=== PATIENT | female | born 1945 | race Caucasian/White ===

== ENCOUNTER 2023-05-13 13:12 | Day surgery (SDC) | payer MEDICARE, SELFPAY ==
--- NOTE | 2023-05-13 13:16 | FL_ITS ---
The [address] [address] Patient Name: SELVIN LINARES MRN: [id number] date: 1945 Sex: F Assigned Patient Location: [place] Current Patient Location: Accession/Order Number: [id number] Exam Date: 05/13/2023 13:30 Report Date: 05/13/2023 16:15 At the request of: ABBIE FONTENOT Procedure: FL guided needle placement EXAMINATION: FL hip inj LT, FL guided needle placement HISTORY: Osteoarthritis Left Hip COMPARISON: No relevant comparison available. FLUOROSCOPY TIME: Fluoro time measures 1.5 minutes and 3 images were obtained. TECHNIQUE: A joint injection was performed in the usual sterile manner after obtaining informed consent. Standard level fluoroscopic mode of operation utilized. FINDINGS: JOINT: Left hip. NEEDLE: 22 gauge, 3.5 spinal needle. MEDICATION: 5cc buffered 1% lidocaine for subcutaneous anesthesia 2cc Omnipaque-300 iodinated contrast to visualize the joint space Mixture of Kenalog 40 mg, 0.5% Bupivacaine 2 mL and Omnipaque 300 10mL was injected into the joint space. TECHNIQUE: Anterior approach with prior localization of the femoral artery. A single stick was successful in gaining access to the joint space. CLINICAL: 3 out of 10 pain before the procedure. 2 out of 10 pain following the procedure COMPLICATIONS: None. OTHER: Negative. FL/FL guided needle placement IMPRESSION: Technically successful left hip therapeutic arthrogram Electronically authenticated by: KRISHNA MATHEWS Date: 05/13/2023 16:15
--- NOTE | 2023-05-13 13:16 | FL_ITS ---
The [address] [address] Patient Name: SELVIN LINARES MRN: [id number] date: 1945 Sex: F Assigned Patient Location: [place] Current Patient Location: Accession/Order Number: [id number] Exam Date: 05/13/2023 13:30 Report Date: 05/13/2023 16:15 At the request of: ABBIE FONTENOT Procedure: FL hip inj LT EXAMINATION: FL hip inj LT, FL guided needle placement HISTORY: Osteoarthritis Left Hip COMPARISON: No relevant comparison available. FLUOROSCOPY TIME: Fluoro time measures 1.5 minutes and 3 images were obtained. TECHNIQUE: A joint injection was performed in the usual sterile manner after obtaining informed consent. Standard level fluoroscopic mode of operation utilized. FINDINGS: JOINT: Left hip. NEEDLE: 22 gauge, 3.5 spinal needle. MEDICATION: 5cc buffered 1% lidocaine for subcutaneous anesthesia 2cc Omnipaque-300 iodinated contrast to visualize the joint space Mixture of Kenalog 40 mg, 0.5% Bupivacaine 2 mL and Omnipaque 300 10mL was injected into the joint space. TECHNIQUE: Anterior approach with prior localization of the femoral artery. A single stick was successful in gaining access to the joint space. CLINICAL: 3 out of 10 pain before the procedure. 2 out of 10 pain following the procedure COMPLICATIONS: None. OTHER: Negative. FL/FL hip inj LT IMPRESSION: Technically successful left hip therapeutic arthrogram Electronically authenticated by: KRISHNA MATHEWS Date: 05/13/2023 16:15
[2023-05-13] MEDS: TRIAMCINOLONE ACETONIDE 40 MG/ML VIAL INJ (14:00)
[2023-05-13] MEDS: LIDOCAINE HCL 10 ML, SODIUM BICARBONATE 1 MEQ INJ (14:00)
[2023-05-13] MEDS: BUPIVACAINE HCL 0.5% PF 50 MG/10 ML VIAL 2 ML INJ (14:00)
[2023-05-13 14:48] VITALS: BMI 27.1
--- NOTE | 2023-05-13 15:17 | PC.NURSE ---
For both pain assessments they are on the left hip . The right hip entries were incorrect.
== END 2023-05-13 14:20 | disposition home or self-care (01) ==
LOC: FL 13:12
PROVIDERS: Radiology Diagnostic Radiology; PCP Family Medicine; Visit Provider Personal Emergency Response Attendant
DX: M16.12 Unilateral primary osteoarthritis, left hip (principal)
CPT/HCPCS: 20610; 77002; Q9967

== ENCOUNTER 2023-09-02 12:06 | Outpatient (OUT) | payer MEDICARE, SELFPAY ==
[2023-09-02 13:30] LABS: Alanine Aminotransferase 29 U/L (14-59); Albumin Globulin Ratio 0.9; Albumin Level 3.4 g/dL (3.4-5.0); Alkaline Phosphatase 91 U/L (46-116); Anion Gap 10.6; Aspartate Amino Transferase 22 U/L (15-37); BUN Creatinine Ratio 10.2; Bilirubin Total 0.3 mg/dL (0.2-1.0); Calcium 9.2 mg/dL (8.5-10.1); Carbon Dioxide 27.3 mmol/L (21.0-32.0); Chloride 89 mmol/L (98-107); Estimated GFR (African America >60 (>=60); Estimated GFR (Non-African Ame 55 (>=60); Globulin 3.6 g/dL; Glucose 122 mg/dL (74-106); Potassium 3.9 mmol/L (3.5-5.1)
[2023-09-02 13:48] LABS: Sodium 123 mmol/L (136-145)
== END 2023-09-02 12:07 | disposition home or self-care (01) ==
LOC: LAB 12:08
PROVIDERS: PCP Family Medicine; Visit Provider Family Medicine
DX: I10 Essential (primary) hypertension (principal)
CPT/HCPCS: 36415; 80053

== ENCOUNTER 2023-09-02 15:50 | Inpatient (IN) | payer MEDICARE, SELFPAY ==
[2023-09-02] VITALS (16 sets, daily range): BP systolic 160–190; BP diastolic 91–101; PULSE 76–108; RESP 6–21; TEMP 36.2; O2SAT 95–97; BMI 34.0; BMI 34.8; BMI 34.4
--- NOTE | 2023-09-02 16:06 | ECG_ITS ---
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
--- NOTE | 2023-09-02 16:06 | XR_ITS ---
The [address] [address] Patient Name: SELVIN LINARES MRN: [id number] date: 1945 Sex: F Assigned Patient Location: ER Current Patient Location: ER Accession/Order Number: [id number] Exam Date: 09/02/2023 16:23 Report Date: 09/02/2023 16:44 At the request of: RANDI MARVIN Procedure: XR chest 1V EXAM: XR chest 1V at 1621 hours HISTORY: covid on 08/31/2023 COMPARISON: 05/21/2015 TECHNIQUE: AP upright portable chest x-ray FINDINGS: The heart is not enlarged and the vasculature is not distended. No acute infiltrate, effusion or pneumothorax is identified. The osseous structures are grossly intact. Surgical clips are seen along the right chest wall, possibly related to mastectomy. There is been interval removal of the indwelling catheter on the left side. XR/XR chest 1V IMPRESSION: No acute infiltrate or evidence of cardiac decompensation. Interval surgery on the right and the indwelling catheter on the left has been removed. Electronically authenticated by: GERMAINE ONTIVEROS Date: 09/02/2023 16:44
--- NOTE | 2023-09-02 16:12 | ED_ITS ---
HPI - General Adult General Chief complaint: Recheck/Abnormal Lab/Rx Stated complaint: doc told her to come in d/t abnormal labs Time Seen by Provider: 09/02/23 15:57 Source: patient Mode of arrival: Wheelchair Limitations: no limitations History of Present Illness HPI narrative: Patient is a 77-year-old female who is presenting to the Emergency Room with chief complaint of low sodium levels from a lab test was done today. Patient's PCP Dr. Saenz called The patient at home and told her to go to the Emergency Room for evaluation of sodium levels. It was reported the patient's sodium level was 123. Patient just tested positive for COVID on Tuesday. Patient's had 3 days of Paxlovid medication treatment for Covid. Patient Tuesday night, 6 days ago had a headache, nausea or vomiting, she has no current headache this week, no nausea vomiting this week. Patient has been having diarrhea from the Paxlovid that she's been taking since Tuesday. Patient drove to the Emergency Room today. Patient was a home with a dog by herself. Patient has no chest pain or shortness of breath. No dull pain, nausea vomiting, no other acute complaints. No urinary symptoms. Patient says that she has a history of having low sodium levels, she cannot recall what the level is exactly. . All systems are negative except as noted/marked. All systems reviewed and otherwise negative. . Nurses note and vital signs reviewed and patient is not hypoxic. General: The patient appears well and in no apparent distress. Patient is resting comfortably on cart. Patient is not toxic, lethargic, or listless Skin: Warm, dry, no pallor noted. There is no rash noted. No petechiae, purpura. Head: Normocephalic, atraumatic Eye: Normal conjunctiva, no drainage, EOMI. PERRL Ears, Nose, Mouth, and Throat: oral mucosa is moist. Nares patent. Mouth without vesicles. Cardiovascular: Regular Rate and Rhythm, no murmur, gallop, rub Respiratory: Patient is in no distress, no accessory muscle use, lungs are clear to auscultation, no wheezing, rales or rhonchi Back: non-tender, no CVA tenderness bilaterally to percussion. No CT LS midline pain GI: soft, no tenderness to palpation, no masses appreciated. No rebound, guarding, or rigidity noted. No flank pain bilateral, No distention Musculoskeletal: Patient has full range of motion of all of the extremities, no motor, sensory, or focal neurological deficits Neurological: A&O x3, normal speech Psychiatric: Cooperative Related Data Home Medications Medication Instructions Recorded Confirmed baclofen 10 mg tablet 10 mg PO DAILY 05/13/23 08/02/23 cholecalciferol (vitamin D3) 250 10,000 unit PO DAILY 05/13/23 08/02/23 mcg (10,000 unit) capsule fulvestrant 250 mg/5 mL 500 mg IM .monthly 05/13/23 08/02/23 intramuscular syringe latanoprost 0.005 % eye drops 1 drp ophthalmic (eye) QPM 05/13/23 08/02/23 lorazepam 0.5 mg tablet 0.5 mg PO BID PRN anxiety 05/13/23 08/02/23 multivitamin 1 tab PO DAILY 05/13/23 08/02/23 ribociclib 400 mg/day (200 mg x 2) 400 mg PO DAILY 05/13/23 08/02/23 tablets (Kisqali) Allergies Allergy/AdvReac Type Severity Reaction Status Date / Time citalopram Allergy Unknown Verified 05/12/23 14:10 [facility] Medical History (Updated 09/02/23 @ 20:15 by Blanco Ramos MD) Acquired lymphedema ?I89.0 - Lymphedema, not elsewhere classified (ICD-10) Mass of chest wall, left ?R22.2 - Localized swelling, mass and lump, trunk (ICD-10) Arthritis ?M19.90 - Unspecified osteoarthritis, unspecified site (ICD-10) Anemia ?D64.9 - Anemia, unspecified (ICD-10) Osteopenia ?M85.80 - Other specified disorders of bone density and structure, unspecified site (ICD-10) Metastatic cancer to axillary lymph nodes ?C77.3 - Secondary and unspecified malignant neoplasm of axilla and upper limb lymph nodes (ICD-10) History of right breast cancer ?Z85.3 - Personal history of malignant neoplasm of breast (ICD-10) Surgical History (Updated 05/13/23 @ 14:41 by Emily Lee) History of lymph node excision ?Z98.890 - Other specified postprocedural states (ICD-10) S/P appy ?Z90.49 - Acquired absence of other specified parts of digestive tract (ICD- 10) History of cataract removal with insertion of prosthetic lens ?Z98.49 - Cataract extraction status, unspecified eye (ICD-10) ?Z96.1 - Presence of intraocular lens (ICD-10) S/P breast biopsy, right ?Z98.890 - Other specified postprocedural states (ICD-10) S/P mastectomy, bilateral ?Z90.13 - Acquired absence of bilateral breasts and nipples (ICD-10) Status post surgical removal of malignant neoplasm of skin ?Z98.890 - Other specified postprocedural states (ICD-10) Social History Smoking status: Never smoker Exam Constitutional Vital Signs, click to edit/add: Last Vital Signs Temp 97.2 F L 09/02/23 19:20 Pulse 108 H 09/02/23 19:20 Resp 20 09/02/23 19:20 BP 170/91 H 09/02/23 19:20 Pulse Ox 97 09/02/23 19:20 O2 Del Method Room Air 09/02/23 19:20 Course Vital Signs Vital signs: Vital Signs Pulse Rate 96 H 09/02/23 15:56 Respiratory Rate 20 09/02/23 15:56 Blood Pressure 172/92 H 09/02/23 15:56 Pulse Oximetry 96 09/02/23 15:56 Oxygen Delivery Method Room Air 09/02/23 15:56 Temperature 97.2 F L 09/02/23 19:20 Pulse Rate 108 H 09/02/23 19:20 Respiratory Rate 20 09/02/23 19:20 Blood Pressure 170/91 H 09/02/23 19:20 Pulse Oximetry 97 09/02/23 19:20 Oxygen Delivery Method Room Air 09/02/23 19:20 Medical Decision Making MDM Narrative Medical decision making narrative: Patient was given 1 L of IV fluids along with maintenance fluids. Patient was slightly hypertensive, she was given one dose of hydralazine. Patient will be admitted for hyponatremia. Patient's potassium was 3.4 and magnesium was 1.6. Patient was given oral magnesium and potassium replacement. Patientt is omitted to Dr. Goodrich. Lab Data Labs: Lab Results 09/02/23 09/02/23 Range/Units 16:20 17:20 Sodium 122 L* (136-145) mmol/L Potassium 3.4 L (3.5-5.1) mmol/L Chloride 88 L (98-107) mmol/L Carbon Dioxide 27.9 (21.0-32.0) mmol/L Anion Gap 9.5 BUN 10.0 (7.0-18.0) mg/dL Creatinine 0.90 (0.55-1.02) mg/dL Est GFR ( Amer) >60 (>=60) Est GFR (Non-Af Amer) >60 (>=60) BUN/Creatinine Ratio 11.1 Glucose 99 (74-106) mg/dL Calcium 8.8 (8.5-10.1) mg/dL Magnesium 1.6 L (1.8-2.4) mg/dL Total Bilirubin 0.4 (0.2-1.0) mg/dL AST 20 (15-37) U/L ALT 19 (14-59) U/L Alkaline Phosphatase 91 (46-116) U/L Total Protein 6.7 (6.4-8.2) g/dL Albumin 3.2 L (3.4-5.0) g/dL Globulin 3.5 g/dL Albumin/Globulin Ratio 0.9 Urine Color Lt. yellow (YELLOW) Urine Clarity Clear (CLEAR) Urine pH 7.0 (5.0-9.0) Ur Specific [place] <=1.005 A (1.005-1.025) Urine Protein Negative (NEG/TRACE) mg/dL Urine Glucose (UA) Negative (NEGATIVE) mg/dL Urine Ketones Negative (NEGATIVE) mg/dL Urine Occult Blood Negative (NEGATIVE) Urine Nitrite Negative (NEGATIVE) Urine Bilirubin Negative (NEGATIVE) Urine Urobilinogen 0.2 (0.2-1.0) EU/dL Ur Leukocyte Esterase Negative (NEGATIVE) Urine RBC None seen (0-2) #/HPF Urine WBC None seen (NONE SEEN) #/HPF Ur Squamous Epith Cells Rare (NONE/RARE) #/LPF Urine Crystals None seen (None Seen) #/HPF Urine Bacteria None seen (NONE SEEN) #/HPF Urine Casts None seen (NONE SEEN) #/LPF Urine Mucus None seen (NONE SEEN) ECG Data Attestation: I personally reviewed and interpreted this ECG as follows: (EKG interpretation. Normal sinus rhythm 82 beats a minute. Normal axis deviation. No acute ST elevation, no acute ectopy. QTC of 428.) Discharge Plan Discharge Chief Complaint: Recheck/Abnormal Lab/Rx Clinical Impression: Hyponatremia, Hypokalemia, Hypomagnesemia Patient Disposition: Admitted As Inpatient Time of Disposition Decision: 18:00 Condition: Fair Discharge Date/Time: 09/02/23 19:01
[2023-09-02] MEDS: 0.9 % SODIUM CHLORIDE 1,000 ML 999 ML IV (16:23)
[2023-09-02] MEDS: 0.9 % SODIUM CHLORIDE 1,000 ML 100 ML IV (17:15)
[2023-09-02 17:23] LABS: Alanine Aminotransferase 19 U/L (14-59); Albumin Globulin Ratio 0.9; Albumin Level 3.2 g/dL (3.4-5.0); Alkaline Phosphatase 91 U/L (46-116); Anion Gap 9.5; Aspartate Amino Transferase 20 U/L (15-37); BUN Creatinine Ratio 11.1; Bilirubin Total 0.4 mg/dL (0.2-1.0); Calcium 8.8 mg/dL (8.5-10.1); Carbon Dioxide 27.9 mmol/L (21.0-32.0); Chloride 88 mmol/L (98-107); Estimated GFR (African America >60 (>=60); Estimated GFR (Non-African Ame >60 (>=60); Globulin 3.5 g/dL; Glucose 99 mg/dL (74-106); Magnesium 1.6 mg/dL (1.8-2.4); Potassium 3.4 mmol/L (3.5-5.1); Total Protein 6.7 g/dL (6.4-8.2)
[2023-09-02 17:25] LABS: Sodium 122 mmol/L (136-145)
[2023-09-02 17:38] LABS: Bilirubin Urine NEGATIVE (NEGATIVE); Blood Urine NEGATIVE (NEGATIVE); Clarity Urine CLEAR (CLEAR); Color Urine LT. YELLOW (YELLOW); Glucose Urine UA NEGATIVE (NEGATIVE); Ketones Urine NEGATIVE (NEGATIVE); Leukocyte Esterase Urine NEGATIVE (NEGATIVE); Nitrite Urine NEGATIVE (NEGATIVE); Protein Urine NEGATIVE (NEG/TRACE); Specific Gravity Urine <=1.005 (1.005-1.025); Urobilinogen Urine 0.2 EU/dL (0.2-1.0)
[2023-09-02 17:59] LABS: Bacteria Urine NONE SEEN #/HPF (NONE SEEN); RBC Urine NONE SEEN #/HPF (0-2); WBC Urine NONE SEEN #/HPF (NONE SEEN)
[2023-09-02] MEDS: MAGNESIUM OXIDE 400 MG TABLET 800 MG PO (17:59)
[2023-09-02] MEDS: POTASSIUM BICARBONATE/CIT 25 MEQ TABLET EFF 50 MEQ PO (17:59)
[2023-09-02 18:00] LABS: Cast Seen? NONE SEEN #/LPF (NONE SEEN); Crystals Seen? None Seen #/HPF (None Seen); Mucus Urine NONE SEEN (NONE SEEN); Squamous Epithelial Cell Urine RARE #/LPF (NONE/RARE)
[2023-09-02] MEDS: HYDRALAZINE HCL 20 MG/ML VIAL 10 MG IVP (18:33)
[2023-09-03] VITALS (16 sets, daily range): BP systolic 151–158; BP diastolic 83–98; PULSE 75–91; RESP 18–20; TEMP 36.2–36.8; O2SAT 95–100
--- NOTE | 2023-09-03 00:15 | W.PM.TELEPN ---
Progress Note: Subjective Subjective Interval history: Chief Complaint: Patient has been referred for evaluation because of low sodium History of Present Illness: This is a 77 years old female who tested positive for COVID on Tuesday. Patient currently taking Paxlovid. Patient's PCP decided to do blood do blood work which revealed that patient sodium level is 123. She has been referred to emergency room for further evaluation and treatment. Patient endorses nausea and vomiting 5-6 days ago. Currently feeling better. No respiratory symptoms. Past medical history significant for breast cancer. Currently on immunotherapy. History of mastectomy. Right lymphedema. Exam Narrative Exam Narrative: ROS: 1.General: no fever, chills, not in distress 2.HEENT: no SALAZAR, no blurry vision, no swallow problems, no nasal congestion, no sore throat 3.Pulmonary: no cough, SOB, wheezes 4.CVS: no CP, no palpitations, no HEMPHILL, no SOB, no intermittent claudication 5.GI: no nausea, vomiting or diarrhea, no abdominal pain, no constipation, no hematemesis or hematochezia 6.: no renal colic, no hematuria, urinary frequency or urgency 7.Extremities: no edema 8.Neurological: no dizziness, vertigo, double or blurry vision, no no focal weakness, no paresthesia, no swallow or speech problems 9.Musculosceletal: no joint pains, no joint swelling, no back pain 10.Dermatological: no skin rashes, no lesions, no pruritus 11.Hematological: no bleeding, no hx/o clots 12.Endocrinological: no heat/cold intolerance, no hx/o diabetes 13.Psychiatric: no suicidal or homicidal thoughts Physical Exam: Not in distress, pleasant, lucid, cooperative, Head - atraumatic, eyes - pupils equal, round, reactive to light, extra ocular movement intact, MMM Neck - supple, thyroid not enlarged, LN not palpated Lungs - clear to auscultation, no dullness on percussion CVS - heart sounds S1, S2, no additional murmurs gallop, regular rate and rhythm Gastrointestinal?abdomen is soft, non-tender, non-distended, no organomegaly, positive bowel sounds Extremities no clubbing, cyanosis or edema Neurological?cranial nerve II?XII grossly intact, no meningeal signs, no cerebellar signs, no sensory deficit Musculoskeletal - joints, no effusions, ROM preserved Dermatological - the skin dry, warm, no rashes Psychiatric?patient is AAO X3, patient has normal affect Constitutional Vital Signs, click to edit/add: Last Vital Signs Temp 97.2 F L 09/02/23 22:57 Pulse 108 H 09/02/23 22:57 Resp 20 09/02/23 22:57 BP 170/91 H 09/02/23 22:57 Pulse Ox 97 09/02/23 22:57 O2 Del Method Room Air 09/02/23 22:57 Progress Note: Objective Labs Labs: [facility] 09/02/23 16:20 Sodium 122 L* Potassium 3.4 L Chloride 88 L Carbon Dioxide 27.9 BUN 10.0 Creatinine 0.90 Glucose 99 Calcium 8.8 Liver Function 09/02/23 Range/Units 16:20 Total Bilirubin 0.4 (0.2-1.0) mg/dL AST 20 (15-37) U/L ALT 19 (14-59) U/L Alkaline Phosphatase 91 (46-116) U/L Albumin 3.2 L (3.4-5.0) g/dL Urine 09/02/23 Range/Units 17:20 Urine Color Lt. yellow (YELLOW) Urine Clarity Clear (CLEAR) Urine pH 7.0 (5.0-9.0) Ur Specific [place] <=1.005 A (1.005-1.025) Urine Protein Negative (NEG/TRACE) mg/dL Urine Glucose (UA) Negative (NEGATIVE) mg/dL Progress Note: A&P Assessment and Plan (1) Hyponatremia: Assessment and Plan: Hyponatremia?reason unclear Suspect chronic?patient continued to maintain reasonably well We will check urine and serum osmolarity We will check random urine creatinine and protein I am going to check urine sodium excretion I am going to check sodium levels frequently Rate of correction 6-8 mEq / 24 hours Consider asking strapping machine tender to assist with management (2) COVID-19: Assessment and Plan: No pulmonary manifestation Continue with Paxlovid Symptoms control (3) Metastatic cancer to axillary lymph nodes: Assessment and Plan: Continue current regimen. Defer to outpatient management Patient status postmastectomy Plan As the provider for the telehealth service, I attest that I introduced myself to the patient, provided my credentials, disclosed by location and determined that based on a review of the patient's chart and discussion with members of the patient's treatment team, telemedicine via real-time, 2 way, and interactive audio and video platform is an appropriate and effective means of providing the service. ?The patient and I mutually agree this visit is appropriate for telemedicine. ?[place] ?The encounter took approximately 35 minutes. ?The nurse was present during the entire time and I was able to move the stethoscope in appropriate directions. ?The patient was evaluated at the Hospital ? Portions of this note may be dictated using [employer] voice recognition software. Variances in spelling and vocabulary are possible and unintentional. Not all errors may be caught and/or corrected. Please notify the author if any discrepancies are noted and/or if the meaning of any statement is unclear.? ? Patient verbally consented for treatment via video visit with patient currently located at the [facility] and provider located in [place]. Telemedicine Attestation Telemedicine Attestation I conducted this encounter from [place]] via secure live, [id number] video conference with the patient, located at [facility] with [HypoNatremia]. Prior to the interview, the risks and benefits of telemedicine were discussed with the patient and verbal consent was obtained.
[2023-09-03] MEDS: 0.9 % SODIUM CHLORIDE 1,000 ML 50 ML IV (02:12)
[2023-09-03 05:48] LABS: Basophils Percent Auto 0.8 % (0.2-2.0); Eosinophils Percent Auto 0.4 % (0.9-7.0); Hemoglobin 11.6 g/dL (12.0-16.0); Immature Granulocytes Abs Auto 0.01 10^3/uL (0.00-0.03); Immature Granulocytes Pct Auto 0.4 % (0.0-0.5); Lymphocytes Absolute Auto 0.9 10^3/uL (1.2-3.8); Mean Corpuscular HGB Conc 34.1 g/dL (29.9-35.2); Mean Corpuscular Volume 99.7 fL (81.0-99.0); Mean Platelet Volume 8.8 fL (9.5-13.5); Monocytes Absolute Auto 0.3 10^3/uL (0.3-0.8); Monocytes Percent Auto 10.9 % (1.7-12.0); Neutrophils Absolute Auto 1.4 10^3/uL (1.4-6.5); Neutrophils Percent Auto 52.5 % (43.0-75.0); Platelet Count 301 10^3/uL (150-450); Red Blood Count 3.41 10^6/uL (4.20-5.40); Red Cell Distribution Width 12.4 % (11.0-15.0); White Blood Count 2.6 10^3/uL (4.0-11.0)
[2023-09-03 06:19] LABS: Alanine Aminotransferase 21 U/L (14-59); Albumin Globulin Ratio 0.8; Albumin Level 2.7 g/dL (3.4-5.0); Alkaline Phosphatase 76 U/L (46-116); Anion Gap 11.4; Aspartate Amino Transferase 16 U/L (15-37); Bilirubin Total 0.3 mg/dL (0.2-1.0); Calcium 8.4 mg/dL (8.5-10.1); Carbon Dioxide 24.6 mmol/L (21.0-32.0); Chloride 95 mmol/L (98-107); Estimated GFR (African America >60 (>=60); Estimated GFR (Non-African Ame >60 (>=60); Globulin 3.4 g/dL; Glucose 95 mg/dL (74-106); Sodium 127 mmol/L (136-145); Total Protein 6.1 g/dL (6.4-8.2)
[2023-09-03] MEDS: CHOLECALCIFEROL (VITAMIN D3) 125 MCG/5000 UNIT TABLET 250 MCG PO (08:18)
[2023-09-03] MEDS: OMEPRAZOLE 20 MG CAPSULE.DR PO (08:18)
[2023-09-03] MEDS: MULTIVITAMIN TABLET 1 TAB PO (08:18)
[2023-09-03] MEDS: LORAZEPAM 0.5 MG TABLET PO ×2 (08:24→18:27)
[2023-09-03 08:59] LABS: Sodium 125 mmol/L (136-145)
--- NOTE | 2023-09-03 11:22 | P.HP_ITS ---
H&P: HPI History of Present Illness Chief complaint: d/t abnormal labs HYPONCETREMIA Narrative: Patient was seen and evaluated in the emergency room after being told her she had significant hyponatremia. Her sodium does tend to run low with her current chemotherapy management-she follows with oncology for that. This appear to be lower than previous although unable to obtain lab results as they were done to the [facility]. Patient is also COVID-positive is been finishing up her last few doses of Paxlovid. Review of Systems ROS Status of ROS 10 or more systems reviewed and unremark able except as noted in history and below [facility] Medical History (Updated 09/03/23 @ 00:19 by Alvin Olivera MD) Acquired lymphedema ?I89.0 - Lymphedema, not elsewhere classified (ICD-10) Mass of chest wall, left ?R22.2 - Localized swelling, mass and lump, trunk (ICD-10) Arthritis ?M19.90 - Unspecified osteoarthritis, unspecified site (ICD-10) Anemia ?D64.9 - Anemia, unspecified (ICD-10) Osteopenia ?M85.80 - Other specified disorders of bone density and structure, unspecified site (ICD-10) Metastatic cancer to axillary lymph nodes ?C77.3 - Secondary and unspecified malignant neoplasm of axilla and upper limb lymph nodes (ICD-10) History of right breast cancer ?Z85.3 - Personal history of malignant neoplasm of breast (ICD-10) Surgical History (Updated 05/13/23 @ 14:41 by Emily Lee) History of lymph node excision ?Z98.890 - Other specified postprocedural states (ICD-10) S/P appy ?Z90.49 - Acquired absence of other specified parts of digestive tract (ICD- 10) History of cataract removal with insertion of prosthetic lens ?Z98.49 - Cataract extraction status, unspecified eye (ICD-10) ?Z96.1 - Presence of intraocular lens (ICD-10) S/P breast biopsy, right ?Z98.890 - Other specified postprocedural states (ICD-10) S/P mastectomy, bilateral ?Z90.13 - Acquired absence of bilateral breasts and nipples (ICD-10) Status post surgical removal of malignant neoplasm of skin ?Z98.890 - Other specified postprocedural states (ICD-10) Social History (Updated 09/02/23 @ 22:47 by Nel Islas) Within the past year, how often did you have a drink containing alcohol: never Within the past year, how often did you have six or more drinks on one occasion: never Score interpretation: A score less than 3 is consistent with normal alcohol consumption. Smoking status: Never smoker Non-prescribed substance use: denies use Previous occupational history: Retired Highest level of school completed/degree received: high school graduate Are you now , , , , never or living with a partner: In a typical week, how many times do you talk on the telephone with family, friends, or neighbors: 3 or more times per week How often do you get together with friends or relatives: 3 or more times per week Do you belong to any clubs or organizations such as religion groups unions, [employer] or athletic groups, or school groups: no Little interest or pleasure in doing things: not at all Feeling down, depressed, or hopeless: not at all Feel stressed/tense/nervous/anxious/difficulty sleeping: not at all Do you think of yourself as: straight/heterosexual Gender Identity: female Meds Home Medications and Allergies Home Medications Medication Instructions Recorded Confirmed Type baclofen 10 mg tablet 10 mg PO Q12H PRN spasms 05/13/23 09/03/23 History cholecalciferol (vitamin D3) 250 10,000 unit PO DAILY 05/13/23 09/02/23 History mcg (10,000 unit) capsule fulvestrant 250 mg/5 mL 500 mg IM .monthly 05/13/23 09/02/23 History intramuscular syringe latanoprost 0.005 % eye drops 1 drp ophthalmic (eye) QPM 05/13/23 09/02/23 History lorazepam 0.5 mg tablet 0.5 mg PO BID PRN anxiety 05/13/23 09/02/23 History multivitamin 1 tab PO DAILY 05/13/23 09/02/23 History ribociclib 400 mg/day (200 mg x 2) 400 mg PO DAILY 05/13/23 09/02/23 History tablets (Kisqali) esomeprazole magnesium 20 mg 20 mg PO DAILY 09/02/23 09/02/23 History capsule,delayed release (Nexium) nirmatrelvir 300 mg (150 mg 300 ea PO BID 09/02/23 09/03/23 History x2)-ritonavir 100 mg tablet,dose pack (Paxlovid) ondansetron HCl 8 mg tablet 8 mg PO Q8H PRN nausea 09/02/23 09/02/23 History prochlorperazine maleate 10 mg 10 mg PO DAILY 09/02/23 09/02/23 History tablet tramadol 50 mg tablet 50 mg PO Q12H PRN pain 09/02/23 09/03/23 History Allergies Allergy/AdvReac Type Severity Reaction Status Date / Time citalopram Allergy Unknown Verified 05/12/23 14:10 Exam Constitutional Vital Signs, click to edit/add: Last Vital Signs Temp 97.4 F L 09/03/23 06:00 Pulse 85 09/03/23 10:00 Resp 18 09/03/23 06:00 BP 151/85 H 09/03/23 06:00 Pulse Ox 95 09/03/23 06:00 O2 Del Method Room Air 09/03/23 06:00 Documenting provider has reviewed patient's vital signs: yes Common normals: no apparent distress Chest Common normals: inspection of chest normal Respiratory Common normals: normal respiratory effort and no retractions Cardio Common normals: no JVD, regular rate and regular rhythm GI Common normals: Normal to inspection, nondistended, normoactive bowel sounds present Results Labs Labs: Short CBC 09/03/23 Range/Units 04:23 WBC 2.6 L (4.0-11.0) 10^3/uL Hgb 11.6 L (12.0-16.0) g/dL Hct 34.0 L (36.0-48.0) % Plt Count 301 (150-450) 10^3/uL BMP 09/02/23 09/03/23 09/03/23 16:20 04:55 08:03 Sodium 122 L* 127 L 125 L Potassium 3.4 L 4.0 Chloride 88 L 95 L Carbon Dioxide 27.9 24.6 BUN 10.0 5.0 L Creatinine 0.90 0.71 Glucose 99 95 Calcium 8.8 8.4 L Liver Function 09/02/23 09/03/23 Range/Units 16:20 04:55 Total Bilirubin 0.4 0.3 (0.2-1.0) mg/dL AST 20 16 (15-37) U/L ALT 19 21 (14-59) U/L Alkaline Phosphatase 91 76 (46-116) U/L Albumin 3.2 L 2.7 L (3.4-5.0) g/dL Urine 09/02/23 Range/Units 17:20 Urine Color Lt. yellow (YELLOW) Urine Clarity Clear (CLEAR) Urine pH 7.0 (5.0-9.0) Ur Specific Pyrites <=1.005 A (1.005-1.025) Urine Protein Negative (NEG/TRACE) mg/dL Urine Glucose (UA) Negative (NEGATIVE) mg/dL Assessment and Plan Assessment and Plan (1) Hyponatremia: (2) COVID-19: (3) Metastatic cancer to axillary lymph nodes: Plan Sinus tachycardia, uncontrolled hypertension, hyponatremia, neutropenia, hypokalemia secondary to acute COVID-19 and complicated by chemotherapy treatment. Reviewed medications with pharmacy the only thing significant that would cause the hyponatremia and is new for her would be the Paxlovid. Will hold off on using that currently. She only had 3 doses left to finish it out. Her respiratory status feels much better to her. Monitor sodiums every 6 hours for today. Reevaluate in a.m. If improved tomorrow possible discharge. Sinus tachycardia-improved, continue to monitor Uncontrolled hypertension-review medications Hypomagnesemia-supplement Neutropenia likely secondary to chemotherapy or the [id number] daily Iron deficiency anemia as well as anemia related to chemotherapy-monitor daily Hypokalemia on admission-improved this morning is back to normal There is a degree of hyponatremia and the danger of correcting it to critically patient will require inpatient admission.
[2023-09-03 12:28] LABS: Sodium 127 mmol/L (136-145)
[2023-09-03] MEDS: SODIUM CHLORIDE 1,000 MG TABLET 1000 MG PO ×2 (13:06→22:48)
[2023-09-03] MEDS: 0.9 % SODIUM CHLORIDE 1,000 ML 100 ML IV (15:58)
[2023-09-03 16:30] LABS: Sodium 127 mmol/L (136-145)
[2023-09-03 18:42] LABS: Sodium Urine Random 63 mmol/L (30-90)
[2023-09-03 20:59] LABS: Sodium 125 mmol/L (136-145)
[2023-09-03] MEDS: LATANOPROST 0.005% 2.5 ML BOTTLE 1 DROP OP (22:48)
[2023-09-04] VITALS (16 sets, daily range): BP systolic 148–155; BP diastolic 80–85; PULSE 62–92; RESP 18–20; TEMP 36.3–36.9; O2SAT 93–97
[2023-09-04 04:56] LABS: Basophils Percent Auto 0.4 % (0.2-2.0); Eosinophils Percent Auto 1.1 % (0.9-7.0); Hematocrit 35.2 % (36.0-48.0); Immature Granulocytes Abs Auto 0.02 10^3/uL (0.00-0.03); Immature Granulocytes Pct Auto 0.7 % (0.0-0.5); Lymphocytes Percent Auto 36.3 % (20.5-60.0); Mean Corpuscular HGB Conc 34.1 g/dL (29.9-35.2); Mean Corpuscular Hemoglobin 34.3 pg (26.7-34.0); Mean Corpuscular Volume 100.6 fL (81.0-99.0); Mean Platelet Volume 8.7 fL (9.5-13.5); Monocytes Absolute Auto 0.3 10^3/uL (0.3-0.8); Monocytes Percent Auto 11.2 % (1.7-12.0); Neutrophils Absolute Auto 1.4 10^3/uL (1.4-6.5); Neutrophils Percent Auto 50.3 % (43.0-75.0); Platelet Count 309 10^3/uL (150-450); Red Cell Distribution Width 12.5 % (11.0-15.0); White Blood Count 2.8 10^3/uL (4.0-11.0)
[2023-09-04] MEDS: SODIUM CHLORIDE 1,000 MG TABLET 1000 MG PO (05:28)
[2023-09-04] MEDS: 0.9 % SODIUM CHLORIDE 1,000 ML 100 ML IV (05:28)
[2023-09-04 05:31] LABS: Alanine Aminotransferase 20 U/L (14-59); Albumin Globulin Ratio 0.8; Albumin Level 2.8 g/dL (3.4-5.0); Alkaline Phosphatase 73 U/L (46-116); Aspartate Amino Transferase 16 U/L (15-37); BUN Creatinine Ratio 7.7; Bilirubin Total 0.4 mg/dL (0.2-1.0); Calcium 8.8 mg/dL (8.5-10.1); Carbon Dioxide 22.6 mmol/L (21.0-32.0); Chloride 95 mmol/L (98-107); Estimated GFR (African America >60 (>=60); Estimated GFR (Non-African Ame >60 (>=60); Globulin 3.4 g/dL; Glucose 98 mg/dL (74-106); Magnesium 1.9 mg/dL (1.8-2.4); Potassium 3.6 mmol/L (3.5-5.1); Sodium 126 mmol/L (136-145); Total Protein 6.2 g/dL (6.4-8.2)
[2023-09-04] MEDS: CHOLECALCIFEROL (VITAMIN D3) 125 MCG/5000 UNIT TABLET 250 MCG PO (08:01)
[2023-09-04] MEDS: BACLOFEN 10 MG TABLET PO (08:02)
[2023-09-04] MEDS: PROCHLORPERAZINE MALEATE 5 MG TABLET 10 MG PO (08:02)
[2023-09-04] MEDS: MULTIVITAMIN TABLET 1 TAB PO (08:02)
[2023-09-04] MEDS: OMEPRAZOLE 20 MG CAPSULE.DR PO (08:02)
[2023-09-04] MEDS: SODIUM CHLORIDE 3 % 500 ML 50 ML IV (08:17)
--- NOTE | 2023-09-04 09:27 | P.PN_ITS ---
Progress Note: Subjective Subjective Interval history: Patient still with significant weakness, reviewed labs with patient. Exam Constitutional Vital Signs, click to edit/add: Last Vital Signs Temp 97.4 F L 09/04/23 06:00 Pulse 62 09/04/23 08:00 Resp 18 09/04/23 06:00 BP 148/80 H 09/04/23 06:00 Pulse Ox 97 09/04/23 06:00 O2 Del Method Room Air 09/04/23 06:00 Documenting provider has reviewed patient's vital signs: yes Common normals: no apparent distress Chest Common normals: inspection of chest normal Respiratory Common normals: normal respiratory effort and no retractions Cardio Common normals: no JVD, regular rate and regular rhythm GI Common normals: Normal to inspection, nondistended, normoactive bowel sounds present Progress Note: Objective Labs Labs: Short CBC 09/04/23 Range/Units 04:05 WBC 2.8 L (4.0-11.0) 10^3/uL Hgb 12.0 (12.0-16.0) g/dL Hct 35.2 L (36.0-48.0) % Plt Count 309 (150-450) 10^3/uL BMP 09/03/23 09/03/23 09/03/23 12:15 16:18 20:40 Sodium 127 L 127 L 125 L Potassium Chloride Carbon Dioxide BUN Creatinine Glucose Calcium 09/04/23 04:05 Sodium 126 L Potassium 3.6 Chloride 95 L Carbon Dioxide 22.6 BUN 5.0 L Creatinine 0.65 Glucose 98 Calcium 8.8 Liver Function 09/04/23 Range/Units 04:05 Total Bilirubin 0.4 (0.2-1.0) mg/dL AST 16 (15-37) U/L ALT 20 (14-59) U/L Alkaline Phosphatase 73 (46-116) U/L Albumin 2.8 L (3.4-5.0) g/dL Progress Note: A&P Assessment and Plan (1) Hyponatremia: (2) COVID-19: (3) Metastatic cancer to axillary lymph nodes: Plan Sinus tachycardia, uncontrolled hypertension, hyponatremia, neutropenia, hypokalemia secondary to acute COVID-19 treatment and complicated by chemotherapy treatment. Reviewed medications with pharmacy the only thing significant that would cause the hyponatremia and is new for her would be the Paxlovid. Hyponatremia improved from admission but not improved enough for discharge to home. Increase oral intake and will try 1 round to 3% saline today secondary to symptomatic hyponatremia with increasing weakness. Sinus tachycardia-improved, continue to monitor Uncontrolled hypertension-review medications Hypomagnesemia-supplement Neutropenia likely secondary to chemotherapy or the [id number] improved Iron deficiency anemia as well as anemia related to chemotherapy-monitor daily Hypokalemia on admission-improved this morning is back to normal Maintain patient as inpatient status, likely 1-2 more days to correct her sodium without causing congestive heart failure
[2023-09-04] MEDS: SODIUM CHLORIDE 1,000 MG TABLET 2000 MG PO ×2 (15:34→21:03)
[2023-09-04] MEDS: LORAZEPAM 0.5 MG TABLET PO (17:27)
[2023-09-04] MEDS: LATANOPROST 0.005% 2.5 ML BOTTLE 1 DROP OP (21:03)
[2023-09-05 01:58] VITALS: PULSE 73
[2023-09-05 03:59] VITALS: PULSE 83
[2023-09-05 04:37] LABS: Basophils Percent Auto 0.6 % (0.2-2.0); Eosinophils Percent Auto 0.8 % (0.9-7.0); Hematocrit 33.6 % (36.0-48.0); Hemoglobin 11.8 g/dL (12.0-16.0); Immature Granulocytes Abs Auto 0.02 10^3/uL (0.00-0.03); Immature Granulocytes Pct Auto 0.4 % (0.0-0.5); Lymphocytes Absolute Auto 1.5 10^3/uL (1.2-3.8); Lymphocytes Percent Auto 29.5 % (20.5-60.0); Mean Corpuscular HGB Conc 35.1 g/dL (29.9-35.2); Mean Corpuscular Hemoglobin 34.8 pg (26.7-34.0); Mean Corpuscular Volume 99.1 fL (81.0-99.0); Mean Platelet Volume 8.8 fL (9.5-13.5); Monocytes Absolute Auto 0.6 10^3/uL (0.3-0.8); Monocytes Percent Auto 11.3 % (1.7-12.0); Neutrophils Absolute Auto 2.9 10^3/uL (1.4-6.5); Neutrophils Percent Auto 57.4 % (43.0-75.0); Platelet Count 291 10^3/uL (150-450); Red Blood Count 3.39 10^6/uL (4.20-5.40); Red Cell Distribution Width 12.5 % (11.0-15.0); White Blood Count 5.1 10^3/uL (4.0-11.0)
[2023-09-05 05:01] LABS: Alanine Aminotransferase 21 U/L (14-59); Albumin Globulin Ratio 0.8; Albumin Level 2.7 g/dL (3.4-5.0); Alkaline Phosphatase 73 U/L (46-116); Aspartate Amino Transferase 20 U/L (15-37); BUN Creatinine Ratio 15.9; Bilirubin Total 0.4 mg/dL (0.2-1.0); Calcium 8.9 mg/dL (8.5-10.1); Chloride 98 mmol/L (98-107); Estimated GFR (African America >60 (>=60); Estimated GFR (Non-African Ame >60 (>=60); Globulin 3.4 g/dL; Glucose 99 mg/dL (74-106); Magnesium 1.7 mg/dL (1.8-2.4); Sodium 127 mmol/L (136-145); Total Protein 6.1 g/dL (6.4-8.2)
[2023-09-05] MEDS: SODIUM CHLORIDE 1,000 MG TABLET 2000 MG PO (05:35)
[2023-09-05 05:39] VITALS: BP 152/81; PULSE 87; RESP 20; TEMP 36.2; O2SAT 96
[2023-09-05 05:59] VITALS: PULSE 80
[2023-09-05 07:50] VITALS: PULSE 77
[2023-09-05] MEDS: MULTIVITAMIN TABLET 1 TAB PO (08:22)
[2023-09-05] MEDS: LORAZEPAM 0.5 MG TABLET PO (08:22)
[2023-09-05] MEDS: CHOLECALCIFEROL (VITAMIN D3) 125 MCG/5000 UNIT TABLET 250 MCG PO (08:22)
--- NOTE | 2023-09-05 08:42 | P.DS_ITS ---
DS: Providers Provider Date of admission: 09/02/23 19:01 Primary care physician: JOANA LERMA Consults: 09/03/23 08:26 Consult to Pharmacy Routine Consulting Provider: Christ Ramirez Reason for consultation: review meds for hypoonatremia Has provider been notified: No DS: Diagnosis Discharge Diagnosis (1) Hyponatremia: (2) COVID-19: (3) Metastatic cancer to axillary lymph nodes: Plan Sinus tachycardia, uncontrolled hypertension, hyponatremia, neutropenia, hypokalemia secondary to acute COVID-19 treatment and complicated by chemotherapy treatment. Sinus tachycardia Uncontrolled hypertension Hypomagnesemia Neutropenia likely secondary to chemotherapy or the COVID-19 Iron deficiency anemia as well as anemia related to chemotherapy Hypokalemia on admission DS: Summary Hospital Course Hospital Course: She was told to present to the emergency room secondary to hyponatremia, loss her sodium normally runs low around 130, this is secondary likely to chemotherapy treatment, she was started on Paxlovid about 7 days prior to admission, sodium on admission was 122. She was given salt tablets, IV fluids including 3%, her sodium did improve up to 127, she does overall feel improved f rom a strength standpoint. Her body is probably used to have this number. At this point she would prefer to try it at home as opposed to continuing IV supplementation. Will send patient home on oral sodium tablets and have her follow-up with her PCP later this week to recheck labs later this week follow-up with oncology per routine Time Spent with Patient Time attestation: Total time spent providing and/or coordinating discharge services: Exam Constitutional Vital Signs, click to edit/add: Last Vital Signs Temp 97.1 F L 09/05/23 05:39 Pulse 77 09/05/23 07:50 Resp 20 09/05/23 05:39 BP 152/81 H 09/05/23 05:39 Pulse Ox 96 09/05/23 05:39 O2 Del Method Room Air 09/05/23 05:39 Documenting provider has reviewed patient's vital signs: yes Common normals: no apparent distress Chest Common normals: inspection of chest normal Respiratory Common normals: normal respiratory effort and no retractions Cardio Common normals: no JVD, regular rate and regular rhythm GI Common normals: Normal to inspection, nondistended, normoactive bowel sounds present DS: Data Data Completed and Pending Labs on day of discharge: Labs from last 24 hours 09/05/23 04:09 WBC 5.1 RBC 3.39 L Hgb 11.8 L Hct 33.6 L MCV 99.1 H MCH 34.8 H MCHC 35.1 RDW 12.5 Plt Count 291 MPV 8.8 L Neut % (Auto) 57.4 Lymph % (Auto) 29.5 [place] % (Auto) 11.3 Eos % (Auto) 0.8 L Baso % (Auto) 0.6 Neut # (Auto) 2.9 Lymph # (Auto) 1.5 [place] # (Auto) 0.6 Eos # (Auto) 0.0 Baso # (Auto) 0.0 Abs Immat Gran (auto) 0.02 Imm/Tot Granulo (auto) 0.4 Sodium 127 L Potassium 4.0 Chloride 98 Carbon Dioxide 22.0 Anion Gap 11.0 BUN 11.0 Creatinine 0.69 Est GFR ( Amer) >60 Est GFR (Non-Af Amer) >60 BUN/Creatinine Ratio 15.9 Glucose 99 Calcium 8.9 Magnesium 1.7 L Total Bilirubin 0.4 AST 20 ALT 21 Alkaline Phosphatase 73 Total Protein 6.1 L Albumin 2.7 L Globulin 3.4 Albumin/Globulin Ratio 0.8 Discharge Plan Discharge Disposition: Home, Self-Care Condition: Fair Discharge Medications: New sodium chloride 1,000 mg Tablet,Soluble 3,000 mg PO TID Qty: 300 11RF magnesium oxide 400 mg magnesium tablet 400 mg PO DAILY Qty: 30 11RF Continued cholecalciferol (vitamin D3) 250 mcg (10,000 unit) capsule 10,000 unit PO DAILY Kisqali 400 mg/day (200 mg x 2) tablet 400 mg PO DAILY Hold Instructions: On hold till better Rx Instructions: administer for 21 days; off 7 days per 28-day cycle latanoprost 0.005 % drops 1 drp ophthalmic (eye) QPM Rx Instructions: ou lorazepam 0.5 mg tablet 0.5 mg PO BID PRN (Reason: anxiety) multivitamin Tablet 1 tab PO DAILY baclofen 10 mg tablet 10 mg PO Q12H PRN (Reason: spasms) tramadol 50 mg tablet 50 mg PO Q12H PRN (Reason: pain) ondansetron HCl 8 mg tablet 8 mg PO Q8H PRN (Reason: nausea) prochlorperazine maleate 10 mg tablet 10 mg PO DAILY esomeprazole magnesium [Nexium] 20 mg capsule,delayed release(DR/EC) 20 mg PO DAILY PRN (Reason: PRN) Discontinued fulvestrant 250 mg/5 mL syringe 500 mg IM .monthly Rx Instructions: may divide dose into 2 equally divided injections; one into each buttock Paxlovid 300 mg (150 mg x 2)-100 mg tablets,dose pack 300 ea PO BID Rx Instructions: filled 08/30/23 x 5 days Patient Instructions: Sodium Bicarbonate (By mouth), Magnesium Sulfate (By mouth), Hyponatremia (ED), Droplet Precautions (ED), COVID-19: Slow the Casas virus Spread (GEN), Face Coverings (Masks) and COVID-19 (DC) Forms: Portal Instructions Follow Up Appointments: @ 2:30pm with Dr. Lerma [phone] Discharge Date/Time: 09/05/23 11:20
--- NOTE | 2023-09-05 09:01 | CM.NOTE ---
Rounds made with Dr. Suarez. Plan for discharge today. Dr. Suarez instructed to increase her sodium tabs and follow up with PCP sometime this week. Soha verbalizes understanding.
[2023-09-05 10:06] VITALS: PULSE 94
[2023-09-05] MEDS: SODIUM CHLORIDE 1,000 MG TABLET 3000 MG PO (10:19)
--- NOTE | 2023-09-05 10:40 | CM.NOTE ---
Important Message From Medicare discussed with pt, pt verbalizes understanding and signs paper. Original given to pt and copy placed in pt's chart.
[2023-09-07 15:08] LABS: Osmolality, Urine 187 mOsmol/kg (.)
== END 2023-09-05 11:20 | disposition home or self-care (01) | DRG 640 ==
LOC: ER 18:30 → MS 09-05 07:11
PROVIDERS: Internal Medicine; Admitting Provider Family Medicine; Emergency Provider Emergency Medicine; PCP Family Medicine; Visit Provider Family Medicine
DX: E87.1 Hypo-osmolality and hyponatremia (principal); U07.1 COVID-19; C77.3 Secondary and unspecified malignant neoplasm of axilla and upper limb lymph nodes; R00.0 Tachycardia, unspecified; E83.42 Hypomagnesemia; D70.1 Agranulocytosis secondary to cancer chemotherapy; I10 Essential (primary) hypertension; D50.9 Iron deficiency anemia, unspecified; D64.81 Anemia due to antineoplastic chemotherapy; E87.6 Hypokalemia; M19.90 Unspecified osteoarthritis, unspecified site; T45.1X5A Adverse effect of antineoplastic and immunosuppressive drugs, initial encounter; T37.5X5A Adverse effect of antiviral drugs, initial encounter; M85.80 Other specified disorders of bone density and structure, unspecified site; Z85.3 Personal history of malignant neoplasm of breast; Z90.49 Acquired absence of other specified parts of digestive tract; Z98.49 Cataract extraction status, unspecified eye; Z96.1 Presence of intraocular lens; Z90.13 Acquired absence of bilateral breasts and nipples; Z98.890 Other specified postprocedural states; Z79.899 Other long term (current) drug therapy; Z85.828 Personal history of other malignant neoplasm of skin
CPT/HCPCS: 36415; 71045; 80053; 81001; 83735; 83930; 83935; 84295; 84300; 85025; 93005; 96361; 96374; 99285; G0378; Q3014

== ENCOUNTER 2023-09-22 10:08 | Day surgery (SDC) | payer MEDICARE, SELFPAY ==
--- NOTE | 2023-09-22 | FL_ITS ---
The [address] [address] Patient Name: SELVIN LINARES MRN: [id number] date: 1945 Sex: F Assigned Patient Location: [place] Current Patient Location: [place] Accession/Order Number: [id number] Exam Date: 09/22/2023 11:00 Report Date: 09/22/2023 12:11 At the request of: EMETERIO BUTLER Procedure: FL hip inj LT EXAMINATION: FL hip inj LT, FL guided needle placement HISTORY: osteoarthritis COMPARISON: No relevant comparison available. FLUOROSCOPY TIME: Fluoro time measures 0.9 minutes and 2 images were obtained. TECHNIQUE: A joint injection was performed in the usual sterile manner after obtaining informed consent. Standard level fluoroscopic mode of operation utilized. FINDINGS: JOINT: Left hip. NEEDLE: 22 gauge, 3.5 spinal needle. MEDICATION: 2cc buffered 1% lidocaine for subcutaneous anesthesia 2cc Omnipaque-300 iodinated contrast to visualize the joint space Mixture of Kenalog 40 mg, 0.5% Bupivacaine 2 mL and Omnipaque 300 10mL was injected into the joint space. TECHNIQUE: Anterior approach with prior localization of the femoral artery. A single stick was successful in gaining access to the joint space. CLINICAL: 4 out of 10 pain before the procedure. 2 out of 10 pain following the procedure COMPLICATIONS: None. OTHER: Negative. FL/FL hip inj LT IMPRESSION: Technically successful left hip therapeutic arthrogram Electronically authenticated by: KRISHNA MATHEWS Date: 09/22/2023 12:11
--- NOTE | 2023-09-22 | FL_ITS ---
[address] [address] Patient Name: SELVIN LINARES MRN: [id number] date: 1945 Sex: F Assigned Patient Location: [place] Current Patient Location: [place] Accession/Order Number: [id number] Exam Date: 09/22/2023 11:00 Report Date: 09/22/2023 12:11 At the request of: EMETERIO BUTLER Procedure: FL guided needle placement EXAMINATION: FL hip inj LT, FL guided needle placement HISTORY: osteoarthritis COMPARISON: No relevant comparison available. FLUOROSCOPY TIME: Fluoro time measures 0.9 minutes and 2 images were obtained. TECHNIQUE: A joint injection was performed in the usual sterile manner after obtaining informed consent. Standard level fluoroscopic mode of operation utilized. FINDINGS: JOINT: Left hip. NEEDLE: 22 gauge, 3.5 spinal needle. MEDICATION: 2cc buffered 1% lidocaine for subcutaneous anesthesia 2cc Omnipaque-300 iodinated contrast to visualize the joint space Mixture of Kenalog 40 mg, 0.5% Bupivacaine 2 mL and Omnipaque 300 10mL was injected into the joint space. TECHNIQUE: Anterior approach with prior localization of the femoral artery. A single stick was successful in gaining access to the joint space. CLINICAL: 4 out of 10 pain before the procedure. 2 out of 10 pain following the procedure COMPLICATIONS: None. OTHER: Negative. FL/FL guided needle placement IMPRESSION: Technically successful left hip therapeutic arthrogram Electronically authenticated by: KRISHNA MATHEWS Date: 09/22/2023 12:11
--- OUTSIDE RECORDS SUMMARY | 2023-09-22 10:13 | XMS_ITS | CCD ---
Author Name Unknown Address [address] [place] [address] Organization [facility] Care Team Providers Care Cotton Farmer Name Role Phone Dany GONG, [facility] Primary Care Provider [phone] Cedrick Calix MD Unavailable Waldemar UX CONSULTANT.Christ GRANT Unavailable [phone] Ariel MEDINA, Emily Unavailable CARRIE, DR STORM Admitting Unavailable WONDERLY, DR KALEE Ash Primary Care Unavailable STEPANIC, DR STORM Attending Unavailable STEPANIC, DR STORM Consulting Unavailable ZIEBER, DR TOÑITO De La Torre Consulting Unavailable STEPANIC, DR STORM Attending Unavailable WONDERLY, DR KALEE Ash Primary Care Unavailable STEPANIC, DR STORM Consulting Unavailable STEPANIC, DR STORM Admitting Unavailable ZIEBER, DR TOÑITO De La Torre Consulting Unavailable STEPANIC, DR STORM Admitting Unavailable STEPANIC, DR STORM Attending Unavailable WONDERLY, DR KALEE Ash Primary Care Unavailable STEPANIC, DR STORM Consulting Unavailable CARBON, DR KRISHNA Morfin Consulting Unavailable Dany GONG, [facility] Provider [phone] Ada Calix MDek Unavailable [phone] Waldemar UX CONSULTANT.JUANITA, Christ Unavailable [phone] Ariel MEDINA, Emily Unavailable Dany GONG, [facility] Provider [phone] Herminia Devi Unavailable Unavailable Ariel MEDINA, Emily Unavailable MADELINE, [facility] Primary Care Unavailable MADELINE, [facility] Primary Care Unavailable Msua DONG Referring Unavailable WONDER, [facility] Unavailable CEDRICK CALIX Referring Unavailable CHRIST MARQUEZ Attending Unavailable MADELINE, ELIZABETH Primary Care Unavailable Musa DONG Referring Unavailable WONDERLY, [facility] Primary Care Unavailable ABHYANKAR, CEDRICK Referring Unavailable ABHYANKAR, CEDRICK Attending Unavailable WONDERLY, [facility] Unavailable Musa DONGIP Referring Unavailable WONDERLY, [facility] Unavailable ABHYANKAR, CEDRICK Referring Unavailable ABHYANKAR, CEDRICK Attending Unavailable WONDERLY, [facility] Primary Care Unavailable ABHYANKAR, CEDRICK Referring Unavailable WONDERLY, [facility] Primary Care Unavailable ABHYANKAR, CEDRICK Referring Unavailable WONDERLY, [facility] Primary Care Unavailable ABHYANKAR, CEDRICK Referring Unavailable WONDERLY, [facility] Primary Care Unavailable ABHYANKAR, CEDRICK Referring Unavailable WONDERLY, [facility] Primary Care Unavailable WONDERLY, [facility] Unavailable Musa DONG Referring Unavailable WONDERLY, [facility] Unavailable ABHYANKAR, CEDRICK Referring Unavailable CHRIST MARQUEZ Attending Unavailable WONDERLY, [facility] Unavailable ABHYANKAR, CEDRICK Referring Unavailable WONDERLY, [facility] Unavailable MAGGIE RIVERA Attending Unavailabl e WONDERLY, [facility] Unavailable ABHYANKAR, CEDRICK Referring Unavailable WONDERLY, [facility] Unavailable Musa DONG Referring Unavailable WONDERLY, [facility] Unavailable Musa DONG Referring Unavailable WONDERLY, [facility] Unavailable ABHYANKAR, CEDRICK Referring Unavailable WONDERLY, [facility] Unavailable ABHYANKAR, CEDRICK Attending Unavailable ABHYANKAR, CEDRICK Referring Unavailable WONDERLY, [facility] Primary Care Unavailable Musa DONG Referring Unavailable WONDERLY, [facility] Unavailable ABHYANKAR, CEDRICK Referring Unavailable WONDERLY, [facility] Primary Care Unavailable Musa DONGIP Referring Unavailable WONDERLY, [facility] Unavailable ABHYANKAR, CEDRICK Attending Unavailable ABHYANKAR, CEDRICK Referring Unavailable WONDERLY, [facility] Primary Care Unavailable ABHYANKAR, CEDRICK Referring Unavailable WONDERLY, [facility] Primary Care Unavailable ABHYANKAR, CEDRICK Referring Unavailable ABHYANKAR, CEDRICK Attending Unavailable WONDERLY, [facility] Primary Care Unavailable ABHYANKAR, CEDRICK Referring Unavailable WONDERLY, [facility] Primary Care Unavailable ABHYANKAR, CEDRICK Referring Unavailable CHRIST MARQUEZ Attending Unavailable WONDERLY, [facility] Unavailable ABHYANKAR, CEDRICK Referring Unavailable WONDERLY, [facility] Primary Care Unavailable ABHYANKAR, CEDRICK Attending Unavailable WONDERLY, [facility] Primary Care Unavailable ENGELER, Musa PREM Referring Unavailable WONDERLY, [facility] Primary Care Unavailable ABHYANKAR, CEDRICK Attending Unavailable ABHYANKAR, CERDICK Referring Unavailable WONDERLY, [facility] Primary Care Unavailable ENGELER, G PREM Referring Unavailable WONDERLY, [facility] Primary Care Unavailable ABHYANKAR, CEDRICK Attending Unavailable ABHYANKAR, CEDRICK Referring Unavailable WONDERLY, [facility] Primary Care Unavailable ENGELER, G PREM Referring Unavailable SLOANE MARIA Attending Unavailable WONDERLY, [facility] Unavailable ABHYANKAR, CEDRICK Referring Unavailable WONDERLY, [facility] Primary Care Unavailable ABHYANKAR, CEDRICK Referring Unavailable WONDERLY, [facility] Unavailable ENGELER, G PREM Referring Unavailable WONDERLY, [facility] Unavailable ABHYANKAR, CEDRICK Referring Unavailable WONDERLY, [facility] Primary Care Unavailable ABHYANKAR, CEDRICK Referring Unavailable WONDERLY, [facility] Unavailable ENGELER, G PREM Referring Unavailable WONDERLY, [facility] Primary Care Unavailable ENGELER, G PREM Referring Unavailable WONDERLY, [facility] Unavailable ABHYANKAR, CEDRICK Referring Unavailable WONDERLY, [facility] Unavailable ABHYANKAR, CEDRICK Referring Unavailable WONDERLY, [facility] Unavailable ENGELER, G PREM Referring Unavailable WONDERLY, [facility] Primary Care Unavailable ABHYANKAR, CEDRICK Referring Unavailable ABHYANKAR, CEDRICK Attending Unavailable WONDERLY, KALEE B Attending Unavailable JR. SHEN GEORGE C Referring Unavaila ble WONDERKIKO, KALEE Ash Attending Unavailable ERIK BAXTER Attending Unavailable Allergies Allergy Classification Reported Allergen(s) Allergy Type Date of Onset Reaction(s) Facility (1 source) Citalopram Drug Allergy 2 [facility] Rep[facility] (20 sources) Citalopram; Translations: [CITALOPRAM HYDROBROMIDE] Drug Allergy 3 Other: See Comments [facility] Medications Current Medications Medication Drug Class(es) Dates Sig (Normalized) Sig (Original) ciprofloxacin 500 mg oral tablet (1 source) Quinolone Antimicrobial Start: 06-28-2022 End: 07-05-2022 take 1 tablet by mouth twice daily ciprofloxacin HCl (CIPRO) 500 mg tablet Take 1 tablet by mouth twice daily for 7 days. 14 tablet 0 06/28/2022 07/05/2022 Active Comment on above: Take 1 tablet by annie th twice daily for 7 days. LORazepam 0.5 mg oral tablet (20 sources) Benzodiazepine Start: 05-21-2023 End: 10-26-2023 take 1 tablet by mouth three times daily as needed LORazepam (ATIVAN) 0.5 mg Indications: Malignant neoplasm of right breast in female, estrogen receptor positive, unspecified site of breast (HCC) , Anxiety neurosis Take 1 tablet by mouth three times a day as needed for up to 90 days. 90 tablet 2 07/28/2023 10/26/2023 Active Start: 03-04-2023 End: 04-03-2023 take 1 tablet by mouth three times daily as needed LORazepam (ATIVAN) 0.5 mg Indications: Anxiety neurosis Take 1 tablet by mouth three times daily as needed for up to 30 days. 90 tablet 1 03/04/2023 04/03/2023 Active Start: 11-03-2016 End: 03-04-2023 take 1 tablet by mouth every twelve hours as needed LORazepam (ATIVAN) 0.5 mg tab 0.5 mg twice daily as needed. 0 11/03/2016 03/04/2023 Discontinued Comment on above: 0.5 mg as needed. 0.5 mg twice daily a s needed. Take 1 tablet by annie th three times daily as needed for up to 30 days. Take 0.5 mg by mouth three times a day as needed. Take 1 tablet by annie th three times a day as needed for up to 90 days. ribociclib (20 sources) Start: 08-17-2023 End: 09-19-2023 take 2 tablets by mouth once daily ribociclib (KISQALI) 400 mg/day (200 mg x 2) tab Indications: Malignant neoplasm of breast in female, estrogen receptor positive, unspecified laterality, unspecified site of breast (HCC) Take 2 tablets (400 mg) by mouth once daily for 21 days. Then take a 7-day rest period to complete a 28-day treatment cycle. 42 tablet 0 08/17/2023 09/19/2023 Active Start: 08-17-2023 End: 09-07-2023 take 2 tablets by mouth once daily ribociclib (KISQALI) 400 mg/day (200 mg x 2) tab Indications: Malignant neoplasm of breast in female, estrogen receptor positive, unspecified laterality, unspecified site of breast (HCC) Take 2 tablets (400 mg) by mouth once daily for 21 days. Then take a 7-day rest period to complete a 28-day treatment cycle. 42 tablet 0 08/17/2023 09/07/2023 Active Start: 07-15-2023 End: 08-16-2023 take 2 tablets by mouth once daily ribociclib (KISQALI) 400 mg/day (200 mg x 2) tab Indications: Malignant neoplasm of breast in female, estrogen receptor positive, unspecified laterality, unspecified site of breast (HCC) Take 2 tablets (400 mg) by mouth once daily for 21 days. Then take a 7-day rest period to complete a 28-day treatment cycle. 42 tablet 0 07/15/2023 08/16/2023 Discontinued Start: 07-15-2023 End: 08-16-2023 take 2 tablets by mouth once daily ribociclib (KISQALI) 400 mg/day (200 mg x 2) tab Indications: Malignant neoplasm of breast in female, estrogen receptor positive, unspecified laterality, unspecified site of breast (HCC) Take 2 tablets (400 mg) by mouth once daily for 21 days. Then take a 7-day rest period to complete a 28-day treatment cycle. 42 tablet 0 07/15/2023 08/16/2023 Active Start: 06-14-2023 End: 07-19-2023 take 2 tablets by mouth once daily ribociclib (KISQALI) 400 mg/day (200 mg x 2) tab Indications: Malignant neoplasm of breast in female, estrogen receptor positive, unspecified laterality, unspecified site of breast (HCC) Take 2 tablets (400 mg) by mouth once daily for 21 days. Then take a 7-day rest period to complete a 28-day treatment cycle. 42 tablet 0 06/14/2023 07/19/2023 Active Start: 06-14-2023 End: 07-05-2023 take 2 tablets by mouth once daily ribociclib (KISQALI) 400 mg/day (200 mg x 2) tab Indications: Malignant neoplasm of breast in female, estrogen receptor positive, unspecified laterality, unspecified site of breast (HCC) Take 2 tablets (400 mg) by mouth once daily for 21 days. Then take a 7-day rest period to complete a 28-day treatment cycle. 42 tablet 0 06/14/2023 07/05/2023 Active Start: 05-30-2023 End: 06-13-2023 take 2 tablets by mouth once daily ribociclib (KISQALI) 400 mg/day (200 mg x 2) tab Indications: Malignant neoplasm of breast in female, estrogen receptor positive, unspecified laterality, unspecified site of breast (HCC) Take 2 tablets (400 mg) by mouth once daily for 21 days. Then take a 7-day rest period to complete a 28-day treatment cycle. 42 tablet 0 05/30/2023 06/13/2023 Discontinued Start: 05-30-2023 End: 06-27-2023 take 2 tablets by mouth once daily ribociclib (KISQALI) 400 mg/day (200 mg x 2) tab Indications: Malignant neoplasm of breast in female, estrogen receptor positive, unspecified laterality, unspecified site of breast (HCC) Take 2 tablets (400 mg) by mouth once daily for 21 days. Then take a 7-day rest period to complete a 28-day treatment cycle. 42 tablet 0 05/30/2023 06/27/2023 Active Start: 05-30-2023 End: 06-20-2023 take 2 tablets by mouth once daily ribociclib (KISQALI) 400 mg/day (200 mg x 2) tab Indications: Malignant neoplasm of breast in female, estrogen receptor positive, unspecified laterality, unspecified site of breast (HCC) Take 2 tablets (400 mg) by mouth once daily for 21 days. Then take a 7-day rest period to complete a 28-day treatment cycle. 42 tablet 0 05/30/2023 06/20/2023 Active Start: 04-11-2023 End: 05-05-2023 take 2 tablets by mouth once daily ribociclib (KISQALI) 400 mg/day (200 mg x 2) tab Take 2 tablets (400 mg) by mouth once daily for 21 days. Then take a 7-day rest period to complete a 28-day treatment cycle. 42 tablet 0 04/11/2023 05/05/2023 Discontinued Start: 04-11-2023 End: 05-16-2023 take 2 tablets by mouth once daily ribociclib (KISQALI) 400 mg/day (200 mg x 2) tab Take 2 tablets (400 mg) by mouth once daily for 21 days. Then take a 7-day rest period to complete a 28-day treatment cycle. 42 tablet 0 04/11/2023 05/16/2023 Active Start: 03-18-2023 End: 04-22-2023 take 2 tablets by mouth once daily ribociclib (KISQALI) 400 mg/day (200 mg x 2) tab Take 2 tablets (400 mg) by mouth once daily for 21 days. Then take a 7-day rest period to complete a 28-day treatment cycle. 42 tablet 0 03/18/2023 04/22/2023 Active Start: 01-20-2023 take 3 tablets by mo uth once daily ribociclib (KISQALI) 600 mg/day (200 mg x 3) Take 3 tablets (600 mg) by mouth once daily for 21 days. Then take a 7-day rest period to complete a 28-day treatment cycle. 63 tablet 2 01/20/2023 Active Start: 01-20-2023 End: 03-03-2023 take 3 tablets by mouth once daily ribociclib (KISQALI) 600 mg/day (200 mg x 3) Take 3 tablets (600 mg) by mouth once daily for 21 days. Then take a 7-day rest period to complete a 28-day treatment cycle. 63 tablet 2 01/20/2023 03/03/2023 Active Start: 01-20-2023 End: 02-17-2023 take 3 tablets by mouth once daily ribociclib (KISQALI) 600 mg/day (200 mg x 3) Take 3 tablets (600 mg) by mouth once daily for 21 days. Then take a 7-day rest period to complete a 28-day treatment cycle. 63 tablet 2 01/20/2023 02/17/2023 Active Start: 12-16-2022 End: 01-20-2023 take 3 tablets by mouth once daily ribociclib (KISQALI) 600 mg/day (200 mg x 3) Take 3 tablets (600 mg) by mouth once daily for 21 days. Then take a 7-day rest period to complete a 28-day treatment cycle. 63 tablet 0 12/16/2022 01/20/2023 Discontinued Start: 12-16-2022 End: 01-20-2023 take 3 tablets by mouth once daily ribociclib (KISQALI) 600 mg/day (200 mg x 3) Take 3 tablets (600 mg) by mouth once daily for 21 days. Then take a 7-day rest period to complete a 28-day treatment cycle. 63 tablet 0 12/16/2022 01/20/2023 Active Start: 12-16-2022 End: 01-14-2023 take 3 tablets by mouth once daily ribociclib (KISQALI) 600 mg/day (200 mg x 3) Take 3 tablets (600 mg) by mouth once daily for 21 days. Then take a 7-day rest period to complete a 28-day treatment cycle. 63 tablet 0 12/16/2022 01/14/2023 Active Start: 12-16-2022 End: 01-13-2023 take 3 tablets by mouth once daily ribociclib (KISQALI) 600 mg/day (200 mg x 3) Take 3 tablets (600 mg) by mouth once daily for 21 days. Then take a 7-day rest period to complete a 28-day treatment cycle. 63 tablet 0 12/16/2022 01/13/2023 Active Comment on above: Take 3 tablets (600 mg) by mouth once daily for 21 days. Then take a 7-day rest period to complete a 28-day treatment cycle. Take 2 tablets (400 mg) by mouth once daily for 21 days. Then take a 7-day rest period to complete a 28-day treatment cycle. sucralfate 100 mg/ml oral suspension (2 sources) Aluminum Complex Start: 02-16-20 End: 03-02-20 take 1 g by mouth every six hours as needed sucralfate (CARAFATE) 100 mg/mL suspension Take 10 mL by mouth every 6 hours as needed (for heartburn) for up to 15 days. 60 mL 1 02/15/2023 03/02/2023 Active Comment on above: Take 10 mL by mouth every 6 hours as needed (for heartburn) for up to 15 days. sulfamethoxazole 800 mg / trimethoprim 160 mg oral tablet (3 sources) Dihydrofolate Reductase Inhibitor Antibacterial, Sulfonamide Antimicrobial Start: 01-21-20 End: 01-26-20 take 1 tablet by mouth twice daily sulfamethoxazole-t rimethoprim (BACTRIM DS) 800-160 mg per tablet Take 1 tablet by mouth twice daily for 5 days. 10 tablet 0 01/20/2023 01/25/2023 Active Comment on above: Take 1 tablet by annie th twice daily for 5 days. Completed/Discontinued Medications Medication Drug Class(es) Dates Sig (Normalized) Sig (Original) anastrozole 1 mg oral tablet (5 sources) Aromatase Inhibitor Start: 08-17-2021 End: 12-31-2021 take 1 tablet by mouth once daily anastrozole (ARIMIDEX) 1 mg tablet Indications: Malignant neoplasm of female breast, unspecified estrogen receptor status, unspecified laterality, unspecified site of breast (HCC) TAKE 1 TABLET BY MOUTH EVERY DAY 90 tablet 2 08/17/2021 12/31/2021 Discontinued (Discontinued by Patient) Comment on above: TAKE 1 TABLET BY ANNIE TH EVERY DAY baclofen 10 mg oral tablet (20 sources) gamma-Aminobutyric Acid-ergic Agonist Start: 12-21-2021 take 1 tablet by mouth every twelve hours as needed baclofen (LIORESAL) 10 mg tablet 10 mg twice daily as needed. 0 12/21/2021 Active Comment on above: 10 mg twice daily as needed. cephalexin 500 mg oral capsule (13 sources) Cephalosporin Antibacterial Start: 06-09-2022 End: 12-23-2022 take 1 capsule by mouth three times daily cephALEXin (KEFLEX) 500 mg capsule Take 500 mg by mouth three times daily. 0 06/09/2022 12/23/2022 Discontinued Comment on above: Take 500 mg by mouth three times daily. cholecalciferol, vitamin D3, (VITAMIN D3 ORAL) (20 sources) cholecalciferol, vitamin D3, (VITAMIN D3 ORAL) Take by mouth once daily. 0 Active cholecalciferol, vitamin D3, (VITAMIN D3 ORAL) Take by mouth. 0 Active Comment on above: Take by mouth. Take by mouth once d aily. diphenhydrAMINE 12.5 mg/5 mL lidocaine visc 2% MAALOX 200-200-20 mg/5 mL nystatin prednisoLONE 15 mg/5 mL oral liquid 1:1:1:1:1 (CPD) (20 sources) Start: 3 take 5 mL by mouth every six hours as needed diphenhydrAMINE 12.5 mg/5 mL lidocaine visc 2% MAALOX 200-200-20 mg/5 mL nystatin prednisoLONE 15 mg/5 mL oral liquid 1:1:1:1:1 (CPD) Take 5 mL by mouth every 6 hours as needed. Swish and Swallow 300 mL 1 01/26/2023 Active Start: 01-25-2023 End: 01-26-2023 take 5 mL by mouth every six hours as needed diphenhydrAMINE 12.5 mg/5 mL lidocaine visc 2% MAALOX 200-200-20 mg/5 mL nystatin prednisoLONE 15 mg/5 mL oral liquid 1:1:1:1:1 (CPD) Take 5 mL by mouth every 6 hours as needed. Swish and Swallow 250 mL 1 01/25/2023 01/26/2023 Discontinued Start: 01-25-2023 take 5 mL by mouth e very six hours as needed diphenhydrAMINE 12.5 mg/5 mL lidocaine visc 2% MAALOX 200-200-20 mg/5 mL nystatin prednisoLONE 15 mg/5 mL oral liquid 1:1:1:1:1 (CPD) Take 5 mL by mouth every 6 hours as needed. Swish and Swallow 250 mL 1 01/25/2023 Active Comment on above: Take 5 mL by mouth e very 6 hours as needed. Swish and Swallow esomeprazole 20 mg delayed release oral capsule (12 sources) Proton Pump Inhibitor Start: 3 End: 3 take 1 capsule by mouth once daily esomeprazole (NEXIUM 24HR) 20 mg capsule Take 1 capsule by mouth once daily. 30 capsule 1 01/20/2023 02/15/2023 Discontinued End: 02-15-2023 esomeprazole magnesium (NEXI UM 24HR ORAL) Take by mouth. 0 02/15/2023 Discontinued esomeprazole mag nesium (NEXIUM 24HR ORAL) Take by mouth. 0 Active Comment on above: Take by mouth. Take 1 capsule by mo uth once daily. folic acid/multivit-min/lute in (CENTRUM SILVER ORAL) (20 sources) take 1 tablet by mouth once daily folic acid/multivit-min/juanito tein (CENTRUM SILVER ORAL) Take 1 tablet by mouth once daily. 0 Active folic acid/multi vit-min/lutein (CENTRUM SILVER ORAL) Take by mouth. 0 Active Comment on above: Take by mouth. Take 1 tablet by annie th once daily. latanoprost 0.05 mg/ml ophthalmic solution (20 sources) Prostaglandin Analog Start: 021 take 1 drop(s) into the eye(s) once daily in the evening latanoprost (XALATAN) 0.005 % ophthalmic solution INSTILL 1 DROP INTO EACH EYE EVERY EVENING DIRECTED 0 05/07/2021 Active Comment on above: INSTILL 1 DROP INTO EACH EYE EVERY EVENING DIRECTED naproxen sodium 220 mg oral capsule (20 sources) Nonsteroidal Anti-inflammatory Drug naproxen sodium 220 mg cap Take by mouth twice daily as needed. 0 Active Comment on above: Take by mouth as nee ded. Take by mouth twice daily as needed. ondansetron 8 mg oral tablet (20 sources) Serotonin-3 Receptor Antagonist Start: 023 take 1 tablet by mouth every eight hours as needed ondansetron (ZOFRAN) 8 mg tablet Take 1 tablet by mouth every 8 hours as needed for nausea/vomiting. 90 tablet 1 12/23/2022 Active Comment on above: Take 1 tablet by annie every 8 hours as needed for nausea/vomiting. prochlorperazine 10 mg oral tablet (20 sources) Phenothiazine Start: 023 take 1 tablet by mouth every six hours as needed prochlorperazine (COMPAZINE) 10 mg tablet Take 1 tablet by mouth every 6 hours as needed. 100 tablet 1 12/23/2022 Active Comment on above: Take 1 tablet by annie every 6 hours as needed. traMADol hydrochloride 50 mg oral tablet (20 sources) Opioid Agonist Start: 022 traMADol (ULTRAM) 50 mg tablet Problems Active Problems Problem Classification Problem Date Documented Date Episodic/Chronic Anxiety disorders (20 sources) Anxiety neurosis ; Translations: [Generalized anxiety disorder] Onset: 03-04-2023 Chronic Cancer of breast (20 sources) Malignant tumor of breast ; Translations: [Malignant neoplasm of unspecified site of unspecified female breast] Onset: 01-06-2015 01-06-2015 Chronic Genitourinary symptoms and ill-defined conditions (3 sources) Dysuria; Translations: [Dysuria] Episodic Osteoarthritis (4 sources) Unilateral primary osteoarthritis, left hip; Translations: [UNI PRIM OSTEOARTHRITIS LT HIP] Onset: 01-13-2023 Chronic Other diseases of veins and lymphatics (20 sources) Lymphedema; Translations: [Lymphedema, not elsewhere classified] Onset: 09-24-2021 09-24-2021 Chronic Past or Other Problems Problem Classification Problem Date Documented Date Episodic/Chronic Cancer of breast (20 sources) History of malignant neoplasm of breast; Translations: [Personal history of malignant neoplasm of breast] Onset: 10-12-2017 10-12-2017 Episodic Deficiency and other anemia (20 sources) Megaloblastic anemia due to vitamin B>12< deficiency; Translations: [Other megaloblastic anemias, not elsewhere classified] Onset: 10-08-2022 Episodic Deficiency and other anemia (1 source) Other megaloblastic anemias, not elsewhere classified; Translations: [Megaloblastic anemia due to vitamin B12 deficiency] Onset: 10-08-2022 Episodic Other screening for suspected conditions (not mental disorders or infectious disease) (20 sources) Patient encounter status; Translations: [Encounter for screening for osteoporosis] Onset: 09-24-2021 09-24-2021 Episodic Residual codes; unclassified (3 sources) Estrogen receptor positive status [ER+]; Translations: [Malignant neoplasm of right breast in female, estrogen receptor positive, unspecified site of breast (HCC)] Onset: 12-16-2022 Episodic Results Test Name Value Interpretation Reference Range Facility [facility] 08-30-2023 CNPN Normal [facility] 08-29-2023 CNPN Normal [facility] CBC W Auto Differential pane l (Bld)on 08-25-2023 Basophils (Bld) [#/Vol] 0.05 10*3/uL Normal <0.11 [facility] Comment on above: Order Comment: Speci men Type: BLOOD SPECIMENOrdering Facility: [facility] Address: [address] [place] [address] Performed By: #### 5 7021-8 ####[facility] LABCLIA [id number] [place] [address] Basophils/100 WBC (Bld) 1.0 % Normal [facility] Comment on above: Order Comment: Speci men Type: BLOOD SPECIMENOrdering Facility: [facility] Address: [address] [place] [address] Performed By: #### 5 7021-8 ####[facility] LABCLIA [id number] [place] [address] Differential cell count method Nom (Bld) Auto Normal [facility] Comment on above: Order Comment: Speci men Type: BLOOD SPECIMENOrdering Facility: [facility] Address: [address] [place] [address] Performed By: #### 5 7021-8 ####[facility] LABCLIA [id number] [place] [address] Eosinophils (Bld) [#/Vol] 10*3/uL Normal <0.46 [facility] Comment on above: Order Comment: Speci men Type: BLOOD SPECIMENOrdering Facility: [facility] Address: [address] [place] [address] Performed By: #### 5 7021-8 ####[facility] LABCLIA [id number] [place] [address] Eosinophils/100 WBC (Bld) 0.4 % Normal [facility] Comment on above: Order Comment: Speci men Type: BLOOD SPECIMENOrdering Facility: [facility] Address: [address] [place] [address] Performed By: #### 5 7021-8 ####[facility] LABCLIA [id number] [place] [address] Erythrocyte distribution width (RBC) [Ratio] 13.3 % Normal 11.5-15.0 [facility] Comment on above: Order Comment: Speci men Type: BLOOD SPECIMENOrdering Facility: [facility] Address: [address] [place] [address] Performed By: #### 5 7021-8 ####[facility] LABCLIA [id number] [place] [address] Hematocrit (Bld) [Volume fraction] 36.8 % Normal 36.0-46.0 [facility] Comment on above: Order Comment: Speci men Type: BLOOD SPECIMENOrdering Facility: [facility] Address: [address] [place] [address] Performed By: #### 5 7021-8 ####[facility] LABCLIA [id number] [place] [address] Hemoglobin (Bld) [Mass/Vol] 12.8 g/dL Normal 11.5-15.5 [facility] Comment on above: Order Comment: Speci men Type: BLOOD SPECIMENOrdering Facility: [facility] Address: [address] [place] [address] Performed By: #### 5 7021-8 ####[facility] LABCLIA [id number] [place] [address] Immature granulocytes (Bld) [#/Vol] 10*3/uL Normal <0.10 [facility] Comment on above: Order Comment: Speci men Type: BLOOD SPECIMENOrdering Facility: [facility] Address: [address] [place] [address] Performed By: #### 5 7021-8 ####[facility] LABCLIA [id number] [place] [address] Immature granulocytes/100 WBC (Bld) 0.4 % Normal [facility] Comment on above: Order Comment: Speci men Type: BLOOD SPECIMENOrdering Facility: [facility] Address: [address] [place] [address] Performed By: #### 5 7021-8 ####[facility] LABCLIA [id number] [place] [address] Lymphocytes (Bld) [#/Vol] 1.09 10*3/uL Normal 1.00-4.00 [facility] Comment on above: Order Comment: Speci men Type: BLOOD SPECIMENOrdering Facility: [facility] Address: [address] [place] [address] Performed By: #### 5 7021-8 ####[facility] LABCLIA [id number] [place] [address] Lymphocytes/100 WBC (Bld) 21.1 % Normal [facility] Comment on above: Order Comment: Speci men Type: BLOOD SPECIMENOrdering Facility: [facility] Address: [address] [place] [address] Performed By: #### 5 7021-8 ####[facility] LABCLIA [id number] [place] [address] MCH (RBC) [Entitic mass] 34.5 pg High 26.0-34.0 [facility] Comment on above: Order Comment: Speci men Type: BLOOD SPECIMENOrdering Facility: [facility] Address: [address] [place] [address] Performed By: #### 5 7021-8 ####[facility] LABCLIA [id number] [place] [address] MCHC (RBC) [Mass/Vol] 34.8 g/dL Normal 30.5-36.0 [facility] Comment on above: Order Comment: Speci men Type: BLOOD SPECIMENOrdering Facility: [facility] Address: [address] [place] [address] Performed By: #### 5 7021-8 ####[facility] LABCLIA [id number] [place] [address] MCV (RBC) [Entitic vol] 99.2 fL Normal 80.0-100.0 [facility] Comment on above: Order Comment: Speci men Type: BLOOD SPECIMENOrdering Facility: [facility] Address: [address] [place] [address] Performed By: #### 5 7021-8 ####[facility] LABCLIA [id number] [place] [address] Monocytes (Bld) [#/Vol] 0.55 10*3/uL Normal <0.87 [facility] Comment on above: Order Comment: Speci men Type: BLOOD SPECIMENOrdering Facility: [facility] Address: [address] [place] [address] Performed By: #### 5 7021-8 ####[facility] LABCLIA [id number] [place] [address] Monocytes/100 WBC (Bld) 10.7 % Normal [facility] Comment on above: Order Comment: Speci men Type: BLOOD SPECIMENOrdering Facility: [facility] Address: [address] [place] [address] Performed By: #### 5 7021-8 ####[facility] LABCLIA [id number] [place] [address] Neutrophils (Bld) [#/Vol] 3.43 10*3/uL Normal 1.45-7.50 [facility] Comment on above: Order Comment: Speci men Type: BLOOD SPECIMENOrdering Facility: [facility] Address: [address] [place] [address] Performed By: #### 5 7021-8 ####[facility] LABCLIA [id number] [place] [address] Neutrophils/100 WBC (Bld) 66.4 % Normal [facility] Comment on above: Order Comment: Speci men Type: BLOOD SPECIMENOrdering Facility: [facility] Address: [address] [place] [address] Performed By: #### 5 7021-8 ####[facility] LABCLIA [id number] [place] [address] Nucleated RBC (Bld) [#/Vol] 10*3/uL Normal <0.01 [facility] Comment on above: Order Comment: Speci men Type: BLOOD SPECIMENOrdering Facility: [facility] Address: [address] [place] [address] Performed By: #### 5 7021-8 ####[facility] LABCLIA [id number] [place] [address] Nucleated RBC/100 WBC (Bld) [Ratio] 0.0 /100 WBC Normal [facility] Comment on above: Order Comment: Speci men Type: BLOOD SPECIMENOrdering Facility: [facility] Address: [address] [place] [address] Performed By: #### 5 7021-8 ####[facility] LABCLIA [id number] [place] [address] Platelet mean volume (Bld) [Entitic vol] 8.5 fL Low 9.0-12.7 [facility] Comment on above: Order Comment: Speci men Type: BLOOD SPECIMENOrdering Facility: [facility] Address: [address] [place] [address] Performed By: #### 5 7021-8 ####[facility] LABCLIA [id number] [place] [address] Platelets (Bld) [#/Vol] 240 10*3/uL Normal 150-400 [facility] Comment on above: Order Comment: Speci men Type: BLOOD SPECIMENOrdering Facility: [facility] Address: [address] [place] [address] Performed By: #### 5 7021-8 ####[facility] LABCLIA [id number] [place] [address] RBC (Bld) [#/Vol] 3.71 10*6/uL Low 3.90-5.20 [facility] Comment on above: Order Comment: Speci men Type: BLOOD SPECIMENOrdering Facility: [facility] Address: [address] [place] [address] Performed By: #### 5 7021-8 ####[facility] LABCLIA [id number] [place] [address] WBC (Bld) [#/Vol] 5.16 10*3/uL Normal 3.70-11.00 [facility] Comment on above: Order Comment: Speci men Type: BLOOD SPECIMENOrdering Facility: [facility] Address: [address] [place] [address] Performed By: #### 5 7021-8 ####[facility] LABCLIA [id number] [place] [address] CNOVSPon 08-25-2023 CNOVSP Normal [facility] metabolic 2000 panelon 08-25-2023 Albumin [Mass/Vol] 4.1 g/dL Normal 3.9-4.9 [facility] Comment on above: Order Comment: Speci men Type: BLOOD SPECIMENOrdering Facility: [facility] Address: [address] [place] [address] Performed By: #### 2 4323-8 ####[facility] LABCLIA [id number] [place] [address] ALP [Catalytic activity/Vol] 95 U/L Normal 34-123 [facility] Comment on above: Order Comment: Speci men Type: BLOOD SPECIMENOrdering Facility: [facility] Address: [address] [place] [address] Performed By: #### 2 4323-8 ####[facility] LABCLIA [id number] [place] [address] ALT [Catalytic activity/Vol] 11 U/L Normal 7-38 [facility] Comment on above: Order Comment: Speci men Type: BLOOD SPECIMENOrdering Facility: [facility] Address: [address] [place] [address] Performed By: #### 2 4323-8 ####[facility] LABCLIA [id number] [place] [address] Anion gap [Moles/Vol] 11 mmol/L Normal 9-18 [facility] Comment on above: Order Comment: Speci men Type: BLOOD SPECIMENOrdering Facility: [facility] Address: [address] [place] [address] Performed By: #### 2 4323-8 ####[facility] LABCLIA [id number] [place] [address] AST [Catalytic activity/Vol] 16 U/L Normal 13-35 [facility] Comment on above: Order Comment: Speci men Type: BLOOD SPECIMENOrdering Facility: [facility] Address: [address] [place] [address] Performed By: #### 2 4323-8 ####[facility] LABCLIA [id number] [place] [address] Bilirubin [Mass/Vol] 0.3 mg/dL Normal 0.2-1.3 [facility] Comment on above: Order Comment: Speci men Type: BLOOD SPECIMENOrdering Facility: [facility] Address: [address] [place] [address] Performed By: #### 2 4323-8 ####[facility] LABCLIA [id number] [place] [address] Calcium [Mass/Vol] 9.9 mg/dL Normal 8.5-10.2 [facility] Comment on above: Order Comment: Speci men Type: BLOOD SPECIMENOrdering Facility: [facility] Address: [address] [place] [address] Performed By: #### 2 4323-8 ####[facility] LABCLIA [id number] [place] [address] Chloride [Moles/Vol] 98 mmol/L Normal 97-105 [facility] Comment on above: Order Comment: Speci men Type: BLOOD SPECIMENOrdering Facility: [facility] Address: [address] [place] [address] Performed By: #### 2 4323-8 ####[facility] LABCLIA [id number] [place] [address] CO2 [Moles/Vol] 24 mmol/L Normal 22-30 [facility] Comment on above: Order Comment: Speci men Type: BLOOD SPECIMENOrdering Facility: [facility] Address: [address] [place] [address] Performed By: #### 2 4323-8 ####[facility] LABCLIA [id number] [place] [address] Creatinine [Mass/Vol] 0.89 mg/dL Normal 0.58-0.96 [facility] Comment on above: Order Comment: Speci men Type: BLOOD SPECIMENOrdering Facility: [facility] Address: [address] [place] [address] Performed By: #### 2 4323-8 ####[facility] LABCLIA [id number] [place] [address] Creatinine and Glomerular filtration rate.predicted panel (S/P/Bld) 66 mL/min/1.73m??? Normal >=60 [facility] Comment on above: Order Comment: Speci men Type: BLOOD SPECIMENOrdering Facility: [facility] Address: [address] [place] [address] Result Comment: Anabel mated Glomerular Filtration Rate (eGFR) is calculated using the 2020 CKD-EPI creatinine equation. This equation utilizes serum creatinine, sex, and age as parameters. The creatinine assay has traceable calibration to isotope dilution-mass spectrometry. Refer to KDIGO guidelines for clinical interpretation. In patients with unstable renal function, e.g. those with acute kidney injury, the eGFR may not accurately reflect actual GFR. Performed By: #### 2 4323-8 ####[facility] LABCLIA [id number] [place] [address] Glucose [Mass/Vol] 125 mg/dL High 74-99 [facility] Comment on above: Order Comment: Speci men Type: BLOOD SPECIMENOrdering Facility: [facility] Address: [address] [place] [address] Result Comment: The [place] [employer] (ADA) provides guidance for cutoff values for fasting glucose and random glucose. The ADA defines fasting as no caloric intake for at least 8 hours. Fasting plasma glucose results between 100 to 125 mg/dL indicate increased risk for diabetes (prediabetes).Fasting plasma glucose results greater than or equal to 126 mg/dL meet the criteria for diagnosis of diabetes. In the absence of unequivocal hyperglycemia, results should be confirmed by repeat testing. In a patient with classic symptoms of hyperglycemia or hyperglycemic crisis, random plasma glucose results greater than or equal to 200 mg/dL meet the criteria for diagnosis of diabetes.Reference: Standards of Medical Care in Diabetes 2016, [place] [employer]. Diabetes Care. 2016.39(Suppl 1). Performed By: #### 2 4323-8 ####[facility] LABCLIA [id number] [place] [address] Potassium [Moles/Vol] 3.8 mmol/L Normal 3.7-5.1 [facility] Comment on above: Order Comment: Speci men Type: BLOOD SPECIMENOrdering Facility: [facility] Address: [address] [place] [address] Performed By: #### 2 4323-8 ####[facility] LABCLIA [id number] [place] [address] Protein [Mass/Vol] 6.8 g/dL Normal 6.3-8.0 [facility] Comment on above: Order Comment: Speci men Type: BLOOD SPECIMENOrdering Facility: [facility] Address: [address] [place] [address] Performed By: #### 2 4323-8 ####[facility] LABCLIA [id number] [place] [address] Sodium [Moles/Vol] 133 mmol/L Low 136-144 [facility] Comment on above: Order Comment: Speci men Type: BLOOD SPECIMENOrdering Facility: [facility] Address: [address] [place] [address] Performed By: #### 2 4323-8 ####[facility] LABCLIA [id number] [place] [address] Urea nitrogen [Mass/Vol] 14 mg/dL Normal 7-21 [facility] Comment on above: Order Comment: Speci men Type: BLOOD SPECIMENOrdering Facility: [facility] Address: [address] [place] [address] Performed By: #### 2 4323-8 ####[facility] LABIA [id number] [place] [address] CNPNon 08-24-2023 CNPN Normal [facility] NM PET/CT SKULL-THIGH SUBQon 08-22-2023 NM PET/CT SKULL-THIGH SUBQ Normal [facility] CBC W Auto Differential pane l (Bld)on 07-28-2023 Basophils (Bld) [#/Vol] 0.07 10*3/uL Normal <0.11 [facility] Comment on above: Order Comment: Speci men Type: BLOOD SPECIMENOrdering Facility: [facility] Address: [address] [place] [address] Performed By: #### 5 7021-8 ####[facility] LABCLIA [id number] [place] [address] Basophils/100 WBC (Bld) 1.4 % Normal [facility] Comment on above: Order Comment: Speci men Type: BLOOD SPECIMENOrdering Facility: [facility] Address: [address] [place] [address] Performed By: #### 5 7021-8 ####[facility] LABCLIA [id number] [place] [address] Differential cell count method Nom (Bld) Auto Normal [facility] Comment on above: Order Comment: Speci men Type: BLOOD SPECIMENOrdering Facility: [facility] Address: [address] [place] [address] Performed By: #### 5 7021-8 ####[facility] LABCLIA [id number] [place] [address] Eosinophils (Bld) [#/Vol] 0.03 10*3/uL Normal <0.46 [facility] Comment on above: Order Comment: Speci men Type: BLOOD SPECIMENOrdering Facility: [facility] Address: [address] [place] [address] Performed By: #### 5 7021-8 ####[facility] LABCLIA [id number] [place] [address] Eosinophils/100 WBC (Bld) 0.6 % Normal [facility] Comment on above: Order Comment: Speci men Type: BLOOD SPECIMENOrdering Facility: [facility] Address: [address] [place] [address] Performed By: #### 5 7021-8 ####[facility] LABCLIA [id number] [place] [address] Erythrocyte distribution width (RBC) [Ratio] 13.6 % Normal 11.5-15.0 [facility] Comment on above: Order Comment: Speci men Type: BLOOD SPECIMENOrdering Facility: [facility] Address: [address] [place] [address] Performed By: #### 5 7021-8 ####[facility] LABCLIA [id number] [place] [address] Hematocrit (Bld) [Volume fraction] 37.7 % Normal 36.0-46.0 [facility] Comment on above: Order Comment: Speci men Type: BLOOD SPECIMENOrdering Facility: [facility] Address: [address] [place] [address] Performed By: #### 5 7021-8 ####[facility] LABCLIA [id number] [place] [address] Hemoglobin (Bld) [Mass/Vol] 12.9 g/dL Normal 11.5-15.5 [facility] Comment on above: Order Comment: Speci men Type: BLOOD SPECIMENOrdering Facility: [facility] Address: [address] [place] [address] Performed By: #### 5 7021-8 ####[facility] LABCLIA [id number] [place] [address] Immature granulocytes (Bld) [#/Vol] 0.03 10*3/uL Normal <0.10 [facility] Comment on above: Order Comment: Speci men Type: BLOOD SPECIMENOrdering Facility: [facility] Address: [address] [place] [address] Performed By: #### 5 7021-8 ####[facility] LABCLIA [id number] [place] [address] Immature granulocytes/100 WBC (Bld) 0.6 % Normal [facility] Comment on above: Order Comment: Speci men Type: BLOOD SPECIMENOrdering Facility: [facility] Address: [address] [place] [address] Performed By: #### 5 7021-8 ####[facility] LABCLIA [id number] [place] [address] Lymphocytes (Bld) [#/Vol] 1.56 10*3/uL Normal 1.00-4.00 [facility] Comment on above: Order Comment: Speci men Type: BLOOD SPECIMENOrdering Facility: [facility] Address: [address] [place] [address] Performed By: #### 5 7021-8 ####[facility] LABCLIA [id number] [place] [address] Lymphocytes/100 WBC (Bld) 31.8 % Normal [facility] Comment on above: Order Comment: Speci men Type: BLOOD SPECIMENOrdering Facility: [facility] Address: [address] [place] [address] Performed By: #### 5 7021-8 ####[facility] LABCLIA [id number] [place] [address] MCH (RBC) [Entitic mass] 34.1 pg High 26.0-34.0 [facility] Comment on above: Order Comment: Speci men Type: BLOOD SPECIMENOrdering Facility: [facility] Address: [address] [place] [address] Performed By: #### 5 7021-8 ####[facility] LABCLIA [id number] [place] [address] MCHC (RBC) [Mass/Vol] 34.2 g/dL Normal 30.5-36.0 [facility] Comment on above: Order Comment: Speci men Type: BLOOD SPECIMENOrdering Facility: [facility] Address: [address] [place] [address] Performed By: #### 5 7021-8 ####[facility] LABCLIA [id number] [place] [address] MCV (RBC) [Entitic vol] 99.7 fL Normal 80.0-100.0 [facility] Comment on above: Order Comment: Speci men Type: BLOOD SPECIMENOrdering Facility: [facility] Address: [address] [place] [address] Performed By: #### 5 7021-8 ####[facility] LABIA [id number] [place] [address] Monocytes (Bld) [#/Vol] 0.60 10*3/uL Normal <0.87 [facility] Comment on above: Order Comment: Speci men Type: BLOOD SPECIMENOrdering Facility: [facility] Address: [address] [place] [address] Performed By: #### 5 7021-8 ####[facility] LABCLIA [id number] [place] [address] Monocytes/100 WBC (Bld) 12.2 % Normal [facility] Comment on above: Order Comment: Speci men Type: BLOOD SPECIMENOrdering Facility: [facility] Address: [address] [place] [address] Performed By: #### 5 7021-8 ####[facility] LABIA [id number] [place] [address] Neutrophils (Bld) [#/Vol] 2.62 10*3/uL Normal 1.45-7.50 [facility] Comment on above: Order Comment: Speci men Type: BLOOD SPECIMENOrdering Facility: [facility] Address: [address] [place] [address] Performed By: #### 5 7021-8 ####[facility] LABCLIA [id number] [place] [address] Neutrophils/100 WBC (Bld) 53.4 % Normal [facility] Comment on above: Order Comment: Speci men Type: BLOOD SPECIMENOrdering Facility: [facility] Address: [address] [place] [address] Performed By: #### 5 7021-8 ####[facility] LABCLIA [id number] [place] [address] Nucleated RBC (Bld) [#/Vol] 10*3/uL Normal <0.01 [facility] Comment on above: Order Comment: Speci men Type: BLOOD SPECIMENOrdering Facility: [facility] Address: [address] [place] [address] Performed By: #### 5 7021-8 ####[facility] LABCLIA [id number] [place] [address] Nucleated RBC/100 WBC (Bld) [Ratio] 0.0 /100 WBC Normal [facility] Comment on above: Order Comment: Speci men Type: BLOOD SPECIMENOrdering Facility: [facility] Address: [address] [place] [address] Performed By: #### 5 7021-8 ####[facility] LABCLIA [id number] [place] [address] Platelet mean volume (Bld) [Entitic vol] 8.6 fL Low 9.0-12.7 [facility] Comment on above: Order Comment: Speci men Type: BLOOD SPECIMENOrdering Facility: [facility] Address: [address] [place] [address] Performed By: #### 5 7021-8 ####[facility] LABIA [id number] [place] [address] Platelets (Bld) [#/Vol] 258 10*3/uL Normal 150-400 [facility] Comment on above: Order Comment: Speci men Type: BLOOD SPECIMENOrdering Facility: [facility] Address: [address] [place] [address] Performed By: #### 5 7021-8 ####[facility] LABCLIA [id number] [place] [address] RBC (Bld) [#/Vol] 3.78 10*6/uL Low 3.90-5.20 [facility] Comment on above: Order Comment: Speci men Type: BLOOD SPECIMENOrdering Facility: [facility] Address: [address] [place] [address] Performed By: #### 5 7021-8 ####[facility] LABIA [id number] [place] [address] WBC (Bld) [#/Vol] 4.91 10*3/uL Normal 3.70-11.00 [facility] Comment on above: Order Comment: Speci men Type: BLOOD SPECIMENOrdering Facility: [facility] Address: [address] [place] [address] Performed By: #### 5 7021-8 ####[facility] LABIA [id number] [place] [address] CNOVSPon 07-28-2023 CNOVSP Normal [facility] Comprehensive metabolic 2000 panelon 07-28-2023 Albumin [Mass/Vol] 4.3 g/dL Normal 3.9-4.9 [facility] Comment on above: Order Comment: Speci men Type: BLOOD SPECIMENOrdering Facility: [facility] Address: [address] [place] [address] Performed By: #### 2 4323-8 ####[facility] LABIA [id number] [place] [address] ALP [Catalytic activity/Vol] 107 U/L Normal 34-123 [facility] Comment on above: Order Comment: Speci men Type: BLOOD SPECIMENOrdering Facility: [facility] Address: [address] [place] [address] Performed By: #### 2 4323-8 ####[facility] LABCLIA [id number] [place] [address] ALT [Catalytic activity/Vol] 14 U/L Normal 7-38 [facility] Comment on above: Order Comment: Speci men Type: BLOOD SPECIMENOrdering Facility: [facility] Address: [address] [place] [address] Performed By: #### 2 4323-8 ####[facility] LABCLIA [id number] [place] [address] Anion gap [Moles/Vol] 11 mmol/L Normal 9-18 [facility] Comment on above: Order Comment: Speci men Type: BLOOD SPECIMENOrdering Facility: [facility] Address: [address] [place] [address] Performed By: #### 2 4323-8 ####[facility] LABCLIA [id number] [place] [address] AST [Catalytic activity/Vol] 16 U/L Normal 13-35 [facility] Comment on above: Order Comment: Speci men Type: BLOOD SPECIMENOrdering Facility: [facility] Address: [address] [place] [address] Performed By: #### 2 4323-8 ####[facility] LABCLIA [id number] [place] [address] Bilirubin [Mass/Vol] 0.4 mg/dL Normal 0.2-1.3 [facility] Comment on above: Order Comment: Speci men Type: BLOOD SPECIMENOrdering Facility: [facility] Address: [address] [place] [address] Performed By: #### 2 4323-8 ####[facility] LABCLIA [id number] [place] [address] Calcium [Mass/Vol] 10.0 mg/dL Normal 8.5-10.2 [facility] Comment on above: Order Comment: Speci men Type: BLOOD SPECIMENOrdering Facility: [facility] Address: [address] [place] [address] Performed By: #### 2 4323-8 ####[facility] LABCLIA [id number] [place] [address] Chloride [Moles/Vol] 96 mmol/L Low 97-105 [facility] Comment on above: Order Comment: Speci men Type: BLOOD SPECIMENOrdering Facility: [facility] Address: [address] [place] [address] Performed By: #### 2 4323-8 ####[facility] LABCLIA [id number] [place] [address] CO2 [Moles/Vol] 24 mmol/L Normal 22-30 [facility] Comment on above: Order Comment: Speci men Type: BLOOD SPECIMENOrdering Facility: [facility] Address: [address] [place] [address] Performed By: #### 2 4323-8 ####[facility] LABCLIA [id number] [place] [address] Creatinine [Mass/Vol] 0.89 mg/dL Normal 0.58-0.96 [facility] Comment on above: Order Comment: Speci men Type: BLOOD SPECIMENOrdering Facility: [facility] Address: [address] [place] [address] Performed By: #### 2 4323-8 ####[facility] LABCLIA [id number] [place] [address] Creatinine and Glomerular filtration rate.predicted panel (S/P/Bld) 66 mL/min/1.73m??? Normal >=60 [facility] Comment on above: Order Comment: Speci men Type: BLOOD SPECIMENOrdering Facility: [facility] Address: [address] [place] [address] Result Comment: Anabel mated Glomerular Filtration Rate (eGFR) is calculated using the 2020 CKD-EPI creatinine equation. This equation utilizes serum creatinine, sex, and age as parameters. The creatinine assay has traceable calibration to isotope dilution-mass spectrometry. Refer to KDIGO guidelines for clinical interpretation. In patients with unstable renal function, e.g. those with acute kidney injury, the eGFR may not accurately reflect actual GFR. Performed By: #### 2 4323-8 ####[facility] LABCLIA [id number] [place] [address] Glucose [Mass/Vol] 95 mg/dL Normal 74-99 [facility] Comment on above: Order Comment: Speci men Type: BLOOD SPECIMENOrdering Facility: [facility] Address: [address] [place] [address] Result Comment: The [place] Diabetes [employer] (ADA) provides guidance for cutoff values for fasting glucose and random glucose. The ADA defines fasting as no caloric intake for at least 8 hours. Fasting plasma glucose results between 100 to 125 mg/dL indicate increased risk for diabetes (prediabetes).Fasting plasma glucose results greater than or equal to 126 mg/dL meet the criteria for diagnosis of diabetes. In the absence of unequivocal hyperglycemia, results should be confirmed by repeat testing. In a patient with classic symptoms of hyperglycemia or hyperglycemic crisis, random plasma glucose results greater than or equal to 200 mg/dL meet the criteria for diagnosis of diabetes.Reference: Standards of Medical Care in Diabetes 2016, [place] [employer]. Diabetes Care. 2016.39(Suppl 1). Performed By: #### 2 4323-8 ####[facility] LABCLIA [id number] [place] [address] Potassium [Moles/Vol] 4.0 mmol/L Normal 3.7-5.1 [facility] Comment on above: Order Comment: Speci men Type: BLOOD SPECIMENOrdering Facility: [facility] Address: [address] [place] [address] Performed By: #### 2 4323-8 ####[facility] LABCLIA [id number] [place] [address] Protein [Mass/Vol] 6.9 g/dL Normal 6.3-8.0 [facility] Comment on above: Order Comment: Speci men Type: BLOOD SPECIMENOrdering Facility: [facility] Address: [address] [place] [address] Performed By: #### 2 4323-8 ####[facility] LABCLIA [id number] [place] [address] Sodium [Moles/Vol] 131 mmol/L Low 136-144 [facility] Comment on above: Order Comment: Speci men Type: BLOOD SPECIMENOrdering Facility: [facility] Address: [address] [place] [address] Performed By: #### 2 4323-8 ####[facility] LABCLIA [id number] [place] [address] Urea nitrogen [Mass/Vol] 14 mg/dL Normal 7-21 [facility] Comment on above: Order Comment: Speci men Type: BLOOD SPECIMENOrdering Facility: [facility] Address: [address] [place] [address] Performed By: #### 2 4323-8 ####[facility] LABCLIA [id number] [place] [address] CBC W Auto Differential pane l (Bld)on 06-29-2023 Basophils (Bld) [#/Vol] 0.06 10*3/uL Normal <0.11 [facility] Comment on above: Order Comment: Speci men Type: BLOOD SPECIMENOrdering Facility: [facility] Address: [address] [place] [address] Performed By: #### 5 7021-8 ####[facility] LABCLIA [id number] [place] [address] Basophils/100 WBC (Bld) 1.3 % Normal [facility] Comment on above: Order Comment: Speci men Type: BLOOD SPECIMENOrdering Facility: [facility] Address: [address] [place] [address] Performed By: #### 5 7021-8 ####[facility] LABCLIA [id number] [place] [address] Differential cell count method Nom (Bld) Auto Normal [facility] Comment on above: Order Comment: Speci men Type: BLOOD SPECIMENOrdering Facility: [facility] Address: [address] [place] [address] Performed By: #### 5 7021-8 ####[facility] LABCLIA [id number] [place] [address] Eosinophils (Bld) [#/Vol] 0.03 10*3/uL Normal <0.46 [facility] Comment on above: Order Comment: Speci men Type: BLOOD SPECIMENOrdering Facility: [facility] Address: [address] [place] [address] Performed By: #### 5 7021-8 ####[facility] LABCLIA [id number] [place] [address] Eosinophils/100 WBC (Bld) 0.6 % Normal [facility] Comment on above: Order Comment: Speci men Type: BLOOD SPECIMENOrdering Facility: [facility] Address: [address] [place] [address] Performed By: #### 5 7021-8 ####[facility] LABCLIA [id number] [place] [address] Erythrocyte distribution width (RBC) [Ratio] 14.4 % Normal 11.5-15.0 [facility] Comment on above: Order Comment: Speci men Type: BLOOD SPECIMENOrdering Facility: [facility] Address: [address] [place] [address] Performed By: #### 5 7021-8 ####[facility] LABCLIA [id number] [place] [address] Hematocrit (Bld) [Volume fraction] 40.9 % Normal 36.0-46.0 [facility] Comment on above: Order Comment: Speci men Type: BLOOD SPECIMENOrdering Facility: [facility] Address: [address] [place] [address] Performed By: #### 5 7021-8 ####[facility] LABCLIA [id number] [place] [address] Hemoglobin (Bld) [Mass/Vol] 13.9 g/dL Normal 11.5-15.5 [facility] Comment on above: Order Comment: Speci men Type: BLOOD SPECIMENOrdering Facility: [facility] Address: [address] [place] [address] Performed By: #### 5 7021-8 ####[facility] LABCLIA [id number] [place] [address] Immature granulocytes (Bld) [#/Vol] 10*3/uL Normal <0.10 [facility] Comment on above: Order Comment: Speci men Type: BLOOD SPECIMENOrdering Facility: [facility] Address: [address] [place] [address] Performed By: #### 5 7021-8 ####[facility] LABCLIA [id number] [place] [address] Immature granulocytes/100 WBC (Bld) 0.4 % Normal [facility] Comment on above: Order Comment: Speci men Type: BLOOD SPECIMENOrdering Facility: [facility] Address: [address] [place] [address] Performed By: #### 5 7021-8 ####[facility] LABCLIA [id number] [place] [address] Lymphocytes (Bld) [#/Vol] 1.68 10*3/uL Normal 1.00-4.00 [facility] Comment on above: Order Comment: Speci men Type: BLOOD SPECIMENOrdering Facility: [facility] Address: [address] [place] [address] Performed By: #### 5 7021-8 ####[facility] LABCLIA [id number] [place] [address] Lymphocytes/100 WBC (Bld) 35.0 % Normal [facility] Comment on above: Order Comment: Speci men Type: BLOOD SPECIMENOrdering Facility: [facility] Address: [address] [place] [address] Performed By: #### 5 7021-8 ####[facility] LABCLIA [id number] [place] [address] MCH (RBC) [Entitic mass] 33.7 pg Normal 26.0-34.0 [facility] Comment on above: Order Comment: Speci men Type: BLOOD SPECIMENOrdering Facility: [facility] Address: [address] [place] [address] Performed By: #### 5 7021-8 ####[facility] LABCLIA [id number] [place] [address] MCHC (RBC) [Mass/Vol] 34.0 g/dL Normal 30.5-36.0 [facility] Comment on above: Order Comment: Speci men Type: BLOOD SPECIMENOrdering Facility: [facility] Address: [address] [place] [address] Performed By: #### 5 7021-8 ####[facility] LABCLIA [id number] [place] [address] MCV (RBC) [Entitic vol] 99.3 fL Normal 80.0-100.0 [facility] Comment on above: Order Comment: Speci men Type: BLOOD SPECIMENOrdering Facility: [facility] Address: [address] [place] [address] Performed By: #### 5 7021-8 ####[facility] LABCLIA [id number] [place] [address] Monocytes (Bld) [#/Vol] 0.63 10*3/uL Normal <0.87 [facility] Comment on above: Order Comment: Speci men Type: BLOOD SPECIMENOrdering Facility: [facility] Address: [address] [place] [address] Performed By: #### 5 7021-8 ####[facility] LABCLIA [id number] [place] [address] Monocytes/100 WBC (Bld) 13.1 % Normal [facility] Comment on above: Order Comment: Speci men Type: BLOOD SPECIMENOrdering Facility: [facility] Address: [address] [place] [address] Performed By: #### 5 7021-8 ####[facility] LABCLIA [id number] [place] [address] Neutrophils (Bld) [#/Vol] 2.38 10*3/uL Normal 1.45-7.50 [facility] Comment on above: Order Comment: Speci men Type: BLOOD SPECIMENOrdering Facility: [facility] Address: [address] [place] [address] Performed By: #### 5 7021-8 ####[facility] LABCLIA [id number] [place] [address] Neutrophils/100 WBC (Bld) 49.6 % Normal [facility] Comment on above: Order Comment: Speci men Type: BLOOD SPECIMENOrdering Facility: [facility] Address: [address] [place] [address] Performed By: #### 5 7021-8 ####[facility] LABCLIA [id number] [place] [address] Nucleated RBC (Bld) [#/Vol] 10*3/uL Normal <0.01 [facility] Comment on above: Order Comment: Speci men Type: BLOOD SPECIMENOrdering Facility: [facility] Address: [address] [place] [address] Performed By: #### 5 7021-8 ####[facility] LABCLIA [id number] [place] [address] Nucleated RBC/100 WBC (Bld) [Ratio] 0.0 /100 WBC Normal [facility] Comment on above: Order Comment: Speci men Type: BLOOD SPECIMENOrdering Facility: [facility] Address: [address] [place] [address] Performed By: #### 5 7021-8 ####[facility] LABCLIA [id number] [place] [address] Platelet mean volume (Bld) [Entitic vol] 8.7 fL Low 9.0-12.7 [facility] Comment on above: Order Comment: Speci men Type: BLOOD SPECIMENOrdering Facility: [facility] Address: [address] [place] [address] Performed By: #### 5 7021-8 ####[facility] LABCLIA [id number] [place] [address] Platelets (Bld) [#/Vol] 234 10*3/uL Normal 150-400 [facility] Comment on above: Order Comment: Speci men Type: BLOOD SPECIMENOrdering Facility: [facility] Address: [address] [place] [address] Performed By: #### 5 7021-8 ####[facility] LABIA [id number] [place] [address] RBC (Bld) [#/Vol] 4.12 10*6/uL Normal 3.90-5.20 [facility] Comment on above: Order Comment: Speci men Type: BLOOD SPECIMENOrdering Facility: [facility] Address: [address] [place] [address] Performed By: #### 5 7021-8 ####[facility] LABIA [id number] [place] [address] WBC (Bld) [#/Vol] 4.80 10*3/uL Normal 3.70-11.00 [facility] Comment on above: Order Comment: Speci men Type: BLOOD SPECIMENOrdering Facility: [facility] Address: [address] [place] [address] Performed By: #### 5 7021-8 ####[facility] LABIA [id number] [place] [address] CNOVSPon 06-29-2023 CNOVSP Normal [facility] metabolic 2000 panelon 10-11-2023 Albumin [Mass/Vol] 4.3 g/dL Normal 3.9-4.9 [facility] Comment on above: Order Comment: Speci men Type: BLOOD SPECIMENOrdering Facility: [facility] Address: [address] [place] [address] Performed By: #### 2 4323-8 ####[facility] LABCLIA [id number] [place] [address] [place] ALP [Catalytic activity/Vol] 97 U/L Normal 34-123 [facility] Comment on above: Order Comment: Speci men Type: BLOOD SPECIMENOrdering Facility: [facility] Address: [address] [place] [address] Performed By: #### 2 4323-8 ####[facility] LABCLIA [id number] [place] [address] [place] ALT [Catalytic activity/Vol] 17 U/L Normal 7-38 [facility] Comment on above: Order Comment: Speci men Type: BLOOD SPECIMENOrdering Facility: [facility] Address: [address] [place] [address] Performed By: #### 2 4323-8 ####[facility] LABCLIA [id number] [place] [address] [place] Anion gap [Moles/Vol] 14 mmol/L Normal 9-18 [facility] Comment on above: Order Comment: Speci men Type: BLOOD SPECIMENOrdering Facility: [facility] Address: [address] [place] [address] Performed By: #### 2 4323-8 ####[facility] LABCLIA [id number] [place] [address] [place] AST [Catalytic activity/Vol] 23 U/L Normal 13-35 [facility] Comment on above: Order Comment: Speci men Type: BLOOD SPECIMENOrdering Facility: [facility] Address: [address] [place] [address] Performed By: #### 2 4323-8 ####[facility] LABCLIA [id number] [place] [address] [place] Bilirubin [Mass/Vol] 0.3 mg/dL Normal 0.2-1.3 [facility] Comment on above: Order Comment: Speci men Type: BLOOD SPECIMENOrdering Facility: [facility] Address: [address] [place] [address] Performed By: #### 2 4323-8 ####[facility] LABCLIA [id number] [place] [address] [place] Calcium [Mass/Vol] 9.7 mg/dL Normal 8.5-10.2 [facility] Comment on above: Order Comment: Speci men Type: BLOOD SPECIMENOrdering Facility: [facility] Address: [address] [place] [address] Performed By: #### 2 4323-8 ####[facility] LABCLIA [id number] [place] [address] [place] Chloride [Moles/Vol] 99 mmol/L Normal 97-105 [facility] Comment on above: Order Comment: Speci men Type: BLOOD SPECIMENOrdering Facility: [facility] Address: [address] [place] [address] Performed By: #### 2 4323-8 ####[facility] LABCLIA [id number] [place] [address] [place] CO2 [Moles/Vol] 22 mmol/L Normal 22-30 [facility] Comment on above: Order Comment: Speci men Type: BLOOD SPECIMENOrdering Facility: [facility] Address: [address] [place] [address] Performed By: #### 2 4323-8 ####[facility] LABCLIA [id number] [place] [address] [place] Creatinine [Mass/Vol] 0.92 mg/dL Normal 0.58-0.96 [facility] Comment on above: Order Comment: Speci men Type: BLOOD SPECIMENOrdering Facility: [facility] Address: [address] [place] [address] Performed By: #### 2 4323-8 ####[facility] LABIA [id number] [place] [address] [place] Creatinine and Glomerular filtration rate.predicted panel (S/P/Bld) 63 mL/min/1.73m??? Normal >=60 [facility] Comment on above: Order Comment: Inez salas Type: BLOOD SPECIMENOrdering Facility: [facility] Address: [address] [place] [address] Result Comment: Anabel mated Glomerular Filtration Rate (eGFR) is calculated using the 2020 CKD-EPI creatinine equation. This equation utilizes serum creatinine, sex, and age as parameters. The creatinine assay has traceable calibration to isotope dilution-mass spectrometry. Refer to KDIGO guidelines for clinical interpretation. In patients with unstable renal function, e.g. those with acute kidney injury, the eGFR may not accurately reflect actual GFR. Performed By: #### 2 4323-8 ####[facility] LABIA [id number] [place] [address] [place] Glucose [Mass/Vol] 96 mg/dL Normal 74-99 [facility] Comment on above: Order Comment: Inez josue Type: BLOOD SPECIMENOrdering Facility: [facility] Address: [address] [place] [address] Result Comment: The [place] [employer] (ADA) provides guidance for cutoff values for fasting glucose and random glucose. The ADA defines fasting as no caloric intake for at least 8 hours. Fasting plasma glucose results between 100 to 125 mg/dL indicate increased risk for diabetes (prediabetes).Fasting plasma glucose results greater than or equal to 126 mg/dL meet the criteria for diagnosis of diabetes. In the absence of unequivocal hyperglycemia, results should be confirmed by repeat testing. In a patient with classic symptoms of hyperglycemia or hyperglycemic crisis, random plasma glucose results greater than or equal to 200 mg/dL meet the criteria for diagnosis of diabetes.Reference: Standards of Medical Care in Diabetes 2016, [place] [employer]. Diabetes Care. 2016.39(Suppl 1). Performed By: #### 2 4323-8 ####[facility] LABCLIA [id number] [place] [address] [place] Potassium [Moles/Vol] 4.3 mmol/L Normal 3.7-5.1 [facility] Comment on above: Order Comment: Speci men Type: BLOOD SPECIMENOrdering Facility: [facility] Address: [address] [place] [address] Performed By: #### 2 4323-8 ####[facility] LABIA [id number] [place] [address] [place] Protein [Mass/Vol] 6.8 g/dL Normal 6.3-8.0 [facility] Comment on above: Order Comment: Speci men Type: BLOOD SPECIMENOrdering Facility: [facility] Address: [address] [place] [address] Performed By: #### 2 4323-8 ####[facility] LABIA [id number] [place] [address] [place] Sodium [Moles/Vol] 135 mmol/L Low 136-144 [facility] Comment on above: Order Comment: Speci men Type: BLOOD SPECIMENOrdering Facility: [facility] Address: [address] [place] [address] Performed By: #### 2 4323-8 ####[facility] LABIA [id number] [place] [address] [place] Urea nitrogen [Mass/Vol] 16 mg/dL Normal 7-21 [facility] Comment on above: Order Comment: Speci men Type: BLOOD SPECIMENOrdering Facility: [facility] Address: [address] [place] [address] Performed By: #### 2 4323-8 ####[facility] LABIA [id number] [place] [address] [place] CBC W Auto Differential pane l (Bld)on 05-30-2023 Basophils (Bld) [#/Vol] 0.10 10*3/uL Normal <0.11 [facility] Comment on above: Order Comment: Speci men Type: BLOOD SPECIMENOrdering Facility: [facility] Address: [address] [place] [place] [address] Performed By: #### 5 7021-8 ####[facility] LABCLIA [id number] [place] [address] Basophils/100 WBC (Bld) 2.0 % Normal [facility] Comment on above: Order Comment: Speci men Type: BLOOD SPECIMENOrdering Facility: [facility] Address: [address] [place] [address] Performed By: #### 5 7021-8 ####[facility] LABCLIA [id number] [place] [address] Differential cell count method Nom (Bld) Auto Normal [facility] Comment on above: Order Comment: Speci men Type: BLOOD SPECIMENOrdering Facility: [facility] Address: [address] [place] [address] Performed By: #### 5 7021-8 ####[facility] LABCLIA [id number] [place] [address] Eosinophils (Bld) [#/Vol] 0.03 10*3/uL Normal <0.46 [facility] Comment on above: Order Comment: Speci men Type: BLOOD SPECIMENOrdering Facility: [facility] Address: [address] [place] [place] [address] Performed By: #### 5 7021-8 ####[facility] LABCLIA [id number] [place] [address] Eosinophils/100 WBC (Bld) 0.6 % Normal [facility] Comment on above: Order Comment: Speci men Type: BLOOD SPECIMENOrdering Facility: [facility] Address: [address] [place] [place] [address] Performed By: #### 5 7021-8 ####[facility] LABCLIA [id number] [place] [address] Erythrocyte distribution width (RBC) [Ratio] 14.0 % Normal 11.5-15.0 [facility] Comment on above: Order Comment: Speci men Type: BLOOD SPECIMENOrdering Facility: [facility] Address: [address] [place] [address] Performed By: #### 5 7021-8 ####[facility] LABCLIA [id number] [place] [address] Hematocrit (Bld) [Volume fraction] 39.6 % Normal 36.0-46.0 [facility] Comment on above: Order Comment: Speci men Type: BLOOD SPECIMENOrdering Facility: [facility] Address: [address] [place] [address] Performed By: #### 5 7021-8 ####[facility] LABIA [id number] [place] [address] Hemoglobin (Bld) [Mass/Vol] 13.4 g/dL Normal 11.5-15.5 [facility] Comment on above: Order Comment: Speci men Type: BLOOD SPECIMENOrdering Facility: [facility] Address: [address] [place] [address] Performed By: #### 5 7021-8 ####[facility] LABCLIA [id number] [place] [address] Immature granulocytes (Bld) [#/Vol] 10*3/uL Normal <0.10 [facility] Comment on above: Order Comment: Speci men Type: BLOOD SPECIMENOrdering Facility: [facility] Address: [address] [place] [address] Performed By: #### 5 7021-8 ####[facility] LABIA [id number] [place] [address] Immature granulocytes/100 WBC (Bld) 0.4 % Normal [facility] Comment on above: Order Comment: Speci men Type: BLOOD SPECIMENOrdering Facility: [facility] Address: [address] [place] [address] Performed By: #### 5 7021-8 ####[facility] LABCLIA [id number] [place] [address] Lymphocytes (Bld) [#/Vol] 1.32 10*3/uL Normal 1.00-4.00 [facility] Comment on above: Order Comment: Speci men Type: BLOOD SPECIMENOrdering Facility: [facility] Address: [address] [place] [address] Performed By: #### 5 7021-8 ####[facility] LABCLIA [id number] [place] [address] Lymphocytes/100 WBC (Bld) 26.8 % Normal [facility] Comment on above: Order Comment: Speci men Type: BLOOD SPECIMENOrdering Facility: [facility] Address: [address] [place] [address] Performed By: #### 5 7021-8 ####[facility] LABCLIA [id number] [place] [address] MCH (RBC) [Entitic mass] 33.2 pg Normal 26.0-34.0 [facility] Comment on above: Order Comment: Speci men Type: BLOOD SPECIMENOrdering Facility: [facility] Address: [address] [place] [address] Performed By: #### 5 7021-8 ####[facility] LABCLIA [id number] [place] [address] MCHC (RBC) [Mass/Vol] 33.8 g/dL Normal 30.5-36.0 [facility] Comment on above: Order Comment: Speci men Type: BLOOD SPECIMENOrdering Facility: [facility] Address: [address] [place] [address] Performed By: #### 5 7021-8 ####[facility] LABCLIA [id number] [place] [address] MCV (RBC) [Entitic vol] 98.0 fL Normal 80.0-100.0 [facility] Comment on above: Order Comment: Speci men Type: BLOOD SPECIMENOrdering Facility: [facility] Address: [address] [place] [address] Performed By: #### 5 7021-8 ####[facility] LABCLIA [id number] [place] [address] Monocytes (Bld) [#/Vol] 0.48 10*3/uL Normal <0.87 [facility] Comment on above: Order Comment: Speci men Type: BLOOD SPECIMENOrdering Facility: [facility] Address: [address] [place] [address] Performed By: #### 5 7021-8 ####[facility] LABCLIA [id number] [place] [address] Monocytes/100 WBC (Bld) 9.8 % Normal [facility] Comment on above: Order Comment: Speci men Type: BLOOD SPECIMENOrdering Facility: [facility] Address: [address] [place] [address] Performed By: #### 5 7021-8 ####[facility] LABCLIA [id number] [place] [address] Neutrophils (Bld) [#/Vol] 2.97 10*3/uL Normal 1.45-7.50 [facility] Comment on above: Order Comment: Speci men Type: BLOOD SPECIMENOrdering Facility: [facility] Address: [address] [place] [address] Performed By: #### 5 7021-8 ####[facility] LABIA [id number] [place] [address] Neutrophils/100 WBC (Bld) 60.4 % Normal [facility] Comment on above: Order Comment: Speci men Type: BLOOD SPECIMENOrdering Facility: [facility] Address: [address] [place] [address] Performed By: #### 5 7021-8 ####[facility] LABCLIA [id number] [place] [address] Nucleated RBC (Bld) [#/Vol] 10*3/uL Normal <0.01 [facility] Comment on above: Order Comment: Speci men Type: BLOOD SPECIMENOrdering Facility: [facility] Address: [address] [place] [address] Performed By: #### 5 7021-8 ####[facility] LABCLIA [id number] [place] [address] Nucleated RBC/100 WBC (Bld) [Ratio] 0.0 /100 WBC Normal [facility] Comment on above: Order Comment: Speci men Type: BLOOD SPECIMENOrdering Facility: [facility] Address: [address] [place] [address] Performed By: #### 5 7021-8 ####[facility] LABIA [id number] [place] [address] Platelet mean volume (Bld) [Entitic vol] 8.7 fL Low 9.0-12.7 [facility] Comment on above: Order Comment: Speci men Type: BLOOD SPECIMENOrdering Facility: [facility] Address: [address] [place] [address] Performed By: #### 5 7021-8 ####[facility] LABCLIA [id number] [place] [address] Platelets (Bld) [#/Vol] 205 10*3/uL Normal 150-400 [facility] Comment on above: Order Comment: Speci men Type: BLOOD SPECIMENOrdering Facility: [facility] Address: [address] [place] [address] Performed By: #### 5 7021-8 ####[facility] LABCLIA [id number] [place] [address] RBC (Bld) [#/Vol] 4.04 10*6/uL Normal 3.90-5.20 [facility] Comment on above: Order Comment: Speci men Type: BLOOD SPECIMENOrdering Facility: [facility] Address: [address] [place] [address] Performed By: #### 5 7021-8 ####[facility] LABCLIA [id number] [place] [address] WBC (Bld) [#/Vol] 4.92 10*3/uL Normal 3.70-11.00 [facility] Comment on above: Order Comment: Speci men Type: BLOOD SPECIMENOrdering Facility: [facility] Address: [address] [place] [address] Performed By: #### 5 7021-8 ####[facility] LABIA [id number] [place] [address] CNOVSPon 05-30-2023 CNOVSP Normal [facility] Comprehensive metabolic 2000 panelon 05-30-2023 Albumin [Mass/Vol] 4.3 g/dL Normal 3.9-4.9 [facility] Comment on above: Order Comment: Speci men Type: BLOOD SPECIMENOrdering Facility: [facility] Address: [address] [place] [address] Performed By: #### 2 4323-8 ####[facility] LABCLIA [id number] [place] [address] ALP [Catalytic activity/Vol] 95 U/L Normal 34-123 [facility] Comment on above: Order Comment: Speci men Type: BLOOD SPECIMENOrdering Facility: [facility] Address: [address] [place] [address] Performed By: #### 2 4323-8 ####[facility] LABCLIA [id number] [place] [address] ALT [Catalytic activity/Vol] 16 U/L Normal 7-38 [facility] Comment on above: Order Comment: Speci men Type: BLOOD SPECIMENOrdering Facility: [facility] Address: [address] [address] Performed By: #### 2 4323-8 ####[facility] LABCLIA [id number] [place] [address] Anion gap [Moles/Vol] 11 mmol/L Normal 9-18 [facility] Comment on above: Order Comment: Speci men Type: BLOOD SPECIMENOrdering Facility: [facility] Address: [address] [place] [address] Performed By: #### 2 4323-8 ####[facility] LABCLIA [id number] [place] [address] AST [Catalytic activity/Vol] 15 U/L Normal 13-35 [facility] Comment on above: Order Comment: Speci men Type: BLOOD SPECIMENOrdering Facility: [facility] Address: [address] [address] Performed By: #### 2 4323-8 ####[facility] LABCLIA [id number] [place] [address] Bilirubin [Mass/Vol] 0.3 mg/dL Normal 0.2-1.3 [facility] Comment on above: Order Comment: Speci men Type: BLOOD SPECIMENOrdering Facility: [facility] Address: [address] [address] Performed By: #### 2 4323-8 ####[facility] LABCLIA [id number] [place] [address] Calcium [Mass/Vol] 9.8 mg/dL Normal 8.5-10.2 [facility] Comment on above: Order Comment: Speci men Type: BLOOD SPECIMENOrdering Facility: [facility] Address: [address] [place] [address] Performed By: #### 2 4323-8 ####[facility] LABCLIA [id number] [place] [address] Chloride [Moles/Vol] 100 mmol/L Normal 97-105 [facility] Comment on above: Order Comment: Speci men Type: BLOOD SPECIMENOrdering Facility: [facility] Address: [address] [place] [address] Performed By: #### 2 4323-8 ####[facility] LABCLIA [id number] [place] [address] CO2 [Moles/Vol] 23 mmol/L Normal 22-30 [facility] Comment on above: Order Comment: Speci men Type: BLOOD SPECIMENOrdering Facility: [facility] Address: [address] [place] [address] Performed By: #### 2 4323-8 ####[facility] LABCLIA [id number] [place] [address] Creatinine [Mass/Vol] 0.86 mg/dL Normal 0.58-0.96 [facility] Comment on above: Order Comment: Speci men Type: BLOOD SPECIMENOrdering Facility: [facility] Address: [address] [place] [address] Performed By: #### 2 4323-8 ####[facility] LABCLIA [id number] [place] [address] Creatinine and Glomerular filtration rate.predicted panel (S/P/Bld) 69 mL/min/1.73m??? Normal >=60 [facility] Comment on above: Order Comment: Speci men Type: BLOOD SPECIMENOrdering Facility: [facility] Address: [address] [place] [address] Result Comment: Anabel mated Glomerular Filtration Rate (eGFR) is calculated using the 2020 CKD-EPI creatinine equation. This equation utilizes serum creatinine, sex, and age as parameters. The creatinine assay has traceable calibration to isotope dilution-mass spectrometry. Refer to KDIGO guidelines for clinical interpretation. In patients with unstable renal function, e.g. those with acute kidney injury, the eGFR may not accurately reflect actual GFR. Performed By: #### 2 4323-8 ####[facility] LABCLIA [id number] [place] [address] Glucose [Mass/Vol] 107 mg/dL High 74-99 [facility] Comment on above: Order Comment: Speci men Type: BLOOD SPECIMENOrdering Facility: [facility] Address: [address] [place] [address] Result Comment: The [place] [employer] (ADA) provides guidance for cutoff values for fasting glucose and random glucose. The ADA defines fasting as no caloric intake for at least 8 hours. Fasting plasma glucose results between 100 to 125 mg/dL indicate increased risk for diabetes (prediabetes).Fasting plasma glucose results greater than or equal to 126 mg/dL meet the criteria for diagnosis of diabetes. In the absence of unequivocal hyperglycemia, results should be confirmed by repeat testing. In a patient with classic symptoms of hyperglycemia or hyperglycemic crisis, random plasma glucose results greater than or equal to 200 mg/dL meet the criteria for diagnosis of diabetes.Reference: Standards of Medical Care in Diabetes 2016, [place] [employer]. Diabetes Care. 2016.39(Suppl 1). Performed By: #### 2 4323-8 ####[facility] LABCLIA [id number] [place] [address] Potassium [Moles/Vol] 4.2 mmol/L Normal 3.7-5.1 [facility] Comment on above: Order Comment: Speci men Type: BLOOD SPECIMENOrdering Facility: [facility] Address: [address] [place] [address] Performed By: #### 2 4323-8 ####[facility] LABCLIA [id number] [place] [address] Protein [Mass/Vol] 6.8 g/dL Normal 6.3-8.0 [facility] Comment on above: Order Comment: Speci men Type: BLOOD SPECIMENOrdering Facility: [facility] Address: [address] [place] [address] Performed By: #### 2 4323-8 ####[facility] LABCLIA [id number] [place] [address] Sodium [Moles/Vol] 134 mmol/L Low 136-144 [facility] Comment on above: Order Comment: Speci men Type: BLOOD SPECIMENOrdering Facility: [facility] Address: [address] [address] Performed By: #### 2 4323-8 ####[facility] LABCLIA [id number] [place] [id number] Urea nitrogen [Mass/Vol] 14 mg/dL Normal 7- [facility] Comment on above: Order Comment: Speci men Type: BLOOD SPECIMENOrdering Facility: [facility] Address: [address] [address] Performed By: #### 2 4323-8 ####[facility] LABCLIA [id number] [place] [address] CNSWon 05-02-2023 CNSW Normal [facility] NM PET/CT SKULL-THIGH SUBQon 05-02-2023 NM PET/CT SKULL-THIGH SUBQ Normal [facility] CNPNon 04-25-2023 CNPN Normal [facility] CBC W Auto Differential pane l (Bld)on 04-18-2023 Basophils (Bld) [#/Vol] 0.10 10*3/uL Normal <0.11 [facility] Comment on above: Order Comment: Speci men Type: BLOOD SPECIMENOrdering Facility: [facility] Address: [address] Performed By: #### 5 7021-8 ####[facility] LABCLIA [id number] [place] [address] LABCL[facility] [id number] [place] [address] [place] Basophils/100 WBC (Bld) 1.9 % Normal [facility] Comment on above: Order Comment: Speci men Type: BLOOD SPECIMENOrdering Facility: [facility] Address: [address] [place] [address] Performed By: #### 5 7021-8 ####[facility] LABCLIA [id number] [address] LABCLIA [id number] [place] [address] [place] Differential cell count method Nom (Bld) Auto Normal [facility] Comment on above: Order Comment: Speci men Type: BLOOD SPECIMENOrdering Facility: [facility] Address: [address] [address] Performed By: #### 5 7021-8 ####[facility] LABCLIA [id number] [address] LABCLIA [id number] [place] [address] [place] Eosinophils (Bld) [#/Vol] 0.03 10*3/uL Normal <0.46 [facility] Comment on above: Order Comment: Speci men Type: BLOOD SPECIMENOrdering Facility: [facility] Address: [address] Performed By: #### 5 7021-8 ####[facility] LABCLIA [id number] [address] LABCLIA [id number] [place] [address] [place] Eosinophils/100 WBC (Bld) 0.6 % Normal [facility] Comment on above: Order Comment: Speci men Type: BLOOD SPECIMENOrdering Facility: [facility] Address: [address] [place] [address] Performed By: #### 5 7021-8 ####[facility] LABCLIA [id number] [address] LABCLIA [id number] [place] [address] [place] Erythrocyte distribution width (RBC) [Ratio] 15.9 % High 11.5-15.0 [facility] Comment on above: Order Comment: Speci men Type: BLOOD SPECIMENOrdering Facility: [facility] Address: [address] [place] [address] Performed By: #### 5 7021-8 ####[facility] LABCLIA [id number] [address] LABCLIA [id number] [place] [address] [place] Hematocrit (Bld) [Volume fraction] 36.7 % Normal 36.0-46.0 [facility] Comment on above: Order Comment: Speci men Type: BLOOD SPECIMENOrdering Facility: [facility] Address: [address] [place] [address] Performed By: #### 5 7021-8 ####[facility] LABCLIA [id number] [address] LABCLIA [id number] [place] [address] [place] Hemoglobin (Bld) [Mass/Vol] 12.5 g/dL Normal 11.5-15.5 [facility] Comment on above: Order Comment: Speci men Type: BLOOD SPECIMENOrdering Facility: [facility] Address: [address] [place] [address] Performed By: #### 5 7021-8 ####[facility] LABCLIA [id number] [address] LABCLIA [id number] [place] [address] [place] Immature granulocytes (Bld) [#/Vol] 10*3/uL Normal <0.10 [facility] Comment on above: Order Comment: Speci men Type: BLOOD SPECIMENOrdering Facility: [facility] Address: [address] [place] [address] Performed By: #### 5 7021-8 ####[facility] LABCLIA [id number] [address] LABCLIA [id number] [place] [address] [place] Immature granulocytes/100 WBC (Bld) 0.4 % Normal [facility] Comment on above: Order Comment: Speci men Type: BLOOD SPECIMENOrdering Facility: [facility] Address: [address] [place] [address] Performed By: #### 5 7021-8 ####[facility] LABCLIA [id number] [address] LABCLIA [id number] [place] [address] [place] Lymphocytes (Bld) [#/Vol] 1.29 10*3/uL Normal 1.00-4.00 [facility] Comment on above: Order Comment: Speci men Type: BLOOD SPECIMENOrdering Facility: [facility] Address: [address] [place] [address] Performed By: #### 5 7021-8 ####[facility] LABCLIA [id number] [address] LABCLIA [id number] [place] [address] [place] Lymphocytes/100 WBC (Bld) 24.6 % Normal [facility] Comment on above: Order Comment: Speci men Type: BLOOD SPECIMENOrdering Facility: [facility] Address: [address] [place], [place] [address] Performed By: #### 5 7021-8 ####[facility] LABCLIA [id number] [address] LABCLIA [id number] [place] [address] [place] MCH (RBC) [Entitic mass] 32.6 pg Normal 26.0-34.0 [facility] Comment on above: Order Comment: Speci men Type: BLOOD SPECIMENOrdering Facility: [facility] Address: [address] [place] [address] Performed By: #### 5 7021-8 ####[facility] LABCLIA [id number] [address] LABCLIA [id number] [place] [address] [place] MCHC (RBC) [Mass/Vol] 34.1 g/dL Normal 30.5-36.0 [facility] Comment on above: Order Comment: Speci men Type: BLOOD SPECIMENOrdering Facility: [facility] Address: [address] [place] [address] Performed By: #### 5 7021-8 ####[facility] LABCLIA [id number] [address] LABCLIA [id number] [place] [address] [place] MCV (RBC) [Entitic vol] 95.6 fL Normal 80.0-100.0 [facility] Comment on above: Order Comment: Speci men Type: BLOOD SPECIMENOrdering Facility: [facility] Address: [address] [place] [address] Performed By: #### 5 7021-8 ####[facility] LABCLIA [id number] [address] LABCLIA [id number] [place] [address] [place] Monocytes (Bld) [#/Vol] 0.26 10*3/uL Normal <0.87 [facility] Comment on above: Order Comment: Speci men Type: BLOOD SPECIMENOrdering Facility: [facility] Address: [address] [place] [address] Performed By: #### 5 7021-8 ####[facility] LABCLIA [id number] [address] LABCLIA [id number] [place] [address] [place] Monocytes/100 WBC (Bld) 5.0 % Normal [facility] Comment on above: Order Comment: Speci men Type: BLOOD SPECIMENOrdering Facility: [facility] Address: [address] [place] [address] Performed By: #### 5 7021-8 ####[facility] LABCLIA [id number] [address] LABCLIA [id number] [place] [address] [place] Neutrophils (Bld) [#/Vol] 3.54 10*3/uL Normal 1.45-7.50 [facility] Comment on above: Order Comment: Speci men Type: BLOOD SPECIMENOrdering Facility: [facility] Address: [address] [place] [address] Performed By: #### 5 7021-8 ####[facility] LABCLIA [id number] [address] LABCLIA [id number] [place] [address] [place] Neutrophils/100 WBC (Bld) 67.5 % Normal [facility] Comment on above: Order Comment: Speci men Type: BLOOD SPECIMENOrdering Facility: [facility] Address: [address] [place], [place] [address] Result Comment: Diff erential confirmed by visual scan of peripheral blood smear slide. Performed By: #### 5 7021-8 ####[facility] LABCLIA [id number] [address] LABCLIA [id number] [place] [address] [place] Nucleated RBC (Bld) [#/Vol] 10*3/uL Normal <0.01 [facility] Comment on above: Order Comment: Speci men Type: BLOOD SPECIMENOrdering Facility: [facility] Address: [address] [place], [place] [address] Performed By: #### 5 7021-8 ####[facility] LABCLIA [id number] [address] LABCLIA [id number] [place] [address] [place] Nucleated RBC/100 WBC (Bld) [Ratio] 0.0 /100 WBC Normal [facility] Comment on above: Order Comment: Speci men Type: BLOOD SPECIMENOrdering Facility: [facility] Address: [address] [place] [address] Performed By: #### 5 7021-8 ####[facility] LABCLIA [id number] [address] LABCLIA [id number] [place] [address] [place] Platelet mean volume (Bld) [Entitic vol] 8.4 fL Low 9.0-12.7 [facility] Comment on above: Order Comment: Speci men Type: BLOOD SPECIMENOrdering Facility: [facility] Address: [address] [place], [place] [address] Performed By: #### 5 7021-8 ####[facility] LABCLIA [id number] [address] LABCLIA [id number] [place] [address] [place] Platelets (Bld) [#/Vol] 366 10*3/uL Normal 150-400 [facility] Comment on above: Order Comment: Speci men Type: BLOOD SPECIMENOrdering Facility: [facility] Address: [address] [place], [place] [address] Performed By: #### 5 7021-8 ####[facility] LABCLIA [id number] [place] [id number] LABCLIA [id number] [place] [address] [place] RBC (Bld) [#/Vol] 3.84 10*6/uL Low 3.90-5.20 [facility] Comment on above: Order Comment: Speci men Type: BLOOD SPECIMENOrdering Facility: [facility] Address: [address] [address] Performed By: #### 5 7021-8 ####[facility] LABCLIA [id number] [place] [id number] LABCLIA [id number] [place] [address] [place] WBC (Bld) [#/Vol] 5.24 10*3/uL Normal 3.70-11.00 [facility] Comment on above: Order Comment: Speci men Type: BLOOD SPECIMENOrdering Facility: [facility] Address: [address] [address] Performed By: #### 5 7021-8 ####[facility] LABCLIA [id number] [place] [id number] LABCLIA [id number] [place] [address] [place] CNOVSPon 04-18-2023 CNOVSP Normal [facility] Comprehensive metabolic 2000 panelon 04-18-2023 Albumin [Mass/Vol] 4.0 g/dL Normal 3.9-4.9 [facility] Comment on above: Order Comment: Speci men Type: BLOOD SPECIMENOrdering Facility: [facility] Address: [address] [address] Performed By: #### 2 4323-8 ####[facility] LABCLIA [id number] [place] [id number] ALP [Catalytic activity/Vol] 102 U/L Normal 34-123 [facility] Comment on above: Order Comment: Speci men Type: BLOOD SPECIMENOrdering Facility: [facility] Address: [address] [place] [address] Performed By: #### 2 4323-8 ####[facility] LABCLIA [id number] [place] [address] ALT [Catalytic activity/Vol] 71 U/L High 7-38 [facility] Comment on above: Order Comment: Speci men Type: BLOOD SPECIMENOrdering Facility: [facility] Address: [address] [place] [address] Performed By: #### 2 4323-8 ####[facility] LABCLIA [id number] [place] [address] Anion gap [Moles/Vol] 11 mmol/L Normal 9-18 [facility] Comment on above: Order Comment: Speci men Type: BLOOD SPECIMENOrdering Facility: [facility] Address: [address] [address] Performed By: #### 2 4323-8 ####[facility] LABCLIA [id number] [place] [address] AST [Catalytic activity/Vol] 43 U/L High 13-35 [facility] Comment on above: Order Comment: Speci men Type: BLOOD SPECIMENOrdering Facility: [facility] Address: [address] [address] Performed By: #### 2 4323-8 ####[facility] LABCLIA [id number] [place] [address] Bilirubin [Mass/Vol] 0.6 mg/dL Normal 0.2-1.3 [facility] Comment on above: Order Comment: Speci men Type: BLOOD SPECIMENOrdering Facility: [facility] Address: [address] [place] [address] Performed By: #### 2 4323-8 ####[facility] LABCLIA [id number] [place] [address] Calcium [Mass/Vol] 9.7 mg/dL Normal 8.5-10.2 [facility] Comment on above: Order Comment: Speci men Type: BLOOD SPECIMENOrdering Facility: [facility] Address: [address] [place] [address] Performed By: #### 2 4323-8 ####[facility] LABCLIA [id number] [place] [address] Chloride [Moles/Vol] 96 mmol/L Low 97-105 [facility] Comment on above: Order Comment: Speci men Type: BLOOD SPECIMENOrdering Facility: [facility] Address: [address] [place] [address] Performed By: #### 2 4323-8 ####[facility] LABCLIA [id number] [place] [address] CO2 [Moles/Vol] 24 mmol/L Normal 22-30 [facility] Comment on above: Order Comment: Speci men Type: BLOOD SPECIMENOrdering Facility: [facility] Address: [address] [place] [address] Performed By: #### 2 4323-8 ####[facility] LABCLIA [id number] [place] [address] Creatinine [Mass/Vol] 0.99 mg/dL High 0.58-0.96 [facility] Comment on above: Order Comment: Speci men Type: BLOOD SPECIMENOrdering Facility: [facility] Address: [address] [place] [address] Performed By: #### 2 4323-8 ####[facility] LABCLIA [id number] [place] [address] ESTIMATED GLOMERULAR FILTRATION RATE 58 mL/min/1.73m??? Low >=60 [facility] Comment on above: Order Comment: Speci men Type: BLOOD SPECIMENOrdering Facility: [facility] Address: [address] [id number] Result Comment: Anabel mated Glomerular Filtration Rate (eGFR) is calculated using the 2020 CKD-EPI creatinine equation. This equation utilizes serum creatinine, sex, and age as parameters. The creatinine assay has traceable calibration to isotope dilution-mass spectrometry. Refer to KDIGO guidelines for clinical interpretation. In patients with unstable renal function, e.g. those with acute kidney injury, the eGFR may not accurately reflect actual GFR. Performed By: #### 2 4323-8 ####[facility] LABCLIA [id number] [place] [address] Glucose [Mass/Vol] 103 mg/dL High 74-99 [facility] Comment on above: Order Comment: Inez men Type: BLOOD SPECIMENOrdering Facility: [facility] Address: [address] [place] [address] Result Comment: The [place] [employer] (ADA) provides guidance for cutoff values for fasting glucose and random glucose. The ADA defines fasting as no caloric intake for at least 8 hours. Fasting plasma glucose results between 100 to 125 mg/dL indicate increased risk for diabetes (prediabetes).Fasting plasma glucose results greater than or equal to 126 mg/dL meet the criteria for diagnosis of diabetes. In the absence of unequivocal hyperglycemia, results should be confirmed by repeat testing. In a patient with classic symptoms of hyperglycemia or hyperglycemic crisis, random plasma glucose results greater than or equal to 200 mg/dL meet the criteria for diagnosis of diabetes.Reference: Standards of Medical Care in Diabetes 2016, [place] [employer]. Diabetes Care. 2016.39(Suppl 1). Performed By: #### 2 4323-8 ####[facility] LABCLIA [id number] [place] [address] Potassium [Moles/Vol] 4.6 mmol/L Normal 3.7-5.1 [facility] Comment on above: Order Comment: Inez salas Type: BLOOD SPECIMENOrdering Facility: [facility] Address: [address] [phone] Performed By: #### 2 4323-8 ####[facility] LABCLIA [id number] [place] [address] Protein [Mass/Vol] 6.6 g/dL Normal 6.3-8.0 [facility] Comment on above: Order Comment: Speci men Type: BLOOD SPECIMENOrdering Facility: [facility] Address: [address] [place] [address] Performed By: #### 2 4323-8 ####[facility] LABCLIA [id number] [place] [address] Sodium [Moles/Vol] 131 mmol/L Low 136-144 [facility] Comment on above: Order Comment: Speci men Type: BLOOD SPECIMENOrdering Facility: [facility] Address: [address] [place] [address] Performed By: #### 2 4323-8 ####[facility] LABIA [id number] [place] [address] Urea nitrogen [Mass/Vol] 15 mg/dL Normal 7-21 [facility] Comment on above: Order Comment: Speci men Type: BLOOD SPECIMENOrdering Facility: [facility] Address: [address] [place] [address] Performed By: #### 2 4323-8 ####[facility] LABCLIA [id number] [place] [address] CBC W Auto Differential pane l (Bld)on 04-04-2023 Basophils (Bld) [#/Vol] 0.07 10*3/uL Normal <0.11 [facility] Comment on above: Order Comment: Speci men Type: BLOOD SPECIMENOrdering Facility: [facility] Address: [address] [place] [address] Performed By: #### 5 7021-8 ####[facility] LABIA [id number] [place] [address] Basophils/100 WBC (Bld) 1.5 % Normal [facility] Comment on above: Order Comment: Speci men Type: BLOOD SPECIMENOrdering Facility: [facility] Address: [address] [place] [address] Performed By: #### 5 7021-8 ####[facility] LABCLIA [id number] [place] [address] Differential cell count method Nom (Bld) Auto Normal [facility] Comment on above: Order Comment: Speci men Type: BLOOD SPECIMENOrdering Facility: [facility] Address: [address] [place] [address] Performed By: #### 5 7021-8 ####[facility] LABCLIA [id number] [place] [address] Eosinophils (Bld) [#/Vol] 0.06 10*3/uL Normal <0.46 [facility] Comment on above: Order Comment: Speci men Type: BLOOD SPECIMENOrdering Facility: [facility] Address: [address] [place] [address] Performed By: #### 5 7021-8 ####[facility] LABCLIA [id number] [place] [address] Eosinophils/100 WBC (Bld) 1.3 % Normal [facility] Comment on above: Order Comment: Speci men Type: BLOOD SPECIMENOrdering Facility: [facility] Address: [address] [place] [address] Performed By: #### 5 7021-8 ####[facility] LABCLIA [id number] [place] [address] Erythrocyte distribution width (RBC) [Ratio] 16.4 % High 11.5-15.0 [facility] Comment on above: Order Comment: Speci men Type: BLOOD SPECIMENOrdering Facility: [facility] Address: [address] [place] [address] Performed By: #### 5 7021-8 ####[facility] LABCLIA [id number] [place] [address] Hematocrit (Bld) [Volume fraction] 37.5 % Normal 36.0-46.0 [facility] Comment on above: Order Comment: Speci men Type: BLOOD SPECIMENOrdering Facility: [facility] Address: [address] [place] [address] Performed By: #### 5 7021-8 ####[facility] LABCLIA [id number] [place] [address] Hemoglobin (Bld) [Mass/Vol] 12.6 g/dL Normal 11.5-15.5 [facility] Comment on above: Order Comment: Speci men Type: BLOOD SPECIMENOrdering Facility: [facility] Address: [address] [place] [address] Performed By: #### 5 7021-8 ####[facility] LABCLIA [id number] [place] [address] Immature granulocytes (Bld) [#/Vol] 10*3/uL Normal <0.10 [facility] Comment on above: Order Comment: Speci men Type: BLOOD SPECIMENOrdering Facility: [facility] Address: [address] [place] [address] Performed By: #### 5 7021-8 ####[facility] LABCLIA [id number] [place] [address] Immature granulocytes/100 WBC (Bld) 0.2 % Normal [facility] Comment on above: Order Comment: Speci men Type: BLOOD SPECIMENOrdering Facility: [facility] Address: [address] [place] [address] Performed By: #### 5 7021-8 ####[facility] LABCLIA [id number] [place] [address] Lymphocytes (Bld) [#/Vol] 1.61 10*3/uL Normal 1.00-4.00 [facility] Comment on above: Order Comment: Speci men Type: BLOOD SPECIMENOrdering Facility: [facility] Address: [address] [place] [address] Performed By: #### 5 7021-8 ####[facility] LABCLIA [id number] [place] [address] Lymphocytes/100 WBC (Bld) 34.4 % Normal [facility] Comment on above: Order Comment: Speci men Type: BLOOD SPECIMENOrdering Facility: [facility] Address: [address] [place] [address] Performed By: #### 5 7021-8 ####[facility] LABCLIA [id number] [place] [address] MCH (RBC) [Entitic mass] 32.3 pg Normal 26.0-34.0 [facility] Comment on above: Order Comment: Speci men Type: BLOOD SPECIMENOrdering Facility: [facility] Address: [address] [place] [address] Performed By: #### 5 7021-8 ####[facility] LABIA [id number] [place] [address] MCHC (RBC) [Mass/Vol] 33.6 g/dL Normal 30.5-36.0 [facility] Comment on above: Order Comment: Speci men Type: BLOOD SPECIMENOrdering Facility: [facility] Address: [address] [place] [address] Performed By: #### 5 7021-8 ####[facility] LABIA [id number] [place] [address] MCV (RBC) [Entitic vol] 96.2 fL Normal 80.0-100.0 [facility] Comment on above: Order Comment: Speci men Type: BLOOD SPECIMENOrdering Facility: [facility] Address: [address] [place] [address] Performed By: #### 5 7021-8 ####[facility] LABIA [id number] [place] [address] Monocytes (Bld) [#/Vol] 0.28 10*3/uL Normal <0.87 [facility] Comment on above: Order Comment: Speci men Type: BLOOD SPECIMENOrdering Facility: [facility] Address: [address] [place] [address] Performed By: #### 5 7021-8 ####[facility] LABCLIA [id number] [place] [address] Monocytes/100 WBC (Bld) 6.0 % Normal [facility] Comment on above: Order Comment: Speci men Type: BLOOD SPECIMENOrdering Facility: [facility] Address: [address] [place] [address] Performed By: #### 5 7021-8 ####[facility] LABCLIA [id number] [place] [address] Neutrophils (Bld) [#/Vol] 2.65 10*3/uL Normal 1.45-7.50 [facility] Comment on above: Order Comment: Speci men Type: BLOOD SPECIMENOrdering Facility: [facility] Address: [address] [address] Performed By: #### 5 7021-8 ####[facility] LABCLIA [id number] [place] [address] Neutrophils/100 WBC (Bld) 56.6 % Normal [facility] Comment on above: Order Comment: Speci men Type: BLOOD SPECIMENOrdering Facility: [facility] Address: [address] [address] Performed By: #### 5 7021-8 ####[facility] LABCLIA [id number] [place] [address] Nucleated RBC (Bld) [#/Vol] 10*3/uL Normal <0.01 [facility] Comment on above: Order Comment: Speci men Type: BLOOD SPECIMENOrdering Facility: [facility] Address: [address] [place] [address] Performed By: #### 5 7021-8 ####[facility] LABCLIA [id number] [place] [address] Nucleated RBC/100 WBC (Bld) [Ratio] 0.0 /100 WBC Normal [facility] Comment on above: Order Comment: Speci men Type: BLOOD SPECIMENOrdering Facility: [facility] Address: [address] [place] [address] Performed By: #### 5 7021-8 ####[facility] LABCLIA [id number] [place] [address] Platelet mean volume (Bld) [Entitic vol] 8.8 fL Low 9.0-12.7 [facility] Comment on above: Order Comment: Speci men Type: BLOOD SPECIMENOrdering Facility: [facility] Address: [address] [place] [address] Performed By: #### 5 7021-8 ####[facility] LABIA [id number] [place] [address] Platelets (Bld) [#/Vol] 218 10*3/uL Normal 150-400 [facility] Comment on above: Order Comment: Speci men Type: BLOOD SPECIMENOrdering Facility: [facility] Address: [address] [place] [address] Performed By: #### 5 7021-8 ####[facility] LABIA [id number] [place] [address] RBC (Bld) [#/Vol] 3.90 10*6/uL Normal 3.90-5.20 [facility] Comment on above: Order Comment: Speci men Type: BLOOD SPECIMENOrdering Facility: [facility] Address: [address] [place] [address] Performed By: #### 5 7021-8 ####[facility] LABIA [id number] [place] [address] WBC (Bld) [#/Vol] 4.68 10*3/uL Normal 3.70-11.00 [facility] Comment on above: Order Comment: Speci men Type: BLOOD SPECIMENOrdering Facility: [facility] Address: [address] [address] Performed By: #### 5 7021-8 ####[facility] LABCLIA [id number] [place] [address] CNOVSPon 04-04-2023 CNOVSP Normal [facility] metabolic 2000 panelon 04-04-2023 Albumin [Mass/Vol] 4.0 g/dL Normal 3.9-4.9 [facility] Comment on above: Order Comment: Speci men Type: BLOOD SPECIMENOrdering Facility: [facility] Address: [address] [address] Performed By: #### 2 4323-8 ####[facility] LABCLIA [id number] [place] [address] ALP [Catalytic activity/Vol] 99 U/L Normal 34-123 [facility] Comment on above: Order Comment: Speci men Type: BLOOD SPECIMENOrdering Facility: [facility] Address: [address] [address] Performed By: #### 2 4323-8 ####[facility] LABCLIA [id number] [place] [address] ALT [Catalytic activity/Vol] 30 U/L Normal 7-38 [facility] Comment on above: Order Comment: Speci men Type: BLOOD SPECIMENOrdering Facility: [facility] Address: [address] [address] Performed By: #### 2 4323-8 ####[facility] LABCLIA [id number] [place] [address] Anion gap [Moles/Vol] 6 mmol/L Low 9-18 [facility] Comment on above: Order Comment: Speci men Type: BLOOD SPECIMENOrdering Facility: [facility] Address: [address] [address] Performed By: #### 2 4323-8 ####[facility] LABCLIA [id number] [place] [address] AST [Catalytic activity/Vol] 22 U/L Normal 13-35 [facility] Comment on above: Order Comment: Speci men Type: BLOOD SPECIMENOrdering Facility: [facility] Address: [address] [place] [address] Performed By: #### 2 4323-8 ####[facility] LABCLIA [id number] [place] [address] Bilirubin [Mass/Vol] 0.4 mg/dL Normal 0.2-1.3 [facility] Comment on above: Order Comment: Speci men Type: BLOOD SPECIMENOrdering Facility: [facility] Address: [address] [place] [address] Performed By: #### 2 4323-8 ####[facility] LABCLIA [id number] [place] [address] Calcium [Mass/Vol] 10.0 mg/dL Normal 8.5-10.2 [facility] Comment on above: Order Comment: Speci men Type: BLOOD SPECIMENOrdering Facility: [facility] Address: [address] [place] [address] Performed By: #### 2 4323-8 ####[facility] LABCLIA [id number] [place] [address] Chloride [Moles/Vol] 97 mmol/L Normal 97-105 [facility] Comment on above: Order Comment: Speci men Type: BLOOD SPECIMENOrdering Facility: [facility] Address: [address] [place] [address] Performed By: #### 2 4323-8 ####[facility] LABCLIA [id number] [place] [address] CO2 [Moles/Vol] 28 mmol/L Normal 22-30 [facility] Comment on above: Order Comment: Speci men Type: BLOOD SPECIMENOrdering Facility: [facility] Address: [address] [address] Performed By: #### 2 4323-8 ####[facility] LABCLIA [id number] [place] [address] Creatinine [Mass/Vol] 0.96 mg/dL Normal 0.58-0.96 [facility] Comment on above: Order Comment: Speci men Type: BLOOD SPECIMENOrdering Facility: [facility] Address: [address] [place] [address] Performed By: #### 2 4323-8 ####[facility] LABCLIA [id number] [place] [address] ESTIMATED GLOMERULAR FILTRATION RATE 60 mL/min/1.73m??? Normal >=60 [facility] Comment on above: Order Comment: Speci men Type: BLOOD SPECIMENOrdering Facility: [facility] Address: [address] [place] [address] Result Comment: Anabel mated Glomerular Filtration Rate (eGFR) is calculated using the 2020 CKD-EPI creatinine equation. This equation utilizes serum creatinine, sex, and age as parameters. The creatinine assay has traceable calibration to isotope dilution-mass spectrometry. Refer to KDIGO guidelines for clinical interpretation. In patients with unstable renal function, e.g. those with acute kidney injury, the eGFR may not accurately reflect actual GFR. Performed By: #### 2 4323-8 ####[facility] LABCLIA [id number] [place] [address] Glucose [Mass/Vol] 97 mg/dL Normal 74-99 [facility] Comment on above: Order Comment: Speci men Type: BLOOD SPECIMENOrdering Facility: [facility] Address: [address] [place] [address] Result Comment: The [place] [employer] (ADA) provides guidance for cutoff values for fasting glucose and random glucose. The ADA defines fasting as no caloric intake for at least 8 hours. Fasting plasma glucose results between 100 to 125 mg/dL indicate increased risk for diabetes (prediabetes).Fasting plasma glucose results greater than or equal to 126 mg/dL meet the criteria for diagnosis of diabetes. In the absence of unequivocal hyperglycemia, results should be confirmed by repeat testing. In a patient with classic symptoms of hyperglycemia or hyperglycemic crisis, random plasma glucose results greater than or equal to 200 mg/dL meet the criteria for diagnosis of diabetes.Reference: Standards of Medical Care in Diabetes 2016, [place] [employer]. Diabetes Care. 2016.39(Suppl 1). Performed By: #### 2 4323-8 ####[facility] LABCLIA [id number] [place] [address] Potassium [Moles/Vol] 4.7 mmol/L Normal 3.7-5.1 [facility] Comment on above: Order Comment: Speci men Type: BLOOD SPECIMENOrdering Facility: [facility] Address: [address] [place] [address] Performed By: #### 2 4323-8 ####[facility] LABCLIA [id number] [place] [address] Protein [Mass/Vol] 6.7 g/dL Normal 6.3-8.0 [facility] Comment on above: Order Comment: Speci men Type: BLOOD SPECIMENOrdering Facility: [facility] Address: [address] [place] [address] Performed By: #### 2 4323-8 ####[facility] LABCLIA [id number] [place] [address] Sodium [Moles/Vol] 131 mmol/L Low 136-144 [facility] Comment on above: Order Comment: Speci men Type: BLOOD SPECIMENOrdering Facility: [facility] Address: [address] [place] [address] Performed By: #### 2 4323-8 ####[facility] LABCLIA [id number] [place] [address] Urea nitrogen [Mass/Vol] 13 mg/dL Normal 7-21 [facility] Comment on above: Order Comment: Speci men Type: BLOOD SPECIMENOrdering Facility: [facility] Address: [address] [address] Performed By: #### 2 4323-8 ####[facility] LABCLIA [id number] [place] [address] CBC W Auto Differential pane l (Bld)on 03-18-2023 Basophils (Bld) [#/Vol] 0.09 10*3/uL Normal <0.11 [facility] Comment on above: Order Comment: Speci men Type: BLOOD SPECIMENOrdering Facility: [facility] Address: [address] [address] Performed By: #### 5 7021-8 ####[facility] LABIA [id number] [place] [address] Basophils/100 WBC (Bld) 1.0 % Normal [facility] Comment on above: Order Comment: Speci men Type: BLOOD SPECIMENOrdering Facility: [facility] Address: [address] [place] [address] Performed By: #### 5 7021-8 ####[facility] LABIA [id number] [place] [address] Differential cell count method Nom (Bld) Auto Normal [facility] Comment on above: Order Comment: Speci men Type: BLOOD SPECIMENOrdering Facility: [facility] Address: [address] [address] Performed By: #### 5 7021-8 ####[facility] LABCLIA [id number] [place] [address] Eosinophils (Bld) [#/Vol] 0.11 10*3/uL Normal <0.46 [facility] Comment on above: Order Comment: Speci men Type: BLOOD SPECIMENOrdering Facility: [facility] Address: [address] [address] Performed By: #### 5 7021-8 ####[facility] LABCLIA [id number] [place] [address] Eosinophils/100 WBC (Bld) 1.3 % Normal [facility] Comment on above: Order Comment: Speci men Type: BLOOD SPECIMENOrdering Facility: [facility] Address: [address] [address] Performed By: #### 5 7021-8 ####[facility] LABCLIA [id number] [place] [address] Erythrocyte distribution width (RBC) [Ratio] 15.9 % High 11.5-15.0 [facility] Comment on above: Order Comment: Speci men Type: BLOOD SPECIMENOrdering Facility: [facility] Address: [address] [place] [address] Performed By: #### 5 7021-8 ####[facility] LABCLIA [id number] [place] [address] Hematocrit (Bld) [Volume fraction] 37.3 % Normal 36.0-46.0 [facility] Comment on above: Order Comment: Speci men Type: BLOOD SPECIMENOrdering Facility: [facility] Address: [address] [place] [address] Performed By: #### 5 7021-8 ####[facility] LABCLIA [id number] [place] [address] Hemoglobin (Bld) [Mass/Vol] 12.7 g/dL Normal 11.5-15.5 [facility] Comment on above: Order Comment: Speci men Type: BLOOD SPECIMENOrdering Facility: [facility] Address: [address] [address] Performed By: #### 5 7021-8 ####[facility] LABCLIA [id number] [place] [address] Immature granulocytes (Bld) [#/Vol] 0.04 10*3/uL Normal <0.10 [facility] Comment on above: Order Comment: Speci men Type: BLOOD SPECIMENOrdering Facility: [facility] Address: [address] [place] [address] Performed By: #### 5 7021-8 ####[facility] LABCLIA [id number] [place] [address] Immature granulocytes/100 WBC (Bld) 0.5 % Normal [facility] Comment on above: Order Comment: Speci men Type: BLOOD SPECIMENOrdering Facility: [facility] Address: [address] [place] [address] Performed By: #### 5 7021-8 ####[facility] LABCLIA [id number] [place] [address] Lymphocytes (Bld) [#/Vol] 1.48 10*3/uL Normal 1.00-4.00 [facility] Comment on above: Order Comment: Speci men Type: BLOOD SPECIMENOrdering Facility: [facility] Address: [address] [place] [address] Performed By: #### 5 7021-8 ####[facility] LABCLIA [id number] [place] [address] Lymphocytes/100 WBC (Bld) 17.1 % Normal [facility] Comment on above: Order Comment: Speci men Type: BLOOD SPECIMENOrdering Facility: [facility] Address: [address] [place] [address] Performed By: #### 5 7021-8 ####[facility] LABCLIA [id number] [place] [address] MCH (RBC) [Entitic mass] 31.6 pg Normal 26.0-34.0 [facility] Comment on above: Order Comment: Speci men Type: BLOOD SPECIMENOrdering Facility: [facility] Address: [address] [place] [address] Performed By: #### 5 7021-8 ####[facility] LABCLIA [id number] [place] [address] MCHC (RBC) [Mass/Vol] 34.0 g/dL Normal 30.5-36.0 [facility] Comment on above: Order Comment: Speci men Type: BLOOD SPECIMENOrdering Facility: [facility] Address: [address] [place] [address] Performed By: #### 5 7021-8 ####[facility] LABCLIA [id number] [place] [address] MCV (RBC) [Entitic vol] 92.8 fL Normal 80.0-100.0 [facility] Comment on above: Order Comment: Speci men Type: BLOOD SPECIMENOrdering Facility: [facility] Address: [address] [place] [address] Performed By: #### 5 7021-8 ####[facility] LABCLIA [id number] [place] [address] Monocytes (Bld) [#/Vol] 0.41 10*3/uL Normal <0.87 [facility] Comment on above: Order Comment: Speci men Type: BLOOD SPECIMENOrdering Facility: [facility] Address: [address] [address] Performed By: #### 5 7021-8 ####[facility] LABCLIA [id number] [place] [address] Monocytes/100 WBC (Bld) 4.7 % Normal [facility] Comment on above: Order Comment: Speci men Type: BLOOD SPECIMENOrdering Facility: [facility] Address: [address] [address] Performed By: #### 5 7021-8 ####[facility] LABCLIA [id number] [place] [address] Neutrophils (Bld) [#/Vol] 6.52 10*3/uL Normal 1.45-7.50 [facility] Comment on above: Order Comment: Speci men Type: BLOOD SPECIMENOrdering Facility: [facility] Address: [address] [place] [address] Performed By: #### 5 7021-8 ####[facility] LABCLIA [id number] [place] [address] Neutrophils/100 WBC (Bld) 75.4 % Normal [facility] Comment on above: Order Comment: Speci men Type: BLOOD SPECIMENOrdering Facility: [facility] Address: [address] [place] [address] Performed By: #### 5 7021-8 ####[facility] LABCLIA [id number] [place] [address] Nucleated RBC (Bld) [#/Vol] 10*3/uL Normal <0.01 [facility] Comment on above: Order Comment: Speci men Type: BLOOD SPECIMENOrdering Facility: [facility] Address: [address] [place] [address] Performed By: #### 5 7021-8 ####[facility] LABCLIA [id number] [place] [address] Nucleated RBC/100 WBC (Bld) [Ratio] 0.0 /100 WBC Normal [facility] Comment on above: Order Comment: Speci men Type: BLOOD SPECIMENOrdering Facility: [facility] Address: [address] [place] [address] Performed By: #### 5 7021-8 ####[facility] LABCLIA [id number] [place] [address] Platelet mean volume (Bld) [Entitic vol] 8.7 fL Low 9.0-12.7 [facility] Comment on above: Order Comment: Speci men Type: BLOOD SPECIMENOrdering Facility: [facility] Address: [address] [place] [address] Performed By: #### 5 7021-8 ####[facility] LABCLIA [id number] [place] [address] Platelets (Bld) [#/Vol] 412 10*3/uL High 150-400 [facility] Comment on above: Order Comment: Speci men Type: BLOOD SPECIMENOrdering Facility: [facility] Address: [address] [place] [address] Performed By: #### 5 7021-8 ####[facility] [id number] [place] [address] RBC (Bld) [#/Vol] 4.02 10*6/uL Normal 3.90-5.20 [facility] Comment on above: Order Comment: Speci men Type: BLOOD SPECIMENOrdering Facility: [facility] Address: [address] [place] [address] Performed By: #### 5 7021-8 ####[facility] LABIA [id number] [place] [address] WBC (Bld) [#/Vol] 8.65 10*3/uL Normal 3.70-11.00 [facility] Comment on above: Order Comment: Speci men Type: BLOOD SPECIMENOrdering Facility: [facility] Address: [address] [place] [address] Performed By: #### 5 7021-8 ####[facility] LABIA [id number] [place] [address] CNOVSPon 03-18-2023 CNOVSP Normal [facility] Comprehensive metabolic 2000 panelon 03-18-2023 Albumin [Mass/Vol] 4.1 g/dL Normal 3.9-4.9 [facility] Comment on above: Order Comment: Speci men Type: BLOOD SPECIMENOrdering Facility: [facility] Address: [address] [place] [address] Performed By: #### 2 4323-8 ####[facility] LABIA [id number] [place] [address] ALP [Catalytic activity/Vol] 108 U/L Normal 34-123 [facility] Comment on above: Order Comment: Speci men Type: BLOOD SPECIMENOrdering Facility: [facility] Address: [address] [place] [address] Performed By: #### 2 4323-8 ####[facility] LABCLIA [id number] [place] [address] ALT [Catalytic activity/Vol] 41 U/L High 7-38 [facility] Comment on above: Order Comment: Speci men Type: BLOOD SPECIMENOrdering Facility: [facility] Address: [address] [place] [address] Performed By: #### 2 4323-8 ####[facility] LABCLIA [id number] [place] [address] Anion gap [Moles/Vol] 9 mmol/L Normal 9-18 [facility] Comment on above: Order Comment: Speci men Type: BLOOD SPECIMENOrdering Facility: [facility] Address: [address] [place] [address] Performed By: #### 2 4323-8 ####[facility] LABCLIA [id number] [place] [address] AST [Catalytic activity/Vol] 25 U/L Normal 13-35 [facility] Comment on above: Order Comment: Speci men Type: BLOOD SPECIMENOrdering Facility: [facility] Address: [address] [place] [address] Performed By: #### 2 4323-8 ####[facility] LABCLIA [id number] [place] [address] Bilirubin [Mass/Vol] 0.3 mg/dL Normal 0.2-1.3 [facility] Comment on above: Order Comment: Speci men Type: BLOOD SPECIMENOrdering Facility: [facility] Address: [address] [place] [address] Performed By: #### 2 4323-8 ####[facility] LABCLIA [id number] [place] [address] Calcium [Mass/Vol] 9.8 mg/dL Normal 8.5-10.2 [facility] Comment on above: Order Comment: Speci men Type: BLOOD SPECIMENOrdering Facility: [facility] Address: [address] [place] [address] Performed By: #### 2 4323-8 ####[facility] LABCLIA [id number] [place] [address] Chloride [Moles/Vol] 95 mmol/L Low 97-105 [facility] Comment on above: Order Comment: Speci men Type: BLOOD SPECIMENOrdering Facility: [facility] Address: [address] [place] [address] Performed By: #### 2 4323-8 ####[facility] LABCLIA [id number] [place] [address] CO2 [Moles/Vol] 27 mmol/L Normal 22-30 [facility] Comment on above: Order Comment: Speci men Type: BLOOD SPECIMENOrdering Facility: [facility] Address: [address] [place] [address] Performed By: #### 2 4323-8 ####[facility] LABCLIA [id number] [place] [address] Creatinine [Mass/Vol] 0.91 mg/dL Normal 0.58-0.96 [facility] Comment on above: Order Comment: Speci men Type: BLOOD SPECIMENOrdering Facility: [facility] Address: [address] [place] [address] Performed By: #### 2 4323-8 ####[facility] LABCLIA [id number] [place] [address] ESTIMATED GLOMERULAR FILTRATION RATE 64 mL/min/1.73m??? Normal >=60 [facility] Comment on above: Order Comment: Speci men Type: BLOOD SPECIMENOrdering Facility: [facility] Address: [address] [place] [address] Result Comment: Anabel mated Glomerular Filtration Rate (eGFR) is calculated using the 2020 CKD-EPI creatinine equation. This equation utilizes serum creatinine, sex, and age as parameters. The creatinine assay has traceable calibration to isotope dilution-mass spectrometry. Refer to KDIGO guidelines for clinical interpretation. In patients with unstable renal function, e.g. those with acute kidney injury, the eGFR may not accurately reflect actual GFR. Performed By: #### 2 4323-8 ####[facility] LABCLIA [id number] [place] [address] Glucose [Mass/Vol] 105 mg/dL High 74-99 [facility] Comment on above: Order Comment: Speci men Type: BLOOD SPECIMENOrdering Facility: [facility] Address: [address] [place] [id number] Result Comment: The [place] [employer] (ADA) provides guidance for cutoff values for fasting glucose and random glucose. The ADA defines fasting as no caloric intake for at least 8 hours. Fasting plasma glucose results between 100 to 125 mg/dL indicate increased risk for diabetes (prediabetes).Fasting plasma glucose results greater than or equal to 126 mg/dL meet the criteria for diagnosis of diabetes. In the absence of unequivocal hyperglycemia, results should be confirmed by repeat testing. In a patient with classic symptoms of hyperglycemia or hyperglycemic crisis, random plasma glucose results greater than or equal to 200 mg/dL meet the criteria for diagnosis of diabetes.Reference: Standards of Medical Care in Diabetes 2016, [place] [employer]. Diabetes Care. 2016.39(Suppl 1). Performed By: #### 2 4323-8 ####[facility] LABCLIA [id number] [place] [address] Potassium [Moles/Vol] 4.3 mmol/L Normal 3.7-5.1 [facility] Comment on above: Order Comment: Mehrdadi josue Type: BLOOD SPECIMENOrdering Facility: [facility] Address: [address] [place] [address] Performed By: #### 2 4323-8 ####[facility] LABCLIA [id number] [place] [address] Protein [Mass/Vol] 6.8 g/dL Normal 6.3-8.0 [facility] Comment on above: Order Comment: Speci men Type: BLOOD SPECIMENOrdering Facility: [facility] Address: [address] [address] Performed By: #### 2 4323-8 ####[facility] LABCLIA [id number] [place] [address] Sodium [Moles/Vol] 131 mmol/L Low 136-144 [facility] Comment on above: Order Comment: Speci men Type: BLOOD SPECIMENOrdering Facility: [facility] Address: [address] [place] [address] Performed By: #### 2 4323-8 ####[facility] LABCLIA [id number] [place] [address] Urea nitrogen [Mass/Vol] 15 mg/dL Normal 7-21 [facility] Comment on above: Order Comment: Speci men Type: BLOOD SPECIMENOrdering Facility: [facility] Address: [address] [address] Performed By: #### 2 4323-8 ####[facility] LABCLIA [id number] [place] [address] CBC W Auto Differential pane l (Bld)on 03-04-2023 Basophils (Bld) [#/Vol] 0.11 10*3/uL High <0.11 [facility] Comment on above: Order Comment: Speci men Type: BLOOD SPECIMENOrdering Facility: [facility] Address: [address] [address] Performed By: #### 5 7021-8 ####[facility] LABCLIA [id number] [place] [address] Basophils/100 WBC (Bld) 1.8 % Normal [facility] Comment on above: Order Comment: Speci men Type: BLOOD SPECIMENOrdering Facility: [facility] Address: [address] [place] [address] Performed By: #### 5 7021-8 ####[facility] LABCLIA [id number] [place] [address] Differential cell count method Nom (Bld) Auto Normal [facility] Comment on above: Order Comment: Speci men Type: BLOOD SPECIMENOrdering Facility: [facility] Address: [address] [place] [address] Performed By: #### 5 7021-8 ####[facility] LABCLIA [id number] [place] [address] Eosinophils (Bld) [#/Vol] 0.13 10*3/uL Normal <0.46 [facility] Comment on above: Order Comment: Speci men Type: BLOOD SPECIMENOrdering Facility: [facility] Address: [address] [place] [address] Performed By: #### 5 7021-8 ####[facility] LABCLIA [id number] [place] [address] Eosinophils/100 WBC (Bld) 2.1 % Normal [facility] Comment on above: Order Comment: Speci men Type: BLOOD SPECIMENOrdering Facility: [facility] Address: [address] [place] [address] Performed By: #### 5 7021-8 ####[facility] LABCLIA [id number] [place] [address] Erythrocyte distribution width (RBC) [Ratio] 17.2 % High 11.5-15.0 [facility] Comment on above: Order Comment: Speci men Type: BLOOD SPECIMENOrdering Facility: [facility] Address: [address] [place] [address] Performed By: #### 5 7021-8 ####[facility] LABCLIA [id number] [place] [address] Hematocrit (Bld) [Volume fraction] 38.7 % Normal 36.0-46.0 [facility] Comment on above: Order Comment: Speci men Type: BLOOD SPECIMENOrdering Facility: [facility] Address: [address] [place] [address] Performed By: #### 5 7021-8 ####[facility] LABCLIA [id number] [place] [address] Hemoglobin (Bld) [Mass/Vol] 12.9 g/dL Normal 11.5-15.5 [facility] Comment on above: Order Comment: Speci men Type: BLOOD SPECIMENOrdering Facility: [facility] Address: [address] [place] [address] Performed By: #### 5 7021-8 ####[facility] LABCLIA [id number] [place] [address] Immature granulocytes (Bld) [#/Vol] 0.04 10*3/uL Normal <0.10 [facility] Comment on above: Order Comment: Speci men Type: BLOOD SPECIMENOrdering Facility: [facility] Address: [address] [place] [address] Performed By: #### 5 7021-8 ####[facility] LABCLIA [id number] [place] [address] Immature granulocytes/100 WBC (Bld) 0.7 % Normal [facility] Comment on above: Order Comment: Speci men Type: BLOOD SPECIMENOrdering Facility: [facility] Address: [address] [place] [address] Performed By: #### 5 7021-8 ####[facility] LABCLIA [id number] [place] [address] Lymphocytes (Bld) [#/Vol] 1.48 10*3/uL Normal 1.00-4.00 [facility] Comment on above: Order Comment: Speci men Type: BLOOD SPECIMENOrdering Facility: [facility] Address: [address] [place] [address] Performed By: #### 5 7021-8 ####[facility] LABCLIA [id number] [place] [address] Lymphocytes/100 WBC (Bld) 24.3 % Normal [facility] Comment on above: Order Comment: Speci men Type: BLOOD SPECIMENOrdering Facility: [facility] Address: [address] [place] [address] Performed By: #### 5 7021-8 ####[facility] LABCLIA [id number] [place] [address] MCH (RBC) [Entitic mass] 31.2 pg Normal 26.0-34.0 [facility] Comment on above: Order Comment: Speci men Type: BLOOD SPECIMENOrdering Facility: [facility] Address: [address] [address] Performed By: #### 5 7021-8 ####[facility] LABCLIA [id number] [place] [address] MCHC (RBC) [Mass/Vol] 33.3 g/dL Normal 30.5-36.0 [facility] Comment on above: Order Comment: Speci men Type: BLOOD SPECIMENOrdering Facility: [facility] Address: [address] [place] [address] Performed By: #### 5 7021-8 ####[facility] LABCLIA [id number] [place] [address] MCV (RBC) [Entitic vol] 93.7 fL Normal 80.0-100.0 [facility] Comment on above: Order Comment: Speci men Type: BLOOD SPECIMENOrdering Facility: [facility] Address: [address] [place] [address] Performed By: #### 5 7021-8 ####[facility] LABCLIA [id number] [place] [address] Monocytes (Bld) [#/Vol] 0.73 10*3/uL Normal <0.87 [facility] Comment on above: Order Comment: Speci men Type: BLOOD SPECIMENOrdering Facility: [facility] Address: [address] [place] [address] Performed By: #### 5 7021-8 ####[facility] LABCLIA [id number] [place] [address] Monocytes/100 WBC (Bld) 12.0 % Normal [facility] Comment on above: Order Comment: Speci men Type: BLOOD SPECIMENOrdering Facility: [facility] Address: [address] [place] [address] Performed By: #### 5 7021-8 ####[facility] LABCLIA [id number] [place] [address] Neutrophils (Bld) [#/Vol] 3.60 10*3/uL Normal 1.45-7.50 [facility] Comment on above: Order Comment: Speci men Type: BLOOD SPECIMENOrdering Facility: [facility] Address: [address] [place] [address] Performed By: #### 5 7021-8 ####[facility] LABCLIA [id number] [place] [address] Neutrophils/100 WBC (Bld) 59.1 % Normal [facility] Comment on above: Order Comment: Speci men Type: BLOOD SPECIMENOrdering Facility: [facility] Address: [address] [place] [address] Performed By: #### 5 7021-8 ####[facility] LABCLIA [id number] [place] [address] Nucleated RBC (Bld) [#/Vol] 10*3/uL Normal <0.01 [facility] Comment on above: Order Comment: Speci men Type: BLOOD SPECIMENOrdering Facility: [facility] Address: [address] [place] [address] Performed By: #### 5 7021-8 ####[facility] LABCLIA [id number] [place] [address] Nucleated RBC/100 WBC (Bld) [Ratio] 0.0 /100 WBC Normal [facility] Comment on above: Order Comment: Speci men Type: BLOOD SPECIMENOrdering Facility: [facility] Address: [address] [place] [address] Performed By: #### 5 7021-8 ####[facility] LABCLIA [id number] [place] [address] Platelet mean volume (Bld) [Entitic vol] 8.3 fL Low 9.0-12.7 [facility] Comment on above: Order Comment: Speci men Type: BLOOD SPECIMENOrdering Facility: [facility] Address: [address] [place] [address] Performed By: #### 5 7021-8 ####[facility] LABCLIA [id number] [place] [address] Platelets (Bld) [#/Vol] 435 10*3/uL High 150-400 [facility] Comment on above: Order Comment: Speci men Type: BLOOD SPECIMENOrdering Facility: [facility] Address: [address] [place] [address] Performed By: #### 5 7021-8 ####[facility] LABCLIA [id number] [place] [address] RBC (Bld) [#/Vol] 4.13 10*6/uL Normal 3.90-5.20 [facility] Comment on above: Order Comment: Speci men Type: BLOOD SPECIMENOrdering Facility: [facility] Address: [address] [place] [address] Performed By: #### 5 7021-8 ####[facility] LABCLIA [id number] [place] [address] WBC (Bld) [#/Vol] 6.09 10*3/uL Normal 3.70-11.00 [facility] Comment on above: Order Comment: Speci men Type: BLOOD SPECIMENOrdering Facility: [facility] Address: [address] [place] [address] Performed By: #### 5 7021-8 ####[facility] LABCLIA [id number] [place] [address] CNOVSPon 03-04-2023 CNOVSP Normal [facility] Comprehensive metabolic 2000 panelon 03-04-2023 Albumin [Mass/Vol] 4.3 g/dL Normal 3.9-4.9 [facility] Comment on above: Order Comment: Speci men Type: BLOOD SPECIMENOrdering Facility: [facility] Address: [address] [place] [address] Performed By: #### 2 4323-8 ####[facility] LABCLIA [id number] [place] [address] ALP [Catalytic activity/Vol] 99 U/L Normal 34-123 [facility] Comment on above: Order Comment: Speci men Type: BLOOD SPECIMENOrdering Facility: [facility] Address: [address] [place] [address] Performed By: #### 2 4323-8 ####[facility] LABCLIA [id number] [place] [address] ALT [Catalytic activity/Vol] 15 U/L Normal 7-38 [facility] Comment on above: Order Comment: Speci men Type: BLOOD SPECIMENOrdering Facility: [facility] Address: [address] [place] [address] Performed By: #### 2 4323-8 ####[facility] LABCLIA [id number] [place] [address] Anion gap [Moles/Vol] 12 mmol/L Normal 9-18 [facility] Comment on above: Order Comment: Speci men Type: BLOOD SPECIMENOrdering Facility: [facility] Address: [address] [place] [address] Performed By: #### 2 4323-8 ####[facility] LABCLIA [id number] [place] [address] AST [Catalytic activity/Vol] 19 U/L Normal 13-35 [facility] Comment on above: Order Comment: Speci men Type: BLOOD SPECIMENOrdering Facility: [facility] Address: [address] [place] [address] Performed By: #### 2 4323-8 ####[facility] LABCLIA [id number] [place] [address] Bilirubin [Mass/Vol] 0.3 mg/dL Normal 0.2-1.3 [facility] Comment on above: Order Comment: Speci men Type: BLOOD SPECIMENOrdering Facility: [facility] Address: [address] [place] [address] Performed By: #### 2 4323-8 ####[facility] LABCLIA [id number] [place] [address] Calcium [Mass/Vol] 10.5 mg/dL High 8.5-10.2 [facility] Comment on above: Order Comment: Speci men Type: BLOOD SPECIMENOrdering Facility: [facility] Address: [address] [place] [address] Performed By: #### 2 4323-8 ####[facility] LABCLIA [id number] [place] [address] Chloride [Moles/Vol] 97 mmol/L Normal 97-105 [facility] Comment on above: Order Comment: Speci men Type: BLOOD SPECIMENOrdering Facility: [facility] Address: [address] [place] [address] Performed By: #### 2 4323-8 ####[facility] LABCLIA [id number] [place] [address] CO2 [Moles/Vol] 24 mmol/L Normal 22-30 [facility] Comment on above: Order Comment: Speci men Type: BLOOD SPECIMENOrdering Facility: [facility] Address: [address] [place] [address] Performed By: #### 2 4323-8 ####[facility] LABCLIA [id number] [place] [address] Creatinine [Mass/Vol] 0.81 mg/dL Normal 0.58-0.96 [facility] Comment on above: Order Comment: Inez salas Type: BLOOD SPECIMENOrdering Facility: [facility] Address: [address] [id number] Performed By: #### 2 4323-8 ####[facility] LABCLIA [id number] [place] [address] ESTIMATED GLOMERULAR FILTRATION RATE 74 mL/min/1.73m??? Normal >=60 [facility] Comment on above: Order Comment: Inez salas Type: BLOOD SPECIMENOrdering Facility: [facility] Address: [address] [place] [address] Result Comment: Anabel mated Glomerular Filtration Rate (eGFR) is calculated using the 2020 CKD-EPI creatinine equation. This equation utilizes serum creatinine, sex, and age as parameters. The creatinine assay has traceable calibration to isotope dilution-mass spectrometry. Refer to KDIGO guidelines for clinical interpretation. In patients with unstable renal function, e.g. those with acute kidney injury, the eGFR may not accurately reflect actual GFR. Performed By: #### 2 4323-8 ####[facility] LABCLIA [id number] [place] [address] Glucose [Mass/Vol] 108 mg/dL High 74-99 [facility] Comment on above: Order Comment: Inez salas Type: BLOOD SPECIMENOrdering Facility: [facility] Address: [address] [place] [address] Result Comment: The [place] [employer] (ADA) provides guidance for cutoff values for fasting glucose and random glucose. The ADA defines fasting as no caloric intake for at least 8 hours. Fasting plasma glucose results between 100 to 125 mg/dL indicate increased risk for diabetes (prediabetes).Fasting plasma glucose results greater than or equal to 126 mg/dL meet the criteria for diagnosis of diabetes. In the absence of unequivocal hyperglycemia, results should be confirmed by repeat testing. In a patient with classic symptoms of hyperglycemia or hyperglycemic crisis, random plasma glucose results greater than or equal to 200 mg/dL meet the criteria for diagnosis of diabetes.Reference: Standards of Medical Care in Diabetes 2016, [place] [employer]. Diabetes Care. 2016.39(Suppl 1). Performed By: #### 2 4323-8 ####[facility] LABCLIA [id number] [place] [address] Potassium [Moles/Vol] 4.4 mmol/L Normal 3.7-5.1 [facility] Comment on above: Order Comment: Speci men Type: BLOOD SPECIMENOrdering Facility: [facility] Address: [address] [address] Performed By: #### 2 4323-8 ####[facility] LABCLIA [id number] [place] [address] Protein [Mass/Vol] 7.1 g/dL Normal 6.3-8.0 [facility] Comment on above: Order Comment: Speci men Type: BLOOD SPECIMENOrdering Facility: [facility] Address: [address] [address] Performed By: #### 2 4323-8 ####[facility] LABCLIA [id number] [place] [address] Sodium [Moles/Vol] 133 mmol/L Low 136-144 [facility] Comment on above: Order Comment: Speci men Type: BLOOD SPECIMENOrdering Facility: [facility] Address: [address] [address] Performed By: #### 2 4323-8 ####[facility] LABCLIA [id number] [place] [address] Urea nitrogen [Mass/Vol] 14 mg/dL Normal 7-21 [facility] Comment on above: Order Comment: Speci men Type: BLOOD SPECIMENOrdering Facility: [facility] Address: [address] [place] [address] Performed By: #### 2 4323-8 ####[facility] LABCLIA [id number] [place] [address] CNCNPATEDon 02-17-2023 CNCNPATED Normal [facility] CNPNon 02-15-2023 CNPN Normal [facility] CBC W Auto Differential pane l (Bld)on 02-03-2023 Basophils (Bld) [#/Vol] 0.03 10*3/uL Normal <0.11 [facility] Comment on above: Order Comment: Speci men Type: BLOOD SPECIMENOrdering Facility: [facility] Address: [address] [place] [address] Performed By: #### 5 7021-8 ####[facility] LABCLIA [id number] [place] [address] Basophils/100 WBC (Bld) 1.2 % Normal [facility] Comment on above: Order Comment: Speci men Type: BLOOD SPECIMENOrdering Facility: [facility] Address: [address] [place] [address] Performed By: #### 5 7021-8 ####[facility] LABCLIA [id number] [place] [address] Differential cell count method Nom (Bld) Auto Normal [facility] Comment on above: Order Comment: Speci men Type: BLOOD SPECIMENOrdering Facility: [facility] Address: [address] [place] [address] Performed By: #### 5 7021-8 ####[facility] LABCLIA [id number] [place] [address] Eosinophils (Bld) [#/Vol] 10*3/uL Normal <0.46 [facility] Comment on above: Order Comment: Speci men Type: BLOOD SPECIMENOrdering Facility: [facility] Address: [address] [place] [address] Performed By: #### 5 7021-8 ####[facility] LABCLIA [id number] [place] [address] Eosinophils/100 WBC (Bld) 0.4 % Normal [facility] Comment on above: Order Comment: Speci men Type: BLOOD SPECIMENOrdering Facility: [facility] Address: [address] [place] [address] Performed By: #### 5 7021-8 ####[facility] LABCLIA [id number] [place] [address] Erythrocyte distribution width (RBC) [Ratio] 13.2 % Normal 11.5-15.0 [facility] Comment on above: Order Comment: Speci men Type: BLOOD SPECIMENOrdering Facility: [facility] Address: [address] [place] [address] Performed By: #### 5 7021-8 ####[facility] LABCLIA [id number] [place] [address] Hematocrit (Bld) [Volume fraction] 36.3 % Normal 36.0-46.0 [facility] Comment on above: Order Comment: Speci men Type: BLOOD SPECIMENOrdering Facility: [facility] Address: [address] [place] [address] Performed By: #### 5 7021-8 ####[facility] LABCLIA [id number] [place] [address] Hemoglobin (Bld) [Mass/Vol] 12.2 g/dL Normal 11.5-15.5 [facility] Comment on above: Order Comment: Speci men Type: BLOOD SPECIMENOrdering Facility: [facility] Address: [address] [place] [address] Performed By: #### 5 7021-8 ####[facility] LABCLIA [id number] [place] [address] Immature granulocytes (Bld) [#/Vol] 10*3/uL Normal <0.10 [facility] Comment on above: Order Comment: Speci men Type: BLOOD SPECIMENOrdering Facility: [facility] Address: [address] [place] [address] Performed By: #### 5 7021-8 ####[facility] LABCLIA [id number] [place] [address] Immature granulocytes/100 WBC (Bld) 0.4 % Normal [facility] Comment on above: Order Comment: Speci men Type: BLOOD SPECIMENOrdering Facility: [facility] Address: [address] [place] [address] Performed By: #### 5 7021-8 ####[facility] LABCLIA [id number] [place] [address] Lymphocytes (Bld) [#/Vol] 1.14 10*3/uL Normal 1.00-4.00 [facility] Comment on above: Order Comment: Speci men Type: BLOOD SPECIMENOrdering Facility: [facility] Address: [address] [place] [address] Performed By: #### 5 7021-8 ####[facility] LABCLIA [id number] [place] [address] Lymphocytes/100 WBC (Bld) 46.2 % Normal [facility] Comment on above: Order Comment: Speci men Type: BLOOD SPECIMENOrdering Facility: [facility] Address: [address] [place] [address] Performed By: #### 5 7021-8 ####[facility] LABCLIA [id number] [place] [address] MCH (RBC) [Entitic mass] 30.3 pg Normal 26.0-34.0 [facility] Comment on above: Order Comment: Speci men Type: BLOOD SPECIMENOrdering Facility: [facility] Address: [address] [place] [address] Performed By: #### 5 7021-8 ####[facility] LABCLIA [id number] [place] [address] MCHC (RBC) [Mass/Vol] 33.6 g/dL Normal 30.5-36.0 [facility] Comment on above: Order Comment: Speci men Type: BLOOD SPECIMENOrdering Facility: [facility] Address: [address] [address] Performed By: #### 5 7021-8 ####[facility] LABCLIA [id number] [place] [address] MCV (RBC) [Entitic vol] 90.1 fL Normal 80.0-100.0 [facility] Comment on above: Order Comment: Speci men Type: BLOOD SPECIMENOrdering Facility: [facility] Address: [address] [place] [address] Performed By: #### 5 7021-8 ####[facility] LABCLIA [id number] [place] [address] Monocytes (Bld) [#/Vol] 0.24 10*3/uL Normal <0.87 [facility] Comment on above: Order Comment: Speci men Type: BLOOD SPECIMENOrdering Facility: [facility] Address: [address] [place] [address] Performed By: #### 5 7021-8 ####[facility] LABIA [id number] [place] [address] Monocytes/100 WBC (Bld) 9.7 % Normal [facility] Comment on above: Order Comment: Speci men Type: BLOOD SPECIMENOrdering Facility: [facility] Address: [address] [place] [address] Performed By: #### 5 7021-8 ####[facility] LABCLIA [id number] [place] [address] Neutrophils (Bld) [#/Vol] 1.04 10*3/uL Low 1.45-7.50 [facility] Comment on above: Order Comment: Speci men Type: BLOOD SPECIMENOrdering Facility: [facility] Address: [address] [place] [address] Performed By: #### 5 7021-8 ####[facility] LABCLIA [id number] [place] [address] Neutrophils/100 WBC (Bld) 42.1 % Normal [facility] Comment on above: Order Comment: Speci men Type: BLOOD SPECIMENOrdering Facility: [facility] Address: [address] Performed By: #### 5 7021-8 ####[facility] LABCLIA [id number] [place] [address] Nucleated RBC (Bld) [#/Vol] 10*3/uL Normal <0.01 [facility] Comment on above: Order Comment: Speci men Type: BLOOD SPECIMENOrdering Facility: [facility] Address: [address] [address] Performed By: #### 5 7021-8 ####[facility] LABCLIA [id number] [place] [address] Nucleated RBC/100 WBC (Bld) [Ratio] 0.0 /100 WBC Normal [facility] Comment on above: Order Comment: Speci men Type: BLOOD SPECIMENOrdering Facility: [facility] Address: [address] Performed By: #### 5 7021-8 ####[facility] LABCLIA [id number] [place] [address] Platelet mean volume (Bld) [Entitic vol] 9.5 fL Normal 9.0-12.7 [facility] Comment on above: Order Comment: Speci men Type: BLOOD SPECIMENOrdering Facility: [facility] Address: [address] Performed By: #### 5 7021-8 ####[facility] LABCLIA [id number] [place] [address] Platelets (Bld) [#/Vol] 190 10*3/uL Normal 150-400 [facility] Comment on above: Order Comment: Speci men Type: BLOOD SPECIMENOrdering Facility: [facility] Address: [address] Performed By: #### 5 7021-8 ####[facility] LABCLIA [id number] [place] [address] RBC (Bld) [#/Vol] 4.03 10*6/uL Normal 3.90-5.20 [facility] Comment on above: Order Comment: Speci men Type: BLOOD SPECIMENOrdering Facility: [facility] Address: [address] [place] [address] Performed By: #### 5 7021-8 ####[facility] LABCLIA [id number] [place] [address] WBC (Bld) [#/Vol] 2.47 10*3/uL Low 3.70-11.00 [facility] Comment on above: Order Comment: Speci men Type: BLOOD SPECIMENOrdering Facility: [facility] Address: [address] [place] [address] Performed By: #### 5 7021-8 ####[facility] LABCLIA [id number] [place] [address] CNOVSPon 02-03-2023 CNOVSP Normal [facility] Comprehensive metabolic 2000 panelon 02-03-2023 Albumin [Mass/Vol] 4.0 g/dL Normal 3.9-4.9 [facility] Comment on above: Order Comment: Speci men Type: BLOOD SPECIMENOrdering Facility: [facility] Address: [address] [place] [address] Performed By: #### 2 4323-8 ####[facility] LABCLIA [id number] [place] [address] ALP [Catalytic activity/Vol] 94 U/L Normal 34-123 [facility] Comment on above: Order Comment: Speci men Type: BLOOD SPECIMENOrdering Facility: [facility] Address: [address] [place] [address] Performed By: #### 2 4323-8 ####[facility] LABCLIA [id number] [place] [address] ALT [Catalytic activity/Vol] 12 U/L Normal 7-38 [facility] Comment on above: Order Comment: Speci men Type: BLOOD SPECIMENOrdering Facility: [facility] Address: [address] [address] Performed By: #### 2 4323-8 ####[facility] LABCLIA [id number] [place] [address] Anion gap [Moles/Vol] 11 mmol/L Normal 9-18 [facility] Comment on above: Order Comment: Speci men Type: BLOOD SPECIMENOrdering Facility: [facility] Address: [address] [place] [address] Performed By: #### 2 4323-8 ####[facility] LABCLIA [id number] [place] [address] AST [Catalytic activity/Vol] 14 U/L Normal 13-35 [facility] Comment on above: Order Comment: Speci men Type: BLOOD SPECIMENOrdering Facility: [facility] Address: [address] [place] [address] Performed By: #### 2 4323-8 ####[facility] LABCLIA [id number] [place] [address] Bilirubin [Mass/Vol] 0.2 mg/dL Normal 0.2-1.3 [facility] Comment on above: Order Comment: Speci men Type: BLOOD SPECIMENOrdering Facility: [facility] Address: [address] [address] Performed By: #### 2 4323-8 ####[facility] LABCLIA [id number] [place] [address] Calcium [Mass/Vol] 9.9 mg/dL Normal 8.5-10.2 [facility] Comment on above: Order Comment: Speci men Type: BLOOD SPECIMENOrdering Facility: [facility] Address: [address] [place] [address] Performed By: #### 2 4323-8 ####[facility] LABCLIA [id number] [place] [address] Chloride [Moles/Vol] 94 mmol/L Low 97-105 [facility] Comment on above: Order Comment: Speci men Type: BLOOD SPECIMENOrdering Facility: [facility] Address: [address] [place] [address] Performed By: #### 2 4323-8 ####[facility] LABCLIA [id number] [place] [address] CO2 [Moles/Vol] 25 mmol/L Normal 22-30 [facility] Comment on above: Order Comment: Speci men Type: BLOOD SPECIMENOrdering Facility: [facility] Address: [address] [place] [address] Performed By: #### 2 4323-8 ####[facility] LABCLIA [id number] [place] [address] Creatinine [Mass/Vol] 0.87 mg/dL Normal 0.58-0.96 [facility] Comment on above: Order Comment: Speci men Type: BLOOD SPECIMENOrdering Facility: [facility] Address: [address] [place] [address] Performed By: #### 2 4323-8 ####[facility] LABCLIA [id number] [place] [address] ESTIMATED GLOMERULAR FILTRATION RATE 68 mL/min/1.73m??? Normal >=60 [facility] Comment on above: Order Comment: Speci men Type: BLOOD SPECIMENOrdering Facility: [facility] Address: [address] [place] [address] Result Comment: Anabel mated Glomerular Filtration Rate (eGFR) is calculated using the 2020 CKD-EPI creatinine equation. This equation utilizes serum creatinine, sex, and age as parameters. The creatinine assay has traceable calibration to isotope dilution-mass spectrometry. Refer to KDIGO guidelines for clinical interpretation. In patients with unstable renal function, e.g. those with acute kidney injury, the eGFR may not accurately reflect actual GFR. Performed By: #### 2 4323-8 ####[facility] LABCLIA [id number] [place] [address] Glucose [Mass/Vol] 107 mg/dL High 74-99 [facility] Comment on above: Order Comment: Speci men Type: BLOOD SPECIMENOrdering Facility: [facility] Address: [address] [place] [address] Result Comment: The [place] [employer] (ADA) provides guidance for cutoff values for fasting glucose and random glucose. The ADA defines fasting as no caloric intake for at least 8 hours. Fasting plasma glucose results between 100 to 125 mg/dL indicate increased risk for diabetes (prediabetes).Fasting plasma glucose results greater than or equal to 126 mg/dL meet the criteria for diagnosis of diabetes. In the absence of unequivocal hyperglycemia, results should be confirmed by repeat testing. In a patient with classic symptoms of hyperglycemia or hyperglycemic crisis, random plasma glucose results greater than or equal to 200 mg/dL meet the criteria for diagnosis of diabetes.Reference: Standards of Medical Care in Diabetes 2016, [place] [employer]. Diabetes Care. 2016.39(Suppl 1). Performed By: #### 2 4323-8 ####[facility] LABCLIA [id number] [place] [address] Potassium [Moles/Vol] 4.2 mmol/L Normal 3.7-5.1 [facility] Comment on above: Order Comment: Speci men Type: BLOOD SPECIMENOrdering Facility: [facility] Address: [address] [address] Performed By: #### 2 4323-8 ####[facility] LABCLIA [id number] [place] [address] Protein [Mass/Vol] 6.8 g/dL Normal 6.3-8.0 [facility] Comment on above: Order Comment: Inez men Type: BLOOD SPECIMENOrdering Facility: [facility] Address: [address] [address] Performed By: #### 2 4323-8 ####[facility] LABCLIA [id number] [address] [id number] Sodium [Moles/Vol] 130 mmol/L Low 136-144 [facility] Comment on above: Order Comment: Speci men Type: BLOOD SPECIMENOrdering Facility: [facility] Address: [address] [address] Performed By: #### 2 4323-8 ####[facility] LABCLIA [id number] [place] [address] Urea nitrogen [Mass/Vol] 13 mg/dL Normal 7-21 [facility] Comment on above: Order Comment: Speci men Type: BLOOD SPECIMENOrdering Facility: [facility] Address: [address] [address] Performed By: #### 2 4323-8 ####[facility] LABCLIA [id number] [place] [id number] CNPNon 01-25-2023 CNPN Normal [facility] Bacteria Ur Culton Bacteria identified Cx Nom (U) Normal [facility] Comment on above: Performed By: #### 6 30-4 ####[facility] LABCLIA [id number] [place] [address] [place] CBC W Auto Differential pane l (Bld)on 01-20-2023 Basophils (Bld) [#/Vol] 0.00 10*3/uL Normal <0.11 [facility] Comment on above: Order Comment: Speci men Type: BLOOD SPECIMENOrdering Facility: [facility] Address: [address] [address] Performed By: #### 5 7021-8 ####[facility] LABCLIA [id number] [place] [id number] LABCLIA [id number] [place] [address] [place] Basophils/100 WBC (Bld) 0.0 % Normal [facility] Comment on above: Order Comment: Speci men Type: BLOOD SPECIMENOrdering Facility: [facility] Address: [address] [place] [address] Performed By: #### 5 7021-8 ####[facility] LABCLIA [id number] [address] LABCLIA [id number] [place] [address] [place] Differential cell count method Nom (Bld) Manual Normal [facility] Comment on above: Order Comment: Speci men Type: BLOOD SPECIMENOrdering Facility: [facility] Address: [address] [place] [address] Performed By: #### 5 7021-8 ####[facility] LABCLIA [id number] [address] LABCLIA [id number] [place] [address] [place] Eosinophils (Bld) [#/Vol] 0.19 10*3/uL Normal <0.46 [facility] Comment on above: Order Comment: Speci men Type: BLOOD SPECIMENOrdering Facility: [facility] Address: [address] [place] [address] Performed By: #### 5 7021-8 ####[facility] LABCLIA [id number] [address] LABCLIA [id number] [place] [address] [place] Eosinophils/100 WBC (Bld) 3.0 % Normal [facility] Comment on above: Order Comment: Speci men Type: BLOOD SPECIMENOrdering Facility: [facility] Address: [address] [place] [address] Performed By: #### 5 7021-8 ####[facility] LABCLIA [id number] [place] [id number] LABCLIA [id number] [place] [address] [place] Erythrocyte distribution width (RBC) [Ratio] 12.2 % Normal 11.5-15.0 [facility] Comment on above: Order Comment: Speci men Type: BLOOD SPECIMENOrdering Facility: [facility] Address: [address] [place] [address] Performed By: #### 5 7021-8 ####JAGRUTIOHSAUMYA [facility] LABCLIA [id number] [address] LABCLIA [id number] [place] [address] [place] Hematocrit (Bld) [Volume fraction] 40.6 % Normal 36.0-46.0 [facility] Comment on above: Order Comment: Speci men Type: BLOOD SPECIMENOrdering Facility: [facility] Address: [address] [place], [place] [address] Performed By: #### 5 7021-8 ####ROSAURA [facility] LABCLIA [id number] [address] LABCLIA [id number] [place] [address] [place] Hemoglobin (Bld) [Mass/Vol] 13.5 g/dL Normal 11.5-15.5 [facility] Comment on above: Order Comment: Speci men Type: BLOOD SPECIMENOrdering Facility: [facility] Address: [address] [place], [place] [address] Performed By: #### 5 7021-8 ####[facility] LABCLIA [id number] [address] LABCLIA [id number] [place] [address] [place] Lymphocytes (Bld) [#/Vol] 1.63 10*3/uL Normal 1.00-4.00 [facility] Comment on above: Order Comment: Speci men Type: BLOOD SPECIMENOrdering Facility: [facility] Address: [address] [place] [address] Performed By: #### 5 7021-8 ####[facility] LABCLIA [id number] [address] LABCLIA [id number] [place] [address] [place] Lymphocytes/100 WBC (Bld) 26.0 % Normal [facility] Comment on above: Order Comment: Speci men Type: BLOOD SPECIMENOrdering Facility: [facility] Address: [address] [place] [address] Performed By: #### 5 7021-8 ####[facility] LABCLIA [id number] [address] LABCLIA [id number] [place] [address] [place] MCH (RBC) [Entitic mass] 30.1 pg Normal 26.0-34.0 [facility] Comment on above: Order Comment: Speci men Type: BLOOD SPECIMENOrdering Facility: [facility] Address: [address] [place] [address] Performed By: #### 5 7021-8 ####[facility] LABCLIA [id number] [address] LABCLIA [id number] [place] [address] [place] MCHC (RBC) [Mass/Vol] 33.3 g/dL Normal 30.5-36.0 [facility] Comment on above: Order Comment: Speci men Type: BLOOD SPECIMENOrdering Facility: [facility] Address: [address] [place] [address] Performed By: #### 5 7021-8 ####[facility] LABCLIA [id number] [address] LABCLIA [id number] [place] [address] [place] MCV (RBC) [Entitic vol] 90.4 fL Normal 80.0-100.0 [facility] Comment on above: Order Comment: Speci men Type: BLOOD SPECIMENOrdering Facility: [facility] Address: [address] [place] [address] Performed By: #### 5 7021-8 ####[facility] LABCLIA [id number] [address] LABCLIA [id number] [place] [address] [place] Monocytes (Bld) [#/Vol] 0.19 10*3/uL Normal <0.87 [facility] Comment on above: Order Comment: Speci men Type: BLOOD SPECIMENOrdering Facility: [facility] Address: [address] [place] [address] Performed By: #### 5 7021-8 ####[facility] LABCLIA [id number] [address] LABCLIA [id number] [place] [address] [place] Monocytes/100 WBC (Bld) 3.0 % Normal [facility] Comment on above: Order Comment: Speci men Type: BLOOD SPECIMENOrdering Facility: [facility] Address: [address] [place], [place] [address] Performed By: #### 5 7021-8 ####[facility] LABCLIA [id number] [address] LABCLIA [id number] [place] [address] [place] Neutrophils (Bld) [#/Vol] 4.33 10*3/uL Normal 1.45-7.50 [facility] Comment on above: Order Comment: Speci men Type: BLOOD SPECIMENOrdering Facility: [facility] Address: [address] [place] [address] Performed By: #### 5 7021-8 ####[facility] LABCLIA [id number] [address] LABCLIA [id number] [place] [address] [place] Neutrophils/100 WBC (Bld) 69.0 % Normal [facility] Comment on above: Order Comment: Speci men Type: BLOOD SPECIMENOrdering Facility: [facility] Address: [address] [place] [address] Performed By: #### 5 7021-8 ####[facility] LABCLIA [id number] [address] LABCLIA [id number] [place] [address] [place] Nucleated RBC (Bld) [#/Vol] 10*3/uL Normal <0.01 [facility] Comment on above: Order Comment: Speci men Type: BLOOD SPECIMENOrdering Facility: [facility] Address: [address] [place] [address] Performed By: #### 5 7021-8 ####[facility] LABCLIA [id number] [address] LABCLIA [id number] [place] [address] [place] Nucleated RBC/100 WBC (Bld) [Ratio] 0.0 /100 WBC Normal [facility] Comment on above: Order Comment: Speci men Type: BLOOD SPECIMENOrdering Facility: [facility] Address: [address] [place] [address] Performed By: #### 5 7021-8 ####[facility] LABCLIA [id number] [place] [address] LABCLIA [id number] [place] [address] [place] Ovalocytes LM Ql (Bld) Few Normal [facility] Comment on above: Order Comment: Speci men Type: BLOOD SPECIMENOrdering Facility: [facility] Address: [address] [place] [address] Performed By: #### 5 7021-8 ####[facility] LABCLIA [id number] [address] LABCLIA [id number] [place] [address] [place] Platelet mean volume (Bld) [Entitic vol] 9.0 fL Normal 9.0-12.7 [facility] Comment on above: Order Comment: Speci men Type: BLOOD SPECIMENOrdering Facility: [facility] Address: [address] [place] [address] Performed By: #### 5 7021-8 ####[facility] LABCLIA [id number] [address] LABCLIA [id number] [place] [address] [place] Platelets (Bld) [#/Vol] 208 10*3/uL Normal 150-400 [facility] Comment on above: Order Comment: Speci men Type: BLOOD SPECIMENOrdering Facility: [facility] Address: [address] [place] [address] Performed By: #### 5 7021-8 ####[facility] LABCLIA [id number] [address] LABCLIA [id number] [place] [address] [place] Platelets Estimate (Bld) [#/Vol] Adequate Normal [facility] Comment on above: Order Comment: Speci men Type: BLOOD SPECIMENOrdering Facility: [facility] Address: [address] [address] Performed By: #### 5 7021-8 ####[facility] LABCLIA [id number] [address] LABCLIA [id number] [place] [address] [place] Polychromasia LM Ql (Bld) Slight Normal [facility] Comment on above: Order Comment: Speci men Type: BLOOD SPECIMENOrdering Facility: [facility] Address: [address] [place] [address] Performed By: #### 5 7021-8 ####[facility] LABCLIA [id number] [address] LABCLIA [id number] [place] [address] [place] RBC (Bld) [#/Vol] 4.49 10*6/uL Normal 3.90-5.20 [facility] Comment on above: Order Comment: Speci men Type: BLOOD SPECIMENOrdering Facility: [facility] Address: [address] [place], [place] [address] Performed By: #### 5 7021-8 ####[facility] LABCLIA [id number] [address] LABCLIA [id number] [place] [address] [place] RED CELL MORPH Reviewed: see result s of individual morphologies Normal [facility] Comment on above: Order Comment: Speci men Type: BLOOD SPECIMENOrdering Facility: [facility] Address: [address] [place], [place] [address] Performed By: #### 5 7021-8 ####[facility]IOHSAUM[facility] LABCLIA [id number] [address] LABCLIA [id number] [place] [address] [place] WBC (Bld) [#/Vol] 6.27 10*3/uL Normal 3.70-11.00 [facility] Comment on above: Order Comment: Speci men Type: BLOOD SPECIMENOrdering Facility: [facility] Address: [address] [address] Performed By: #### 5 7021-8 ####[facility] LABCLIA [id number] [place], [place] [address] LABCLIA [id number] [place] [address] [place] CNNURSEon 01-20-2023 CNNURSE Normal [facility] CNOVSPon 01-20-2023 CNOVSP Normal [facility] Comprehensive metabolic 2000 panelon 01-20-2023 Albumin [Mass/Vol] 3.9 g/dL Normal 3.9-4.9 [facility] Comment on above: Order Comment: Speci men Type: BLOOD SPECIMENOrdering Facility: [facility] Address: [address] [address] Performed By: #### 2 4323-8 ####[facility] LABIA [id number] [place] [address] ALP [Catalytic activity/Vol] 112 U/L Normal 34-123 [facility] Comment on above: Order Comment: Speci men Type: BLOOD SPECIMENOrdering Facility: [facility] Address: [address] Performed By: #### 2 4323-8 ####[facility] LABIA [id number] [place] [address] ALT [Catalytic activity/Vol] 16 U/L Normal 7-38 [facility] Comment on above: Order Comment: Speci men Type: BLOOD SPECIMENOrdering Facility: [facility] Address: [address] [address] Performed By: #### 2 4323-8 ####[facility] LABCLIA [id number] [place] [address] Anion gap [Moles/Vol] 8 mmol/L Low 9-18 [facility] Comment on above: Order Comment: Speci men Type: BLOOD SPECIMENOrdering Facility: [facility] Address: [address] [place] [address] Performed By: #### 2 4323-8 ####[facility] LABCLIA [id number] [place] [address] AST [Catalytic activity/Vol] 15 U/L Normal 13-35 [facility] Comment on above: Order Comment: Speci men Type: BLOOD SPECIMENOrdering Facility: [facility] Address: [address] [place] [address] Performed By: #### 2 4323-8 ####[facility] LABCLIA [id number] [place] [address] Bilirubin [Mass/Vol] 0.5 mg/dL Normal 0.2-1.3 [facility] Comment on above: Order Comment: Speci men Type: BLOOD SPECIMENOrdering Facility: [facility] Address: [address] [place] [address] Performed By: #### 2 4323-8 ####[facility] LABCLIA [id number] [place] [address] Calcium [Mass/Vol] 9.0 mg/dL Normal 8.5-10.2 [facility] Comment on above: Order Comment: Speci men Type: BLOOD SPECIMENOrdering Facility: [facility] Address: [address] [place] [address] Performed By: #### 2 4323-8 ####[facility] LABCLIA [id number] [place] [address] Chloride [Moles/Vol] 93 mmol/L Low 97-105 [facility] Comment on above: Order Comment: Speci men Type: BLOOD SPECIMENOrdering Facility: [facility] Address: [address] [address] Performed By: #### 2 4323-8 ####[facility] LABCLIA [id number] [place] [address] CO2 [Moles/Vol] 24 mmol/L Normal 22-30 [facility] Comment on above: Order Comment: Speci men Type: BLOOD SPECIMENOrdering Facility: [facility] Address: [address] [address] Performed By: #### 2 4323-8 ####[facility] LABCLIA [id number] [place] [address] Creatinine [Mass/Vol] 0.92 mg/dL Normal 0.58-0.96 [facility] Comment on above: Order Comment: Speci men Type: BLOOD SPECIMENOrdering Facility: [facility] Address: [address] [place] [address] Performed By: #### 2 4323-8 ####[facility] LABCLIA [id number] [place] [address] ESTIMATED GLOMERULAR FILTRATION RATE 63 mL/min/1.73m??? Normal >=60 [facility] Comment on above: Order Comment: Speci men Type: BLOOD SPECIMENOrdering Facility: [facility] Address: [address] [place] [address] Result Comment: Anabel mated Glomerular Filtration Rate (eGFR) is calculated using the 2020 CKD-EPI creatinine equation. This equation utilizes serum creatinine, sex, and age as parameters. The creatinine assay has traceable calibration to isotope dilution-mass spectrometry. Refer to KDIGO guidelines for clinical interpretation. In patients with unstable renal function, e.g. those with acute kidney injury, the eGFR may not accurately reflect actual GFR. Performed By: #### 2 4323-8 ####[facility] LABCLIA [id number] [place] [address] Glucose [Mass/Vol] 111 mg/dL High 74-99 [facility] Comment on above: Order Comment: Speci men Type: BLOOD SPECIMENOrdering Facility: [facility] Address: [address] [place] [address] Result Comment: The [place] Diabetes Association (ADA) provides guidance for cutoff values for fasting glucose and random glucose. The ADA defines fasting as no caloric intake for at least 8 hours. Fasting plasma glucose results between 100 to 125 mg/dL indicate increased risk for diabetes (prediabetes).Fasting plasma glucose results greater than or equal to 126 mg/dL meet the criteria for diagnosis of diabetes. In the absence of unequivocal hyperglycemia, results should be confirmed by repeat testing. In a patient with classic symptoms of hyperglycemia or hyperglycemic crisis, random plasma glucose results greater than or equal to 200 mg/dL meet the criteria for diagnosis of diabetes.Reference: Standards of Medical Care in Diabetes 2016, [place] [employer] Association. Diabetes Care. 2016.39(Suppl 1). Performed By: #### 2 4323-8 ####[facility] LABCLIA [id number] [place] [address] Potassium [Moles/Vol] 3.5 mmol/L Low 3.7-5.1 [facility] Comment on above: Order Comment: [facility] Type: BLOOD SPECIMENOrdering Facility: [facility] Address: [address] [place] [address] Performed By: #### 2 4323-8 ####[facility] LABCLIA [id number] [place] [address] Protein [Mass/Vol] 6.6 g/dL Normal 6.3-8.0 [facility] Comment on above: Order Comment: Speci men Type: BLOOD SPECIMENOrdering Facility: [facility] Address: [address] [place] [address] Performed By: #### 2 4323-8 ####[facility] LABCLIA [id number] [place] [address] Sodium [Moles/Vol] 125 mmol/L Low 136-144 [facility] Comment on above: Order Comment: Speci men Type: BLOOD SPECIMENOrdering Facility: [facility] Address: [address] [place] [address] Performed By: #### 2 4323-8 ####[facility] LABCLIA [id number] [place] [address] Urea nitrogen [Mass/Vol] 17 mg/dL Normal 7-21 [facility] Comment on above: Order Comment: Speci men Type: BLOOD SPECIMENOrdering Facility: [facility] Address: [place] [address] Performed By: #### 2 4323-8 ####[facility] LABCLIA [id number] [place] [address] CNPNon 01-18-2023 CNPN Normal [facility] XR HIP LT INJon 01-14-2023 XR HIP LT INJ EXAMINATION: XR HIP LT INJ HISTORY: Idiopathic osteoarthritis COMPARISON: No relevant comparison available. FLUOROSCOPY TIME: Fluoro time measures 25 seconds and 2 images were obtained. TECHNIQUE: A joint injection was performed in the usual sterile manner after obtaining informed consent. Standard level fluoroscopic mode of operation utilized. FINDINGS: JOINT: Left hip. NEEDLE: 22 gauge, 3.5 spinal needle. MEDICATION: 2cc buffered 1% lidocaine for subcutaneous anesthesia 2cc Omnipaque-300 iodinated contrast to visualize the joint space Mixture of Kenalog 40 mg, 0.5% Bupivacaine 2 mL, and Omnipaque 300 3 mL was injected into the joint space. TECHNIQUE: Anterior approach with prior localization of the femoral artery. A single stick was successful in gaining access to the joint space. CLINICAL: Near complete resolution of hip pain following the injection (3/10 preinjection; 0/10 post injection). COMPLICATIONS: None. OTHER: Negative. IMPRESSION: 1. Successful left hip injection. Electronically authenticated by: TOÑITO HENRY Date: 2023-01-14 07:00 Normal [facility] CNPNon 01-13-2023 CNPN Normal [facility] CBC W Auto Differential pane l (Bld)on 01-06-2023 Basophils (Bld) [#/Vol] 0.06 10*3/uL Normal <0.11 [facility] Comment on above: Order Comment: Speci men Type: BLOOD SPECIMENOrdering Facility: [facility] Address: [address] [place] [address] Performed By: #### 5 7021-8 ####[facility] LABCLIA [id number] [place] [address] Basophils/100 WBC (Bld) 0.7 % Normal [facility] Comment on above: Order Comment: Speci men Type: BLOOD SPECIMENOrdering Facility: [facility] Address: [address] [place] [address] Performed By: #### 5 7021-8 ####[facility] LABCLIA [id number] [place] [address] Differential cell count method Nom (Bld) Auto Normal [facility] Comment on above: Order Comment: Speci men Type: BLOOD SPECIMENOrdering Facility: [facility] Address: [address] [place] [address] Performed By: #### 5 7021-8 ####[facility] LABCLIA [id number] [place] [address] Eosinophils (Bld) [#/Vol] 0.06 10*3/uL Normal <0.46 [facility] Comment on above: Order Comment: Speci men Type: BLOOD SPECIMENOrdering Facility: [facility] Address: [address] [place] [address] Performed By: #### 5 7021-8 ####[facility] LABCLIA [id number] [place] [address] Eosinophils/100 WBC (Bld) 0.7 % Normal [facility] Comment on above: Order Comment: Speci men Type: BLOOD SPECIMENOrdering Facility: [facility] Address: [address] [place] [address] Performed By: #### 5 7021-8 ####[facility] LABCLIA [id number] [place] [address] Erythrocyte distribution width (RBC) [Ratio] 12.5 % Normal 11.5-15.0 [facility] Comment on above: Order Comment: Speci men Type: BLOOD SPECIMENOrdering Facility: [facility] Address: [address] [address] Performed By: #### 5 7021-8 ####[facility] LABCLIA [id number] [place] [address] Hematocrit (Bld) [Volume fraction] 42.7 % Normal 36.0-46.0 [facility] Comment on above: Order Comment: Speci men Type: BLOOD SPECIMENOrdering Facility: [facility] Address: [address] [place] [address] Performed By: #### 5 7021-8 ####[facility] LABCLIA [id number] [place] [address] Hemoglobin (Bld) [Mass/Vol] 14.0 g/dL Normal 11.5-15.5 [facility] Comment on above: Order Comment: Speci men Type: BLOOD SPECIMENOrdering Facility: [facility] Address: [address] [address] Performed By: #### 5 7021-8 ####[facility] LABCLIA [id number] [place] [address] Immature granulocytes (Bld) [#/Vol] 0.03 10*3/uL Normal <0.10 [facility] Comment on above: Order Comment: Speci men Type: BLOOD SPECIMENOrdering Facility: [facility] Address: [address] [place] [address] Performed By: #### 5 7021-8 ####[facility] LABCLIA [id number] [place] [address] Immature granulocytes/100 WBC (Bld) 0.3 % Normal [facility] Comment on above: Order Comment: Speci men Type: BLOOD SPECIMENOrdering Facility: [facility] Address: [address] [place] [address] Performed By: #### 5 7021-8 ####[facility] LABCLIA [id number] [place] [address] Lymphocytes (Bld) [#/Vol] 1.64 10*3/uL Normal 1.00-4.00 [facility] Comment on above: Order Comment: Speci men Type: BLOOD SPECIMENOrdering Facility: [facility] Address: [address] [place] [address] Performed By: #### 5 7021-8 ####[facility] LABCLIA [id number] [place] [address] Lymphocytes/100 WBC (Bld) 17.9 % Normal [facility] Comment on above: Order Comment: Speci men Type: BLOOD SPECIMENOrdering Facility: [facility] Address: [address] [place] [address] Performed By: #### 5 7021-8 ####[facility] LABIA [id number] [place] [address] MCH (RBC) [Entitic mass] 29.0 pg Normal 26.0-34.0 [facility] Comment on above: Order Comment: Speci men Type: BLOOD SPECIMENOrdering Facility: [facility] Address: [address] [place] [address] Performed By: #### 5 7021-8 ####[facility] LABCLIA [id number] [place] [address] MCHC (RBC) [Mass/Vol] 32.8 g/dL Normal 30.5-36.0 [facility] Comment on above: Order Comment: Speci men Type: BLOOD SPECIMENOrdering Facility: [facility] Address: [address] [place] [address] Performed By: #### 5 7021-8 ####[facility] LABIA [id number] [place] [address] MCV (RBC) [Entitic vol] 88.4 fL Normal 80.0-100.0 [facility] Comment on above: Order Comment: Speci men Type: BLOOD SPECIMENOrdering Facility: [facility] Address: [address] [address] Performed By: #### 5 7021-8 ####[facility] LABCLIA [id number] [place] [address] Monocytes (Bld) [#/Vol] 0.71 10*3/uL Normal <0.87 [facility] Comment on above: Order Comment: Speci men Type: BLOOD SPECIMENOrdering Facility: [facility] Address: [address] [place] [address] Performed By: #### 5 7021-8 ####[facility] LABCLIA [id number] [place] [address] Monocytes/100 WBC (Bld) 7.8 % Normal [facility] Comment on above: Order Comment: Speci men Type: BLOOD SPECIMENOrdering Facility: [facility] Address: [address] [place] [address] Performed By: #### 5 7021-8 ####[facility] LABCLIA [id number] [place] [address] Neutrophils (Bld) [#/Vol] 6.66 10*3/uL Normal 1.45-7.50 [facility] Comment on above: Order Comment: Speci men Type: BLOOD SPECIMENOrdering Facility: [facility] Address: [address] [place] [address] Performed By: #### 5 7021-8 ####[facility] LABCLIA [id number] [place] [address] Neutrophils/100 WBC (Bld) 72.6 % Normal [facility] Comment on above: Order Comment: Speci men Type: BLOOD SPECIMENOrdering Facility: [facility] Address: [address] [place] [address] Performed By: #### 5 7021-8 ####[facility] LABCLIA [id number] [place] [address] Nucleated RBC (Bld) [#/Vol] 10*3/uL Normal <0.01 [facility] Comment on above: Order Comment: Speci men Type: BLOOD SPECIMENOrdering Facility: [facility] Address: [address] [place] [address] Performed By: #### 5 7021-8 ####[facility] LABCLIA [id number] [place] [address] Nucleated RBC/100 WBC (Bld) [Ratio] 0.0 /100 WBC Normal [facility] Comment on above: Order Comment: Speci men Type: BLOOD SPECIMENOrdering Facility: [facility] Address: [address] [place] [address] Performed By: #### 5 7021-8 ####[facility] LABCLIA [id number] [place] [address] Platelet mean volume (Bld) [Entitic vol] 9.0 fL Normal 9.0-12.7 [facility] Comment on above: Order Comment: Speci men Type: BLOOD SPECIMENOrdering Facility: [facility] Address: [address] [place] [address] Performed By: #### 5 7021-8 ####[facility] LABCLIA [id number] [place] [address] Platelets (Bld) [#/Vol] 300 10*3/uL Normal 150-400 [facility] Comment on above: Order Comment: Speci men Type: BLOOD SPECIMENOrdering Facility: [facility] Address: [address] [place] [address] Performed By: #### 5 7021-8 ####[facility] LABIA [id number] [place] [address] RBC (Bld) [#/Vol] 4.83 10*6/uL Normal 3.90-5.20 [facility] Comment on above: Order Comment: Speci men Type: BLOOD SPECIMENOrdering Facility: [facility] Address: [address] [address] Performed By: #### 5 7021-8 ####[facility] LABCLIA [id number] [place] [address] WBC (Bld) [#/Vol] 9.16 10*3/uL Normal 3.70-11.00 [facility] Comment on above: Order Comment: Speci men Type: BLOOD SPECIMENOrdering Facility: [facility] Address: [address] [address] Performed By: #### 5 7021-8 ####[facility] LABCLIA [id number] [place] [address] CNOVSPon 01-06-2023 CNOVSP Normal [facility] metabolic 2000 panelon 01-06-2023 Albumin [Mass/Vol] 4.1 g/dL Normal 3.9-4.9 [facility] Comment on above: Order Comment: Speci men Type: BLOOD SPECIMENOrdering Facility: [facility] Address: [address] [address] Performed By: #### 2 4323-8 ####[facility] LABCLIA [id number] [place] [address] ALP [Catalytic activity/Vol] 96 U/L Normal 34-123 [facility] Comment on above: Order Comment: Speci men Type: BLOOD SPECIMENOrdering Facility: [facility] Address: [address] [address] Performed By: #### 2 4323-8 ####[facility] LABCLIA [id number] [place] [address] ALT [Catalytic activity/Vol] 12 U/L Normal 7-38 [facility] Comment on above: Order Comment: Speci men Type: BLOOD SPECIMENOrdering Facility: [facility] Address: [address] [address] Performed By: #### 2 4323-8 ####[facility] LABCLIA [id number] [place] [address] Anion gap [Moles/Vol] 10 mmol/L Normal 9-18 [facility] Comment on above: Order Comment: Speci men Type: BLOOD SPECIMENOrdering Facility: [facility] Address: [address] [place] [address] Performed By: #### 2 4323-8 ####[facility] LABCLIA [id number] [place] [address] AST [Catalytic activity/Vol] 17 U/L Normal 13-35 [facility] Comment on above: Order Comment: Speci men Type: BLOOD SPECIMENOrdering Facility: [facility] Address: [address] [place] [address] Performed By: #### 2 4323-8 ####[facility] LABCLIA [id number] [place] [address] Bilirubin [Mass/Vol] 0.4 mg/dL Normal 0.2-1.3 [facility] Comment on above: Order Comment: Speci men Type: BLOOD SPECIMENOrdering Facility: [facility] Address: [address] [place] [address] Performed By: #### 2 4323-8 ####[facility] LABCLIA [id number] [place] [address] Calcium [Mass/Vol] 10.2 mg/dL Normal 8.5-10.2 [facility] Comment on above: Order Comment: Speci men Type: BLOOD SPECIMENOrdering Facility: [facility] Address: [address] [place] [address] Performed By: #### 2 4323-8 ####[facility] LABCLIA [id number] [place] [address] Chloride [Moles/Vol] 101 mmol/L Normal 97-105 [facility] Comment on above: Order Comment: Speci men Type: BLOOD SPECIMENOrdering Facility: [facility] Address: [address] [address] Performed By: #### 2 4323-8 ####[facility] LABCLIA [id number] [place] [address] CO2 [Moles/Vol] 23 mmol/L Normal 22-30 [facility] Comment on above: Order Comment: Speci men Type: BLOOD SPECIMENOrdering Facility: [facility] Address: [address] [place] [address] Performed By: #### 2 4323-8 ####[facility] LABCLIA [id number] [place] [address] Creatinine [Mass/Vol] 0.74 mg/dL Normal 0.58-0.96 [facility] Comment on above: Order Comment: Speci men Type: BLOOD SPECIMENOrdering Facility: [facility] Address: [address] [place] [address] Performed By: #### 2 4323-8 ####[facility] LABCLIA [id number] [place] [address] ESTIMATED GLOMERULAR FILTRATION RATE 82 mL/min/1.73m??? Normal >=60 [facility] Comment on above: Order Comment: Speci men Type: BLOOD SPECIMENOrdering Facility: [facility] Address: [address] [place] [address] Result Comment: Anabel mated Glomerular Filtration Rate (eGFR) is calculated using the 2020 CKD-EPI creatinine equation. This equation utilizes serum creatinine, sex, and age as parameters. The creatinine assay has traceable calibration to isotope dilution-mass spectrometry. Refer to KDIGO guidelines for clinical interpretation. In patients with unstable renal function, e.g. those with acute kidney injury, the eGFR may not accurately reflect actual GFR. Performed By: #### 2 4323-8 ####[facility] LABCLIA [id number] [place] [address] Glucose [Mass/Vol] 104 mg/dL High 74-99 [facility] Comment on above: Order Comment: Speci men Type: BLOOD SPECIMENOrdering Facility: [facility] Address: [address] [address] Result Comment: The [place] Diabetes [employer] (ADA) provides guidance for cutoff values for fasting glucose and random glucose. The ADA defines fasting as no caloric intake for at least 8 hours. Fasting plasma glucose results between 100 to 125 mg/dL indicate increased risk for diabetes (prediabetes).Fasting plasma glucose results greater than or equal to 126 mg/dL meet the criteria for diagnosis of diabetes. In the absence of unequivocal hyperglycemia, results should be confirmed by repeat testing. In a patient with classic symptoms of hyperglycemia or hyperglycemic crisis, random plasma glucose results greater than or equal to 200 mg/dL meet the criteria for diagnosis of diabetes.Reference: Standards of Medical Care in Diabetes 2016, [place] [employer]. Diabetes Care. 2016.39(Suppl 1). Performed By: #### 2 4323-8 ####[facility] LABCLIA [id number] [place] [address] Potassium [Moles/Vol] 4.3 mmol/L Normal 3.7-5.1 [facility] Comment on above: Order Comment: Speci men Type: BLOOD SPECIMENOrdering Facility: [facility] Address: [address] [address] Performed By: #### 2 4323-8 ####[facility] LABCLIA [id number] [place] [address] Protein [Mass/Vol] 7.1 g/dL Normal 6.3-8.0 [facility] Comment on above: Order Comment: Speci men Type: BLOOD SPECIMENOrdering Facility: [facility] Address: [address] [address] Performed By: #### 2 4323-8 ####[facility] LABCLIA [id number] [place] [address] Sodium [Moles/Vol] 134 mmol/L Low 136-144 [facility] Comment on above: Order Comment: Speci men Type: BLOOD SPECIMENOrdering Facility: [facility] Address: [address] [address] Performed By: #### 2 4323-8 ####[facility] LABCLIA [id number] [place] [address] Urea nitrogen [Mass/Vol] 18 mg/dL Normal 7-21 [facility] Comment on above: Order Comment: Speci men Type: BLOOD SPECIMENOrdering Facility: [facility] Address: [address] [place] [address] Performed By: #### 2 4323-8 ####[facility] LABCLIA [id number] [place] [address] CNCNPATEDon 12-23-2022 CNCNPATED Normal [facility] CNPNon 12-23-2022 CNPN Normal [facility] CBC W Auto Differential pane l (Bld)on 12-16-2022 Basophils (Bld) [#/Vol] 0.04 10*3/uL Normal <0.11 [facility] Comment on above: Order Comment: Speci men Type: BLOOD SPECIMENOrdering Facility: [facility] Address: [address] [place] [address] Performed By: #### 5 7021-8 ####[facility] LABIA [id number] [place] [address] Basophils/100 WBC (Bld) 0.5 % Normal [facility] Comment on above: Order Comment: Speci men Type: BLOOD SPECIMENOrdering Facility: [facility] Address: [address] [place] [address] Performed By: #### 5 7021-8 ####[facility] LABCLIA [id number] [place] [address] Differential cell count method Nom (Bld) Auto Normal [facility] Comment on above: Order Comment: Speci men Type: BLOOD SPECIMENOrdering Facility: [facility] Address: [address] [place] [address] Performed By: #### 5 7021-8 ####[facility] LABCLIA [id number] [place] [address] Eosinophils (Bld) [#/Vol] 0.14 10*3/uL Normal <0.46 [facility] Comment on above: Order Comment: Speci men Type: BLOOD SPECIMENOrdering Facility: [facility] Address: [address] [place] [address] Performed By: #### 5 7021-8 ####[facility] LABCLIA [id number] [place] [address] Eosinophils/100 WBC (Bld) 1.7 % Normal [facility] Comment on above: Order Comment: Speci men Type: BLOOD SPECIMENOrdering Facility: [facility] Address: [address] [place] [address] Performed By: #### 5 7021-8 ####[facility] LABIA [id number] [place] [address] Erythrocyte distribution width (RBC) [Ratio] 12.5 % Normal 11.5-15.0 [facility] Comment on above: Order Comment: Speci men Type: BLOOD SPECIMENOrdering Facility: [facility] Address: [address] [place] [address] Performed By: #### 5 7021-8 ####[facility] LABCLIA [id number] [place] [address] Hematocrit (Bld) [Volume fraction] 41.9 % Normal 36.0-46.0 [facility] Comment on above: Order Comment: Speci men Type: BLOOD SPECIMENOrdering Facility: [facility] Address: [address] [place] [address] Performed By: #### 5 7021-8 ####[facility] LABIA [id number] [place] [address] Hemoglobin (Bld) [Mass/Vol] 14.2 g/dL Normal 11.5-15.5 [facility] Comment on above: Order Comment: Speci men Type: BLOOD SPECIMENOrdering Facility: [facility] Address: [address] [address] Performed By: #### 5 7021-8 ####[facility] LABCLIA [id number] [place] [address] Immature granulocytes (Bld) [#/Vol] 0.05 10*3/uL Normal <0.10 [facility] Comment on above: Order Comment: Speci men Type: BLOOD SPECIMENOrdering Facility: [facility] Address: [address] [place] [address] Performed By: #### 5 7021-8 ####[facility] LABCLIA [id number] [place] [address] Immature granulocytes/100 WBC (Bld) 0.6 % Normal [facility] Comment on above: Order Comment: Speci men Type: BLOOD SPECIMENOrdering Facility: [facility] Address: [address] [place] [address] Performed By: #### 5 7021-8 ####[facility] LABCLIA [id number] [place] [address] Lymphocytes (Bld) [#/Vol] 1.69 10*3/uL Normal 1.00-4.00 [facility] Comment on above: Order Comment: Speci men Type: BLOOD SPECIMENOrdering Facility: [facility] Address: [address] [place] [address] Performed By: #### 5 7021-8 ####[facility] LABCLIA [id number] [place] [address] Lymphocytes/100 WBC (Bld) 20.8 % Normal [facility] Comment on above: Order Comment: Speci men Type: BLOOD SPECIMENOrdering Facility: [facility] Address: [address] [place] [address] Performed By: #### 5 7021-8 ####[facility] LABCLIA [id number] [place] [address] MCH (RBC) [Entitic mass] 30.1 pg Normal 26.0-34.0 [facility] Comment on above: Order Comment: Speci men Type: BLOOD SPECIMENOrdering Facility: [facility] Address: [address] [address] Performed By: #### 5 7021-8 ####[facility] LABCLIA [id number] [place] [address] MCHC (RBC) [Mass/Vol] 33.9 g/dL Normal 30.5-36.0 [facility] Comment on above: Order Comment: Speci men Type: BLOOD SPECIMENOrdering Facility: [facility] Address: [address] [place] [address] Performed By: #### 5 7021-8 ####[facility] LABIA [id number] [place] [address] MCV (RBC) [Entitic vol] 88.8 fL Normal 80.0-100.0 [facility] Comment on above: Order Comment: Speci men Type: BLOOD SPECIMENOrdering Facility: [facility] Address: [address] [place] [address] Performed By: #### 5 7021-8 ####[facility] LABIA [id number] [place] [address] Monocytes (Bld) [#/Vol] 0.67 10*3/uL Normal <0.87 [facility] Comment on above: Order Comment: Speci men Type: BLOOD SPECIMENOrdering Facility: [facility] Address: [address] [address] Performed By: #### 5 7021-8 ####[facility] LABIA [id number] [place] [address] Monocytes/100 WBC (Bld) 8.2 % Normal [facility] Comment on above: Order Comment: Speci men Type: BLOOD SPECIMENOrdering Facility: [facility] Address: [address] [place] [address] Performed By: #### 5 7021-8 ####[facility] LABCLIA [id number] [place] [address] Neutrophils (Bld) [#/Vol] 5.54 10*3/uL Normal 1.45-7.50 [facility] Comment on above: Order Comment: Speci men Type: BLOOD SPECIMENOrdering Facility: [facility] Address: [address] [place] [address] Performed By: #### 5 7021-8 ####[facility] LABCLIA [id number] [place] [address] Neutrophils/100 WBC (Bld) 68.2 % Normal [facility] Comment on above: Order Comment: Speci men Type: BLOOD SPECIMENOrdering Facility: [facility] Address: [address] [place] [address] Performed By: #### 5 7021-8 ####[facility] LABCLIA [id number] [place] [address] Nucleated RBC (Bld) [#/Vol] 10*3/uL Normal <0.01 [facility] Comment on above: Order Comment: Speci men Type: BLOOD SPECIMENOrdering Facility: [facility] Address: [address] [place] [address] Performed By: #### 5 7021-8 ####[facility] LABCLIA [id number] [place] [address] Nucleated RBC/100 WBC (Bld) [Ratio] 0.0 /100 WBC Normal [facility] Comment on above: Order Comment: Speci men Type: BLOOD SPECIMENOrdering Facility: [facility] Address: [address] [place], [place] [address] Performed By: #### 5 7021-8 ####[facility] LABCLIA [id number] [place] [address] Platelet mean volume (Bld) [Entitic vol] 8.9 fL Low 9.0-12.7 [facility] Comment on above: Order Comment: Speci men Type: BLOOD SPECIMENOrdering Facility: [facility] Address: [address] [place] [address] Performed By: #### 5 7021-8 ####[facility] LABCLIA [id number] [place] [address] Platelets (Bld) [#/Vol] 317 10*3/uL Normal 150-400 [facility] Comment on above: Order Comment: Speci men Type: BLOOD SPECIMENOrdering Facility: [facility] Address: [address] [place] [address] Performed By: #### 5 7021-8 ####[facility] LABIA [id number] [place] [address] RBC (Bld) [#/Vol] 4.72 10*6/uL Normal 3.90-5.20 [facility] Comment on above: Order Comment: Speci men Type: BLOOD SPECIMENOrdering Facility: [facility] Address: [address] [place] [address] Performed By: #### 5 7021-8 ####[facility] LABIA [id number] [place] [address] WBC (Bld) [#/Vol] 8.13 10*3/uL Normal 3.70-11.00 [facility] Comment on above: Order Comment: Speci men Type: BLOOD SPECIMENOrdering Facility: [facility] Address: [address] [place], [place] [address] Performed By: #### 5 7021-8 ####[facility] LABIA [id number] [place] [address] CNOVSPon 12-16-2022 CNOVSP Normal [facility] CNPNon 12-16-2022 CNPN Normal [facility] Comprehensive metabolic 2000 panelon 12-16-2022 Albumin [Mass/Vol] 4.0 g/dL Normal 3.9-4.9 [facility] Comment on above: Order Comment: Speci men Type: BLOOD SPECIMENOrdering Facility: [facility] Address: [address] [address] Performed By: #### 2 4323-8 ####[facility] LABCLIA [id number] [place] [address] ALP [Catalytic activity/Vol] 101 U/L Normal 34-123 [facility] Comment on above: Order Comment: Speci men Type: BLOOD SPECIMENOrdering Facility: [facility] Address: [address] [address] Performed By: #### 2 4323-8 ####[facility] LABCLIA [id number] [place] [address] ALT [Catalytic activity/Vol] 11 U/L Normal 7-38 [facility] Comment on above: Order Comment: Speci men Type: BLOOD SPECIMENOrdering Facility: [facility] Address: [address] [address] Performed By: #### 2 4323-8 ####[facility] LABCLIA [id number] [place] [address] Anion gap [Moles/Vol] 12 mmol/L Normal 9-18 [facility] Comment on above: Order Comment: Speci men Type: BLOOD SPECIMENOrdering Facility: [facility] Address: [address] [address] Performed By: #### 2 4323-8 ####[facility] LABCLIA [id number] [place] [address] AST [Catalytic activity/Vol] 14 U/L Normal 13-35 [facility] Comment on above: Order Comment: Speci men Type: BLOOD SPECIMENOrdering Facility: [facility] Address: [address] [address] Performed By: #### 2 4323-8 ####[facility] LABCLIA [id number] [place] [address] Bilirubin [Mass/Vol] 0.4 mg/dL Normal 0.2-1.3 [facility] Comment on above: Order Comment: Speci men Type: BLOOD SPECIMENOrdering Facility: [facility] Address: [address] [address] Performed By: #### 2 4323-8 ####[facility] LABCLIA [id number] [place] [address] Calcium [Mass/Vol] 9.5 mg/dL Normal 8.5-10.2 [facility] Comment on above: Order Comment: Speci men Type: BLOOD SPECIMENOrdering Facility: [facility] Address: [address] [place] [address] Performed By: #### 2 4323-8 ####[facility] LABCLIA [id number] [place] [address] Chloride [Moles/Vol] 104 mmol/L Normal 97-105 [facility] Comment on above: Order Comment: Speci men Type: BLOOD SPECIMENOrdering Facility: [facility] Address: [address] [place] [address] Performed By: #### 2 4323-8 ####[facility] LABCLIA [id number] [place] [address] CO2 [Moles/Vol] 22 mmol/L Normal 22-30 [facility] Comment on above: Order Comment: Speci men Type: BLOOD SPECIMENOrdering Facility: [facility] Address: [address] [address] Performed By: #### 2 4323-8 ####[facility] LABCLIA [id number] [place] [address] Creatinine [Mass/Vol] 0.78 mg/dL Normal 0.58-0.96 [facility] Comment on above: Order Comment: Speci men Type: BLOOD SPECIMENOrdering Facility: [facility] Address: [address] [place] [address] Performed By: #### 2 4323-8 ####[facility] LABCLIA [id number] [place] [address] ESTIMATED GLOMERULAR FILTRATION RATE 77 mL/min/1.73m??? Normal >=60 [facility] Comment on above: Order Comment: Inez salas Type: BLOOD SPECIMENOrdering Facility: [facility] Address: [address] [place] [address] Result Comment: Anabel mated Glomerular Filtration Rate (eGFR) is calculated using the 2020 CKD-EPI creatinine equation. This equation utilizes serum creatinine, sex, and age as parameters. The creatinine assay has traceable calibration to isotope dilution-mass spectrometry. Refer to KDIGO guidelines for clinical interpretation. In patients with unstable renal function, e.g. those with acute kidney injury, the eGFR may not accurately reflect actual GFR. Performed By: #### 2 4323-8 ####[facility] LABCLIA [id number] [place] [address] Glucose [Mass/Vol] 110 mg/dL High 74-99 [facility] Comment on above: Order Comment: Inez salas Type: BLOOD SPECIMENOrdering Facility: [facility] Address: [address] [place] [address] Result Comment: The [place] [employer] (ADA) provides guidance for cutoff values for fasting glucose and random glucose. The ADA defines fasting as no caloric intake for at least 8 hours. Fasting plasma glucose results between 100 to 125 mg/dL indicate increased risk for diabetes (prediabetes).Fasting plasma glucose results greater than or equal to 126 mg/dL meet the criteria for diagnosis of diabetes. In the absence of unequivocal hyperglycemia, results should be confirmed by repeat testing. In a patient with classic symptoms of hyperglycemia or hyperglycemic crisis, random plasma glucose results greater than or equal to 200 mg/dL meet the criteria for diagnosis of diabetes.Reference: Standards of Medical Care in Diabetes 2016, [place] [employer]. Diabetes Care. 2016.39(Suppl 1). Performed By: #### 2 4323-8 ####[facility] LABCLIA [id number] [place] [address] Potassium [Moles/Vol] 4.4 mmol/L Normal 3.7-5.1 [facility] Comment on above: Order Comment: Speci men Type: BLOOD SPECIMENOrdering Facility: [facility] Address: [address] [place] [address] Performed By: #### 2 4323-8 ####[facility] LABCLIA [id number] [place] [address] Protein [Mass/Vol] 7.0 g/dL Normal 6.3-8.0 [facility] Comment on above: Order Comment: Speci men Type: BLOOD SPECIMENOrdering Facility: [facility] Address: [address] [place] [address] Performed By: #### 2 4323-8 ####[facility] LABCLIA [id number] [place] [address] Sodium [Moles/Vol] 138 mmol/L Normal 136-144 [facility] Comment on above: Order Comment: Speci men Type: BLOOD SPECIMENOrdering Facility: [facility] Address: [address] [place] [address] Performed By: #### 2 4323-8 ####[facility] LABCLIA [id number] [place] [address] Urea nitrogen [Mass/Vol] 18 mg/dL Normal 7-21 [facility] Comment on above: Order Comment: Speci men Type: BLOOD SPECIMENOrdering Facility: [facility] Address: [address] [place] [address] Performed By: #### 2 4323-8 ####[facility] LABCLIA [id number] [place] [address] NM PET/CT SKULL-THIGH SUBQon 12-09-2022 NM PET/CT SKULL-THIGH SUBQ Normal [facility] CBC W Auto Differential pane l (Bld)on 11-11-2022 Basophils (Bld) [#/Vol] 0.07 10*3/uL Normal <0.11 [facility] Comment on above: Order Comment: Speci men Type: BLOOD SPECIMENOrdering Facility: [facility] Address: [address] [address] Performed By: #### 5 7021-8 ####[facility] LABCLIA [id number] [place] [address] Basophils/100 WBC (Bld) 0.7 % Normal [facility] Comment on above: Order Comment: Speci men Type: BLOOD SPECIMENOrdering Facility: [facility] Address: [address] [address] Performed By: #### 5 7021-8 ####[facility] LABCLIA [id number] [place] [address] Differential cell count method Nom (Bld) Auto Normal [facility] Comment on above: Order Comment: Speci men Type: BLOOD SPECIMENOrdering Facility: [facility] Address: [address] [place] [address] Performed By: #### 5 7021-8 ####[facility] LABCLIA [id number] [place] [address] Eosinophils (Bld) [#/Vol] 0.13 10*3/uL Normal <0.46 [facility] Comment on above: Order Comment: Speci men Type: BLOOD SPECIMENOrdering Facility: [facility] Address: [address] [address] Performed By: #### 5 7021-8 ####[facility] LABCLIA [id number] [place] [address] Eosinophils/100 WBC (Bld) 1.3 % Normal [facility] Comment on above: Order Comment: Speci men Type: BLOOD SPECIMENOrdering Facility: [facility] Address: [address] [place] [address] Performed By: #### 5 7021-8 ####[facility] LABCLIA [id number] [place] [address] Erythrocyte distribution width (RBC) [Ratio] 12.5 % Normal 11.5-15.0 [facility] Comment on above: Order Comment: Speci men Type: BLOOD SPECIMENOrdering Facility: [facility] Address: [address] [place] [address] Performed By: #### 5 7021-8 ####[facility] LABCLIA [id number] [place] [address] Hematocrit (Bld) [Volume fraction] 44.2 % Normal 36.0-46.0 [facility] Comment on above: Order Comment: Speci men Type: BLOOD SPECIMENOrdering Facility: [facility] Address: [address] [place] [address] Performed By: #### 5 7021-8 ####[facility] LABCLIA [id number] [place] [address] Hemoglobin (Bld) [Mass/Vol] 14.7 g/dL Normal 11.5-15.5 [facility] Comment on above: Order Comment: Speci men Type: BLOOD SPECIMENOrdering Facility: [facility] Address: [address] [place] [address] Performed By: #### 5 7021-8 ####[facility] LABCLIA [id number] [place] [address] Immature granulocytes (Bld) [#/Vol] 0.03 10*3/uL Normal <0.10 [facility] Comment on above: Order Comment: Speci men Type: BLOOD SPECIMENOrdering Facility: [facility] Address: [address] [place] [address] Performed By: #### 5 7021-8 ####[facility] LABCLIA [id number] [place] [address] Immature granulocytes/100 WBC (Bld) 0.3 % Normal [facility] Comment on above: Order Comment: Speci men Type: BLOOD SPECIMENOrdering Facility: [facility] Address: [address] [place] [address] Performed By: #### 5 7021-8 ####[facility] LABCLIA [id number] [place] [address] Lymphocytes (Bld) [#/Vol] 1.75 10*3/uL Normal 1.00-4.00 [facility] Comment on above: Order Comment: Speci men Type: BLOOD SPECIMENOrdering Facility: [facility] Address: [address] [place] [address] Performed By: #### 5 7021-8 ####[facility] LABCLIA [id number] [place] [address] Lymphocytes/100 WBC (Bld) 17.7 % Normal [facility] Comment on above: Order Comment: Speci men Type: BLOOD SPECIMENOrdering Facility: [facility] Address: [address] [place] [address] Performed By: #### 5 7021-8 ####[facility] LABCLIA [id number] [place] [address] MCH (RBC) [Entitic mass] 29.4 pg Normal 26.0-34.0 [facility] Comment on above: Order Comment: Speci men Type: BLOOD SPECIMENOrdering Facility: [facility] Address: [address] [place] [address] Performed By: #### 5 7021-8 ####[facility] LABCLIA [id number] [place] [address] MCHC (RBC) [Mass/Vol] 33.3 g/dL Normal 30.5-36.0 [facility] Comment on above: Order Comment: Speci men Type: BLOOD SPECIMENOrdering Facility: [facility] Address: [address] [place] [address] Performed By: #### 5 7021-8 ####[facility] LABCLIA [id number] [place] [address] MCV (RBC) [Entitic vol] 88.4 fL Normal 80.0-100.0 [facility] Comment on above: Order Comment: Speci men Type: BLOOD SPECIMENOrdering Facility: [facility] Address: [address] [place] [address] Performed By: #### 5 7021-8 ####[facility] LABCLIA [id number] [place] [address] Monocytes (Bld) [#/Vol] 0.76 10*3/uL Normal <0.87 [facility] Comment on above: Order Comment: Speci men Type: BLOOD SPECIMENOrdering Facility: [facility] Address: [address] [place] [address] Performed By: #### 5 7021-8 ####[facility] LABCLIA [id number] [place] [address] Monocytes/100 WBC (Bld) 7.7 % Normal [facility] Comment on above: Order Comment: Speci men Type: BLOOD SPECIMENOrdering Facility: [facility] Address: [address] [place] [address] Performed By: #### 5 7021-8 ####[facility] LABCLIA [id number] [place] [address] Neutrophils (Bld) [#/Vol] 7.15 10*3/uL Normal 1.45-7.50 [facility] Comment on above: Order Comment: Speci men Type: BLOOD SPECIMENOrdering Facility: [facility] Address: [address] [place] [address] Performed By: #### 5 7021-8 ####[facility] LABCLIA [id number] [place] [address] Neutrophils/100 WBC (Bld) 72.3 % Normal [facility] Comment on above: Order Comment: Speci men Type: BLOOD SPECIMENOrdering Facility: [facility] Address: [address] [place] [address] Performed By: #### 5 7021-8 ####[facility] LABCLIA [id number] [place] [address] Nucleated RBC (Bld) [#/Vol] 10*3/uL Normal <0.01 [facility] Comment on above: Order Comment: Speci men Type: BLOOD SPECIMENOrdering Facility: [facility] Address: [address] [place] [address] Performed By: #### 5 7021-8 ####[facility] LABCLIA [id number] [place] [address] Nucleated RBC/100 WBC (Bld) [Ratio] 0.0 /100 WBC Normal [facility] Comment on above: Order Comment: Speci men Type: BLOOD SPECIMENOrdering Facility: [facility] Address: [address] [place] [address] Performed By: #### 5 7021-8 ####[facility] LABCLIA [id number] [place] [address] Platelet mean volume (Bld) [Entitic vol] 8.9 fL Low 9.0-12.7 [facility] Comment on above: Order Comment: Speci men Type: BLOOD SPECIMENOrdering Facility: [facility] Address: [address] [place] [address] Performed By: #### 5 7021-8 ####[facility] LABCLIA [id number] [place] [address] Platelets (Bld) [#/Vol] 311 10*3/uL Normal 150-400 [facility] Comment on above: Order Comment: Speci men Type: BLOOD SPECIMENOrdering Facility: [facility] Address: [address] [place] [address] Performed By: #### 5 7021-8 ####[facility] LABIA [id number] [place] [address] RBC (Bld) [#/Vol] 5.00 10*6/uL Normal 3.90-5.20 [facility] Comment on above: Order Comment: Speci men Type: BLOOD SPECIMENOrdering Facility: [facility] Address: [address] [address] Performed By: #### 5 7021-8 ####[facility] LABIA [id number] [place] [address] WBC (Bld) [#/Vol] 9.89 10*3/uL Normal 3.70-11.00 [facility] Comment on above: Order Comment: Speci men Type: BLOOD SPECIMENOrdering Facility: [facility] Address: [address] [address] Performed By: #### 5 7021-8 ####[facility] LABIA [id number] [place] [address] Comprehensive metabolic 2000 panelon 11-11-2022 Albumin [Mass/Vol] 4.2 g/dL Normal 3.9-4.9 [facility] Comment on above: Order Comment: Speci men Type: BLOOD SPECIMENOrdering Facility: [facility] Address: [address] [address] Performed By: #### 2 4323-8 ####[facility] LABIA [id number] [place] [address] ALP [Catalytic activity/Vol] 101 U/L Normal 34-123 [facility] Comment on above: Order Comment: Speci men Type: BLOOD SPECIMENOrdering Facility: [facility] Address: [address] [address] Performed By: #### 2 4323-8 ####[facility] LABIA [id number] [place] [address] ALT [Catalytic activity/Vol] 11 U/L Normal 7-38 [facility] Comment on above: Order Comment: Speci men Type: BLOOD SPECIMENOrdering Facility: [facility] Address: [address] [address] Performed By: #### 2 4323-8 ####[facility] LABCLIA [id number] [place] [address] Anion gap [Moles/Vol] 10 mmol/L Normal 9-18 [facility] Comment on above: Order Comment: Speci men Type: BLOOD SPECIMENOrdering Facility: [facility] Address: [address] [place] [address] Performed By: #### 2 4323-8 ####[facility] LABCLIA [id number] [place] [address] AST [Catalytic activity/Vol] 16 U/L Normal 13-35 [facility] Comment on above: Order Comment: Speci men Type: BLOOD SPECIMENOrdering Facility: [facility] Address: [address] [place] [address] Performed By: #### 2 4323-8 ####[facility] LABCLIA [id number] [place] [address] Bilirubin [Mass/Vol] 0.4 mg/dL Normal 0.2-1.3 [facility] Comment on above: Order Comment: Speci men Type: BLOOD SPECIMENOrdering Facility: [facility] Address: [address] [place] [address] Performed By: #### 2 4323-8 ####[facility] LABCLIA [id number] [place] [address] Calcium [Mass/Vol] 10.2 mg/dL Normal 8.5-10.2 [facility] Comment on above: Order Comment: Speci men Type: BLOOD SPECIMENOrdering Facility: [facility] Address: [address] [place] [address] Performed By: #### 2 4323-8 ####[facility] LABCLIA [id number] [place] [address] Chloride [Moles/Vol] 100 mmol/L Normal 97-105 [facility] Comment on above: Order Comment: Speci men Type: BLOOD SPECIMENOrdering Facility: [facility] Address: [address] [address] Performed By: #### 2 4323-8 ####[facility] LABCLIA [id number] [place] [address] CO2 [Moles/Vol] 25 mmol/L Normal 22-30 [facility] Comment on above: Order Comment: Speci men Type: BLOOD SPECIMENOrdering Facility: [facility] Address: [address] [address] Performed By: #### 2 4323-8 ####[facility] LABCLIA [id number] [place] [address] Creatinine [Mass/Vol] 0.77 mg/dL Normal 0.58-0.96 [facility] Comment on above: Order Comment: Speci men Type: BLOOD SPECIMENOrdering Facility: [facility] Address: [address] [place] [address] Performed By: #### 2 4323-8 ####[facility] LABCLIA [id number] [place] [address] ESTIMATED GLOMERULAR FILTRATION RATE 79 mL/min/1.73m??? Normal >=60 [facility] Comment on above: Order Comment: Speci men Type: BLOOD SPECIMENOrdering Facility: [facility] Address: [address] [place] [address] Result Comment: Anabel mated Glomerular Filtration Rate (eGFR) is calculated using the 2020 CKD-EPI creatinine equation. This equation utilizes serum creatinine, sex, and age as parameters. The creatinine assay has traceable calibration to isotope dilution-mass spectrometry. Refer to KDIGO guidelines for clinical interpretation. In patients with unstable renal function, e.g. those with acute kidney injury, the eGFR may not accurately reflect actual GFR. Performed By: #### 2 4323-8 ####[facility] LABCLIA [id number] [place] [address] Glucose [Mass/Vol] 107 mg/dL High 74-99 [facility] Comment on above: Order Comment: Speci men Type: BLOOD SPECIMENOrdering Facility: [facility] Address: [address] [place] [address] Result Comment: The [place] [employer] (ADA) provides guidance for cutoff values for fasting glucose and random glucose. The ADA defines fasting as no caloric intake for at least 8 hours. Fasting plasma glucose results between 100 to 125 mg/dL indicate increased risk for diabetes (prediabetes).Fasting plasma glucose results greater than or equal to 126 mg/dL meet the criteria for diagnosis of diabetes. In the absence of unequivocal hyperglycemia, results should be confirmed by repeat testing. In a patient with classic symptoms of hyperglycemia or hyperglycemic crisis, random plasma glucose results greater than or equal to 200 mg/dL meet the criteria for diagnosis of diabetes.Reference: Standards of Medical Care in Diabetes 2016, [place] [employer]. Diabetes Care. 2016.39(Suppl 1). Performed By: #### 2 4323-8 ####[facility] LABCLIA [id number] [place] [address] Potassium [Moles/Vol] 4.2 mmol/L Normal 3.7-5.1 [facility] Comment on above: Order Comment: [facility] Type: BLOOD SPECIMENOrdering Facility: [facility] Address: [address] [place] [address] Performed By: #### 2 4323-8 ####[facility] LABCLIA [id number] [place] [address] Protein [Mass/Vol] 7.3 g/dL Normal 6.3-8.0 [facility] Comment on above: Order Comment: Speci men Type: BLOOD SPECIMENOrdering Facility: [facility] Address: [address] [place] [address] Performed By: #### 2 4323-8 ####[facility] LABCLIA [id number] [place] [address] Sodium [Moles/Vol] 135 mmol/L Low 136-144 [facility] Comment on above: Order Comment: Speci men Type: BLOOD SPECIMENOrdering Facility: [facility] Address: [address] [place] [address] Performed By: #### 2 4323-8 ####[facility] LABCLIA [id number] [place] [address] Urea nitrogen [Mass/Vol] 15 mg/dL Normal 7-21 [facility] Comment on above: Order Comment: Speci men Type: BLOOD SPECIMENOrdering Facility: [facility] Address: [address] [place] [address] Performed By: #### 2 4323-8 ####[facility] LABCLIA [id number] [place] [address] CBC W Auto Differential pane l (Bld)on 10-12-2022 Basophils (Bld) [#/Vol] 0.05 10*3/uL Normal <0.11 [facility] Comment on above: Order Comment: Speci men Type: BLOOD SPECIMENOrdering Facility: [facility] Address: [address] [place] [address] Performed By: #### 5 7021-8 ####[facility] LABIA [id number] [place] [address] Basophils/100 WBC (Bld) 0.7 % Normal [facility] Comment on above: Order Comment: Speci men Type: BLOOD SPECIMENOrdering Facility: [facility] Address: [address] [place] [address] Performed By: #### 5 7021-8 ####[facility] LABCLIA [id number] [place] [address] Differential cell count method Nom (Bld) Auto Normal [facility] Comment on above: Order Comment: Speci men Type: BLOOD SPECIMENOrdering Facility: [facility] Address: [address] [place] [address] Performed By: #### 5 7021-8 ####[facility] LABCLIA [id number] [place] [address] Eosinophils (Bld) [#/Vol] 0.12 10*3/uL Normal <0.46 [facility] Comment on above: Order Comment: Speci men Type: BLOOD SPECIMENOrdering Facility: [facility] Address: [address] [place] [address] Performed By: #### 5 7021-8 ####[facility] LABCLIA [id number] [place] [address] Eosinophils/100 WBC (Bld) 1.6 % Normal [facility] Comment on above: Order Comment: Speci men Type: BLOOD SPECIMENOrdering Facility: [facility] Address: [address] [place] [address] Performed By: #### 5 7021-8 ####[facility] LABCLIA [id number] [place] [address] Erythrocyte distribution width (RBC) [Ratio] 12.3 % Normal 11.5-15.0 [facility] Comment on above: Order Comment: Speci men Type: BLOOD SPECIMENOrdering Facility: [facility] Address: [address] [place] [address] Performed By: #### 5 7021-8 ####[facility] LABCLIA [id number] [place] [address] Hematocrit (Bld) [Volume fraction] 45.4 % Normal 36.0-46.0 [facility] Comment on above: Order Comment: Speci men Type: BLOOD SPECIMENOrdering Facility: [facility] Address: [address] [place] [address] Performed By: #### 5 7021-8 ####[facility] LABCLIA [id number] [place] [address] Hemoglobin (Bld) [Mass/Vol] 15.1 g/dL Normal 11.5-15.5 [facility] Comment on above: Order Comment: Speci men Type: BLOOD SPECIMENOrdering Facility: [facility] Address: [address] [place] [address] Performed By: #### 5 7021-8 ####[facility] LABCLIA [id number] [place] [address] Immature granulocytes (Bld) [#/Vol] 10*3/uL Normal <0.10 [facility] Comment on above: Order Comment: Speci men Type: BLOOD SPECIMENOrdering Facility: [facility] Address: [address] [place] [address] Performed By: #### 5 7021-8 ####[facility] LABCLIA [id number] [place] [address] Immature granulocytes/100 WBC (Bld) 0.3 % Normal [facility] Comment on above: Order Comment: Speci men Type: BLOOD SPECIMENOrdering Facility: [facility] Address: [address] [place] [address] Performed By: #### 5 7021-8 ####[facility] LABCLIA [id number] [place] [address] Lymphocytes (Bld) [#/Vol] 1.51 10*3/uL Normal 1.00-4.00 [facility] Comment on above: Order Comment: Speci men Type: BLOOD SPECIMENOrdering Facility: [facility] Address: [address] [place] [address] Performed By: #### 5 7021-8 ####[facility] LABCLIA [id number] [place] [address] Lymphocytes/100 WBC (Bld) 20.4 % Normal [facility] Comment on above: Order Comment: Speci men Type: BLOOD SPECIMENOrdering Facility: [facility] Address: [address] [place] [address] Performed By: #### 5 7021-8 ####[facility] LABCLIA [id number] [place] [address] MCH (RBC) [Entitic mass] 29.4 pg Normal 26.0-34.0 [facility] Comment on above: Order Comment: Speci men Type: BLOOD SPECIMENOrdering Facility: [facility] Address: [address] [place] [address] Performed By: #### 5 7021-8 ####[facility] LABCLIA [id number] [place] [address] MCHC (RBC) [Mass/Vol] 33.3 g/dL Normal 30.5-36.0 [facility] Comment on above: Order Comment: Speci men Type: BLOOD SPECIMENOrdering Facility: [facility] Address: [address] [place] [address] Performed By: #### 5 7021-8 ####[facility] LABCLIA [id number] [place] [address] MCV (RBC) [Entitic vol] 88.5 fL Normal 80.0-100.0 [facility] Comment on above: Order Comment: Speci men Type: BLOOD SPECIMENOrdering Facility: [facility] Address: [address] [place] [address] Performed By: #### 5 7021-8 ####[facility] LABCLIA [id number] [place] [address] Monocytes (Bld) [#/Vol] 0.51 10*3/uL Normal <0.87 [facility] Comment on above: Order Comment: Speci men Type: BLOOD SPECIMENOrdering Facility: [facility] Address: [address] [place] [address] Performed By: #### 5 7021-8 ####[facility] LABCLIA [id number] [place] [address] Monocytes/100 WBC (Bld) 6.9 % Normal [facility] Comment on above: Order Comment: Speci men Type: BLOOD SPECIMENOrdering Facility: [facility] Address: [address] [place] [address] Performed By: #### 5 7021-8 ####[facility] LABCLIA [id number] [place] [address] Neutrophils (Bld) [#/Vol] 5.18 10*3/uL Normal 1.45-7.50 [facility] Comment on above: Order Comment: Speci men Type: BLOOD SPECIMENOrdering Facility: [facility] Address: [address] [place] [address] Performed By: #### 5 7021-8 ####[facility] LABCLIA [id number] [place] [address] Neutrophils/100 WBC (Bld) 70.1 % Normal [facility] Comment on above: Order Comment: Speci men Type: BLOOD SPECIMENOrdering Facility: [facility] Address: [address] [place] [address] Performed By: #### 5 7021-8 ####[facility] LABCLIA [id number] [place] [address] Nucleated RBC (Bld) [#/Vol] 10*3/uL Normal <0.01 [facility] Comment on above: Order Comment: Speci men Type: BLOOD SPECIMENOrdering Facility: [facility] Address: [address] [place] [address] Performed By: #### 5 7021-8 ####[facility] LABCLIA [id number] [place] [address] Nucleated RBC/100 WBC (Bld) [Ratio] 0.0 /100 WBC Normal [facility] Comment on above: Order Comment: Speci men Type: BLOOD SPECIMENOrdering Facility: [facility] Address: [address] [place] [address] Performed By: #### 5 7021-8 ####[facility] LABCLIA [id number] [place] [address] Platelet mean volume (Bld) [Entitic vol] 8.9 fL Low 9.0-12.7 [facility] Comment on above: Order Comment: Speci men Type: BLOOD SPECIMENOrdering Facility: [facility] Address: [address] [address] Performed By: #### 5 7021-8 ####[facility] LABCLIA [id number] [place] [address] Platelets (Bld) [#/Vol] 286 10*3/uL Normal 150-400 [facility] Comment on above: Order Comment: Speci men Type: BLOOD SPECIMENOrdering Facility: [facility] Address: [address] [address] Performed By: #### 5 7021-8 ####[facility] LABCLIA [id number] [place] [address] RBC (Bld) [#/Vol] 5.13 10*6/uL Normal 3.90-5.20 [facility] Comment on above: Order Comment: Speci men Type: BLOOD SPECIMENOrdering Facility: [facility] Address: [address] [place] [address] Performed By: #### 5 7021-8 ####[facility] LABCLIA [id number] [place] [address] WBC (Bld) [#/Vol] 7.39 10*3/uL Normal 3.70-11.00 [facility] Comment on above: Order Comment: Speci men Type: BLOOD SPECIMENOrdering Facility: [facility] Address: [address] [place] [address] Performed By: #### 5 7021-8 ####[facility] LABCLIA [id number] [place] [address] Comprehensive metabolic 2000 panelon 10-12-2022 Albumin [Mass/Vol] 4.4 g/dL Normal 3.9-4.9 [facility] Comment on above: Order Comment: Speci men Type: BLOOD SPECIMENOrdering Facility: [facility] Address: [address] [place] [address] Performed By: #### 2 4323-8 ####[facility] LABCLIA [id number] [place] [address] ALP [Catalytic activity/Vol] 105 U/L Normal 34-123 [facility] Comment on above: Order Comment: Speci men Type: BLOOD SPECIMENOrdering Facility: [facility] Address: [address] [address] Performed By: #### 2 4323-8 ####[facility] LABCLIA [id number] [place] [address] ALT [Catalytic activity/Vol] 13 U/L Normal 7-38 [facility] Comment on above: Order Comment: Speci men Type: BLOOD SPECIMENOrdering Facility: [facility] Address: [address] [place] [address] Performed By: #### 2 4323-8 ####[facility] LABCLIA [id number] [place] [address] Anion gap [Moles/Vol] 10 mmol/L Normal 9-18 [facility] Comment on above: Order Comment: Speci men Type: BLOOD SPECIMENOrdering Facility: [facility] Address: [address] [place] [address] Performed By: #### 2 4323-8 ####[facility] LABCLIA [id number] [place] [address] AST [Catalytic activity/Vol] 15 U/L Normal 13-35 [facility] Comment on above: Order Comment: Speci men Type: BLOOD SPECIMENOrdering Facility: [facility] Address: [address] [address] Performed By: #### 2 4323-8 ####[facility] LABCLIA [id number] [place] [address] Bilirubin [Mass/Vol] 0.5 mg/dL Normal 0.2-1.3 [facility] Comment on above: Order Comment: Speci men Type: BLOOD SPECIMENOrdering Facility: [facility] Address: [address] [place] [address] Performed By: #### 2 4323-8 ####[facility] LABCLIA [id number] [place] [address] Calcium [Mass/Vol] 9.9 mg/dL Normal 8.5-10.2 [facility] Comment on above: Order Comment: Speci men Type: BLOOD SPECIMENOrdering Facility: [facility] Address: [address] [place] [address] Performed By: #### 2 4323-8 ####[facility] LABCLIA [id number] [place] [address] Chloride [Moles/Vol] 101 mmol/L Normal 97-105 [facility] Comment on above: Order Comment: Speci men Type: BLOOD SPECIMENOrdering Facility: [facility] Address: [address] [place] [address] Performed By: #### 2 4323-8 ####[facility] LABCLIA [id number] [place] [address] CO2 [Moles/Vol] 26 mmol/L Normal 22-30 [facility] Comment on above: Order Comment: Speci men Type: BLOOD SPECIMENOrdering Facility: [facility] Address: [address] [place] [address] Performed By: #### 2 4323-8 ####[facility] LABCLIA [id number] [place] [address] Creatinine [Mass/Vol] 0.76 mg/dL Normal 0.58-0.96 [facility] Comment on above: Order Comment: Speci men Type: BLOOD SPECIMENOrdering Facility: [facility] Address: [address] [place] [address] Performed By: #### 2 4323-8 ####[facility] LABCLIA [id number] [place] [address] ESTIMATED GLOMERULAR FILTRATION RATE 80 mL/min/1.73m??? Normal >=60 [facility] Comment on above: Order Comment: Inez salas Type: BLOOD SPECIMENOrdering Facility: [facility] Address: [address] [id number] Result Comment: Anabel mated Glomerular Filtration Rate (eGFR) is calculated using the 2020 CKD-EPI creatinine equation. This equation utilizes serum creatinine, sex, and age as parameters. The creatinine assay has traceable calibration to isotope dilution-mass spectrometry. Refer to KDIGO guidelines for clinical interpretation. In patients with unstable renal function, e.g. those with acute kidney injury, the eGFR may not accurately reflect actual GFR. Performed By: #### 2 4323-8 ####[facility] LABCLIA [id number] [place] [address] Glucose [Mass/Vol] 106 mg/dL High 74-99 [facility] Comment on above: Order Comment: Inez salas Type: BLOOD SPECIMENOrdering Facility: [facility] Address: [address] [address] Result Comment: The [place] [employer] (ADA) provides guidance for cutoff values for fasting glucose and random glucose. The ADA defines fasting as no caloric intake for at least 8 hours. Fasting plasma glucose results between 100 to 125 mg/dL indicate increased risk for diabetes (prediabetes).Fasting plasma glucose results greater than or equal to 126 mg/dL meet the criteria for diagnosis of diabetes. In the absence of unequivocal hyperglycemia, results should be confirmed by repeat testing. In a patient with classic symptoms of hyperglycemia or hyperglycemic crisis, random plasma glucose results greater than or equal to 200 mg/dL meet the criteria for diagnosis of diabetes.Reference: Standards of Medical Care in Diabetes 2016, [place] [employer]. Diabetes Care. 2016.39(Suppl 1). Performed By: #### 2 4323-8 ####[facility] LABIA [id number] [place] [address] Potassium [Moles/Vol] 4.1 mmol/L Normal 3.7-5.1 [facility] Comment on above: Order Comment: Inez salas Type: BLOOD SPECIMENOrdering Facility: [facility] Address: [address] Performed By: #### 2 4323-8 ####[facility] LABCLIA [id number] [place] [address] Protein [Mass/Vol] 7.2 g/dL Normal 6.3-8.0 [facility] Comment on above: Order Comment: Speci men Type: BLOOD SPECIMENOrdering Facility: [facility] Address: [address] [place] [address] Performed By: #### 2 4323-8 ####[facility] LABCLIA [id number] [place] [address] Sodium [Moles/Vol] 137 mmol/L Normal 136-144 [facility] Comment on above: Order Comment: Speci men Type: BLOOD SPECIMENOrdering Facility: [facility] Address: [address] [place] [address] Performed By: #### 2 4323-8 ####[facility] LABCLIA [id number] [place] [address] Urea nitrogen [Mass/Vol] 15 mg/dL Normal 7-21 [facility] Comment on above: Order Comment: Speci men Type: BLOOD SPECIMENOrdering Facility: [facility] Address: [address] [place] [address] Performed By: #### 2 4323-8 ####[facility] LABCLIA [id number] [place] [address] XR HIP LT INJon 09-17-2022 XR HIP LT INJ EXAMINATION: XR HIP LT INJ HISTORY: Osteoarthritis of left hip joint COMPARISON: No relevant comparison available. FLUOROSCOPY TIME: Fluoro time measures 1.6 minutes and 2 images were obtained. TECHNIQUE: A joint injection was performed in the usual sterile manner after obtaining informed consent. Standard level fluoroscopic mode of operation utilized. FINDINGS: JOINT: Left hip. NEEDLE: 22 gauge, 3.5 spinal needle. MEDICATION: 2cc buffered 1% lidocaine for subcutaneous anesthesia 4 mL Omnipaque 300, 40 mg Kenalog, 2 mL 0.5% bupivacaine and 10 mL of sterile saline. TECHNIQUE: Anterior approach with prior localization of the femoral artery. A single stick was successful in gaining access to the joint space. CLINICAL: Preprocedural: 3/10 pain, post procedure: 1/10 pain. The patient did have pain lifting the leg along the anterior thigh COMPLICATIONS: None. OTHER: Negative. IMPRESSION: Technically successful therapeutic left hip arthrogram Electronically authenticated by: KRISHNA MATHEWS Date: 2022-09-17 15:49 Normal [facility] CBC W Auto Differential pane l (Bld)on 09-16-2022 Basophils (Bld) [#/Vol] 0.07 10*3/uL Normal <0.11 [facility] Comment on above: Order Comment: Speci men Type: BLOOD SPECIMENOrdering Facility: [facility] Address: [address] [place] [address] Performed By: #### 5 7021-8 ####[facility] LABCLIA [id number] [place] [address] Basophils/100 WBC (Bld) 0.8 % Normal [facility] Comment on above: Order Comment: Speci men Type: BLOOD SPECIMENOrdering Facility: [facility] Address: [address] [place] [address] Performed By: #### 5 7021-8 ####[facility] LABCLIA [id number] [place] [address] Differential cell count method Nom (Bld) Auto Normal [facility] Comment on above: Order Comment: Speci men Type: BLOOD SPECIMENOrdering Facility: [facility] Address: [address] [place] [address] Performed By: #### 5 7021-8 ####[facility] LABCLIA [id number] [place] [address] Eosinophils (Bld) [#/Vol] 0.12 10*3/uL Normal <0.46 [facility] Comment on above: Order Comment: Speci men Type: BLOOD SPECIMENOrdering Facility: [facility] Address: [address] [place] [address] Performed By: #### 5 7021-8 ####[facility] LABCLIA [id number] [place] [address] Eosinophils/100 WBC (Bld) 1.4 % Normal [facility] Comment on above: Order Comment: Speci men Type: BLOOD SPECIMENOrdering Facility: [facility] Address: [address] [place] [address] Performed By: #### 5 7021-8 ####[facility] LABCLIA [id number] [place] [address] Erythrocyte distribution width (RBC) [Ratio] 12.0 % Normal 11.5-15.0 [facility] Comment on above: Order Comment: Speci men Type: BLOOD SPECIMENOrdering Facility: [facility] Address: [address] [place] [address] Performed By: #### 5 7021-8 ####[facility] LABCLIA [id number] [place] [address] Hematocrit (Bld) [Volume fraction] 43.8 % Normal 36.0-46.0 [facility] Comment on above: Order Comment: Speci men Type: BLOOD SPECIMENOrdering Facility: [facility] Address: [address] [place] [address] Performed By: #### 5 7021-8 ####[facility] LABCLIA [id number] [place] [address] Hemoglobin (Bld) [Mass/Vol] 14.4 g/dL Normal 11.5-15.5 [facility] Comment on above: Order Comment: Speci men Type: BLOOD SPECIMENOrdering Facility: [facility] Address: [address] [place] [address] Performed By: #### 5 7021-8 ####[facility] LABCLIA [id number] [place] [address] Immature granulocytes (Bld) [#/Vol] 0.03 10*3/uL Normal <0.10 [facility] Comment on above: Order Comment: Speci men Type: BLOOD SPECIMENOrdering Facility: [facility] Address: [address] [address] Performed By: #### 5 7021-8 ####[facility] LABCLIA [id number] [place] [address] Immature granulocytes/100 WBC (Bld) 0.3 % Normal [facility] Comment on above: Order Comment: Speci men Type: BLOOD SPECIMENOrdering Facility: [facility] Address: [address] [place] [address] Performed By: #### 5 7021-8 ####[facility] LABCLIA [id number] [place] [address] Lymphocytes (Bld) [#/Vol] 1.58 10*3/uL Normal 1.00-4.00 [facility] Comment on above: Order Comment: Speci men Type: BLOOD SPECIMENOrdering Facility: [facility] Address: [address] [place] [address] Performed By: #### 5 7021-8 ####[facility] LABIA [id number] [place] [address] Lymphocytes/100 WBC (Bld) 18.3 % Normal [facility] Comment on above: Order Comment: Speci men Type: BLOOD SPECIMENOrdering Facility: [facility] Address: [address] [place] [address] Performed By: #### 5 7021-8 ####[facility] LABCLIA [id number] [place] [address] MCH (RBC) [Entitic mass] 29.4 pg Normal 26.0-34.0 [facility] Comment on above: Order Comment: Speci men Type: BLOOD SPECIMENOrdering Facility: [facility] Address: [address] [place] [address] Performed By: #### 5 7021-8 ####[facility] LABCLIA [id number] [place] [address] MCHC (RBC) [Mass/Vol] 32.9 g/dL Normal 30.5-36.0 [facility] Comment on above: Order Comment: Speci men Type: BLOOD SPECIMENOrdering Facility: [facility] Address: [address] [place] [address] Performed By: #### 5 7021-8 ####[facility] LABCLIA [id number] [place] [address] MCV (RBC) [Entitic vol] 89.4 fL Normal 80.0-100.0 [facility] Comment on above: Order Comment: Speci men Type: BLOOD SPECIMENOrdering Facility: [facility] Address: [address] [place] [address] Performed By: #### 5 7021-8 ####[facility] LABCLIA [id number] [place] [address] Monocytes (Bld) [#/Vol] 0.61 10*3/uL Normal <0.87 [facility] Comment on above: Order Comment: Speci men Type: BLOOD SPECIMENOrdering Facility: [facility] Address: [address] [place] [address] Performed By: #### 5 7021-8 ####[facility] LABCLIA [id number] [place] [address] Monocytes/100 WBC (Bld) 7.1 % Normal [facility] Comment on above: Order Comment: Speci men Type: BLOOD SPECIMENOrdering Facility: [facility] Address: [address] [place] [address] Performed By: #### 5 7021-8 ####[facility] LABCLIA [id number] [place] [address] Neutrophils (Bld) [#/Vol] 6.24 10*3/uL Normal 1.45-7.50 [facility] Comment on above: Order Comment: Speci men Type: BLOOD SPECIMENOrdering Facility: [facility] Address: [address] [address] Performed By: #### 5 7021-8 ####[facility] LABCLIA [id number] [place] [address] Neutrophils/100 WBC (Bld) 72.1 % Normal [facility] Comment on above: Order Comment: Speci men Type: BLOOD SPECIMENOrdering Facility: [facility] Address: [address] [place] [address] Performed By: #### 5 7021-8 ####[facility] LABCLIA [id number] [place] [address] Nucleated RBC (Bld) [#/Vol] 10*3/uL Normal <0.01 [facility] Comment on above: Order Comment: Speci men Type: BLOOD SPECIMENOrdering Facility: [facility] Address: [address] [place] [address] Performed By: #### 5 7021-8 ####[facility] LABCLIA [id number] [place] [address] Nucleated RBC/100 WBC (Bld) [Ratio] 0.0 /100 WBC Normal [facility] Comment on above: Order Comment: Speci men Type: BLOOD SPECIMENOrdering Facility: [facility] Address: [address] [place] [address] Performed By: #### 5 7021-8 ####[facility] LABCLIA [id number] [place] [address] Platelet mean volume (Bld) [Entitic vol] 9.0 fL Normal 9.0-12.7 [facility] Comment on above: Order Comment: Speci men Type: BLOOD SPECIMENOrdering Facility: [facility] Address: [address] [place] [address] Performed By: #### 5 7021-8 ####[facility] LABCLIA [id number] [place] [address] Platelets (Bld) [#/Vol] 286 10*3/uL Normal 150-400 [facility] Comment on above: Order Comment: Speci men Type: BLOOD SPECIMENOrdering Facility: [facility] Address: [address] [place] [address] Performed By: #### 5 7021-8 ####[facility] LABCLIA [id number] [place] [address] RBC (Bld) [#/Vol] 4.90 10*6/uL Normal 3.90-5.20 [facility] Comment on above: Order Comment: Speci men Type: BLOOD SPECIMENOrdering Facility: [facility] Address: [address] [place] [address] Performed By: #### 5 7021-8 ####[facility] LABIA [id number] [place] [address] WBC (Bld) [#/Vol] 8.65 10*3/uL Normal 3.70-11.00 [facility] Comment on above: Order Comment: Speci men Type: BLOOD SPECIMENOrdering Facility: [facility] Address: [address] [place] [address] Performed By: #### 5 7021-8 ####[facility] LABIA [id number] [place] [address] Comprehensive metabolic 2000 panelon 09-16-2022 Albumin [Mass/Vol] 4.1 g/dL Normal 3.9-4.9 [facility] Comment on above: Order Comment: Speci men Type: BLOOD SPECIMENOrdering Facility: [facility] Address: [address] [place] [address] Performed By: #### 2 4323-8 ####[facility] LABIA [id number] [place] [address] ALP [Catalytic activity/Vol] 105 U/L Normal 34-123 [facility] Comment on above: Order Comment: Speci men Type: BLOOD SPECIMENOrdering Facility: [facility] Address: [address] [address] Performed By: #### 2 4323-8 ####[facility] LABCLIA [id number] [place] [address] ALT [Catalytic activity/Vol] 10 U/L Normal 7-38 [facility] Comment on above: Order Comment: Speci men Type: BLOOD SPECIMENOrdering Facility: [facility] Address: [address] [address] Performed By: #### 2 4323-8 ####[facility] LABCLIA [id number] [place] [address] Anion gap [Moles/Vol] 11 mmol/L Normal 9-18 [facility] Comment on above: Order Comment: Speci men Type: BLOOD SPECIMENOrdering Facility: [facility] Address: [address] [address] Performed By: #### 2 4323-8 ####[facility] LABCLIA [id number] [place] [address] AST [Catalytic activity/Vol] 15 U/L Normal 13-35 [facility] Comment on above: Order Comment: Speci men Type: BLOOD SPECIMENOrdering Facility: [facility] Address: [address] [address] Performed By: #### 2 4323-8 ####[facility] LABCLIA [id number] [place] [address] Bilirubin [Mass/Vol] 0.4 mg/dL Normal 0.2-1.3 [facility] Comment on above: Order Comment: Speci men Type: BLOOD SPECIMENOrdering Facility: [facility] Address: [address] [place] [address] Performed By: #### 2 4323-8 ####[facility] LABCLIA [id number] [place] [address] Calcium [Mass/Vol] 9.9 mg/dL Normal 8.5-10.2 [facility] Comment on above: Order Comment: Speci men Type: BLOOD SPECIMENOrdering Facility: [facility] Address: [address] [place] [address] Performed By: #### 2 4323-8 ####[facility] LABCLIA [id number] [place] [address] Chloride [Moles/Vol] 102 mmol/L Normal 97-105 [facility] Comment on above: Order Comment: Speci men Type: BLOOD SPECIMENOrdering Facility: [facility] Address: [address] [place] [address] Performed By: #### 2 4323-8 ####[facility] LABCLIA [id number] [place] [address] CO2 [Moles/Vol] 23 mmol/L Normal 22-30 [facility] Comment on above: Order Comment: Speci men Type: BLOOD SPECIMENOrdering Facility: [facility] Address: [address] [place] [address] Performed By: #### 2 4323-8 ####[facility] LABCLIA [id number] [place] [address] Creatinine [Mass/Vol] 0.73 mg/dL Normal 0.58-0.96 [facility] Comment on above: Order Comment: Speci men Type: BLOOD SPECIMENOrdering Facility: [facility] Address: [address] [place] [address] Performed By: #### 2 4323-8 ####[facility] LABCLIA [id number] [place] [address] ESTIMATED GLOMERULAR FILTRATION RATE 84 mL/min/1.73m??? Normal >=60 [facility] Comment on above: Order Comment: Speci men Type: BLOOD SPECIMENOrdering Facility: [facility] Address: [address] [place] [address] Result Comment: Anabel mated Glomerular Filtration Rate (eGFR) is calculated using the 2020 CKD-EPI creatinine equation. This equation utilizes serum creatinine, sex, and age as parameters. The creatinine assay has traceable calibration to isotope dilution-mass spectrometry. Refer to KDIGO guidelines for clinical interpretation. In patients with unstable renal function, e.g. those with acute kidney injury, the eGFR may not accurately reflect actual GFR. Performed By: #### 2 4323-8 ####[facility] LABCLIA [id number] [place] [address] Glucose [Mass/Vol] 106 mg/dL High 74-99 [facility] Comment on above: Order Comment: Speci men Type: BLOOD SPECIMENOrdering Facility: [facility] Address: [address] [place] [id number] Result Comment: The [place] [employer] (ADA) provides guidance for cutoff values for fasting glucose and random glucose. The ADA defines fasting as no caloric intake for at least 8 hours. Fasting plasma glucose results between 100 to 125 mg/dL indicate increased risk for diabetes (prediabetes).Fasting plasma glucose results greater than or equal to 126 mg/dL meet the criteria for diagnosis of diabetes. In the absence of unequivocal hyperglycemia, results should be confirmed by repeat testing. In a patient with classic symptoms of hyperglycemia or hyperglycemic crisis, random plasma glucose results greater than or equal to 200 mg/dL meet the criteria for diagnosis of diabetes.Reference: Standards of Medical Care in Diabetes 2016, [place] [employer]. Diabetes Care. 2016.39(Suppl 1). Performed By: #### 2 4323-8 ####[facility] LABCLIA [id number] [place] [address] Potassium [Moles/Vol] 4.2 mmol/L Normal 3.7-5.1 [facility] Comment on above: Order Comment: Inez salas Type: BLOOD SPECIMENOrdering Facility: [facility] Address: [address] [place] [address] Performed By: #### 2 4323-8 ####[facility] LABCLIA [id number] [place] [address] Protein [Mass/Vol] 6.8 g/dL Normal 6.3-8.0 [facility] Comment on above: Order Comment: Speci men Type: BLOOD SPECIMENOrdering Facility: [facility] Address: [address] [address] Performed By: #### 2 4323-8 ####[facility] LABCLIA [id number] [place] [address] Sodium [Moles/Vol] 136 mmol/L Normal 136-144 [facility] Comment on above: Order Comment: Speci men Type: BLOOD SPECIMENOrdering Facility: [facility] Address: [address] [place] [address] Performed By: #### 2 4323-8 ####[facility] LABCLIA [id number] [place] [address] Urea nitrogen [Mass/Vol] 14 mg/dL Normal 7-21 [facility] Comment on above: Order Comment: Speci men Type: BLOOD SPECIMENOrdering Facility: [facility] Address: [address] [place] [address] Performed By: #### 2 4323-8 ####[facility] LABCLIA [id number] [place] [address] Urinalysis complete panel (U )on 06-25-2022 Bacteria LM.HPF (Urine sed) [#/Area] Few Abnormal None Seen /HPF [facility] Bilirubin Ql (U) Negative Negative [facility] Clarity (Unsp spec) Cloudy Abnormal Clear [facility] Color (U) Light [place] Abnormal Yellow [facility] Epithelial cells LM.HPF (Urine sed) [#/Area] Few [facility] Glucose Test strip (U) [Mass/Vol] Negative Negative [facility] Hemoglobin Ql (U) 2+ Abnormal Negative [facility] Hyaline casts (Urine sed) [#/Area] 1-3 /LPF Abnormal 0 /LPF [facility] Ketones Ql (U) Negative Negative [facility] Leukocyte esterase Test strip Ql (U) 500 Werner/mL Abnormal Negative [facility] Nitrite Ql (U) Negative Negative [facility] pH (U) 6.0 [pH] 5.0 - 8.0 [facility] Protein (U) [Mass/Vol] Trace Abnormal Negative [facility] RBC LM.HPF (Urine sed) [#/Area] /[HPF] Abnormal 0-3 /HPF [facility] Specific gravity (U) [Rel density] 1.020 1.005 - 1.030 [facility] Urobilinogen Ql (U) Negative Negative [facility] WBC LM.HPF (Urine sed) [#/Area] /[HPF] Abnormal 0-5 /HPF [facility] XR HIP LT INJon 05-05-2022 XR HIP LT INJ EXAMINATION: XR HIP LT INJ HISTORY: Osteoarthritis of left hip joint COMPARISON: No relevant comparison available. FLUOROSCOPY TIME: Fluoro time measures 30 seconds and 1 images were obtained. TECHNIQUE: A joint injection was performed in the usual sterile manner after obtaining informed consent. Standard level fluoroscopic mode of operation utilized. FINDINGS: JOINT: Left hip. NEEDLE: 22 gauge, 3.5 spinal needle. MEDICATION: 2cc buffered 1% lidocaine for subcutaneous anesthesia 2cc Omnipaque-300 iodinated contrast to visualize the joint space Mixture of Kenalog 40 mg, 0.5% Bupivacaine 2 mL and Omnipaque 300 7mL was injected into the joint space. TECHNIQUE: Anterior approach with prior localization of the femoral artery. A single stick was successful in gaining access to the joint space. CLINICAL: Complete resolution of hip pain following the injection. COMPLICATIONS: None. OTHER: Negative. IMPRESSION: 1. Left hip injection with subsequent complete resolution of pain. Electronically authenticated by: TOÑITO HENRY Date: 2022-05-05 11:39 Normal [facility] CBC W Auto Differential pane l (Bld)on 04-01-2022 Abs Immature Gran 0.03 k/uL <0.10 k/uL [facility] Basophils (Bld) [#/Vol] 0.05 10*3/uL <0.11 k/uL [facility] Basophils/100 WBC (Bld) 0.6 % [facility] Differential cell count method Nom (Bld) Auto [facility] Eosinophils (Bld) [#/Vol] 0.07 10*3/uL <0.46 k/uL [facility] Eosinophils/100 WBC (Bld) 0.8 % [facility] Erythrocyte distribution width (RBC) [Ratio] 12.8 % 11.5 - 15.0 % [facility] Hematocrit (Bld) [Volume fraction] 41.5 % 36.0 - 46.0 % [facility] Hemoglobin (Bld) [Mass/Vol] 13.7 g/dL 11.5 - 15.5 g/dL [facility] Immature Gran % 0.3 % [facility] Lymphocytes (Bld) [#/Vol] 1.33 10*3/uL 1.00 - 4.00 k/uL [facility] Lymphocytes/100 WBC (Bld) 14.7 % [facility] MCH (RBC) [Entitic mass] 29.6 pg 26.0 - 34.0 pg [facility] MCHC (RBC) [Mass/Vol] 33.0 g/dL 30.5 - 36.0 g/dL [facility] MCV (RBC) [Entitic vol] 89.6 fL 80.0 - 100.0 fL [facility] Monocytes (Bld) [#/Vol] 0.65 10*3/uL <0.87 k/uL [facility] Monocytes/100 WBC (Bld) 7.2 % [facility] Neutrophils (Bld) [#/Vol] 6.89 10*3/uL 1.45 - 7.50 k/uL [facility] Neutrophils/100 WBC (Bld) 76.4 % [facility] Nucleated RBC (Bld) [#/Vol] 10*3/uL <0.01 k/uL [facility] Nucleated RBC/100 WBC (Bld) [Ratio] 0.0 /100 WBC [facility] Platelet mean volume (Bld) [Entitic vol] 8.8 fL Low 9.0 - 12.7 fL [facility] Platelets (Bld) [#/Vol] 333 10*3/uL 150 - 400 k/uL [facility] RBC (Bld) [#/Vol] 4.63 10*6/uL 3.90 - 5.2 0 m/uL [facility] WBC (Bld) [#/Vol] 9.02 10*3/uL 3.70 - 11. 00 k/uL [facility] Comprehensive metabolic 2000 panelon 04-01-2022 Albumin [Mass/Vol] 4.0 g/dL 3.9 - 4.9 g/dL [facility] ALP [Catalytic activity/Vol] 96 U/L 34 - 123 U/L [facility] ALT [Catalytic activity/Vol] 12 U/L 7 - 38 U/L [facility] Anion gap [Moles/Vol] 8 mmol/L Low 9 - 18 mmol/L [facility] AST [Catalytic activity/Vol] 15 U/L 13 - 35 U/L [facility] Bilirubin [Mass/Vol] 0.5 mg/dL 0.2 - 1.3 mg/dL [facility] Calcium [Mass/Vol] 10.0 mg/dL 8.5 - 10. 2 mg/dL [facility] Chloride [Moles/Vol] 99 mmol/L 97 - 105 mmol/L [facility] CO2 [Moles/Vol] 25 mmol/L 22 - 30 mmol/L [facility] Creatinine [Mass/Vol] 0.67 mg/dL 0.58 - 0.96 mg/dL [facility] Estimated Glomerular Filtration Rate 90 mL/min/1.73m >=60 mL/min/1.73m [facility] Glucose [Mass/Vol] 112 mg/dL High 74 - 99 mg/dL [facility] Potassium [Moles/Vol] 3.9 mmol/L 3.7 - 5.1 mmol/L [facility] Protein [Mass/Vol] 6.8 g/dL 6.3 - 8.0 g/dL Cl [facility] Sodium [Moles/Vol] 132 mmol/L Low 136 - 144 mmol/L [facility] Urea nitrogen [Mass/Vol] 12 mg/dL 7 - 21 mg/dL [facility] CA 27.29 BLOODon 12-30-2021 Cancer Ag 27-29 Qn 25.9 [arb'U]/mL <38.6 U/mL [facility] CA 15-3 BLDon 12-24-2021 Cancer Ag 15-3 Qn 20.5 U/mL <26.0 U/mL [facility] XR Hip Complete Left*on 11-17 XR Hip Complete Left* FINDINGS: Moderate left superior hip joint space reduction is seen. No significant pincer or CAM deformities are identified. No cortical or stress fracture is identified. Pelvic ring and sacral struts are intact. Soft tissues are relatively unremarkable. IMPRESSION: Minimal right, moderate left hip osteoarthritis Report reported and signed by Vishal Falcon on 12/04/2021 1036 Normal [facility] XR Knee Complete Left Standi ngon 03-18-2022 XR Knee Complete Left Standing FINDINGS: Mild to moderate medial and and patellofemoral joint space reduction without cortical or subchondral fracture suggested. 2 mm defect anterior weight bearing surface of one of the femoral condyles suggests remote subchoncral fracture, seen only on the lateral view Menisci are not calcified. IMPRESSION: Mild to moderate patellofemoral arthritis Report reported and signed by Vishal Falcon on 12/04/2021 1035 Normal [facility] [employer] XR Spine Lumbar Complete w/F franny AND [place] 12-04-2021 XR Spine Lumbar Complete w/Flex AND Ext FINDINGS: Vertebral body heights are normal. Severe disc space loss L2-3, L3-4. Sclerosis involves posterior elements of the mid and distal lumbar spine; however, no acute spondylolysis is seen. No acute fracture is identified. SI joints are normal for this age. Soft tissues are relatively unremarkable. Flexion and extension: T12-L1: Normal alignment, no change L1-2: Several mm retrolisthesis, no change L2-3: 8 mm retrolisthesis, no change L3-4: Normal alignment, no change L4-5: 7 mm anterolisthesis, minimal change L5-S1: Normal alignment, no change IMPRESSION: 1. Multilevel arthritis/spondylolist hesis, probable stenosis 2. No significant motion with flexion and extension Report reported and signed by Vishal Falcon on 12/04/[address] [facility] Specialist Superficial Wound Cultureon 02-20-2021 Superficial Wound Culture Moderate Normal Skin Marlys 2 Days PERFORMED BY: [place] [address] PATHOLOGIST RETICLE PRINTER TRUONG BOLANOS M.D. [facility] Comment on above: Performed By: #### C USUP #### [address] Vital Signs Date Time Vital Sign Value Performing Clinician Sairai ursula 08-25-2023 14:36-0500 Body height 152.4 cm Cedrick Calix MD Work Phone: [facility] 08-25-2023 14:36-0500 Body temperature 97.81 [degF] Cedrick Calix MD Work Phone: [facility] 08-25-2023 14:36-0500 Body weight 76.3 kg Cedrick Calix MD Work Phone: [facility] 08-25-2023 14:36-0500 Diastolic blood pressure 64 mm[Hg] Cedrick Calix MD Work Phone: [facility] 08-25-2023 14:36-0500 Heart rate 90 /min Cedrick Calix MD Work Phone: [facility] 08-25-2023 14:36-0500 Respiratory rate 20 /min Cedrick Calix MD Work Phone: [facility] 08-25-2023 14:36-0500 SaO2% (BldA) [Mass fraction] 98 % Cedrick Calix MD Work Phone: [facility] 08-25-2023 14:36-0500 Systolic blood pressure 168 mm[Hg] Cedrick Calix MD Work Phone: [facility] 07-28-2023 15:18-0500 Body height 152.4 cm Cedrick Calix MD Work Phone: [facility] 07-28-2023 15:18-0500 Body temperature 97 [degF] Cedrick Calix MD Work Phone: [facility] 07-28-2023 15:18-0500 Body weight 75.66 kg Cedrick Calix MD Work Phone: [facility] 07-28-2023 15:18-0500 Diastolic blood pressure 87 mm[Hg] Cedrick Calix MD Work Phone: [facility] 07-28-2023 15:18-0500 Heart rate 92 /min Cedrick Calix MD Work Phone: [facility] 07-28-2023 15:18-0500 Respiratory rate 18 /min Cedrick Calix MD Work Phone: [facility] 07-28-2023 15:18-0500 SaO2% (BldA) [Mass fraction] 97 % Cedrick Calix MD Work Phone: [facility] 07-28-2023 15:18-0500 Systolic blood pressure 167 mm[Hg] Cedrick Calix MD Work Phone: [facility] 06-29-2023 14:11-0400 Body height 152.4 cm Christ Marquez UX CONSULTANT.[employer] Work Phone: [facility] 06-29-2023 14:11-0400 Body temperature 97 [degF] Christ Marquez UX CONSULTANT.[employer] SKINNER Work Phone: [facility] 06-29-2023 14:11-0400 Body weight 73.94 kg Christ Marquez UX CONSULTANT.[employer] SK[employer]NER Work Phone: [facility] 06-29-2023 14:11-0400 Diastolic blood pressure 88 mm[Hg] Christ Marquez UX CONSULTANT.[employer] SKINNER Work Phone: [facility] 06-29-2023 14:11-0400 Heart rate 75 /min Christ Marquez UX CONSULTANT.[employer] SKINNER Work Phone: [facility] 06-29-2023 14:11-0400 Respiratory rate 16 /min Christ Marquez UX CONSULTANT.[employer] SKINNER Work Phone: [facility] 06-29-2023 14:11-0400 SaO2% (BldA) [Mass fraction] 95 % Christ Marquez UX CONSULTANT.[employer]ILL SKINNER Work Phone: [facility] 06-29-2023 14:11-0400 Systolic blood pressure 181 mm[Hg] Christ Marquez UX CONSULTANT.QUILL SKINNER Work Phone: [facility] 05-30-2023 14:05-0400 Diastolic blood pressure 80 mm[Hg] Cedrick Calix MD Work Phone: [facility] 05-30-2023 14:05-0400 Heart rate 87 /min Cedrick Calix MD Work Phone: [facility] 05-30-2023 14:05-0400 Systolic blood pressure 167 mm[Hg] Cedrick Calix MD Work Phone: [facility] 05-30-2023 14:01-0400 Body height 152.4 cm Cedrick Calix MD Work Phone: [facility] 05-30-2023 14:01-0400 Body temperature 98.01 [degF] Cedrick Calix MD Work Phone: [facility] 05-30-2023 14:01-0400 Body weight 74.48 kg Cedrick Calix MD Work Phone: [facility] 05-30-2023 14:01-0400 Respiratory rate 18 /min Cedrick Calix MD Work Phone: [facility] 05-30-2023 14:01-0400 SaO2% (BldA) [Mass fraction] 98 % Cedrick Calix MD Work Phone: [facility] 04-18-2023 15:23-0400 Body height 152.4 cm Cedrick Calix MD Work Phone: [facility] 04-18-2023 15:23-0400 Body temperature 98.1 [degF] Cedrick Calix MD Work Phone: [facility] 04-18-2023 15:23-0400 Body weight 74.3 kg Cedrick Calix MD Work Phone: [facility] 04-18-2023 15:23-0400 Diastolic blood pressure 90 mm[Hg] Cedrick Calix MD Work Phone: [facility] 04-18-2023 15:23-0400 Heart rate 85 /min Cedrick Calix MD Work Phone: [facility] 04-18-2023 15:23-0400 Respiratory rate 16 /min Cedrick Calix MD Work Phone: [facility] 04-18-2023 15:23-0400 SaO2% (BldA) [Mass fraction] 96 % Cedrick Calix MD Work Phone: [facility] 04-18-2023 15:23-0400 Systolic blood pressure 168 mm[Hg] Cedrick Calix MD Work Phone: [facility] 04-04-2023 13:57-0400 Body height 152.4 cm Sloane Crow PA-C Work Phone: [facility] 04-04-2023 13:57-0400 Body temperature 97.11 [degF] Sloane Crow PA-C Work Phone: [facility] 04-04-2023 13:57-0400 Body weight 74.3 kg Sloane Crow PA-C Work Phone: [facility] 04-04-2023 13:57-0400 Diastolic blood pressure 79 mm[Hg] Sloane Crow PA-C Work Phone: [facility] 04-04-2023 13:57-0400 Heart rate 80 /min Sloane Crow PA-C Work Phone: [facility] 04-04-2023 13:57-0400 Respiratory rate 18 /min Sloane Crow PA-C Work Phone: [facility] 04-04-2023 13:57-0400 SaO2% (BldA) [Mass fraction] 97 % Sloane Crow PA-C Work Phone: [facility] 04-04-2023 13:57-0400 Systolic blood pressure 155 mm[Hg] Sloane Crow PA-C Work Phone: [facility] 03-04-2023 09:24-0400 Diastolic blood pressure 80 mm[Hg] Cedrick Calix MD Work Phone: [facility] 03-04-2023 09:24-0400 Heart rate 97 /min Cedrick Calix MD Work Phone: [facility] 03-04-2023 09:24-0400 Systolic blood pressure 171 mm[Hg] Cedrick Calix MD Work Phone: [facility] 03-04-2023 09:19-0400 Body height 152.4 cm Cedrick Calix MD Work Phone: [facility] 03-04-2023 09:19-0400 Body temperature 97.81 [degF] Cedrick Calix MD Work Phone: [facility] 03-04-2023 09:19-0400 Body weight 73.03 kg Cedrick Calix MD Work Phone: [facility] 03-04-2023 09:19-0400 Respiratory rate 16 /min Cedrick Calix MD Work Phone: [facility] 03-04-2023 09:19-0400 SaO2% (BldA) [Mass fraction] 95 % Cedrick Calix MD Work Phone: [facility] 01-20-2023 14:41-0400 Body height 152.4 cm Christ Marquez APRN.QUILL SKINNER Work Phone: [facility] 01-20-2023 14:41-0400 Body temperature 97.3 [degF] Christ Marquez APRN.QUILL SKINNER Work Phone: [facility] 01-20-2023 14:41-0400 Body weight 76.39 kg Christ Marquez APRN.QUILL SKINNER Work Phone: [facility] 01-20-2023 14:41-0400 Diastolic blood pressure 58 mm[Hg] Christ Marquez APRN.QUILL SKINNER Work Phone: [facility] 01-20-2023 14:41-0400 Heart rate 77 /min Christ Marquez APRN.[employer]ILL SKINNER Work Phone: [facility] 01-20-2023 14:41-0400 Respiratory rate 18 /min Christ Marquez APRN.[employer]ILL SKINNER Work Phone: [facility] 01-20-2023 14:41-0400 SaO2% (BldA) [Mass fraction] 97 % Christ Marquez APRN.QUILL SKINNER Work Phone: [facility] 01-20-2023 14:41-0400 Systolic blood pressure 174 mm[Hg] Christ Marquez APRN.QUILL SKINNER Work Phone: [facility] 12-16-2022 10:15-0400 Body height 152.4 cm Cedrick Calix MD Work Phone: [facility] 12-16-2022 10:15-0400 Body temperature 97.11 [degF] Cedrick Calix MD Work Phone: [facility] 12-16-2022 10:15-0400 Body weight 76.02 kg Cedrick Calix MD Work Phone: [facility] 12-16-2022 10:15-0400 Diastolic blood pressure 87 mm[Hg] Cedrick Calix MD Work Phone: [facility] 12-16-2022 10:15-0400 Heart rate 92 /min Cedrick Calix MD Work Phone: [facility] 12-16-2022 10:15-0400 Respiratory rate 20 /min Cedrick Calix MD Work Phone: [facility] 12-16-2022 10:15-0400 SaO2% (BldA) [Mass fraction] 94 % Cedrick Calix MD Work Phone: [facility] 12-16-2022 10:15-0400 Systolic blood pressure 153 mm[Hg] Cedrick Calix MD Work Phone: [facility] 12-09-2022 09:30-0400 Body temperature 98.01 [degF] [facility] Work Phone: [facility] 12-09-2022 09:30-0400 Diastolic blood pressure 80 mm[Hg] [facility] Work Phone: [facility] 12-09-2022 09:30-0400 Heart rate 90 /min [facility] Work Phone: [facility] 12-09-2022 09:30-0400 Respiratory rate 16 /min [facility] Work Phone: [facility] 12-09-2022 09:30-0400 SaO2% (BldA) [Mass fraction] 98 % [facility] Work Phone: [facility] 12-09-2022 09:30-0400 Systolic blood pressure 150 mm[Hg] [facility] Work Phone: [facility] 10-12-2022 12:41-0500 Body temperature 97.7 [degF] [facility] Work Phone: [facility] 10-12-2022 12:41-0500 Diastolic blood pressure 82 mm[Hg] [facility] Work Phone: [facility] 10-12-2022 12:41-0500 Heart rate 83 /min [facility] Work Phone: [facility] 10-12-2022 12:41-0500 Respiratory rate 16 /min [facility] Work Phone: [facility] 10-12-2022 12:41-0500 SaO2% (BldA) [Mass fraction] 96 % [facility] Work Phone: [facility] 10-12-2022 12:41-0500 Systolic blood pressure 159 mm[Hg] [facility] Work Phone: [facility] 09-16-2022 10:22-0500 Body temperature 98.2 [degF] [facility] Work Phone: [facility] 09-16-2022 10:22-0500 Diastolic blood pressure 96 mm[Hg] [facility] Work Phone: [facility] 09-16-2022 10:22-0500 Heart rate 60 /min [facility] Work Phone: [facility] 09-16-2022 10:22-0500 Respiratory rate 16 /min [facility] Work Phone: [facility] 09-16-2022 10:22-0500 Systolic blood pressure 170 mm[Hg] [facility] Work Phone: [facility] 08-19-2022 10:18-0500 Body height 152.4 cm Cedrick Calix MD Work Phone: [facility] 08-19-2022 10:18-0500 Body temperature 97.3 [degF] Cedrick Calix MD Work Phone: [facility] 08-19-2022 10:18-0500 Body weight 75.48 kg Cedrick Calix MD Work Phone: [facility] 08-19-2022 10:18-0500 Diastolic blood pressure 86 mm[Hg] Cedrick Calix MD Work Phone: [facility] 08-19-2022 10:18-0500 Heart rate 93 /min Cedrick Calix MD Work Phone: [facility] 08-19-2022 10:18-0500 Respiratory rate 16 /min Cedrick Calix MD Work Phone: [facility] 08-19-2022 10:18-0500 SaO2% (BldA) [Mass fraction] 97 % Cedirck Calix MD Work Phone: [facility] 08-19-2022 10:18-0500 Systolic blood pressure 154 mm[Hg] Cedrick Calix MD Work Phone: [facility] 07-22-2022 11:15-0400 Diastolic blood pressure 71 mm[Hg] [facility] Work Phone: [facility] 07-22-2022 11:15-0400 Heart rate 81 /min [facility] Work Phone: [facility] 07-22-2022 11:15-0400 Respiratory rate 18 /min [facility] Work Phone: [facility] 07-22-2022 11:15-0400 SaO2% (BldA) [Mass fraction] 97 % [facility] Work Phone: [facility] 07-22-2022 11:15-0400 Systolic blood pressure 155 mm[Hg] [facility] Work Phone: [facility] 06-24-2022 10:04-0400 Body height 152.4 cm Cedrick Calix MD Work Phone: [facility] 06-24-2022 10:04-0400 Body temperature 97.7 [degF] Cedrick Calix MD Work Phone: [facility] 06-24-2022 10:04-0400 Body weight 75.3 kg Cedrick Calix MD Work Phone: [facility] 06-24-2022 10:04-0400 Diastolic blood pressure 85 mm[Hg] Cedrick Calix MD Work Phone: [facility] 06-24-2022 10:04-0400 Heart rate 94 /min Cedrick Calix MD Work Phone: [facility] 06-24-2022 10:04-0400 Respiratory rate 16 /min Cedrick Calix MD Work Phone: [facility] 06-24-2022 10:04-0400 SaO2% (BldA) [Mass fraction] 97 % Cedrick Calix MD Work Phone: [facility] 06-24-2022 10:04-0400 Systolic blood pressure 150 mm[Hg] Cedrick Calix MD Work Phone: [facility] 05-27-2022 10:24-0400 Body temperature 98.29 [degF] [facility] Work Phone: [facility] 05-27-2022 10:24-0400 Diastolic blood pressure 79 mm[Hg] [facility] Work Phone: [facility] 05-27-2022 10:24-0400 Heart rate 81 /min [facility] Work Phone: [facility] 05-27-2022 10:24-0400 Respiratory rate 18 /min [facility] Work Phone: [facility] 05-27-2022 10:24-0400 SaO2% (BldA) [Mass fraction] 97 % [facility] Work Phone: [facility] 05-27-2022 10:24-0400 Systolic blood pressure 149 mm[Hg] [facility] Work Phone: [facility] 04-29-2022 10:02-0400 Body height 152.4 cm Cedrick Calix MD Work Phone: [facility] 04-29-2022 10:02-0400 Body temperature 97.81 [degF] Cedrick Calix MD Work Phone: [facility] 04-29-2022 10:02-0400 Body weight 73.57 kg Cedrick Calix MD Work Phone: [facility] 04-29-2022 10:02-0400 Diastolic blood pressure 89 mm[Hg] Cedrick Calix MD Work Phone: [facility] 04-29-2022 10:02-0400 Heart rate 83 /min Cedrick Calix MD Work Phone: [facility] 04-29-2022 10:02-0400 Respiratory rate 16 /min Cedrick Calix MD Work Phone: [facility] 04-29-2022 10:02-0400 SaO2% (BldA) [Mass fraction] 96 % Cedrick Calix MD Work Phone: [facility] 04-29-2022 10:02-0400 Systolic blood pressure 165 mm[Hg] Cedrick Calix MD Work Phone: [facility] 04-01-2022 11:33-0400 Body height 152.4 cm Cedrick Calix MD Work Phone: [facility] 04-01-2022 11:33-0400 Body temperature 98.1 [degF] Cedrick Calix MD Work Phone: [facility] 04-01-2022 11:33-0400 Body weight 73.48 kg Cedrick Calix MD Work Phone: [facility] 04-01-2022 11:33-0400 Diastolic blood pressure 70 mm[Hg] Cedrick Calix MD Work Phone: [facility] 04-01-2022 11:33-0400 Heart rate 82 /min Cedrick Calix MD Work Phone: [facility] 04-01-2022 11:33-0400 Respiratory rate 16 /min Cedrick Calix MD Work Phone: [facility] 04-01-2022 11:33-0400 SaO2% (BldA) [Mass fraction] 98 % Cedrick Calix MD Work Phone: [facility] 04-01-2022 11:33-0400 Systolic blood pressure 118 mm[Hg] Cedrick Calix MD Work Phone: [facility] 04-01-2022 10:39-0400 Body temperature 98.1 [degF] SARAH Dong MD Work Phone: [facility] 04-01-2022 10:39-0400 Body weight 73.48 kg SARAH Dong MD Work Phone: [facility] 04-01-2022 10:39-0400 Diastolic blood pressure 70 mm[Hg] SARAH Dong MD Work Phone: [facility] 04-01-2022 10:39-0400 Heart rate 82 /min SARAH Dong MD Work Phone: [facility] 04-01-2022 10:39-0400 Respiratory rate 16 /min SARAH Dong MD Work Phone: [facility] 04-01-2022 10:39-0400 SaO2% (BldA) [Mass fraction] 98 % SARAH Dong MD Work Phone: [facility] 04-01-2022 10:39-0400 Systolic blood pressure 118 mm[Hg] SARAH Dong MD Work Phone: [facility] 03-08-2022 11:25-0400 Body temperature 97.7 [degF] [facility] Work Phone: [facility] 03-08-2022 11:25-0400 Diastolic blood pressure 79 mm[Hg] [facility] Work Phone: [facility] 03-08-2022 11:25-0400 Heart rate 81 /min [facility] Work Phone: [facility] 03-08-2022 11:25-0400 Respiratory rate 18 /min [facility] Work Phone: [facility] 03-08-2022 11:25-0400 SaO2% (BldA) [Mass fraction] 97 % [facility] Work Phone: [facility] 03-08-2022 11:25-0400 Systolic blood pressure 147 mm[Hg] [facility] Work Phone: [facility] 02-08-2022 11:19-0400 Body height 152.4 cm Cedrick Calix MD Work Phone: [facility] 02-08-2022 11:19-0400 Body temperature 97.59 [degF] Cedrick Calix MD Work Phone: [facility] 02-08-2022 11:19-0400 Body weight 73.85 kg Cedrick Calix MD Work Phone: [facility] 02-08-2022 11:19-0400 Diastolic blood pressure 89 mm[Hg] Cedrick Calix MD Work Phone: [facility] 02-08-2022 11:19-0400 Heart rate 80 /min Cedrick Calix MD Work Phone: [facility] 02-08-2022 11:19-0400 Respiratory rate 18 /min Cedrick Calix MD Work Phone: [facility] 02-08-2022 11:19-0400 SaO2% (BldA) [Mass fraction] 96 % Cedrick Calix MD Work Phone: [facility] 02-08-2022 11:19-0400 Systolic blood pressure 146 mm[Hg] Cedrick Calix MD Work Phone: [facility] 01-25-2022 12:55-0400 Body temperature 98.01 [degF] [facility] Work Phone: [facility] 01-25-2022 12:55-0400 Diastolic blood pressure 85 mm[Hg] [facility] Work Phone: [facility] 01-25-2022 12:55-0400 Heart rate 81 /min [facility] Work Phone: [facility] 01-25-2022 12:55-0400 Respiratory rate 18 /min [facility] Work Phone: [facility] 01-25-2022 12:55-0400 SaO2% (BldA) [Mass fraction] 98 % [facility] Work Phone: [facility] 01-25-2022 12:55-0400 Systolic blood pressure 149 mm[Hg] [facility] Work Phone: [facility] 12-31-2021 13:06-0400 Body temperature 98.71 [degF] SARAH Dong MD Work Phone: [facility] 12-31-2021 13:06-0400 Body weight 75.48 kg SARAH Dong MD Work Phone: [facility] 12-31-2021 13:06-0400 Diastolic blood pressure 84 mm[Hg] SARAH Dong MD Work Phone: [facility] 12-31-2021 13:06-0400 Heart rate 105 /min SARAH Dong MD Work Phone: [facility] 12-31-2021 13:06-0400 Respiratory rate 16 /min SARAH Dong MD Work Phone: [facility] 12-31-2021 13:06-0400 SaO2% (BldA) [Mass fraction] 95 % SARAH Dong MD Work Phone: [facility] 12-31-2021 13:06-0400 Systolic blood pressure 143 mm[Hg] SARAH Dong MD Work Phone: [facility] 12-24-2021 08:19-0400 Body height 152.4 cm Cedrick Calix MD Work Phone: [facility] 12-24-2021 08:19-0400 Body temperature 97.81 [degF] Cedrick Calix MD Work Phone: [facility] 12-24-2021 08:19-0400 Body weight 75.39 kg Cedrick Calix MD Work Phone: [facility] 12-24-2021 08:19-0400 Heart rate 84 /min Cedrick Calix MD Work Phone: [facility] 12-24-2021 08:19-0400 Respiratory rate 16 /min Cedrick Calix MD Work Phone: [facility] 12-24-2021 08:19-0400 SaO2% (BldA) [Mass fraction] 98 % Cedrick Calix MD Work Phone: [facility] 12-22-2021 14:38-0400 Body temperature 97.81 [degF] SARAH Dong MD Work Phone: [facility] 12-22-2021 14:38-0400 Body weight 74.84 kg SARAH Dong MD Work Phone: [facility] 12-22-2021 14:38-0400 Heart rate 86 /min SARAH Dong MD Work Phone: [facility] 12-22-2021 14:38-0400 Respiratory rate 18 /min SARAH Dong MD Work Phone: [facility] 12-22-2021 14:38-0400 SaO2% (BldA) [Mass fraction] 97 % SARAH Dong MD Work Phone: [facility] Encounters Encounter Date Encounter Type Care Provider Facility Start: 09-14-2023 End: 09-14-2023 ambulatory KALEE Ash [facility] Not Available Start: 09-06-2023 End: 09-06-2023 ambulatory ERIK BAXTER Not Available Start: 08-30-2023 Telephone encounter Emily sung RN Work Phone: Hematology/Oncology Comment on above: Care Coordination (C ovid Positive) Start: 08-30-2023 End: 08-31-2023 ambulatory KALEE Ash WONDERKI[place] Not Available Start: 08-29-2023 Telephone encounter Emily sung RN Work Phone: Hematology/Oncology Comment on above: Care Coordination (F juanito; Medication Question) Start: 08-25-2023 End: 08-25-2023 ambulatory KALEE LERMA Facility:[facility] Start: 08-25-2023 End: 08-25-2023 ambulatory [facility] Work Phone: Hematology/Oncology Comment on above: Megaloblastic anemia due to vitamin B12 deficiency (Primary Dx); Cancer of breast, intraductal, left; Malignant neoplasm of overlapping sites of both breasts in female, estrogen receptor positive (HCC) ; Malignant neoplasm of right breast in female, estrogen receptor positive, unspecified site of breast (HCC) Start: 08-25-2023 End: 08-25-2023 Office outpatient visit 25 minutes Cedrick Calix MD Work Phone: Hematology/Oncology Comment on above: Malignant neoplasm o f overlapping sites of both breasts in female, estrogen receptor positive (HCC) (Primary Dx); Malignant neoplasm of right breast in female, estrogen receptor positive, unspecified site of breast (HCC) ; Cancer of breast, intraductal, left; Anxiety neurosis; Megaloblastic anemia due to vitamin B12 deficiency; Lymphedema; Malignant neoplasm of breast in female, estrogen receptor positive, unspecified laterality, unspecified site of breast (HCC) Start: 08-24-2023 Telephone encounter Jaz Warner Hematology/Oncology Comment on above: Results Start: 08-22-2023 End: 08-22-2023 ambulatory [facility] Facility:[facility] Start: 08-16-2023 Refill Kalee Philip [facility] Comment on above: Refill Request Start: 07-28-2023 End: 07-28-2023 ambulatory [facility] Facility:[facility] Start: 07-28-2023 End: 07-28-2023 ambulatory [facility] Work Phone: Hematology/Oncology Comment on above: Megaloblastic anemia due to vitamin B12 deficiency (Primary Dx); Cancer of breast, intraductal, left; Malignant neoplasm of overlapping sites of both breasts in female, estrogen receptor positive (HCC) ; Malignant neoplasm of right breast in female, estrogen receptor positive, unspecified site of breast (HCC) Start: 07-28-2023 End: 07-28-2023 Office outpatient visit 25 minutes Cedrick Calix MD Work Phone: Hematology/Oncology Comment on above: Malignant neoplasm o f right breast in female, estrogen receptor positive, unspecified site of breast (HCC) (Primary Dx); Anxiety neurosis Start: 07-27-2023 End: 07-28-2023 ambulatory EMETERIO DONOVAN Not Available Start: 06-29-2023 End: 06-29-2023 ambulatory [facility] Work Phone: Hematology/Oncology Comment on above: Megaloblastic anemia due to vitamin B12 deficiency (Primary Dx); Cancer of breast, intraductal, left; Malignant neoplasm of overlapping sites of both breasts in female, estrogen receptor positive (HCC) ; Malignant neoplasm of right breast in female, estrogen receptor positive, unspecified site of breast (HCC) Malignant neoplasm o f breast in female, estrogen receptor positive, unspecified laterality, unspecified site of breast (HCC) (Primary Dx); Megaloblastic anemia due to vitamin B12 deficiency; Lymphedema Start: 06-29-2023 End: 06-29-2023 Patient encounter procedure Christ Marquez APRN.CNP Work Phone: [facility] Start: 06-13-2023 Refill [facility] Comment on above: Refill Request Start: 05-30-2023 End: 05-30-2023 ambulatory [facility] Facility:[facility] Start: 05-30-2023 End: 05-30-2023 Office outpatient visit 25 minutes Cedrick Calix MD Work Phone: Hematology/Oncology Comment on above: Malignant neoplasm o f breast in female, estrogen receptor positive, unspecified laterality, unspecified site of breast (HCC) (Primary Dx); Megaloblastic anemia due to vitamin B12 deficiency Start: 05-05-2023 End: 05-06-2023 ambulatory Cedrick Calix MD Work Phone: Hematology/Oncology Comment on above: Malignant neoplasm o f breast in female, estrogen receptor positive, unspecified laterality, unspecified site of breast (HCC) (Primary Dx) Start: 05-05-2023 End: 05-05-2023 Telemedicine consultation with patient Cedrick Calix MD Work Phone: [facility] Start: 05-02-2023 End: 05-02-2023 Social Work Herminia CARTER Hematology/Oncology Comment on above: Megaloblastic anemia due to vitamin B12 deficiency (Primary Dx) Start: 04-25-2023 Telephone encounter Herminia CARTER H ematology/Oncology Comment on above: Social Work Services Start: 04-18-2023 End: 04-18-2023 ambulatory [facility] Facility:[facility] Start: 04-18-2023 End: 04-18-2023 Office outpatient visit 25 minutes Cedrick Calix MD Work Phone: Hematology/Oncology Comment on above: Malignant neoplasm o f overlapping sites of both breasts in female, estrogen receptor positive (HCC) (Primary Dx); Malignant neoplasm of breast in female, estrogen receptor positive, unspecified laterality, unspecified site of breast (HCC) Start: 04-04-2023 End: 04-04-2023 ambulatory [facility] [place] [place] Work Phone: Hematology/Oncology Comment on above: Megaloblastic anemia due to vitamin B12 deficiency (Primary Dx) Malignant neoplasm o f overlapping sites of both breasts in female, estrogen receptor positive (HCC) (Primary Dx); Lymphedema; Anxiety neurosis Start: 04-04-2023 End: 04-04-2023 Patient encounter procedure Sloane Maria PA-C Work Phone: [facility] Start: 03-18-2023 End: 03-18-2023 ambulatory [facility] Facility:[facility] Start: 03-04-2023 End: 03-04-2023 [facility] Facility:[facility] Start: 03-04-2023 End: 03-04-2023 ambulatory [facility] Work Phone: Hematology/Oncology Comment on above: Megaloblastic anemia due to vitamin B12 deficiency (Primary Dx) Start: 03-04-2023 End: 03-04-2023 Office outpatient visit 40 minutes Cedrick Calix MD Work Phone: Hematology/Oncology Comment on above: Anxiety neurosis (Pr imary Dx); Malignant neoplasm of right breast in female, estrogen receptor positive, unspecified site of breast (HCC); Megaloblastic anemia due to vitamin B12 deficiency; Lymphedema Start: 02-17-2023 End: 02-17-2023 ambulatory [facility] Facility:[facility] Start: 02-17-2023 End: 02-17-[address] Work Phone: [facility] Start: 02-17-2023 End: 02-17-[address] Rivera RD Work Phone: Nutrition Therapy Comment on above: Nutrition Telephone Start: 02-15-2023 Telephone encounter Emily sung RN Work Phone: Hematology/Oncology Comment on above: Care Coordination (M devtiple Issues) Start: 02-03-2023 End: 02-03-2023 ambulatory KALEE LERMA Facility:[facility] Start: 01-26-2023 Refill Kimberlee DollHarshalenny ick [facility] Work Phone: [facility] Comment on above: Refill Request Start: 01-25-2023 Telephone encounter Emily sung RN Work Phone: Hematology/Oncology Comment on above: Care Coordination (M lonnie Sormateo) Start: 01-20-2023 End: 01-21-2023 ambulatory Christ Marquez APRN.[employer] Work Phone: Hematology/Oncology Comment on above: Malignant neoplasm o f overlapping sites of both breasts in female, estrogen receptor positive (HCC) (Primary Dx); Megaloblastic anemia due to vitamin B12 deficiency; Lymphedema; Dysuria Start: 01-20-2023 End: 01-20-2023 Patient encounter procedure Christ Marquez APRN.[employer] Work Phone: [facility] Start: 01-20-2023 End: 01-20-2023 Nursing evaluation of patient and report Ang Nurse Alberto Suazo Work Phone: Hematology/Oncology Comment on above: Dysuria (Primary Dx) Refill Request Start: 01-18-2023 Telephone encounter Emily sung RN Work Phone: Hematology/Oncology Comment on above: Care Coordination (P t Concerns) Start: 01-13-2023 End: 01-13-[address] EMETERIO SHEN Facility: Start: 01-13-2023 Telephone encounter Emily sung RN Work Phone: Hematology/Oncology Comment on above: Care Coordination (O ral Anti-Cancer Agent Follow Up) Start: 01-06-2023 End: 01-06-2023 ambulatory [facility] Facility:[facility] Start: 01-06-2023 End: 01-06-2023 ambulatory [facility] Work Phone: Hematology/Oncology Comment on above: Megaloblastic anemia due to vitamin B12 deficiency (Primary Dx) Start: 12-23-2022 End: 12-24-2022 ambulatory Emily George RN Work Phone: Hematology/Oncology Comment on above: Oral Anti-cancer Age nt Education (Ribociclib) Start: 12-23-2022 Telephone encounter Emily sung RN Work Phone: Hematology/Oncology Comment on above: Care Coordination (A ntiemetics) Care Coordination (T reatment Planning) Start: 12-16-2022 Telephone encounter Cedrick chiu MD Work Phone: [facility] Comment on above: Insurance Authorizat ion (Kisqali) Future Appointment Start: 12-16-2022 End: 12-16-2022 ambulatory [facility] Facility:[facility] Start: 12-16-2022 End: 12-16-2022 Office outpatient visit 40 minutes Cedrick Calix MD Work Phone: Hematology/Oncology Comment on above: Cancer of breast, in traductal, left (Primary Dx); Malignant neoplasm of overlapping sites of both breasts in female, estrogen receptor positive (HCC) Start: 12-09-2022 End: 12-09-2022 ambulatory [facility] Work Phone: Hematology/Oncology Comment on above: Megaloblastic anemia due to vitamin B12 deficiency (Primary Dx) Start: 11-11-2022 End: 11-11-2022 ambulatory [facility] Facility:[facility] Start: 10-12-2022 End: 10-12-2022 [facility] Facility:[facility] Start: 10-12-2022 End: 10-12-2022 ambulatory [facility] Work Phone: Hematology/Oncology Comment on above: Megaloblastic anemia due to vitamin B12 deficiency (Primary Dx) Start: 09-17-2022 End: 09-17-[address] EMETERIO SHEN Facility: Start: 09-16-2022 End: 09-16-2022 ambulatory KALEE LERMA Facility:[facility] Start: 09-16-2022 End: 09-16-2022 ambulatory [facility] Work Phone: Hematology/Oncology Comment on above: Cancer of breast, in traductal, left (Primary Dx); Malignant neoplasm of right breast in female, estrogen receptor positive, unspecified site of breast (HCC); Malignant neoplasm of right female breast, unspecified estrogen receptor status, unspecified site of breast (HCC) Start: 08-19-2022 End: 08-19-2022 ambulatory [facility] Work Phone: Hematology/Oncology Comment on above: Cancer of breast, in traductal, left (Primary Dx); Malignant neoplasm of right breast in female, estrogen receptor positive, unspecified site of breast (HCC); Malignant neoplasm of right female breast, unspecified estrogen receptor status, unspecified site of breast (HCC) Cancer of breast, in traductal, left (Primary Dx); Malignant neoplasm of right breast in female, estrogen receptor positive, unspecified site of breast (HCC); Lymphedema; Malignant neoplasm of overlapping sites of both breasts in female, estrogen receptor positive (HCC) Start: 08-19-2022 End: 08-19-2022 Patient encounter procedure Cedrick Calix MD Work Phone: [facility] Start: 07-22-2022 End: 07-22-2022 ambulatory [facility] Work Phone: Hematology/Oncology Comment on above: Cancer of breast, in traductal, left (Primary Dx); Malignant neoplasm of right breast in female, estrogen receptor positive, unspecified site of breast (HCC); Malignant neoplasm of nipple of right breast in female, unspecified estrogen receptor status (HCC) Start: 06-24-2022 Telephone encounter Jaz Warner Hematology/Oncology Comment on above: Results Start: 06-24-2022 End: 06-24-2022 ambulatory [facility] Work Phone: Hematology/Oncology Comment on above: Cancer of breast, in traductal, left (Primary Dx); Malignant neoplasm of right breast in female, estrogen receptor positive, unspecified site of breast (HCC) Malignant neoplasm o f breast in female, estrogen receptor positive, unspecified laterality, unspecified site of breast (HCC) (Primary Dx); Dysuria Start: 06-24-2022 End: 06-24-2022 Patient encounter procedure Cedrick Calix MD Work Phone: [facility] Start: 05-27-2022 End: 05-27-2022 ambulatory [facility] Work Phone: Hematology/Oncology Comment on above: Cancer of breast, in traductal, left (Primary Dx); Malignant neoplasm of right breast in female, estrogen receptor positive, unspecified site of breast (HCC); Malignant neoplasm of right female breast, unspecified estrogen receptor status, unspecified site of breast (HCC) Start: 05-05-2022 End: 05-05-[address] EMETERIO SHEN Facility: Start: 04-29-2022 End: 04-29-2022 ambulatory [facility] Work Phone: Hematology/Oncology Comment on above: Cancer of breast, in traductal, left (Primary Dx); Malignant neoplasm of right breast in female, estrogen receptor positive, unspecified site of breast (HCC) Start: 04-29-2022 End: 04-29-2022 Patient encounter procedure Cedrick Calix MD Work Phone: [facility] Start: 04-01-2022 End: 04-01-2022 ambulatory [facility] [facility] Work Phone: Hematology/Oncology Comment on above: Cancer of breast, in traductal, left (Primary Dx); Malignant neoplasm of right breast in female, estrogen receptor positive, unspecified site of breast (HCC); Malignant neoplasm of right female breast, unspecified estrogen receptor status, unspecified site of breast (HCC) Malignant neoplasm o f left breast in female, estrogen receptor positive, unspecified site of breast (HCC) Start: 04-01-2022 End: 04-01-2022 Patient encounter procedure [facility] Work Phone: Radiation Oncology Comment on above: Cancer of breast, in traductal, left (Primary Dx) Cancer of breast, in traductal, left; Malignant neoplasm of right breast in female, estrogen receptor positive, unspecified site of breast (HCC); Malignant neoplasm of female breast, unspecified estrogen receptor status, unspecified laterality, unspecified site of breast (HCC); Lymphedema Start: 03-08-2022 End: 03-08-2022 ambulatory [facility] Work Phone: Hematology/Oncology Comment on above: Cancer of breast, in traductal, left (Primary Dx); Malignant neoplasm of right breast in female, estrogen receptor positive, unspecified site of breast (HCC); Malignant neoplasm of right female breast, unspecified estrogen receptor status, unspecified site of breast (HCC) Start: 02-08-2022 End: 02-08-2022 ambulatory [facility] Work Phone: Hematology/Oncology Comment on above: Cancer of breast, in traductal, left (Primary Dx); Malignant neoplasm of right breast in female, estrogen receptor positive, unspecified site of breast (HCC); Malignant neoplasm of overlapping sites of right breast in female, estrogen receptor positive (HCC) Cancer of breast, in traductal, left (Primary Dx); Malignant neoplasm of right breast in female, estrogen receptor positive, unspecified site of breast (HCC); Malignant neoplasm of female breast, unspecified estrogen receptor status, unspecified laterality, unspecified site of breast (HCC) Start: 02-08-2022 End: 02-08-2022 Patient encounter procedure Cedrick Calix MD Work Phone: [facility] Start: 01-25-2022 End: 01-25-2022 ambulatory [facility] Work Phone: Hematology/Oncology Comment on above: Cancer of breast, in traductal, left (Primary Dx); Malignant neoplasm of right breast in female, estrogen receptor positive, unspecified site of breast (HCC) Start: 01-15-2022 Telephone encounter Emily sung RN Work Phone: Hematology/Oncology Comment on above: Care Coordination (C 1D1 Post Treatment Call) Start: 01-14-2022 Telephone encounter Emily sung RN Work Phone: Hematology/Oncology Comment on above: Care Coordination (V accine Update) Start: 01-12-2022 Telephone encounter Emily sung RN Work Phone: Hematology/Oncology Comment on above: Care Coordination (I njection Question) Start: 01-11-2022 End: 01-11-2022 Patient encounter procedure Cedrick Calix MD Work Phone: [facility] Start: 01-11-2022 End: 01-11-2022 ambulatory [facility] Work Phone: Hematology/Oncology Comment on above: Cancer of breast, in traductal, left (Primary Dx); Malignant neoplasm of right breast in female, estrogen receptor positive, unspecified site of breast (HCC) Non-Chemotherapy Gnearo atment (Fulvestrant) Cancer of breast, in traductal, left (Primary Dx); Malignant neoplasm of right breast in female, estrogen receptor positive, unspecified site of breast (HCC); Malignant neoplasm of female breast, unspecified estrogen receptor status, unspecified laterality, unspecified site of breast (HCC); Lymphedema Start: 01-06-2022 Telephone encounter Emily sung RN Work Phone: Hematology/Oncology Comment on above: Care Coordination (T reatment Planning) Start: 12-31-2021 End: 12-31-2021 Patient encounter procedure Musa Dong MD Work Phone: Radiation Oncology Comment on above: Malignant neoplasm o f nipple of right breast in female, unspecified estrogen receptor status (HCC) (Primary Dx) Start: 12-28-2021 End: 12-28-2021 ambulatory Cedrick Calix MD Work Phone: Hematology/Oncology Comment on above: Cancer of breast, in traductal, left (Primary Dx); Malignant neoplasm of right breast in female, estrogen receptor positive, unspecified site of breast (HCC) Start: 12-28-2021 End: 12-28-2021 Telemedicine consultation with patient Cedrick Calix MD Work Phone: [facility] Start: 12-24-2021 End: 12-24-2021 ambulatory Cedrick Calix MD Work Phone: Hematology/Oncology Comment on above: Cancer of breast, in traductal, left (Primary Dx); Malignant neoplasm of right breast in female, estrogen receptor positive, unspecified site of breast (HCC) Start: 12-24-2021 End: 12-24-2021 Patient encounter procedure Cedrick Calix MD Work Phone: [facility] Start: 12-23-2021 Social Work Herminia CARTER Hematolo gy/Oncology Start: 12-22-2021 End: 12-22-2021 Patient encounter procedure G Prem Dong MD Work Phone: Radiation Oncology Comment on above: Malignant neoplasm o f overlapping sites of left breast in female, estrogen receptor positive (HCC) Start: 12-21-2021 Telephone encounter G Prem Dong MD Work Phone: Radiation Oncology Comment on above: Results (Biopsy Posi tive) Procedures Date Procedure Procedure Detail Performing Clinician Start: 06-24-2022 Urnls dip stick/tabl et reagent auto microscopy Cedrick Calix MD Work Phone: Start: 04-01-2022 Blood count complete auto&auto difrntl wbc Cedrick Calix MD Work Phone: Start: 04-01-2022 Adult depression screening assessment [facility] Work Phone: Start: 12-22-2021 Adult depression screening assessment SARAH Dong MD Work Phone: Plan of Treatment Date Care Activity Detail Author Start: 11-16-2027 Urine microalbumin profile [facility] Start: 08-25-2026 Diabetes Screening Diabetes Screenin g [facility] Start: 07-28-2026 Diabetes Screening Diabetes Screenin g [facility] Start: 05-30-2026 Diabetes Screening Diabetes Screenin g [facility] Start: 04-18-2026 DIABETES SCREEN [facility] Start: 04-04-2026 DIABETES SCREEN [facility]ET[facility]CREEN [facility] Start: 03-04-2026 DIABETES SCREEN DIABETES SCREEN [facility] Start: 02-03-2026 DIABETES SCREEN DIABETES SCREEN [facility] Start: 01-20-2026 DIABETES SCREEN DIABETES SCREEN [facility] Start: 01-06-2026 DIABETES SCREEN DIABETES SCREEN [facility] Start: 12-16-2025 DIABETES SCREEN DIABETES SCREEN [facility] Start: 11-11-2025 DIABETES SCREEN DIABETES SCREEN [facility] Start: 10-12-2025 DIABETES SCREEN DIABETES SCREEN [facility] Start: 09-16-2025 DIABETES SCREEN DIABETES SCREEN [facility] Start: 08-19-2025 DIABETES SCREEN DIABETES SCREEN [facility] Start: 07-22-2025 DIABETES SCREEN DIABETES SCREEN [facility] Start: 06-24-2025 DIABETES SCREEN DIABETES SCREEN [facility] Start: 05-27-2025 DIABETES SCREEN DIABETES SCREEN [facility] Start: 04-29-2025 DIABETES SCREEN DIABETES SCREEN [facility] Start: 04-01-2025 DIABETES SCREEN DIABETES SCREEN [facility] Start: 02-08-2025 DIABETES SCREEN DIABETES SCREEN [facility] Start: 01-11-2025 DIABETES SCREEN DIABETES SCREEN [facility] Start: 12-24-2024 DIABETES SCREEN DIABETES SCREEN [facility] Start: 09-22-2024 DIABETES SCREEN DIABETES SCREEN [facility] Start: 08-17-2023 End: 08-25-2024 NM PET/CT SKULL-THIGH SUBSEQUENT NM PET/CT SKULL-THIGH SUBSEQUENT Radiology Routine Malignant neoplasm of right breast in female, estrogen receptor positive, unspecified site of breast (HCC) Expected: 08/17/2023 (Approximate), Expires: 08/25/2024 [facility] Work Phone: Comment on above: Expected: 08/17/2023 (Approximate), Expires: 08/25/2024 Start: 07-27-2023 End: 09-26-2023 CBC W Auto Differential panel - Blood CBC + DIFF Lab Routine Malignant neoplasm of breast in female, estrogen receptor positive, unspecified laterality, unspecified site of breast (HCC) Megaloblastic anemia due to vitamin B12 deficiency Lymphedema Expected: 07/27/2023, Expires: 09/26/2023 [facility] Work Phone: Comment on above: Expected: 07/27/2023 , Expires: 09/26/2023 Start: 07-27-2023 End: 09-26-2023 Comprehensive metabolic 2000 panel - Serum or Plasma COMP METABOLIC PANEL Lab Routine Malignant neoplasm of breast in female, estrogen receptor positive, unspecified laterality, unspecified site of breast (HCC) Megaloblastic anemia due to vitamin B12 deficiency Lymphedema Expected: 07/27/2023, Expires: 09/26/2023 [facility] Work Phone: Comment on above: Expected: 07/27/2023 , Expires: 09/26/2023 Start: 05-20-2023 Covid-19 Vaccine ( season) Covid-19 Vaccine () [facility] Start: 05-20-2023 Influenza vaccination [facility] Start: 05-02-2023 End: 05-17-2024 NM PET/CT SKULL-THIGH SUBSEQUENT NM PET/CT SKULL-THIGH SUBSEQUENT Radiology Routine Malignant neoplasm of overlapping sites of both breasts in female, estrogen receptor positive (HCC) Malignant neoplasm of breast in female, estrogen receptor positive, unspecified laterality, unspecified site of breast (HCC) Expected: 05/02/2023 (Approximate), Expires: 05/17/2024 [facility] Work Phone: Comment on above: Expected: 05/02/2023 (Approximate), Expires: 05/17/2024 Start: 04-04-2023 End: 06-04-2023 CBC W Auto Differential panel - Blood CBC + DIFF Lab Routine Malignant neoplasm of overlapping sites of both breasts in female, estrogen receptor positive (HCC) Lymphedema Anxiety neurosis Expected: 04/04/2023, Expires: 06/04/2023 [facility] Work Phone: Comment on above: Expected: 04/04/2023 , Expires: 06/04/2023 Start: 04-04-2023 End: 06-04-2023 Comprehensive metabolic 2000 panel - Serum or Plasma COMP METABOLIC PANEL Lab Routine Malignant neoplasm of overlapping sites of both breasts in female, estrogen receptor positive (HCC) Lymphedema Anxiety neurosis Expected: 04/04/2023, Expires: 06/04/2023 [facility] Work Phone: Comment on above: Expected: 04/04/2023 , Expires: 06/04/2023 Start: 04-01-2023 Adult depression screening assessment DEPRESSION SCREENING [facility] Start: 12-22-2022 Adult depression screening assessment DEPRESSION SCREENING [facility] Start: 12-09-2022 End: 08-19-2023 CBC W Auto Differential panel - Blood CBC + DIFF Lab Routine Cancer of breast, intraductal, left Malignant neoplasm of overlapping sites of both breasts in female, estrogen receptor positive (HCC) Expected: 12/09/2022 (Approximate), Expires: 08/19/2023 [facility] Work Phone: Comment on above: Expected: 12/09/2022 (Approximate), Expires: 08/19/2023 Start: 12-09-2022 End: 08-19-2023 Comprehensive metabolic 2000 panel - Serum or Plasma COMP METABOLIC PANEL Lab Routine Cancer of breast, intraductal, left Malignant neoplasm of overlapping sites of both breasts in female, estrogen receptor positive (HCC) Expected: 12/09/2022 (Approximate), Expires: 08/19/2023 [facility] Work Phone: Comment on above: Expected: 12/09/2022 (Approximate), Expires: 08/19/2023 Start: 12-09-2022 End: 09-18-2023 NM PET/CT SKULL-THIGH SUBSEQUENT NM PET/CT SKULL-THIGH SUBSEQUENT Radiology Routine Malignant neoplasm of overlapping sites of both breasts in female, estrogen receptor positive (HCC) Expected: 12/09/2022 (Approximate), Expires: 09/18/2023 [facility] Work Phone: Comment on above: Expected: 12/09/2022 (Approximate), Expires: 09/18/2023 Start: 12-02-2022 COVID-19 VACCINE (6 - Moderna series) COVID-19 VACCINE (6 - Moderna series) [facility] Start: 09-19-2022 ADVANCE DIRECTIVE DISCUSSION ADVANCE DIRECTIVE DISCUSSION [facility] Start: 09-19-2022 DEPRESSION ASSESSMENT DEPRESSION ASS ESSMENT [facility] Start: 08-12-2022 End: 07-24-2023 NM PET/CT SKULL-THIGH SUBSEQUENT NM PET/CT SKULL-THIGH SUBSEQUENT Radiology Routine Malignant neoplasm of breast in female, estrogen receptor positive, unspecified laterality, unspecified site of breast (HCC) Expected: 08/12/2022 (Approximate), Expires: 07/24/2023 [facility] Work Phone: Comment on above: Expected: 08/12/2022 (Approximate), Expires: 07/24/2023 Start: 05-20-2022 Influenza vaccination INFLUENZA (#1) [facility] Start: 03-15-2022 COVID-19 VACCINE (5 - Booster for Moderna series) COVID-19 VACCINE (5 - Booster for Moderna series) [facility] Start: 12-27-2021 End: 12-24-2022 CBC W Auto Differential panel - Blood CBC + DIFF Lab Routine Cancer of breast, intraductal, left Malignant neoplasm of right breast in female, estrogen receptor positive, unspecified site of breast (HCC) Expected: 12/27/2021 (Approximate), Expires: 12/24/2022 [facility] Work Phone: Comment on above: Expected: 12/27/2021 (Approximate), Expires: 12/24/2022 Start: 12-27-2021 End: 12-24-2022 Comprehensive metabolic 2000 panel - Serum or Plasma COMP METABOLIC PANEL Lab Routine Cancer of breast, intraductal, left Malignant neoplasm of right breast in female, estrogen receptor positive, unspecified site of breast (HCC) Expected: 12/27/2021 (Approximate), Expires: 12/24/2022 [facility] Work Phone: Comment on above: Expected: 12/27/2021 (Approximate), Expires: 12/24/2022 Start: 10-13-2021 COVID-19 VACCINE (4 - Booster for Moderna series) COVID-19 VACCINE (4 - Booster for Moderna series) [facility] Start: 09-19-2021 ADVANCE DIRECTIVE DISCUSSION ADVANCE DIRECTIVE DISCUSSION [facility] Start: 09-19-2021 DEPRESSION ASSESSMENT DEPRESSION ASS ESSMENT [facility] Start: 07-10-2021 PNEUMOCOCCAL: 65+ (3 - PCV) PNEUMOCOCCAL: 65+ (3 - PCV) [facility] Start: 12-12-2008 BONE DENSITY BONE DENSITY [facility] Start: 12-12-2008 Bone Density Screening Bone Density Screening [facility] Start: 12-12-2008 Screening for osteoporosis Bone Density Screening [facility] Start: 2003 RSV Vaccine (1 - 1-d ose 60+ series) RSV Vaccine (1 - 1-dose 60+ series) [facility] Start: 12-12-1993 SHINGRIX VACCINE (1 of 2) SHINGRIX VACCINE (1 of 2) [facility] Start: 12-12-1962 SHINGRIX VACCINE (1 of 2) SHINGRIX VACCINE (1 of 2) [facility] Start: 12-12-1961 HEPATITIS C SCREENING HEPATITIS C [facility] Bacteria identified in Urine by Culture URINE CULTURE IF INDICATED Microbiology Routine Dysuria 06/24/2022 10:55 AM EDT [facility] Work Phone: Bacteria identified in Urine by Culture URINE CULTURE Microbiology Routine Malignant neoplasm of overlapping sites of both breasts in female, estrogen receptor positive (HCC) Dysuria 01/20/2023 3:31 PM EDT [facility] Work Phone: End: 01-11-2023 CBC W Auto Differential panel - Blood CBC + DIFF Lab Routine Cancer of breast, intraductal, left Malignant neoplasm of right breast in female, estrogen receptor positive, unspecified site of breast (HCC) Malignant neoplasm of female breast, unspecified estrogen receptor status, unspecified laterality, unspecified site of breast (HCC) Lymphedema Once per month for 12 Occurrences starting 01/11/2022 until 01/11/2023 [facility] Work Phone: Comment on above: Once per month for 1 2 Occurrences starting 01/11/2022 until 01/11/2023 End: 12-16-2023 CBC W Auto Differential panel - Blood CBC + DIFF Lab Routine Cancer of breast, intraductal, left Malignant neoplasm of overlapping sites of both breasts in female, estrogen receptor positive (HCC) Every other week for 26 Occurrences starting 12/16/2022 until 12/16/2023 [facility] Work Phone: Comment on above: Every other week for 26 Occurrences starting 12/16/2022 until 12/16/2023 End: 01-11-2023 Comprehensive metabolic 2000 panel - Serum or Plasma COMP METABOLIC PANEL Lab Routine Cancer of breast, intraductal, left Malignant neoplasm of right breast in female, estrogen receptor positive, unspecified site of breast (HCC) Malignant neoplasm of female breast, unspecified estrogen receptor status, unspecified laterality, unspecified site of breast (HCC) Lymphedema Once per month for 12 Occurrences starting 01/11/2022 until 01/11/2023 [facility] Work Phone: Comment on above: Once per month for 1 2 Occurrences starting 01/11/2022 until 01/11/2023 End: 12-16-2023 Comprehensive metabolic 2000 panel - Serum or Plasma COMP METABOLIC PANEL Lab Routine Cancer of breast, intraductal, left Malignant neoplasm of overlapping sites of both breasts in female, estrogen receptor positive (HCC) Every other week for 26 Occurrences starting 12/16/2022 until 12/16/2023 [facility] Work Phone: Comment on above: Every other week for 26 Occurrences starting 12/16/2022 until 12/16/2023 End: 01-21-2023 NM PET/CT SKULL-THIGH SUBSEQUENT NM PET/CT SKULL-THIGH SUBSEQUENT Radiology Routine Malignant neoplasm of overlapping sites of left breast in female, estrogen receptor positive (HCC) 1 Occurrences starting 12/22/2021 until 01/21/2023 [facility] Work Phone: Comment on above: 1 Occurrences starti ng 12/22/2021 until 01/21/2023 End: 05-01-2023 NM PET/CT SKULL-THIGH SUBSEQUENT NM PET/CT SKULL-THIGH SUBSEQUENT Radiology Routine Malignant neoplasm of left breast in female, estrogen receptor positive, unspecified site of breast (HCC) 1 Occurrences starting 04/01/2022 until 05/01/2023 [facility] Work Phone: Comment on above: 1 Occurrences starti ng 04/01/2022 until 05/01/2023 UA DIP, URINE (POC) UA DIP, URIN E (POC) Lab Routine Megaloblastic anemia due to vitamin B12 deficiency Malignant neoplasm of overlapping sites of both breasts in female, estrogen receptor positive (HCC) Lymphedema Ordered: 01/20/2023 [facility] Work Phone: Comment on above: Ordered: 01/20/2023 [facility] Immunizations Immunization Date Immunization Notes Care Provider Aayush [facility] 06-29-2023 influenza (HD-IIV4) vaccine, age 65+ yr, high dose, quadrivalent, PF (FLUZONE HIGH-DOSE) [facility] Work Phone: [facility] 06-09-2022 influenza, high-dose , quadrivalent vaccine (FLUZONE HIGH DOSE QUADRIVALENT) [facility] Work Phone: [facility] 06-09-2022 influenza virus vaccine, unspecified formulation Cedrick Calix MD Work Phone: [facility] 01-18-2022 COVID-19 original vaccine, full dose, monovalent (MODERNA) Ang Suazo Work Phone: [facility] 07-13-2021 COVID-19 original vaccine, full dose, monovalent (MODERNA) Ang Suazo Work Phone: [facility] 06-24-2021 influenza, high-dose , quadrivalent vaccine (FLUZONE HIGH DOSE QUADRIVALENT) SARAH Dong MD Work Phone: [facility] 11-14-2020 COVID-19 vaccine, fu ll dose (MODERNA) SARAH Dong MD Work Phone: [facility] 10-16-2020 COVID-19 vaccine, fu ll dose (MODERNA) SARAH Dong MD Work Phone: [facility] 07-10-2020 influenza, high dose seasonal, preservative-free SARAH Dong MD Work Phone: [facility] 07-10-2020 pneumococcal polysaccharide vaccine, 23 valent SARAH Dong MD Work Phone: [facility] 06-25-2020 influenza, high-dose , quadrivalent vaccine (FLUZONE HIGH DOSE QUADRIVALENT) SARAH Dong MD Work Phone: [facility] 06-27-2019 influenza, high dose seasonal, preservative-free SARAH Dong MD Work Phone: [facility] 06-27-2018 influenza, high dose seasonal, preservative-free SARAH Dong MD Work Phone: [facility] 11-16-2017 tetanus toxoid, redu mark diphtheria toxoid, and acellular pertussis vaccine, adsorbed SARAH Dong MD Work Phone: [facility] 07-06-2017 influenza, high dose seasonal, preservative-free SARAH Dong MD Work Phone: [facility] 06-22-2016 influenza, high dose seasonal, preservative-free SARAH Dong MD Work Phone: [facility] 06-26-2015 influenza, high dose seasonal, preservative-free SARAH Dong MD Work Phone: [facility] 05-28-2015 pneumococcal conjuga te vaccine, 13 valent Lab/Erika Suazousky Work Phone: [facility] 06-29-2013 influenza, seasonal, injectable SARAH Dong MD Work Phone: [facility] 09-19-2009 pneumococcal polysaccharide vaccine, 23 valent SARAH Dong MD Work Phone: [facility] 07-05-2007 influenza virus vaccine, whole virus SARAH Dong MD Work Phone: [facility] NEGATED: Highlighted row has not occurred!08-25-2023 influenza (HD-IIV4) vaccine, age 65+ yr, high dose, quadrivalent, PF (FLUZONE HIGH-DOSE) [facility] Work Phone: [facility] NEGATED: Highlighted row has not occurred!07-28-2023 influenza (HD-IIV4) vaccine, age 65+ yr, high dose, quadrivalent, PF (FLUZONE HIGH-DOSE) [facility] Work Phone: [facility] Payers Date Payer Category Payer Medicare MEDICARE MEDICAR E A AND B [id number] 2008-Present [phone] [place] [address] Medicare [id number] 2008 Medicare MEDICARE MEDICAR E A AND B [id number] 2008-Present [phone] [place] [address] Medicare [id number] 2008 Private Health Insurance [facility] AARP SUPPLEMENT [id number] 2008-Present [phone] [address] [place] [address] Indemnity [id number] 2008 Private Health Insurance [facility] AARP SUPPLEMENT [id number] 2008-Present [phone] [address] [place] [address] Indemnity [id number] 1959 Medicare [id number] 1959 Unknown [id number] 1943 Unknown [id number] 1943 Unknown [id number] 1943 Unknown [id number] 1943 Unknown [id number] 1943 Unknown [id number] 1943 Unknown [id number] 1943 Unknown [id number] Social History Date Type Detail Facility Start: 12-23-2014 End: 06-24-2022 Tobacco smoking status NHIS Never smoked tobacco [facility] Start: 12-23-2014 End: 06-24-2022 Tobacco use and exposure Smokeless tobacco non-user [facility] Start: 11-19-2021 End: 08-25-2023 Alcohol intake Current non-drinker of alcohol (finding) [facility] Start: 1945 Sex Assigned At Not on file [facility] Start: 12-11-2021 End: 08-19-2022 Exposure to SARS-CoV-2 (event) Not sure [facility] History of tobacco use Passive smoker [facility] Start: 01-20-2023 End: 04-04-2023 [facility] Start: 01-20-2023 End: 04-04-2023 Tobacco use panel [facility] Adult Depression Scr eening Assessment 0 [facility] Clinical Notes 12-21-2021 to 08-30-2023 Telephone Encounter - Emily George RN - 08/30/2023 12:56 PM ESTTelephone Encounter - Emily George RN - 08/30/2023 8:02 AM ESTPatient InstructionsCedrick Calix MD - 08/25/2023 3:00 PM EST Note Date & Type Note Facility 08-30-2023 Miscellaneous Notes Call received from Dr Lerma. Reports that the pt tested positive for covid in her office today. Would like to place pt on Paxlovid. Calls to make sure that it is ok w/ her current treatment plan. Per Dr Calix, the pt can take Paxlovid as prescribed. Recommends she hold her Kisqali until she recovers. Dr Lerma notified and verbalizes understanding. Emily George RN documented in this encounter [facility] 08-30-2023 Miscellaneous Notes Pt notified and verbalizes understanding. States that she has now developed and cough and will be calling her PCP today for an appointment. Emily George RN Yes - ok to hold - resume when she feels better and stop the week before she is due for Faslodex. Pt reports that she has the stomach flu. Developed nausea, vomiting, and headache yesterday. Did not take today's dose of Kisqali. Is she able to hold the Kisqali while sick? If so, when do you advise she resume? Emily George RN documented in this encounter [facility] 08-25-2023 Note [facility] 08-25-2023 Instructions Cedrick Calix MD - 08/25/2023 3:23 PM EST Faslodex today and every 4 weeks. Continue cycle 9 kisqali at 400 mg daily for 21 days q 4 weeks Next cycle to start 09/22 after office visit Follow up in 4 weeks for labs, faslodex and restart Kisqali cycle 10. documented in this encounter [facility] 08-25-2023 History of Presen t illness Narrative Images from the original note were not included. NAME: Nataliia Fordne [facility] NO.: [id number] DATE OF SERVICE: August 25, 2023 ([place]) Some elements in this clinic note that are critical to medical decision making have been carefully reviewed and included from a prior clinic note dated: July 28, 2023 ([place]) Referring Provider: Additional Clinicians involved in Soha Ford's care: DIAGNOSIS: Metastatic breast cancer ASSESSMENT: 1. Malignant neoplasm of female breast, unspecified estrogen receptor status, unspecified laterality, unspecified site of breast (HCC) - ICD9: 174.9, ICD10: C50.919 (primary diagnosis) No evidence of recurrence. We discontinued Arimidex and started on Faslodex. She doesn't recall having issues with Aromasin so we can add this in the future if needed. We started with a CDk4/6 inhibitor. Started Kisqali 01/06/2023. Dose was reduced to 400 mg daily with cycle 3 and tolerating better so far. Anxiety-- Improved with the use of ativan prn. PLAN: Faslodex today and every 4 weeks. Continue cycle 9 kisqali at 400 mg daily for 21 days q 4 weeks Next cycle to start 09/22 after office visit Follow up in 4 weeks for labs, faslodex and restart Kisqali cycle 10. HPI: CASE HISTORY: Reverse chronological order: 08/22/2023 - PET CT: No evidence of focal uptake to suggest FDG avid neoplastic process. 05/02/2023 - PET/CT: Responsive disease Skeleton: Interval improvement with decreased FDG activity associated with the previously present few hypermetabolic osseous foci. No new suspicious hypermetabolic foci. 03/11/2023 - reduced Kisqali to 400 mg due to intolerance. 01/06/2023 - start Fulvestrant + Kisqali 12/09/2022 - PET/CT - progressive mets to bone. 08/17/2022 - PET/CT continued responsive disease 04/22/2022 - PET/CT shows responsive disease - right mid femur improved, left humerous stable 01/11/2022 - Fulvestrant started 12/15/2021 - Left Axillary Recurrence. HER2(-), ER/IL+ 06/2018 - 12/2021: Arimidex - progressed 05/2018 - not tolerating aromasin well- in addition to hair loss, having anxiety and hot flashes with poor sleep 03/2018 - tried to switch to aromasin due to hair loss 09/2015 - completed adjuvant radiation and started adjuvant hormonal therapy with arimidex 05/2015 - Bilateral mastectomy with right axillary dissection, path notes [id number] disease 04/2015 - stopped weekly taxol, had 9 weeks of therapy, repeat imaging by PET identified complete metabolic response per notes, developed neuropathy, MRI brain identified what was felt to be meningioma 12/2014 - started dose dense AC-weekly taxol 11/2014 - diagnosed with locally advanced ER/IL (+), HER2(equivocal on FISH, 2+ IHC), grade 2 invasive ductal carcinoma, right axillary lymph nodes appreciated on imaging Updated Visit, August 25, 2023: Soha returns today for follow up ad reports she is doing pretty good. We reviewed her recent PET scan results and her labs, which all look good. She is slightly hyponatremic, but this isn't of concern. Her blood counts are all satisfactory. She started current cycle of Kisqali on this past Tuesday, and will complete by 09/13. She is due to restart again on 09/22 once we repeat her labs. She has had a lower energy level lately, which she feels could be due to the winter season. This could also be a result of her treatment. Overall, she is doing well and appears to be tolerating treatment well. Updated Visit, July 28, 2023: Soha returns today for follow up and faslodex, has been doing really well other than the weather's effects. Tolerating Kisqali well. She is not taking the Ativan 3x/day, has some days where she takes it more than once but doesn't need to take it that frequently. We reviewed her labs, everything looks good and stable. I recommended she have a general teeth cleaning at the dentist. Updated Visit, June 29, 2023: Soha Ford returns for scheduled follow-up and Faslodex. She remains on monthly Faslodex and is tolerating it well. She started her next cycle of Kisqali yesterday, 06/28/2023. She denies any side effects from treatment. She denies cough, shortness of breath and other pulmonary complaints. She has chronic arthritic pain in her left hip and left knee. She denies any new areas of pain. She denies fevers, chills, night sweats and signs/symptoms of infection. No bleeding or abnormal bruising. She offers no new complaints today. No new issues, problems or concerns. Updated Visit, May 30, 2023: Soha returns and is doing very well. Scans from April reviewed and has had an excellent response. Continue current regimen. Updated Visit, May 05, 2023: Virtual visit for 20 minutes Soha is doing well tolerating her Kisqali at reduced dosing. PET reviewed and has global response! She is, of course, very pleased. Discussed dosing of Kisqali as she is short a few pills. Updated Visit, April 18, 2023: Soha returns with her daughter today. She is doing much better on this dose of Kis Emely. We will continue current regimen. We will adjust treatment to match with Faslodex as day 1 of each cycle. Labs reviewed. She meets all safety parameters. Updated Visit, April 04, 2023: Soha is here for follow up currently on her Off week of 400 mg of kisquali. She is tolerating it well. She has been on this dose for about 3 weeks. April 08 she will start up again. Eating too well. No mouth sores. No diarrhea. Using ativan prn and it is helping with he anxiousness. Her lymphedema in her right arm is about the same. Updated Visit, March 18, 2023: Soha is 77 years old and returns with her daughter Inga and is doing much better with 1 week of decreased dose of ribociclib. I may have her further dosing by skipping the weekends for this cycle. Once we see how this goes we can decide whether to continue it or continue at q. 21-day dosing at 400 mg. She is to continue Ativan 3 times daily which seems to be helping her tremendously. Updated Visit, March 04, 2023: Couldn't eat, burning. Severely anxious which is really interfering with her cancer care. 30 minutes discussing anxiety so will need to increase her anxiety meds and then we wesley focus on breast cancer management. Updated Visit, February 03, 2023: Soha Ford returns for follow-up and her monthly Faslodex. She is due to start her next cycle of Kisqali. She began taking Nexium daily which has tremendously helped with her heartburn. She has intermittent headaches and takes Tylenol with improvement. She denies fevers, chills and signs/symptoms of infection. No bleeding or abnormal bruising. She states that she is drinking plenty of water. She has left hip pain and needs a left hip replacement due to arthritis. She denies any other areas of unusual pain. Updated Visit, January 20, 2023: Soha Ford returns for follow-up. She started Kisqali 600 mg (3 tablets) daily for 3 weeks on and 1 week off on January 06. She is scheduled to complete her first cycle on January 26. Initially when starting the Kisqali her cheeks turned red and her bottom lip felt like it had a welt . Her face was hot to the touch, more on the left side than the right side. She called the office with complaints of heartburn. It was recommended she start Nexium [id number]. She states that her labia felt irritated and that her urine was hot . She is worried about a urinary tract infection. She denies fevers and chills. No bleeding or abnormal bruising. Updated Visit, January 06, 2023: Returns with Inga - still very anxious. Repeated and reinforced education. Start Kisqali today and monitor labs. Due for faslodex today as well. Updated Visit, December 16, 2022: Soha returns with her daughter Inga. She celebrated her 77th birthday. Always anxious Would start ribociclib. Will need guardant 360 for ESR1 mutation if she progresses. Updated Visit, August 19, 2022: Soha is 76 years old and returns with her daughter Inga. Overall doing well. Scans reviewed and show continued response of disease. Seems to alleviate her significant levels of anxiety. Although, at a baseline she is very anxious. Updated Visit, June 24, 2022: Radha accompanies and she reports the she lost her appetite past few days and has dysuria over same period of time. Also frequent urination. However she just finished Keflex for a skin infection.will send UA C&S Updated Visit, April 29, 2022: Returns with Radha and Inga - reviewed PET/CT which shows improvement. She remains nervous about many things especially taking pain pills for her hip pain. She would be safe to proceed with ortho intervention as needed. Updated Visit, April 01, 2022: Soha returns accompanied by both of her daughters Radha and Inga and is less anxious today. Continues to have hip pain from bursitis. She feels well tolerating faslodex. No appreciable axillary mass on left with palpation. Updated Visit, February 08, 2022: Frannie returns with her daughter Radha. She is less anxious today and is tolerating treatment well. Bones are achy Hip consistent with bursitis and did well with a steroid short. Left arm is doing well. She s concerned about the sclerotic lesion in the left humerus but I reassured her that this would not be a subtle change if there was something alarming about this lesion. Updated Visit, January 11, 2022: Here with her daughter Radha. Left axillary wound is erythematous but non-tender and not inflamed. Does not appear infected. Scalp appears to have small raised lesions that will likely need to have dermatology look at them, but not acutely. Her anxiety remains quite high. Updated Visit, December 28, 2021: [facility] Verbal report that FISH was negative. Called Soha as requested and given her fairly low volume of disease on PET/CT, we could hold RT for any painfull symptomatic disease or new bony metastatic disease. We will maximize endocrine therapy. No significant pain. Primarily anxiety. Updated Visit, December 24, 2021: Soha returns with her daughters today and is highly anxious. She had a left axillary mass removed after Dr. Dong noted it on his most recent visit. This was not noted on my evaluation in September. She had the mass resected and it was consistent with her ER/IL+ brca. [id number] FISH is still pending. She will need staging PET/CT to determine extent and volume of disease. Once we have the final pathology and PET restaging we will determine course of therapy. She is hoping not to have chemotherapy. Updated Visit, September 24, 2021: Soha Ford is a 75 year old female who presents in follow-up on Arimidex for breast cancer diagnosed in 2014. Has preferred to stay on extended endocrine therapy in adjuvant setting. Very anxious about her tumor marker but realized that she had heard her number incorrectly and that there was no need for anxiety caused by following this lab test. All else is well. Labs are stable. No palpable abnormality noted in arms or axilla. Lymphedema is stable. 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 Dr. Matias is monitoring but on my exam, the lesion appears to be raised slightly and will likely need re-evaluated. Calcium in the form of Tums with Vitamin D. Continues to take Arimidex since 06/2018. Complains of some decreased mobility especially in her left leg with some pain shooting down the left leg. Updated Visit, December 24, 2020: Soha Ford returns for scheduled follow-up. Since her last visit there has been no significant medical changes. Today she is concerned about a couple of skin moles. She denies cough, shortness of breath and other pulmonary symptoms. She denies any unusual pain. She denies chest wall lumps or bumps. She remains on Arimidex and is tolerating it fairly well. She denies any significant muscle and joint aches. Overall, doing well. Updated Visit, June 25, 2020: Soha Ford is a 74 year old female who presents in follow-up on Arimidex. She has requested vaccinations to include Pneumococcal, Influenza and shingle. Continues arimidex for 10 years - 09/2025 Doing well right arm in lymphedema sleeve Osteopenia on dexa Caltrate D sent in Consider prevention of bone disease in the future CT of the chest is reviewed below: 03/05/2019 10:49 AM - Radiology, [facility] In Impression IMPRESSION: 1. Mildly enlarged left axillary lymph node appears slightly more conspicuous when compared to the prior study of 08/28/2018, new when compared to more remote examination of 10/10/2017. 2. Scattered right-sided subcentimeter pulmonary nodules, unchanged. She was on arimidex with much better tolerance. APV put her on this from aromasin which she was losing her hair with. REVIEW OF SYSTEMS Per HPI and otherwise negative by full review of organ systems. ECOG PERFORMANCE STATUS: 1 PHYSICAL EXAMINATION: Vitals: BP 168/64 Pulse 90 Temp (Src) 97.8 (Temporal) Resp 20 Ht 5' 0 (1.52m) Wt 168 lb 3.2 oz (76.3kg) SpO2 98% BMI 32.85 kg/(m^2). Body surface area is 1.8 meters squared. Exam limited to gross visualization where appropriate. Gen.: This is an age-appropriate patient in no acute distress. Head: Appears atraumatic with no visible lesions. Eyes: Pupils equally round and reactive to light, extraocular muscles are intact. Neck: Supple. Respiratory: Appears to be respiring comfortably. Neurologic: Nonfocal to gross visualization. Alert and oriented 3. Psychiatric: No evidence of inappropriate anxiety or depression. Skin: Visible areas of skin without rash, lesions, wounds or petechiae. Lymphedema sleeve in place. ALLERGIES: ALLERGIES Allergen Reactions Citalopram Hydrobro* Other: See Comments MEDICATIONS: ribociclib (KISQALI) 400 mg/day (200 mg x 2) tab Take 2 tablets (400 mg) by mouth once daily for 21 days. Then take a 7-day rest period to complete a 28-day treatment cycle. LORazepam (ATIVAN) 0.5 mg Take 1 tablet by mouth three times a day as needed for up to 90 days. diphenhydrAMINE 12.5 mg/5 mL lidocaine visc 2% MAALOX 200-200-20 mg/5 mL nystatin prednisoLONE 15 mg/5 mL oral liquid 1:1:1:1:1 (CPD) Take 5 mL by mouth every 6 hours as needed. Swish and Swallow ondansetron (ZOFRAN) 8 mg tablet Take 1 tablet by mouth every 8 hours as needed for nausea/vomiting. prochlorperazine (COMPAZINE) 10 mg tablet Take 1 tablet by mouth every 6 hours as needed. traMADol (ULTRAM) 50 mg tablet folic acid/multivit-min/lutein (CENTRUM SILVER ORAL) Take 1 tablet by mouth once daily. baclofen (LIORESAL) 10 mg tablet 10 mg twice daily as needed. latanoprost (XALATAN) 0.005 % ophthalmic solution INSTILL 1 DROP INTO EACH EYE EVERY EVENING DIRECTED cholecalciferol, vitamin D3, (VITAMIN D3 ORAL) Take by mouth once daily. naproxen sodium 220 mg cap Take by mouth twice daily as needed. LABORATORY VALUES: WBC (k/uL) Date Value 08/25/2023 5.16 RBC (m/uL) Date Value 08/25/2023 3.71 (L) Hemoglobin (g/dL) Date Value 08/25/2023 12.8 Hematocrit (%) Date Value 08/25/2023 36.8 MCV (fL) Date Value 08/25/2023 99.2 MCH (pg) Date Value 08/25/2023 34.5 (H) MCHC (g/dL) Date Value 08/25/2023 34.8 RDW-CV (%) Date Value 08/25/2023 13.3 Platelet Count (k/uL) Date Value 08/25/2023 240 MPV (fL) Date Value 08/25/2023 8.5 (L) Glucose (mg/dL) Date Value 08/25/2023 125 (H) BUN (mg/dL) Date Value 08/25/2023 14 Creatinine (mg/dL) Date Value 08/25/2023 0.89 Sodium (mmol/L) Date Value 08/25/2023 133 (L) Potassium (mmol/L) Date Value 08/25/2023 3.8 Chloride (mmol/L) Date Value 08/25/2023 98 CO2 (mmol/L) Date Value 08/25/2023 24 Protein, Total (g/dL) Date Value 08/25/2023 6.8 Albumin (g/dL) Date Value 08/25/2023 4.1 Calcium, Total (mg/dL) Date Value 08/25/2023 9.9 Alkaline Phosphatase (U/L) Date Value 08/25/2023 95 Bilirubin, Total (mg/dL) Date Value 08/25/2023 0.3 AST (U/L) Date Value 08/25/2023 16 ALT (U/L) Date Value 08/25/2023 11 DIAGNOSIS: (C50.811, C50.812, Z17.0) Malignant neoplasm of overlapping sites of both breasts in female, estrogen receptor positive (HCC) (primary encounter diagnosis) Plan: DISCONTINUED: influenza vaccine qs 240 mcg (Patients 65 years and older) (PF) 0.7 mL injection (FLUZONE HIGH DOSE ) (C50.911, Z17.0) Malignant neoplasm of right breast in female, estrogen receptor positive, unspecified site of breast (HCC) Plan: DISCONTINUED: influenza vaccine qs 240 mcg (Patients 65 years and older) (PF) 0.7 mL injection (FLUZONE HIGH DOSE ) (D05.12) Cancer of breast, intraductal, left Plan: DISCONTINUED: influenza vaccine qs 240 mcg (Patients 65 years and older) (PF) 0.7 mL injection (FLUZONE HIGH DOSE ) (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 Plan: DISCONTINUED: influenza vaccine qs 240 mcg (Patients 65 years and older) (PF) 0.7 mL injection (FLUZONE HIGH DOSE ), DISCONTINUED: fulvestrant 500 mg injection (FASLODEX) (I89.0) Lymphedema (C50.919, Z17.0) Malignant neoplasm of breast in female, estrogen receptor positive, unspecified laterality, unspecified site of breast (HCC) PAST MEDICAL HISTORY Diagnosis Date Breast cancer (HCC) Right Post-menopausal PAST SURGICAL HISTORY Procedure Laterality Date APPENDECTOMY BREAST BIOPSY OTHER SURGICAL HISTORY (PLEASE SPECIFY) HX bilateral mastecomy REMV CATARACT EXTRACAP,INSERT LENS Left Social History Tobacco Use Smoking status: Never Passive exposure: Past Smokeless tobacco: Never Vaping Use Vaping Use: Never used Substance Use Topics Alcohol use: No Drug use: No FAMILY HISTORY Problem Relation Age of Onset Prostate Cancer Father other (melanoma [Other]) Daughter other (Renal Cell carcinoma [Other]) Brother I spent a total of 30 minutes on the date of the service which included preparing to see the patient, [id number] patient care, completing clinical documentation, performing a medically appropriate examination, counseling and educating the patient/family/caregiver, ordering medications, tests, or procedures, independently interpreting results (not separately reported), communicating results to the patient/family/caregiver, and care coordination (not separately reported). Cedrick Calix MD, CPE Hematology and Oncology Services Provided at: [place], [place] Scribe Attestation: This note was scribed by Kofi Cole on August 24, 2023 under the direction and supervision of Dr. Cedrick Calix. I attest that all of the information documented is correct to the best of my knowledge. Provider Attestation: I, Cedrick Calix MD, attest that all information documented by the above scribe is correct, and was supervised by me and under my direction. CC: Dr. Kalee Guillen Wonderly Dr. Emeterio Shen documented in this encounter [facility] 08-24-2023 Miscellaneous Notes Pt aware of Ella's message. She denies questions or concerns at this time. She will be in tomorrow 08/25/23 for appointments. Jaz Mccauley RN ----- Message from Cedrick Calix MD sent at 08/23/2023 6:24 PM EST ----- Pet scan is good Soha! documented in this encounter [facility] 08-22-2023 Note [facility] 07-28-2023 Note [facility] 07-28-2023 Instructions Aga Marshall - 07/28/2023 3:58 PM EST Faslodex today and every 4 weeks. Continue cycle 8 kisqali at 400 mg daily for 21 days q 4 weeks PET/CT in 3 weeks ~(08/17/2023) Follow up ~ 4 weeks for labs, faslodex and restart Kisqali cycle 9. documented in this encounter [facility] 07-28-2023 History of Presen t illness Narrative Images from the original note were not included. NAME: Soha Ford NO.: [id number] DATE OF SERVICE: July 28, 2023 ([place]) Some elements in this clinic note that are critical to medical decision making have been carefully reviewed and included from a prior clinic note dated: June 29, 2023 ([place]) Referring Provider: Additional Clinicians involved in Soha Ford's care: DIAGNOSIS: Metastatic breast cancer ASSESSMENT: 1. Malignant neoplasm of female breast, unspecified estrogen receptor status, unspecified laterality, unspecified site of breast (HCC) - ICD9: 174.9, ICD10: C50.919 (primary diagnosis) No evidence of recurrence. We discontinued Arimidex and started on Faslodex. She doesn't recall having issues with Aromasin so we can add this in the future if needed. We started with a CDk4/6 inhibitor. Started Kisqali 01/06/2023. Dose was reduced to 400 mg daily with cycle 3 and tolerating better so far. Anxiety-- Improved with the use of ativan prn. PLAN: Faslodex today and every 4 weeks. Continue cycle 8 kisqali at 400 mg daily for 21 days q 4 weeks PET/CT in 3 weeks ~(08/17/2023) Follow up ~ 4 weeks for labs, faslodex and restart Kisqali cycle 9. HPI: CASE HISTORY: Reverse chronological order: 05/02/2023 PET/CT : Responsive disease Skeleton: Interval improvement with decreased FDG activity associated with the previously present few hypermetabolic osseous foci. No new suspicious hypermetabolic foci. 03/11/2023 : reduced Kisqali to 400 mg due to intolerance. 01/06/2023 : start Fulvestrant + Kisqali 12/09/2022 : PET/CT - progressive mets to bone. 08/17/2022 : PET/CT continued responsive disease 04/22/2022 : PET/CT shows responsive disease - right mid femur improved, left humerous stable 01/11/2022 : Fulvestrant started 12/15/2021 : Left Axillary Recurrence. HER2(-), ER/IL+ 06/2018 - 12/2021: Arimidex - progressed 05/2018: not tolerating aromasin well- in addition to hair loss, having anxiety and hot flashes with poor sleep 03/2018: tried to switch to aromasin due to hair loss 09/2015: completed adjuvant radiation and started adjuvant hormonal therapy with arimidex 05/2015: Bilateral mastectomy with right axillary dissection, path notes [id number] disease 04/2015: stopped weekly taxol, had 9 weeks of therapy, repeat imaging by PET identified complete metabolic response per notes, developed neuropathy, MRI brain identified what was felt to be meningioma 12/2014: started dose dense AC-weekly taxol 11/2014: diagnosed with locally advanced ER/IL (+), HER2(equivocal on FISH, 2+ IHC), grade 2 invasive ductal carcinoma, right axillary lymph nodes appreciated on imaging Updated Visit, July 28, 2023: Soha returns today for follow up and faslodex, has been doing really well other than the weather's effects. Tolerating Kisqali well. She is not taking the Ativan 3x/day, has some days where she takes it more than once but doesn't need to take it that frequently. We reviewed her labs, everything looks good and stable. I recommended she have a general teeth cleaning at the dentist. Updated Visit, June 29, 2023: Soha Ford returns for scheduled follow-up and Faslodex. She remains on monthly Faslodex and is tolerating it well. She started her next cycle of Kisqali yesterday, 06/28/2023. She denies any side effects from treatment. She denies cough, shortness of breath and other pulmonary complaints. She has chronic arthritic pain in her left hip and left knee. She denies any new areas of pain. She denies fevers, chills, night sweats and signs/symptoms of infection. No bleeding or abnormal bruising. She offers no new complaints today. No new issues, problems or concerns. Updated Visit, May 30, 2023: Soha returns and is doing very well. Scans from April reviewed and has had an excellent response. Continue current regimen. Updated Visit, May 05, 2023:Virtual visit for 20 minutes Soha is doing well tolerating her Kisqali at reduced dosing. PET reviewed and has global response! She is, of course, very pleased. Discussed dosing of Kisqali as she is short a few pills. Updated Visit, April 18, 2023: Soha returns with her daughter today. She is doing much better on this dose of Kis Emely. We will continue current regimen. We will adjust treatment to match with Faslodex as day 1 of each cycle. Labs reviewed. She meets all safety parameters. Updated Visit, April 04, 2023: Soha is here for follow up currently on her Off week of 400 mg of kisquali. She is tolerating it well. She has been on this dose for about 3 weeks. April 08 she will start up again. Eating too well. No mouth sores. No diarrhea. Using ativan prn and it is helping with he anxiousness. Her lymphedema in her right arm is about the same. Updated Visit, March 18, 2023: Soha is 77 years old and returns with her daughter Inga and is doing much better with 1 week of decreased dose of ribociclib. I may have her further dosing by skipping the weekends for this cycle. Once we see how this goes we can decide whether to continue it or continue at q. 21-day dosing at 400 mg. She is to continue Ativan 3 times daily which seems to be helping her tremendously. Updated Visit, March 04, 2023: Couldn't eat, burning. Severely anxious which is really interfering with her cancer care. 30 minutes discussing anxiety so will need to increase her anxiety meds and then we wesley focus on breast cancer management. Updated Visit, February 03, 2023: Soha Ford returns for follow-up and her monthly Faslodex. She is due to start her next cycle of Kisqali. She began taking Nexium daily which has tremendously helped with her heartburn. She has intermittent headaches and takes Tylenol with improvement. She denies fevers, chills and signs/symptoms of infection. No bleeding or abnormal bruising. She states that she is drinking plenty of water. She has left hip pain and needs a left hip replacement due to arthritis. She denies any other areas of unusual pain. Updated Visit, January 20, 2023: Soah Ford returns for follow-up. She started Kisqali 600 mg (3 tablets) daily for 3 weeks on and 1 week off on January 06. She is scheduled to complete her first cycle on January 26. Initially when starting the Kisqali her cheeks turned red and her bottom lip felt like it had a welt . Her face was hot to the touch, more on the left side than the right side. She called the office with complaints of heartburn. It was recommended she start Nexium [id number]. She states that her labia felt irritated and that her urine was hot . She is worried about a urinary tract infection. She denies fevers and chills. No bleeding or abnormal bruising. Updated Visit, January 06, 2023: Returns with Inga - still very anxious. Repeated and reinforced education. Start Kisqali today and monitor labs. Due for faslodex today as well. Updated Visit, December 16, 2022: Soha returns with her daughter Inga. She celebrated her 77th birthday. Always anxious Would start ribociclib. Will need guardant 360 for ESR1 mutation if she progresses. Updated Visit, August 19, 2022: Soha is 76 years old and returns with her daughter Inga. Overall doing well. Scans reviewed and show continued response of disease. Seems to alleviate her significant levels of anxiety. Although, at a baseline she is very anxious. Updated Visit, June 24, 2022: Radha accompanies and she reports the she lost her appetite past few days and has dysuria over same period of time. Also frequent urination. However she just finished Keflex for a skin infection.will send UA C&S Updated Visit, April 29, 2022: Returns with Radha and Inga - reviewed PET/CT which shows improvement. She remains nervous about many things especially taking pain pills for her hip pain. She would be safe to proceed with ortho intervention as needed. Updated Visit, April 01, 2022: Soha returns accompanied by both of her daughters Radha and Inga and is less anxious today. Continues to have hip pain from bursitis. She feels well tolerating faslodex. No appreciable axillary mass on left with palpation. Updated Visit, February 08, 2022: Frannie returns with her daughter Radha. She is less anxious today and is tolerating treatment well. Bones are achy Hip consistent with bursitis and did well with a steroid short. Left arm is doing well. She s concerned about the sclerotic lesion in the left humerus but I reassured her that this would not be a subtle change if there was something alarming about this lesion. Updated Visit, January 11, 2022: Here with her daughter Radha. Left axillary wound is erythematous but non-tender and not inflamed. Does not appear infected. Scalp appears to have small raised lesions that will likely need to have dermatology look at them, but not acutely. Her anxiety remains quite high. Updated Visit, December 28, 2021: Telephone only for 15 minutes Called [facility] to get Her2 status. Verbal report that FISH was negative. Called Soha as requested and given her fairly low volume of disease on PET/CT, we could hold RT for any painfull symptomatic disease or new bony metastatic disease. We will maximize endocrine therapy. No significant pain. Primarily anxiety. Updated Visit, December 24, 2021: Soha returns with her daughters today and is highly anxious. She had a left axillary mass removed after Dr. Dong noted it on his most recent visit. This was not noted on my evaluation in September. She had the mass resected and it was consistent with her ER/IL+ brca. [id number] FISH is still pending. She will need staging PET/CT to determine extent and volume of disease. Once we have the final pathology and PET restaging we will determine course of therapy. She is hoping not to have chemotherapy. Updated Visit, September 24, 2021: Soha Ford is a 75 year old female who presents in follow-up on Arimidex for breast cancer diagnosed in 2014. Has preferred to stay on extended endocrine therapy in adjuvant setting. Very anxious about her tumor marker but realized that she had heard her number incorrectly and that there was no need for anxiety caused by following this lab test. All else is well. Labs are stable. No palpable abnormality noted in arms or axilla. Lymphedema is stable. 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 Dr. Matias is monitoring but on my exam, the lesion appears to be raised slightly and will likely need re-evaluated. Calcium in the form of Tums with Vitamin D. Continues to take Arimidex since 06/2018. Complains of some decreased mobility especially in her left leg with some pain shooting down the left leg. Updated Visit, December 24, 2020: Soha Ford returns for scheduled follow-up. Since her last visit there has been no significant medical changes. Today she is concerned about a couple of skin moles. She denies cough, shortness of breath and other pulmonary symptoms. She denies any unusual pain. She denies chest wall lumps or bumps. She remains on Arimidex and is tolerating it fairly well. She denies any significant muscle and joint aches. Overall, doing well. Updated Visit, June 25, 2020: Soha Ford is a 74 year old female who presents in follow-up on Arimidex. She has requested vaccinations to include Pneumococcal, Influenza and shingle. Continues arimidex for 10 years - 09/2025 Doing well right arm in lymphedema sleeve Osteopenia on dexa Caltrate D sent in Consider prevention of bone disease in the future CT of the chest is reviewed below: 03/05/2019 10:49 AM - Radiology, [place] In Impression IMPRESSION: 1. Mildly enlarged left axillary lymph node appears slightly more conspicuous when compared to the prior study of 08/28/2018, new when compared to more remote examination of 10/10/2017. 2. Scattered right-sided subcentimeter pulmonary nodules, unchanged. She was on arimidex with much better tolerance. APV put her on this from aromasin which she was losing her hair with. REVIEW OF SYSTEMS Per HPI and otherwise negative by full review of organ systems. ECOG PERFORMANCE STATUS: 1 PHYSICAL EXAMINATION: Vitals: BP 167/87 Pulse 92 Temp (Src) 97 (Temporal) Resp 18 Ht 5' 0 (1.52m) Wt 166 lb 12.8 oz (75.7kg) SpO2 97% BMI 32.58 kg/(m^2). Body surface area is 1.79 meters squared. Exam limited to gross visualization where appropriate. Gen.: This is an age-appropriate patient in no acute distress. Head: Appears atraumatic with no visible lesions. Eyes: Pupils equally round and reactive to light, extraocular muscles are intact. Neck: Supple. Respiratory: Appears to be respiring comfortably. Neurologic: Nonfocal to gross visualization. Alert and oriented 3. Psychiatric: No evidence of inappropriate anxiety or depression. Skin: Visible areas of skin without rash, lesions, wounds or petechiae. Lymphedema sleeve in place. ALLERGIES: ALLERGIES Allergen Reactions Citalopram Hydrobro* Other: See Comments MEDICATIONS: ribociclib (KISQALI) 400 mg/day (200 mg x 2) tab Take 2 tablets (400 mg) by mouth once daily for 21 days. Then take a 7-day rest period to complete a 28-day treatment cycle. diphenhydrAMINE 12.5 mg/5 mL lidocaine visc 2% MAALOX 200-200-20 mg/5 mL nystatin prednisoLONE 15 mg/5 mL oral liquid 1:1:1:1:1 (CPD) Take 5 mL by mouth every 6 hours as needed. Swish and Swallow ondansetron (ZOFRAN) 8 mg tablet Take 1 tablet by mouth every 8 hours as needed for nausea/vomiting. prochlorperazine (COMPAZINE) 10 mg tablet Take 1 tablet by mouth every 6 hours as needed. traMADol (ULTRAM) 50 mg tablet folic acid/multivit-min/lutein (CENTRUM SILVER ORAL) Take 1 tablet by mouth once daily. baclofen (LIORESAL) 10 mg tablet 10 mg twice daily as needed. latanoprost (XALATAN) 0.005 % ophthalmic solution INSTILL 1 DROP INTO EACH EYE EVERY EVENING DIRECTED cholecalciferol, vitamin D3, (VITAMIN D3 ORAL) Take by mouth once daily. naproxen sodium 220 mg cap Take by mouth twice daily as needed. LORazepam (ATIVAN) 0.5 mg Take 1 tablet by mouth three times a day as needed for up to 90 days. LABORATORY VALUES: WBC (k/uL) Date Value 07/28/2023 4.91 RBC (m/uL) Date Value 07/28/2023 3.78 (L) Hemoglobin (g/dL) Date Value 07/28/2023 12.9 Hematocrit (%) Date Value 07/28/2023 37.7 MCV (fL) Date Value 07/28/2023 99.7 MCH (pg) Date Value 07/28/2023 34.1 (H) MCHC (g/dL) Date Value 07/28/2023 34.2 RDW-CV (%) Date Value 07/28/2023 13.6 Platelet Count (k/uL) Date Value 07/28/2023 258 MPV (fL) Date Value 07/28/2023 8.6 (L) Glucose (mg/dL) Date Value 07/28/2023 95 BUN (mg/dL) Date Value 07/28/2023 14 Creatinine (mg/dL) Date Value 07/28/2023 0.89 Sodium (mmol/L) Date Value 07/28/2023 131 (L) Potassium (mmol/L) Date Value 07/28/2023 4.0 Chloride (mmol/L) Date Value 07/28/2023 96 (L) CO2 (mmol/L) Date Value 07/28/2023 24 Protein, Total (g/dL) Date Value 07/28/2023 6.9 Albumin (g/dL) Date Value 07/28/2023 4.3 Calcium, Total (mg/dL) Date Value 07/28/2023 10.0 Alkaline Phosphatase (U/L) Date Value 07/28/2023 107 Bilirubin, Total (mg/dL) Date Value 07/28/2023 0.4 AST (U/L) Date Value 07/28/2023 16 ALT (U/L) Date Value 07/28/2023 14 DIAGNOSIS: (C50.911, Z17.0) Malignant neoplasm of right breast in female, estrogen receptor positive, unspecified site of breast (HCC) (primary encounter diagnosis) Plan: NM PET/CT SKULL-THIGH SUBSEQUENT, LORazepam (ATIVAN) 0.5 mg, DISCONTINUED: influenza vaccine qs 240 mcg (Patients 65 years and older) (PF) 0.7 mL injection (FLUZONE HIGH DOSE ) (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) Anxiety neurosis Plan: LORazepam (ATIVAN) 0.5 mg PAST MEDICAL HISTORY Diagnosis Date Breast cancer (HCC) Right Post-menopausal PAST SURGICAL HISTORY Procedure Laterality Date APPENDECTOMY BREAST BIOPSY OTHER SURGICAL HISTORY (PLEASE SPECIFY) HX bilateral mastecomy REMV CATARACT EXTRACAP,INSERT LENS Left Social History Tobacco Use Smoking status: Never Passive exposure: Past Smokeless tobacco: Never Vaping Use Vaping Use: Never used Substance Use Topics Alcohol use: No Drug use: No FAMILY HISTORY Problem Relation Age of Onset Prostate Cancer Father other (melanoma [Other]) Daughter other (Renal Cell carcinoma [Other]) Brother I spent a total of 30 minutes on the date of the service which included preparing to see the patient, [id number] patient care, completing clinical documentation, performing a medically appropriate examination, counseling and educating the patient/family/caregiver, ordering medications, tests, or procedures, independently interpreting results (not separately reported), communicating results to the patient/family/caregiver, and care coordination (not separately reported). Cedrick Calix MD, CPE Hematology and Oncology Services Provided at: [place], [place] Scribe Attestation: This note was scribed by Aga Marshall on July 28, 2023 under the direction and supervision of Dr. Cedrick Calix. I attest that all of the information documented is correct to the best of my knowledge. Provider Attestation: I, Cedrick Calix MD, attest that all information documented by the above scribe is correct, and was supervised by me and under my direction. CC: Dr. Kalee Cormierly Dr. Emeterio Shen documented in this encounter [facility] 06-29-2023 Note [facility] 06-29-2023 History of Presen t illness Narrative Images from the original note were not included. -NAME: Soha Ford [facility] NO.: [id number] DATE OF SERVICE: June 29, 2023 ([place]) Some elements in this clinic note that are critical to medical decision making have been carefully reviewed and included from a prior clinic note dated: May 30, 2023. (Dr. Calix) Referring Provider: Additional Clinicians involved in Soha Ford's care: DIAGNOSIS: Metastatic breast cancer ASSESSMENT: 1. Malignant neoplasm of female breast, unspecified estrogen receptor status, unspecified laterality, unspecified site of breast (HCC) - ICD9: 174.9, ICD10: C50.919 (primary diagnosis) No evidence of recurrence. We discontinued Arimidex and started on Faslodex. She doesn't recall having issues with Aromasin so we can add this in the future if needed. We started with a CDk4/6 inhibitor. Started Kisqali 01/06/2023. Dose was reduced to 400 mg daily with cycle 3 and tolerating better so far. Anxiety-- Improved with the use of ativan prn. PLAN: Faslodex today and every 4 weeks. Continue cycle 7 kisqali at 400 mg daily for 21 days q 4 weeks Follow up ~ 4 weeks for labs, faslodex and restart Kisqali cycle 8. HPI: CASE HISTORY: Reverse chronological order: 05/02/2023 PET/CT : Responsive disease Skeleton: Interval improvement with decreased FDG activity associated with the previously present few hypermetabolic osseous foci. No new suspicious hypermetabolic foci. 03/11/2023 : reduced Kisqali to 400 mg due to intolerance. 01/06/2023 : start Fulvestrant + Kisqali 12/09/2022 : PET/CT - progressive mets to bone. 08/17/2022 : PET/CT continued responsive disease 04/22/2022 : PET/CT shows responsive disease - right mid femur improved, left humerous stable 01/11/2022 : Fulvestrant started 12/15/2021 : Left Axillary Recurrence. HER2(-), ER/IL+ 06/2018 - 12/2021: Arimidex - progressed 05/2018: not tolerating aromasin well- in addition to hair loss, having anxiety and hot flashes with poor sleep 03/2018: tried to switch to aromasin due to hair loss 09/2015: completed adjuvant radiation and started adjuvant hormonal therapy with arimidex 05/2015: Bilateral mastectomy with right axillary dissection, path notes [id number] disease 04/2015: stopped weekly taxol, had 9 weeks of therapy, repeat imaging by PET identified complete metabolic response per notes, developed neuropathy, MRI brain identified what was felt to be meningioma 12/2014: started dose dense AC-weekly taxol 11/2014: diagnosed with locally advanced ER/IL (+), HER2(equivocal on FISH, 2+ IHC), grade 2 invasive ductal carcinoma, right axillary lymph nodes appreciated on imaging Updated Visit, June 29, 2023: Soha Ford returns for scheduled follow-up and Faslodex. She remains on monthly Faslodex and is tolerating it well. She started her next cycle of Kisqali yesterday, 06/28/2023. She denies any side effects from treatment. She denies cough, shortness of breath and other pulmonary complaints. She has chronic arthritic pain in her left hip and left knee. She denies any new areas of pain. She denies fevers, chills, night sweats and signs/symptoms of infection. No bleeding or abnormal bruising. She offers no new complaints today. No new issues, problems or concerns. Updated Visit, May 30, 2023: Soha returns and is doing very well. Scans from April reviewed and has had an excellent response. Continue current regimen. Updated Visit, May 05, 2023:Virtual visit for 20 minutes Soha is doing well tolerating her Kisqali at reduced dosing. PET reviewed and has global response! She is, of course, very pleased. Discussed dosing of Kisqali as she is short a few pills. Updated Visit, April 18, 2023: Soha returns with her daughter today. She is doing much better on this dose of Kis Emely. We will continue current regimen. We will adjust treatment to match with Faslodex as day 1 of each cycle. Labs reviewed. She meets all safety parameters. Updated Visit, April 04, 2023: Soha is here for follow up currently on her Off week of 400 mg of kisquali. She is tolerating it well. She has been on this dose for about 3 weeks. April 08 she will start up again. Eating too well. No mouth sores. No diarrhea. Using ativan prn and it is helping with he anxiousness. Her lymphedema in her right arm is about the same. Updated Visit, March 18, 2023: Soha is 77 years old and returns with her daughter Inga and is doing much better with 1 week of decreased dose of ribociclib. I may have her further dosing by skipping the weekends for this cycle. Once we see how this goes we can decide whether to continue it or continue at q. 21-day dosing at 400 mg. She is to continue Ativan 3 times daily which seems to be helping her tremendously. Updated Visit, March 04, 2023: Couldn't eat, burning. Severely anxious which is really interfering with her cancer care. 30 minutes discussing anxiety so will need to increase her anxiety meds and then we wesley focus on breast cancer management. Updated Visit, February 03, 2023: Soha Ford returns for follow-up and her monthly Faslodex. She is due to start her next cycle of Kisqali. She began taking Nexium daily which has tremendously helped with her heartburn. She has intermittent headaches and takes Tylenol with improvement. She denies fevers, chills and signs/symptoms of infection. No bleeding or abnormal bruising. She states that she is drinking plenty of water. She has left hip pain and needs a left hip replacement due to arthritis. She denies any other areas of unusual pain. Updated Visit, January 20, 2023: Soha Ford returns for follow-up. She started Kisqali 600 mg (3 tablets) daily for 3 weeks on and 1 week off on January 06. She is scheduled to complete her first cycle on January 26. Initially when starting the Kisqali her cheeks turned red and her bottom lip felt like it had a welt . Her face was hot to the touch, more on the left side than the right side. She called the office with complaints of heartburn. It was recommended she start Nexium [id number]. She states that her labia felt irritated and that her urine was hot . She is worried about a urinary tract infection. She denies fevers and chills. No bleeding or abnormal bruising. Updated Visit, January 06, 2023: Returns with Inga - still very anxious. Repeated and reinforced education. Start Kisqali today and monitor labs. Due for faslodex today as well. Updated Visit, December 16, 2022: Soha returns with her daughter Inga. She celebrated her 77th birthday. Always anxious Would start ribociclib. Will need guardant 360 for ESR1 mutation if she progresses. Updated Visit, August 19, 2022: Soha is 76 years old and returns with her daughter Inga. Overall doing well. Scans reviewed and show continued response of disease. Seems to alleviate her significant levels of anxiety. Although, at a baseline she is very anxious. Updated Visit, June 24, 2022: Radha accompanies and she reports the she lost her appetite past few days and has dysuria over same period of time. Also frequent urination. However she just finished Keflex for a skin infection.will send C&S Updated Visit, April 29, 2022: Returns with Radha and Inga - reviewed PET/CT which shows improvement. She remains nervous about many things especially taking pain pills for her hip pain. She would be safe to proceed with ortho intervention as needed. Updated Visit, April 01, 2022: Soha returns accompanied by both of her daughters Radha and Inga and is less anxious today. Continues to have hip pain from bursitis. She feels well tolerating faslodex. No appreciable axillary mass on left with palpation. Updated Visit, February 08, 2022: Frannie returns with her daughter Radha. She is less anxious today and is tolerating treatment well. Bones are achy Hip consistent with bursitis and did well with a steroid short. Left arm is doing well. She s concerned about the sclerotic lesion in the left humerus but I reassured her that this would not be a subtle change if there was something alarming about this lesion. Updated Visit, January 11, 2022: Here with her daughter Radha. Left axillary wound is erythematous but non-tender and not inflamed. Does not appear infected. Scalp appears to have small raised lesions that will likely need to have dermatology look at them, but not acutely. Her anxiety remains quite high. Updated Visit, December 28, 2021: Telephone only for 15 minutes Called [facility] to get Her2 status. Verbal report that FISH was negative. Called Soha as requested and given her fairly low volume of disease on PET/CT, we could hold RT for any painfull symptomatic disease or new bony metastatic disease. We will maximize endocrine therapy. No significant pain. Primarily anxiety. Updated Visit, December 24, 2021: Soha returns with her daughters today and is highly anxious. She had a left axillary mass removed after Dr. Dong noted it on his most recent visit. This was not noted on my evaluation in September. She had the mass resected and it was consistent with her ER/IL+ brca. [id number] FISH is still pending. She will need staging PET/CT to determine extent and volume of disease. Once we have the final pathology and PET restaging we will determine course of therapy. She is hoping not to have chemotherapy. Updated Visit, September 24, 2021: Soha Ford is a 75 year old female who presents in follow-up on Arimidex for breast cancer diagnosed in 2014. Has preferred to stay on extended endocrine therapy in adjuvant setting. Very anxious about her tumor marker but realized that she had heard her number incorrectly and that there was no need for anxiety caused by following this lab test. All else is well. Labs are stable. No palpable abnormality noted in arms or axilla. Lymphedema is stable. 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 Dr. Matias is monitoring but on my exam, the lesion appears to be raised slightly and will likely need re-evaluated. Calcium in the form of Tums with Vitamin D. Continues to take Arimidex since 06/2018. Complains of some decreased mobility especially in her left leg with some pain shooting down the left leg. Updated Visit, December 24, 2020: Soha Ford returns for scheduled follow-up. Since her last visit there has been no significant medical changes. Today she is concerned about a couple of skin moles. She denies cough, shortness of breath and other pulmonary symptoms. She denies any unusual pain. She denies chest wall lumps or bumps. She remains on Arimidex and is tolerating it fairly well. She denies any significant muscle and joint aches. Overall, doing well. Updated Visit, June 25, 2020: Soha Ford is a 74 year old female who presents in follow-up on Arimidex. She has requested vaccinations to include Pneumococcal, Influenza and shingle. Continues arimidex for 10 years - 09/2025 Doing well right arm in lymphedema sleeve Osteopenia on dexa Caltrate D sent in Consider prevention of bone disease in the future CT of the chest is reviewed below: 03/05/2019 10:49 AM - Radiology, [facility] In Impression IMPRESSION: 1. Mildly enlarged left axillary lymph node appears slightly more conspicuous when compared to the prior study of 08/28/2018, new when compared to more remote examination of 10/10/2017. 2. Scattered right-sided subcentimeter pulmonary nodules, unchanged. She was on arimidex with much better tolerance. APV put her on this from aromasin which she was losing her hair with. REVIEW OF SYSTEMS Per HPI and otherwise negative by full review of organ systems. ECOG PERFORMANCE STATUS: 1 PHYSICAL EXAMINATION: Vitals: BP 181/88[Left forearm[ Pulse 75 Temp (Src) 97 (Temporal) Resp 16 Ht 5' 0 (1.52m) Wt 163 lb (73.9kg) SpO2 95% BMI 31.83 kg/(m^2). Body surface area is 1.77 meters squared. Exam limited to gross visualization where appropriate. Gen.: This is an age-appropriate patient in no acute distress. Head: Appears atraumatic with no visible lesions. Eyes: Pupils equally round and reactive to light, extraocular muscles are intact. Neck: Supple. Respiratory: Appears to be respiring comfortably. Neurologic: Nonfocal to gross visualization. Alert and oriented 3. Psychiatric: No evidence of inappropriate anxiety or depression. Skin: Visible areas of skin without rash, lesions, wounds or petechiae. Lymphedema sleeve in place. ALLERGIES: ALLERGIES Allergen Reactions Citalopram Hydrobro* Other: See Comments MEDICATIONS: baclofen (LIORESAL) 10 mg tablet 10 mg twice daily as needed. cholecalciferol, vitamin D3, (VITAMIN D3 ORAL) Take by mouth once daily. diphenhydrAMINE 12.5 mg/5 mL lidocaine visc 2% MAALOX 200-200-20 mg/5 mL nystatin prednisoLONE 15 mg/5 mL oral liquid 1:1:1:1:1 (CPD) Take 5 mL by mouth every 6 hours as needed. Swish and Swallow folic acid/multivit-min/lutein (CENTRUM SILVER ORAL) Take 1 tablet by mouth once daily. latanoprost (XALATAN) 0.005 % ophthalmic solution INSTILL 1 DROP INTO EACH EYE EVERY EVENING DIRECTED naproxen sodium 220 mg cap Take by mouth twice daily as needed. ondansetron (ZOFRAN) 8 mg tablet Take 1 tablet by mouth every 8 hours as needed for nausea/vomiting. prochlorperazine (COMPAZINE) 10 mg tablet Take 1 tablet by mouth every 6 hours as needed. ribociclib (KISQALI) 400 mg/day (200 mg x 2) tab Take 2 tablets (400 mg) by mouth once daily for 21 days. Then take a 7-day rest period to complete a 28-day treatment cycle. traMADol (ULTRAM) 50 mg tablet LABORATORY VALUES: Hemoglobin (g/dL) Date Value 06/29/2023 13.9 09/22/2021 14.8 Hematocrit (%) Date Value 06/29/2023 40.9 09/22/2021 45.1 WBC (k/uL) Date Value 06/29/2023 4.80 09/22/2021 9.07 Platelet Count (k/uL) Date Value 06/29/2023 234 09/22/2021 336 DIAGNOSIS: No diagnosis found. PAST MEDICAL HISTORY Diagnosis Date Breast cancer (HCC) Right Post-menopausal PAST SURGICAL HISTORY Procedure Laterality Date APPENDECTOMY BREAST BIOPSY OTHER SURGICAL HISTORY (PLEASE SPECIFY) HX bilateral mastecomy REMV CATARACT EXTRACAP,INSERT LENS Left Social History Tobacco Use Smoking status: Never Passive exposure: Past Smokeless tobacco: Never Vaping Use Vaping Use: Never used Substance Use Topics Alcohol use: No Drug use: No FAMILY HISTORY Problem Relation Age of Onset Prostate Cancer Father other (melanoma [Other]) Daughter other (Renal Cell carcinoma [Other]) Brother Christ Marquez APRN.[employer] Hematology [facility] Oncology Services Provided at: [facility] [place], [place] CC: Dr. Kalee Shen I spent a total of 30 minutes on the date of the service which included preparing to see the patient, [id number] patient care, completing clinical documentation, obtaining and/or reviewing separately obtained history, performing a medically appropriate examination, counseling and educating the patient/family/caregiver, ordering medications, tests, or procedures, independently interpreting results (not separately reported), and communicating results to the patient/family/caregiver. documented in this encounter [facility] 05-30-2023 Note [facility] 05-30-2023 Instructions Cedrick Calix MD - 05/30/2023 2:49 PM EDT Faslodex today and q 4 weeks Continue C6 kisqali at 400 mg daily for 21 days q 4 weeks RTC ~ 4 weeksfor labs faslodex and restart Kisqali C7 documented in this encounter [facility] 05-30-2023 History of Presen t illness Narrative Images from the original note were not included. -NAME: Soha Ford [facility] NO.: [id number] DATE OF SERVICE: May 30, 2023 (apple) Some elements in this clinic note that are critical to medical decision making have been carefully reviewed and included from a prior clinic note dated: May 05, 2023 ([place]) & April 18, 2023 ([facility]) Referring Provider: Additional Clinicians involved in Soha Ford's care: DIAGNOSIS: Metastatic breast cancer ASSESSMENT: 1. Malignant neoplasm of female breast, unspecified estrogen receptor status, unspecified laterality, unspecified site of breast (HCC) - ICD9: 174.9, ICD10: C50.919 (primary diagnosis) No evidence of recurrence. We discontinued Arimidex and started on Faslodex. She doesn't recall having issues with Aromasin so we can add this in the future if needed. We started with a CDk4/6 inhibitor. Started Kisqali 01/06/2023. Dose was reduced to 400 mg daily with cycle 3 and tolerating better so far. Anxiety--improved with the use of ativan prn. PLAN: Faslodex today and q 4 weeks Continue C6 kisqali at 400 mg daily for 21 days q 4 weeks RTC ~ 4 weeksfor labs faslodex and restart Kisqali C7 HPI: CASE HISTORY: Reverse chronological order: 05/02/2023 PET/CT : Responsive disease Skeleton: Interval improvement with decreased FDG activity associated with the previously present few hypermetabolic osseous foci. No new suspicious hypermetabolic foci. 03/11/2023 : reduced Kisqali to 400 mg due to intolerance. 01/06/2023 : start Fulvestrant + Kisqali 12/09/2022 : PET/CT - progressive mets to bone. 08/17/2022 : PET/CT continued responsive disease 04/22/2022 : PET/CT shows responsive disease - right mid femur improved, left humerous stable 01/11/2022 : Fulvestrant started 12/15/2021 : Left Axillary Recurrence. HER2(-), ER/IL+ 06/2018 - 12/2021: Arimidex - progressed 05/2018: not tolerating aromasin well- in addition to hair loss, having anxiety and hot flashes with poor sleep 03/2018: tried to switch to aromasin due to hair loss 09/2015: completed adjuvant radiation and started adjuvant hormonal therapy with arimidex 05/2015: Bilateral mastectomy with right axillary dissection, path notes [id number] disease 04/2015: stopped weekly taxol, had 9 weeks of therapy, repeat imaging by PET identified complete metabolic response per notes, developed neuropathy, MRI brain identified what was felt to be meningioma 12/2014: started dose dense AC-weekly taxol 11/2014: diagnosed with locally advanced ER/IL (+), HER2(equivocal on FISH, 2+ IHC), grade 2 invasive ductal carcinoma, right axillary lymph nodes appreciated on imaging Updated Visit, May 30, 2023: Soha returns and is doing very well. Scans from April reviewed and has had an excellent response. Continue current regimen. Updated Visit, May 05, 2023:Virtual visit for 20 minutes Soha is doing well tolerating her Kisqali at reduced dosing. PET reviewed and has global response! She is, of course, very pleased. Discussed dosing of Kisqali as she is short a few pills. Updated Visit, April 18, 2023: Soha returns with her daughter today. She is doing much better on this dose of Kis Emely. We will continue current regimen. We will adjust treatment to match with Faslodex as day 1 of each cycle. Labs reviewed. She meets all safety parameters. Updated Visit, April 04, 2023: Soha is here for follow up currently on her Off week of 400 mg of kisquali. She is tolerating it well. She has been on this dose for about 3 weeks. April 08 she will start up again. Eating too well. No mouth sores. No diarrhea. Using ativan prn and it is helping with he anxiousness. Her lymphedema in her right arm is about the same. Updated Visit, March 18, 2023: Soha is 77 years old and returns with her daughter Inga and is doing much better with 1 week of decreased dose of ribociclib. I may have her further dosing by skipping the weekends for this cycle. Once we see how this goes we can decide whether to continue it or continue at q. 21-day dosing at 400 mg. She is to continue Ativan 3 times daily which seems to be helping her tremendously. Updated Visit, March 04, 2023: Couldn't eat, burning. Severely anxious which is really interfering with her cancer care. 30 minutes discussing anxiety so will need to increase her anxiety meds and then we wesley focus on breast cancer management. Updated Visit, February 03, 2023: Soha Ford returns for follow-up and her monthly Faslodex. She is due to start her next cycle of Kisqali. She began taking Nexium daily which has tremendously helped with her heartburn. She has intermittent headaches and takes Tylenol with improvement. She denies fevers, chills and signs/symptoms of infection. No bleeding or abnormal bruising. She states that she is drinking plenty of water. She has left hip pain and needs a left hip replacement due to arthritis. She denies any other areas of unusual pain. Updated Visit, January 20, 2023: Soha oFrd returns for follow-up. She started Kisqali 600 mg (3 tablets) daily for 3 weeks on and 1 week off on January 06. She is scheduled to complete her first cycle on January 26. Initially when starting the Kisqali her cheeks turned red and her bottom lip felt like it had a welt . Her face was hot to the touch, more on the left side than the right side. She called the office with complaints of heartburn. It was recommended she start Nexium [id number]. She states that her labia felt irritated and that her urine was hot . She is worried about a urinary tract infection. She denies fevers and chills. No bleeding or abnormal bruising. Updated Visit, January 06, 2023: Returns with Inga - still very anxious. Repeated and reinforced education. Start Kisqali today and monitor labs. Due for faslodex today as well. Updated Visit, December 16, 2022: Soha returns with her daughter Inga. She celebrated her 77th birthday. Always anxious Would start ribociclib. Will need guardant 360 for ESR1 mutation if she progresses. Updated Visit, August 19, 2022: Soha is 76 years old and returns with her daughter Inga. Overall doing well. Scans reviewed and show continued response of disease. Seems to alleviate her significant levels of anxiety. Although, at a baseline she is very anxious. Updated Visit, June 24, 2022: Radha accompanies and she reports the she lost her appetite past few days and has dysuria over same period of time. Also frequent urination. However she just finished Keflex for a skin infection.will send UA C&S Updated Visit, April 29, 2022: Returns with Radha and Inga - reviewed PET/CT which shows improvement. She remains nervous about many things especially taking pain pills for her hip pain. She would be safe to proceed with ortho intervention as needed. Updated Visit, April 01, 2022: Soha returns accompanied by both of her daughters Radha and Inga and is less anxious today. Continues to have hip pain from bursitis. She feels well tolerating faslodex. No appreciable axillary mass on left with palpation. Updated Visit, February 08, 2022: Frannie returns with her daughter Radha. She is less anxious today and is tolerating treatment well. Bones are achy Hip consistent with bursitis and did well with a steroid short. Left arm is doing well. She s concerned about the sclerotic lesion in the left humerus but I reassured her that this would not be a subtle change if there was something alarming about this lesion. Updated Visit, January 11, 2022: Here with her daughter Radha. Left axillary wound is erythematous but non-tender and not inflamed. Does not appear infected. Scalp appears to have small raised lesions that will likely need to have dermatology look at them, but not acutely. Her anxiety remains quite high. Updated Visit, December 28, 2021: Telephone only for 15 minutes Called [facility] to get Her2 status. Verbal report that FISH was negative. Called Soha as requested and given her fairly low volume of disease on PET/CT, we could hold RT for any painfull symptomatic disease or new bony metastatic disease. We will maximize endocrine therapy. No significant pain. Primarily anxiety. Updated Visit, December 24, 2021: Soha returns with her daughters today and is highly anxious. She had a left axillary mass removed after Dr. Dong noted it on his most recent visit. This was not noted on my evaluation in September. She had the mass resected and it was consistent with her ER/IL+ brca. [id number] FISH is still pending. She will need staging PET/CT to determine extent and volume of disease. Once we have the final pathology and PET restaging we will determine course of therapy. She is hoping not to have chemotherapy. Updated Visit, September 24, 2021: Soha Ford is a 75 year old female who presents in follow-up on Arimidex for breast cancer diagnosed in 2014. Has preferred to stay on extended endocrine therapy in adjuvant setting. Very anxious about her tumor marker but realized that she had heard her number incorrectly and that there was no need for anxiety caused by following this lab test. All else is well. Labs are stable. No palpable abnormality noted in arms or axilla. Lymphedema is stable. 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 Dr. Matias is monitoring but on my exam, the lesion appears to be raised slightly and will likely need re-evaluated. Calcium in the form of Tums with Vitamin D. Continues to take Arimidex since 06/2018. Complains of some decreased mobility especially in her left leg with some pain shooting down the left leg. Updated Visit, December 24, 2020: Soha Ford returns for scheduled follow-up. Since her last visit there has been no significant medical changes. Today she is concerned about a couple of skin moles. She denies cough, shortness of breath and other pulmonary symptoms. She denies any unusual pain. She denies chest wall lumps or bumps. She remains on Arimidex and is tolerating it fairly well. She denies any significant muscle and joint aches. Overall, doing well. Updated Visit, June 25, 2020: Soha Ford is a 74 year old female who presents in follow-up on Arimidex. She has requested vaccinations to include Pneumococcal, Influenza and shingle. Continues arimidex for 10 years - 09/2025 Doing well right arm in lymphedema sleeve Osteopenia on dexa Caltrate D sent in Consider prevention of bone disease in the future CT of the chest is reviewed below: 03/05/2019 10:49 AM - Radiology, [facility] In Impression IMPRESSION: 1. Mildly enlarged left axillary lymph node appears slightly more conspicuous when compared to the prior study of 08/28/2018, new when compared to more remote examination of 10/10/2017. 2. Scattered right-sided subcentimeter pulmonary nodules, unchanged. She was on arimidex with much better tolerance. APV put her on this from aromasin which she was losing her hair with. REVIEW OF SYSTEMS Per HPI and otherwise negative by full review of organ systems. ECOG PERFORMANCE STATUS: 1 PHYSICAL EXAMINATION: Vitals: BP 167/80[recheck BP[ Pulse 87 Temp (Src) 98 (Temporal) Resp 18 Ht 5' 0 (1.52m) Wt 164 lb 3.2 oz (74.5kg) SpO2 98% BMI 32.07 kg/(m^2). Body surface area is 1.78 meters squared. Exam limited to gross visualization where appropriate. Gen.: This is an age-appropriate patient in no acute distress. Head: Appears atraumatic with no visible lesions. Eyes: Pupils equally round and reactive to light, extraocular muscles are intact. Neck: Supple. Respiratory: Appears to be respiring comfortably. Neurologic: Nonfocal to gross visualization. Alert and oriented 3. Psychiatric: No evidence of inappropriate anxiety or depression. Skin: Visible areas of skin without rash, lesions, wounds or petechiae. Lymphedema sleeve in place. ALLERGIES: ALLERGIES Allergen Reactions Citalopram Hydrobro* Other: See Comments MEDICATIONS: ribociclib (KISQALI) 400 mg/day (200 mg x 2) tab Take 2 tablets (400 mg) by mouth once daily for 21 days. Then take a 7-day rest period to complete a 28-day treatment cycle. diphenhydrAMINE 12.5 mg/5 mL lidocaine visc 2% MAALOX 200-200-20 mg/5 mL nystatin prednisoLONE 15 mg/5 mL oral liquid 1:1:1:1:1 (CPD) Take 5 mL by mouth every 6 hours as needed. Swish and Swallow ondansetron (ZOFRAN) 8 mg tablet Take 1 tablet by mouth every 8 hours as needed for nausea/vomiting. prochlorperazine (COMPAZINE) 10 mg tablet Take 1 tablet by mouth every 6 hours as needed. traMADol (ULTRAM) 50 mg tablet folic acid/multivit-min/lutein (CENTRUM SILVER ORAL) Take 1 tablet by mouth once daily. baclofen (LIORESAL) 10 mg tablet 10 mg twice daily as needed. latanoprost (XALATAN) 0.005 % ophthalmic solution INSTILL 1 DROP INTO EACH EYE EVERY EVENING DIRECTED cholecalciferol, vitamin D3, (VITAMIN D3 ORAL) Take by mouth once daily. naproxen sodium 220 mg cap Take by mouth twice daily as needed. LABORATORY VALUES: WBC (k/uL) Date Value 05/30/2023 4.92 RBC (m/uL) Date Value 05/30/2023 4.04 Hemoglobin (g/dL) Date Value 05/30/2023 13.4 Hematocrit (%) Date Value 05/30/2023 39.6 MCV (fL) Date Value 05/30/2023 98.0 MCH (pg) Date Value 05/30/2023 33.2 MCHC (g/dL) Date Value 05/30/2023 33.8 RDW-CV (%) Date Value 05/30/2023 14.0 Platelet Count (k/uL) Date Value 05/30/2023 205 MPV (fL) Date Value 05/30/2023 8.7 (L) Glucose (mg/dL) Date Value 05/30/2023 107 (H) BUN (mg/dL) Date Value 05/30/2023 14 Creatinine (mg/dL) Date Value 05/30/2023 0.86 Sodium (mmol/L) Date Value 05/30/2023 134 (L) Potassium (mmol/L) Date Value 05/30/2023 4.2 Chloride (mmol/L) Date Value 05/30/2023 100 CO2 (mmol/L) Date Value 05/30/2023 23 Protein, Total (g/dL) Date Value 05/30/2023 6.8 Albumin (g/dL) Date Value 05/30/2023 4.3 Calcium, Total (mg/dL) Date Value 05/30/2023 9.8 Alkaline Phosphatase (U/L) Date Value 05/30/2023 95 Bilirubin, Total (mg/dL) Date Value 05/30/2023 0.3 AST (U/L) Date Value 05/30/2023 15 ALT (U/L) Date Value 05/30/2023 16 DIAGNOSIS: (C50.919, Z17.0) Malignant neoplasm of breast in female, estrogen receptor positive, unspecified laterality, unspecified site of breast (HCC) (primary encounter diagnosis) (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 PAST MEDICAL HISTORY Diagnosis Date Breast cancer (HCC) Right Post-menopausal PAST SURGICAL HISTORY Procedure Laterality Date APPENDECTOMY BREAST BIOPSY OTHER SURGICAL HISTORY (PLEASE SPECIFY) HX bilateral mastecomy REMV CATARACT EXTRACAP,INSERT LENS Left Social History Tobacco Use Smoking status: Never Passive exposure: Past Smokeless tobacco: Never Vaping Use Vaping Use: Never used Substance Use Topics Alcohol use: No Drug use: No FAMILY HISTORY Problem Relation Age of Onset Prostate Cancer Father other (melanoma [Other]) Daughter other (Renal Cell carcinoma [Other]) Brother I spent a total of 30 minutes on the date of the service which included preparing to see the patient, [id number] patient care, completing clinical documentation, performing a medically appropriate examination, counseling and educating the patient/family/caregiver, ordering medications, tests, or procedures, independently interpreting results (not separately reported), communicating results to the patient/family/caregiver, and care coordination (not separately reported). Cedrick Calix MD, CPE Hematology and Oncology Services Provided at: [place], [place] CC: Dr. Kalee Shen documented in this encounter [facility] 05-06-2023 Note HNO ID: [id number] Author: Stacy Schumacher Service: ? Author Type: ? Type: Progress Notes Filed: 05/06/2023 9:02 AM Note Text: Patient has been scheduled and notified [facility] 05-05-2023 Note [facility] 05-05-2023 Instructions Cedrick Calix MD - 05/05/2023 5:16 PM EDT Continue C5 kisqali at 400 mg daily for 21 days starting on 05/03 RTC ~ 05/30/2023 for labs faslodex and restart Kisqali C6 documented in this encounter [facility] 05-05-2023 History of Presen t illness Narrative Images from the original note were not included. -NAME: Soha Ford [facility] NO.: [id number] DATE OF SERVICE: May 05, 2023 ([place]) Some elements in this clinic note that are critical to medical decision making have been carefully reviewed and included from a prior clinic note dated: April 18, 2023 ([place]) Referring Provider: Additional Clinicians involved in Soha Ford's care: VIRTUAL VISIT PROGRESS NOTE This is a virtual visit using Audio only. It required patient-provider interaction for the medical decision making as documented below. I have communicated my name and active licensure. The patient's identity and physical location were verified at the time of this visit. Either the patient or their legal office services representative has been informed of the risks and benefits of -- and alternatives to -- treatment through a remote evaluation and consents to proceed with the evaluation remotely. DIAGNOSIS: Metastatic breast cancer ASSESSMENT: 1. Malignant neoplasm of female breast, unspecified estrogen receptor status, unspecified laterality, unspecified site of breast (HCC) - ICD9: 174.9, ICD10: C50.919 (primary diagnosis) No evidence of recurrence. We discontinued Arimidex and started on Faslodex. She doesn't recall having issues with Aromasin so we can add this in the future if needed. We started with a CDk4/6 inhibitor. Started Kisqali 01/06/2023. Dose was reduced to 400 mg daily with cycle 3 and tolerating better so far. Anxiety--improved with the use of ativan prn. PLAN: Continue C5 kisqali at 400 mg daily for 21 days starting on 05/03 RTC ~ 05/30/2023 for labs faslodex and restart Kisqali C6 HPI: CASE HISTORY: 03/11/2023 : reduced Kisqali to 400 mg due to intolerance. 01/06/2023 : start Fulvestrant + Kisqali 12/09/2022 : PET/CT - progressive mets to bone. 08/17/2022 : PET/CT continued responsive disease 04/22/2022 : PET/CT shows responsive disease - right mid femur improved, left humerous stable 01/11/2022 : Fulvestrant started 12/15/2021 : Left Axillary Recurrence. HER2(-), ER/IL+ 06/2018 - 12/2021: Arimidex - progressed 05/2018: not tolerating aromasin well- in addition to hair loss, having anxiety and hot flashes with poor sleep 03/2018: tried to switch to aromasin due to hair loss 09/2015: completed adjuvant radiation and started adjuvant hormonal therapy with arimidex 05/2015: Bilateral mastectomy with right axillary dissection, path notes [id number] disease 04/2015: stopped weekly taxol, had 9 weeks of therapy, repeat imaging by PET identified complete metabolic response per notes, developed neuropathy, MRI brain identified what was felt to be meningioma 12/2014: started dose dense AC-weekly taxol 11/2014: diagnosed with locally advanced ER/IL (+), HER2(equivocal on FISH, 2+ IHC), grade 2 invasive ductal carcinoma, right axillary lymph nodes appreciated on imaging Updated Visit, May 05, 2023:Virtual visit for 20 minutes Soha is doing well tolerating her Kisqali at reduced dosing. PET reviewed and has global response! She is, of course, very pleased. Discussed dosing of Kisqali as she is short a few pills. Updated Visit, April 18, 2023: Soha returns with her daughter today. She is doing much better on this dose of Kis Emely. We will continue current regimen. We will adjust treatment to match with Faslodex as day 1 of each cycle. Labs reviewed. She meets all safety parameters. Updated Visit, April 04, 2023: Soha is here for follow up currently on her Off week of 400 mg of kisquali. She is tolerating it well. She has been on this dose for about 3 weeks. April 08 she will start up again. Eating too well. No mouth sores. No diarrhea. Using ativan prn and it is helping with he anxiousness. Her lymphedema in her right arm is about the same. Updated Visit, March 18, 2023: Soha is 77 years old and returns with her daughter Inga and is doing much better with 1 week of decreased dose of ribociclib. I may have her further dosing by skipping the weekends for this cycle. Once we see how this goes we can decide whether to continue it or continue at q. 21-day dosing at 400 mg. She is to continue Ativan 3 times daily which seems to be helping her tremendously. Updated Visit, March 04, 2023: Couldn't eat, burning. Severely anxious which is really interfering with her cancer care. 30 minutes discussing anxiety so will need to increase her anxiety meds and then we wesley focus on breast cancer management. Updated Visit, February 03, 2023: Soha Ford returns for follow-up and her monthly Faslodex. She is due to start her next cycle of Kisqali. She began taking Nexium daily which has tremendously helped with her heartburn. She has intermittent headaches and takes Tylenol with improvement. She denies fevers, chills and signs/symptoms of infection. No bleeding or abnormal bruising. She states that she is drinking plenty of water. She has left hip pain and needs a left hip replacement due to arthritis. She denies any other areas of unusual pain. Updated Visit, January 20, 2023: Soha Ford returns for follow-up. She started Kisqali 600 mg (3 tablets) daily for 3 weeks on and 1 week off on January 06. She is scheduled to complete her first cycle on January 26. Initially when starting the Kisqali her cheeks turned red and her bottom lip felt like it had a welt . Her face was hot to the touch, more on the left side than the right side. She called the office with complaints of heartburn. It was recommended she start Nexium [id number]. She states that her labia felt irritated and that her urine was hot . She is worried about a urinary tract infection. She denies fevers and chills. No bleeding or abnormal bruising. Updated Visit, January 06, 2023: Returns with Inga - still very anxious. Repeated and reinforced education. Start Kisqali today and monitor labs. Due for faslodex today as well. Updated Visit, December 16, 2022: Shoa returns with her daughter Inga. She celebrated her 77th birthday. Always anxious Would start ribociclib. Will need guardant 360 for ESR1 mutation if she progresses. Updated Visit, August 19, 2022: Soha is 76 years old and returns with her daughter Inga. Overall doing well. Scans reviewed and show continued response of disease. Seems to alleviate her significant levels of anxiety. Although, at a baseline she is very anxious. Updated Visit, June 24, 2022: Radha accompanies and she reports the she lost her appetite past few days and has dysuria over same period of time. Also frequent urination. However she just finished Keflex for a skin infection.will send UA C&S Updated Visit, April 29, 2022: Returns with Radha and Inga - reviewed PET/CT which shows improvement. She remains nervous about many things especially taking pain pills for her hip pain. She would be safe to proceed with ortho intervention as needed. Updated Visit, April 01, 2022: Soha returns accompanied by both of her daughters Radha and Inga and is less anxious today. Continues to have hip pain from bursitis. She feels well tolerating faslodex. No appreciable axillary mass on left with palpation. Updated Visit, February 08, 2022: Frannie returns with her daughter Radha. She is less anxious today and is tolerating treatment well. Bones are achy Hip consistent with bursitis and did well with a steroid short. Left arm is doing well. She s concerned about the sclerotic lesion in the left humerus but I reassured her that this would not be a subtle change if there was something alarming about this lesion. Updated Visit, January 11, 2022: Here with her daughter Radha. Left axillary wound is erythematous but non-tender and not inflamed. Does not appear infected. Scalp appears to have small raised lesions that will likely need to have dermatology look at them, but not acutely. Her anxiety remains quite high. Updated Visit, December 28, 2021: Telephone only for 15 minutes Called [facility] to get Her2 status. Verbal report that FISH was negative. Called Soha as requested and given her fairly low volume of disease on PET/CT, we could hold RT for any painfull symptomatic disease or new bony metastatic disease. We will maximize endocrine therapy. No significant pain. Primarily anxiety. Updated Visit, December 24, 2021: Soha returns with her daughters today and is highly anxious. She had a left axillary mass removed after Dr. Dong noted it on his most recent visit. This was not noted on my evaluation in September. She had the mass resected and it was consistent with her ER/IL+ brca. [id number] FISH is still pending. She will need staging PET/CT to determine extent and volume of disease. Once we have the final pathology and PET restaging we will determine course of therapy. She is hoping not to have chemotherapy. Updated Visit, September 24, 2021: Soha Ford is a 75 year old female who presents in follow-up on Arimidex for breast cancer diagnosed in 2014. Has preferred to stay on extended endocrine therapy in adjuvant setting. Very anxious about her tumor marker but realized that she had heard her number incorrectly and that there was no need for anxiety caused by following this lab test. All else is well. Labs are stable. No palpable abnormality noted in arms or axilla. Lymphedema is stable. 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 Dr. Matias is monitoring but on my exam, the lesion appears to be raised slightly and will likely need re-evaluated. Calcium in the form of Tums with Vitamin D. Continues to take Arimidex since 06/2018. Complains of some decreased mobility especially in her left leg with some pain shooting down the left leg. Updated Visit, December 24, 2020: Soha Ford returns for scheduled follow-up. Since her last visit there has been no significant medical changes. Today she is concerned about a couple of skin moles. She denies cough, shortness of breath and other pulmonary symptoms. She denies any unusual pain. She denies chest wall lumps or bumps. She remains on Arimidex and is tolerating it fairly well. She denies any significant muscle and joint aches. Overall, doing well. Updated Visit, June 25, 2020: Soha Ford is a 74 year old female who presents in follow-up on Arimidex. She has requested vaccinations to include Pneumococcal, Influenza and shingle. Continues arimidex for 10 years - 09/2025 Doing well right arm in lymphedema sleeve Osteopenia on dexa Caltrate D sent in Consider prevention of bone disease in the future CT of the chest is reviewed below: 03/05/2019 10:49 AM - Radiology, [place] In Impression IMPRESSION: 1. Mildly enlarged left axillary lymph node appears slightly more conspicuous when compared to the prior study of 08/28/2018, new when compared to more remote examination of 10/10/2017. 2. Scattered right-sided subcentimeter pulmonary nodules, unchanged. She was on arimidex with much better tolerance. APV put her on this from aromasin which she was losing her hair with. HISTORY REVIEWED (electronic chart updated): PAST MEDICAL HISTORY Diagnosis Date Breast cancer (HCC) Right Post-menopausal PAST SURGICAL HISTORY Procedure Laterality Date APPENDECTOMY BREAST BIOPSY OTHER SURGICAL HISTORY (PLEASE SPECIFY) HX bilateral mastecomy REMV CATARACT EXTRACAP,INSERT LENS Left FAMILY HISTORY Problem Relation Age of Onset Prostate Cancer Father other (melanoma [Other]) Daughter other (Renal Cell carcinoma [Other]) Brother Social History Tobacco Use Smoking status: Never Passive exposure: Past Smokeless tobacco: Never Vaping Use Vaping Use: Never used Substance Use Topics Alcohol use: No Drug use: No Current Outpatient Medications Medication Sig [START ON 05/30/2023] ribociclib (KISQALI) 400 mg/day (200 mg x 2) tab Take 2 tablets (400 mg) by mouth once daily for 21 days. Then take a 7-day rest period to complete a 28-day treatment cycle. diphenhydrAMINE 12.5 mg/5 mL lidocaine visc 2% MAALOX 200-200-20 mg/5 mL nystatin prednisoLONE 15 mg/5 mL oral liquid 1:1:1:1:1 (CPD) Take 5 mL by mouth every 6 hours as needed. Swish and Swallow ondansetron (ZOFRAN) 8 mg tablet Take 1 tablet by mouth every 8 hours as needed for nausea/vomiting. prochlorperazine (COMPAZINE) 10 mg tablet Take 1 tablet by mouth every 6 hours as needed. traMADol (ULTRAM) 50 mg tablet folic acid/multivit-min/lutein (CENTRUM SILVER ORAL) Take 1 tablet by mouth once daily. baclofen (LIORESAL) 10 mg tablet 10 mg twice daily as needed. latanoprost (XALATAN) 0.005 % ophthalmic solution INSTILL 1 DROP INTO EACH EYE EVERY EVENING DIRECTED cholecalciferol, vitamin D3, (VITAMIN D3 ORAL) Take by mouth once daily. naproxen sodium 220 mg cap Take by mouth twice daily as needed. No current facility-administered medications for this visit. ALLERGIES Allergen Reactions Citalopram Hydrobro* Other: See Comments REVIEW OF SYSTEMS: As noted in HPI PHYSICAL EXAMINATION: VIDEO EXAM: (if completed, performed via video enabled technology) No exam performed LABORATORY VALUES: WBC (k/uL) Date Value 04/18/2023 5.24 RBC (m/uL) Date Value 04/18/2023 3.84 (L) Hemoglobin (g/dL) Date Value 04/18/2023 12.5 Hematocrit (%) Date Value 04/18/2023 36.7 MCV (fL) Date Value 04/18/2023 95.6 MCH (pg) Date Value 04/18/2023 32.6 MCHC (g/dL) Date Value 04/18/2023 34.1 RDW-CV (%) Date Value 04/18/2023 15.9 (H) Platelet Count (k/uL) Date Value 04/18/2023 366 MPV (fL) Date Value 04/18/2023 8.4 (L) Glucose (mg/dL) Date Value 04/18/2023 103 (H) BUN (mg/dL) Date Value 04/18/2023 15 Creatinine (mg/dL) Date Value 04/18/2023 0.99 (H) Sodium (mmol/L) Date Value 04/18/2023 131 (L) Potassium (mmol/L) Date Value 04/18/2023 4.6 Chloride (mmol/L) Date Value 04/18/2023 96 (L) CO2 (mmol/L) Date Value 04/18/2023 24 Protein, Total (g/dL) Date Value 04/18/2023 6.6 Albumin (g/dL) Date Value 04/18/2023 4.0 Calcium, Total (mg/dL) Date Value 04/18/2023 9.7 Alkaline Phosphatase (U/L) Date Value 04/18/2023 102 Bilirubin, Total (mg/dL) Date Value 04/18/2023 0.6 AST (U/L) Date Value 04/18/2023 43 (H) ALT (U/L) Date Value 04/18/2023 71 (H) DIAGNOSIS: (C50.919, Z17.0) Malignant neoplasm of breast in female, estrogen receptor positive, unspecified laterality, unspecified site of breast (HCC) (primary encounter diagnosis) Plan: ribociclib (KISQALI) 400 mg/day (200 mg x 2) tab Cedrick Calix MD, CPE Hematology and Oncology Services Provided at: [place], [place] CC: Dr. Kalee Shen documented in this encounter [facility] 05-02-2023 Note [facility] 05-02-2023 Note [facility] 05-02-2023 Note [facility] 05-02-2023 History of Presen t illness Narrative SOCIAL WORK FOLLOW UP NOTE: [facility] Date of service:05/02/23 Soha Ford is being seen for a follow up social work visit. Today's visit includes: patient TOPICS ADDRESSED: wig fitting PLAN: Continue follow up as needed Assigned SW listed in Care Team tab: Yes Patient was in today for a wig fitting. Patient was able to find a wig from the complementary wig program. SW will remain available and will follow up as appropriate. RAMONA Borja documented in this encounter [facility] 04-25-2023 Miscellaneous Notes SOCIAL WORK FOLLOW UP NOTE: [facility] Date of service:04/25/23 Soha Ford is being seen for a follow up social work visit. Today's visit includes: patient TOPICS ADDRESSED: wig fitting PLAN: Continue follow up as needed F/U APPOINTMENT: 05/02/23 at 12noon Assigned SW listed in Care Team tab: Yes Patient had a wig fitting set for 04/27/23, but called today to reschedule this appointment to 05/02/23 at 12 noon (same day as her PET/CT). RAMONA Borja documented in this encounter [facility] 04-18-2023 Note [facility] 04-18-2023 Instructions Cedrick Calix MD - 04/18/2023 4:02 PM EDT Continue C4 kisqali at 400 mg daily but stop on 04/25 as last dose of this cycle PET/CT in next two weeks - same day as faslodex RTC in 2 weeks with labs and tox check PET Scan Faslodex Plan to start C5 documented in this encounter [facility] 04-18-2023 History of Presen t illness Narrative Images from the original note were not included. -NAME: Soha Ford CLINIC NO.: [id number] DATE OF SERVICE: April 18, 2023 ([place]) Some elements in this clinic note that are critical to medical decision making have been carefully reviewed and included from a prior clinic note dated: April 04, 2023 ([place]) Referring Provider: Additional Clinicians involved in Soha Ford's care: DIAGNOSIS: Metastatic breast cancer ASSESSMENT: 1. Malignant neoplasm of female breast, unspecified estrogen receptor status, unspecified laterality, unspecified site of breast (HCC) - ICD9: 174.9, ICD10: C50.919 (primary diagnosis) No evidence of recurrence. We discontinued Arimidex and started on Faslodex. She doesn't recall having issues with Aromasin so we can add this in the future if needed. We started with a CDk4/6 inhibitor. Started Kisqali 01/06/2023. Dose was reduced to 400 mg daily with cycle 3 and tolerating better so far. Anxiety--improved with the use of ativan prn. PLAN: Continue C4 kisqali at 400 mg daily but stop on 04/25 as last dose of this cycle PET/CT in next two weeks - same day as faslodex RTC in 2 weeks with labs and tox check PET Scan Faslodex Plan to start C5 HPI: CASE HISTORY: 03/11/2023 : reduced Kisqali to 400 mg due to intolerance. 01/06/2023 : start Fulvestrant + Kisqali 12/09/2022 : PET/CT - progressive mets to bone. 08/17/2022 : PET/CT continued responsive disease 04/22/2022 : PET/CT shows responsive disease - right mid femur improved, left humerous stable 01/11/2022 : Fulvestrant started 12/15/2021 : Left Axillary Recurrence. HER2(-), ER/IL+ 06/2018 - 12/2021: Arimidex - progressed 05/2018: not tolerating aromasin well- in addition to hair loss, having anxiety and hot flashes with poor sleep 03/2018: tried to switch to aromasin due to hair loss 09/2015: completed adjuvant radiation and started adjuvant hormonal therapy with arimidex 05/2015: Bilateral mastectomy with right axillary dissection, path notes [id number] disease 04/2015: stopped weekly taxol, had 9 weeks of therapy, repeat imaging by PET identified complete metabolic response per notes, developed neuropathy, MRI brain identified what was felt to be meningioma 12/2014: started dose dense AC-weekly taxol 11/2014: diagnosed with locally advanced ER/IL (+), HER2(equivocal on FISH, 2+ IHC), grade 2 invasive ductal carcinoma, right axillary lymph nodes appreciated on imaging Updated Visit, April 18, 2023: Soha returns with her daughter today. She is doing much better on this dose of Kis Emeyl. We will continue current regimen. We will adjust treatment to match with Faslodex as day 1 of each cycle. Labs reviewed. She meets all safety parameters. Updated Visit, April 04, 2023: Soha is here for follow up currently on her Off week of 400 mg of kisquali. She is tolerating it well. She has been on this dose for about 3 weeks. April 08 she will start up again. Eating too well. No mouth sores. No diarrhea. Using ativan prn and it is helping with he anxiousness. Her lymphedema in her right arm is about the same. Updated Visit, March 18, 2023: Soha is 77 years old and returns with her daughter Inga and is doing much better with 1 week of decreased dose of ribociclib. I may have her further dosing by skipping the weekends for this cycle. Once we see how this goes we can decide whether to continue it or continue at q. 21-day dosing at 400 mg. She is to continue Ativan 3 times daily which seems to be helping her tremendously. Updated Visit, March 04, 2023: Couldn't eat, burning. Severely anxious which is really interfering with her cancer care. 30 minutes discussing anxiety so will need to increase her anxiety meds and then we wesley focus on breast cancer management. Updated Visit, February 03, 2023: Soha Ford returns for follow-up and her monthly Faslodex. She is due to start her next cycle of Kisqali. She began taking Nexium daily which has tremendously helped with her heartburn. She has intermittent headaches and takes Tylenol with improvement. She denies fevers, chills and signs/symptoms of infection. No bleeding or abnormal bruising. She states that she is drinking plenty of water. She has left hip pain and needs a left hip replacement due to arthritis. She denies any other areas of unusual pain. Updated Visit, January 20, 2023: Soha Ford returns for follow-up. She started Kisqali 600 mg (3 tablets) daily for 3 weeks on and 1 week off on January 06. She is scheduled to complete her first cycle on January 26. Initially when starting the Kisqali her cheeks turned red and her bottom lip felt like it had a welt . Her face was hot to the touch, more on the left side than the right side. She called the office with complaints of heartburn. It was recommended she start Nexium [id number]. She states that her labia felt irritated and that her urine was hot . She is worried about a urinary tract infection. She denies fevers and chills. No bleeding or abnormal bruising. Updated Visit, January 06, 2023: Returns with Inga - still very anxious. Repeated and reinforced education. Start Kisqali today and monitor labs. Due for faslodex today as well. Updated Visit, December 16, 2022: Soha returns with her daughter Inga. She celebrated her 77th birthday. Always anxious Would start ribociclib. Will need guardant 360 for ESR1 mutation if she progresses. Updated Visit, August 19, 2022: Soha is 76 years old and returns with her daughter Inga. Overall doing well. Scans reviewed and show continued response of disease. Seems to alleviate her significant levels of anxiety. Although, at a baseline she is very anxious. Updated Visit, June 24, 2022: Radha accompanies and she reports the she lost her appetite past few days and has dysuria over same period of time. Also frequent urination. However she just finished Keflex for a skin infection.will send UA C&S Updated Visit, April 29, 2022: Returns with Radha and Inga - reviewed PET/CT which shows improvement. She remains nervous about many things especially taking pain pills for her hip pain. She would be safe to proceed with ortho intervention as needed. Updated Visit, April 01, 2022: Soha returns accompanied by both of her daughters Radha and Inga and is less anxious today. Continues to have hip pain from bursitis. She feels well tolerating faslodex. No appreciable axillary mass on left with palpation. Updated Visit, February 08, 2022: Frannie returns with her daughter Radha. She is less anxious today and is tolerating treatment well. Bones are achy Hip consistent with bursitis and did well with a steroid short. Left arm is doing well. She s concerned about the sclerotic lesion in the left humerus but I reassured her that this would not be a subtle change if there was something alarming about this lesion. Updated Visit, January 11, 2022: Here with her daughter Radha. Left axillary wound is erythematous but non-tender and not inflamed. Does not appear infected. Scalp appears to have small raised lesions that will likely need to have dermatology look at them, but not acutely. Her anxiety remains quite high. Updated Visit, December 28, 2021: Telephone only for 15 minutes [facility] to get Her2 status. Verbal report that FISH was negative. Called Soha as requested and given her fairly low volume of disease on PET/CT, we could hold RT for any painfull symptomatic disease or new bony metastatic disease. We will maximize endocrine therapy. No significant pain. Primarily anxiety. Updated Visit, December 24, 2021: Soha returns with her daughters today and is highly anxious. She had a left axillary mass removed after Dr. Dong noted it on his most recent visit. This was not noted on my evaluation in September. She had the mass resected and it was consistent with her ER/IL+ brca. [id number] FISH is still pending. She will need staging PET/CT to determine extent and volume of disease. Once we have the final pathology and PET restaging we will determine course of therapy. She is hoping not to have chemotherapy. Updated Visit, September 24, 2021: Soha Ford is a 75 year old female who presents in follow-up on Arimidex for breast cancer diagnosed in 2014. Has preferred to stay on extended endocrine therapy in adjuvant setting. Very anxious about her tumor marker but realized that she had heard her number incorrectly and that there was no need for anxiety caused by following this lab test. All else is well. Labs are stable. No palpable abnormality noted in arms or axilla. Lymphedema is stable. 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 Dr. Matias is monitoring but on my exam, the lesion appears to be raised slightly and will likely need re-evaluated. Calcium in the form of Tums with Vitamin D. Continues to take Arimidex since 06/2018. Complains of some decreased mobility especially in her left leg with some pain shooting down the left leg. Updated Visit, December 24, 2020: Soha Ford returns for scheduled follow-up. Since her last visit there has been no significant medical changes. Today she is concerned about a couple of skin moles. She denies cough, shortness of breath and other pulmonary symptoms. She denies any unusual pain. She denies chest wall lumps or bumps. She remains on Arimidex and is tolerating it fairly well. She denies any significant muscle and joint aches. Overall, doing well. Updated Visit, June 25, 2020: Soha Ford is a 74 year old female who presents in follow-up on Arimidex. She has requested vaccinations to include Pneumococcal, Influenza and shingle. Continues arimidex for 10 years - 09/2025 Doing well right arm in lymphedema sleeve Osteopenia on dexa Caltrate D sent in Consider prevention of bone disease in the future CT of the chest is reviewed below: 03/05/2019 10:49 AM - Radiology, [place] In Impression IMPRESSION: 1. Mildly enlarged left axillary lymph node appears slightly more conspicuous when compared to the prior study of 08/28/2018, new when compared to more remote examination of 10/10/2017. 2. Scattered right-sided subcentimeter pulmonary nodules, unchanged. She was on arimidex with much better tolerance. APV put her on this from aromasin which she was losing her hair with. REVIEW OF SYSTEMS Per HPI and otherwise negative by full review of organ systems. ECOG PERFORMANCE STATUS: 1 PHYSICAL EXAMINATION: Vitals: BP 168/90 Pulse 85 Temp (Src) 98.1 (Temporal) Resp 16 Ht 5' 0 (1.52m) Wt 163 lb 12.8 oz (74.3kg) SpO2 96% BMI 31.99 kg/(m^2). Body surface area is 1.77 meters squared. General: Alert and oriented, no distress, pleasant and cooperative. Heart: Regular, normal S1 and S2, no murmurs, rubs, or gallops Lungs: Clear to auscultation bilaterally Abdomen: Benign Extremities: Feet/ankles without edema, posterior tibial pulses full and symmetrical ALLERGIES: ALLERGIES Allergen Reactions Citalopram Hydrobro* Other: See Comments MEDICATIONS: ribociclib (KISQALI) 400 mg/day (200 mg x 2) tab Take 2 tablets (400 mg) by mouth once daily for 21 days. Then take a 7-day rest period to complete a 28-day treatment cycle. diphenhydrAMINE 12.5 mg/5 mL lidocaine visc 2% MAALOX 200-200-20 mg/5 mL nystatin prednisoLONE 15 mg/5 mL oral liquid 1:1:1:1:1 (CPD) Take 5 mL by mouth every 6 hours as needed. Swish and Swallow ondansetron (ZOFRAN) 8 mg tablet Take 1 tablet by mouth every 8 hours as needed for nausea/vomiting. prochlorperazine (COMPAZINE) 10 mg tablet Take 1 tablet by mouth every 6 hours as needed. traMADol (ULTRAM) 50 mg tablet folic acid/multivit-min/lutein (CENTRUM SILVER ORAL) Take 1 tablet by mouth once daily. baclofen (LIORESAL) 10 mg tablet 10 mg twice daily as needed. latanoprost (XALATAN) 0.005 % ophthalmic solution INSTILL 1 DROP INTO EACH EYE EVERY EVENING DIRECTED cholecalciferol, vitamin D3, (VITAMIN D3 ORAL) Take by mouth once daily. naproxen sodium 220 mg cap Take by mouth twice daily as needed. LABORATORY VALUES: WBC (k/uL) Date Value 04/18/2023 5.24 RBC (m/uL) Date Value 04/18/2023 3.84 (L) Hemoglobin (g/dL) Date Value 04/18/2023 12.5 Hematocrit (%) Date Value 04/18/2023 36.7 MCV (fL) Date Value 04/18/2023 95.6 MCH (pg) Date Value 04/18/2023 32.6 MCHC (g/dL) Date Value 04/18/2023 34.1 RDW-CV (%) Date Value 04/18/2023 15.9 (H) Platelet Count (k/uL) Date Value 04/18/2023 366 MPV (fL) Date Value 04/18/2023 8.4 (L) Glucose (mg/dL) Date Value 04/18/2023 103 (H) BUN (mg/dL) Date Value 04/18/2023 15 Creatinine (mg/dL) Date Value 04/18/2023 0.99 (H) Sodium (mmol/L) Date Value 04/18/2023 131 (L) Potassium (mmol/L) Date Value 04/18/2023 4.6 Chloride (mmol/L) Date Value 04/18/2023 96 (L) CO2 (mmol/L) Date Value 04/18/2023 24 Protein, Total (g/dL) Date Value 04/18/2023 6.6 Albumin (g/dL) Date Value 04/18/2023 4.0 Calcium, Total (mg/dL) Date Value 04/18/2023 9.7 Alkaline Phosphatase (U/L) Date Value 04/18/2023 102 Bilirubin, Total (mg/dL) Date Value 04/18/2023 0.6 AST (U/L) Date Value 04/18/2023 43 (H) ALT (U/L) Date Value 04/18/2023 71 (H) DIAGNOSIS: (C50.811, C50.812, Z17.0) Malignant neoplasm of overlapping sites of both breasts in female, estrogen receptor positive (HCC) (primary encounter diagnosis) Plan: NM PET/CT SKULL-THIGH SUBSEQUENT (C50.919, Z17.0) Malignant neoplasm of breast in female, estrogen receptor positive, unspecified laterality, unspecified site of breast (HCC) Plan: NM PET/CT SKULL-THIGH SUBSEQUENT PAST MEDICAL HISTORY Diagnosis Date Breast cancer (HCC) Right Post-menopausal PAST SURGICAL HISTORY Procedure Laterality Date APPENDECTOMY BREAST BIOPSY OTHER SURGICAL HISTORY (PLEASE SPECIFY) HX bilateral mastecomy REMV CATARACT EXTRACAP,INSERT LENS Left Social History Tobacco Use Smoking status: Never Passive exposure: Past Smokeless tobacco: Never Vaping Use Vaping Use: Never used Substance Use Topics Alcohol use: No Drug use: No FAMILY HISTORY Problem Relation Age of Onset Prostate Cancer Father other (melanoma [Other]) Daughter other (Renal Cell carcinoma [Other]) Brother I spent a total of 30 minutes on the date of the service which included preparing to see the patient, [id number] patient care, completing clinical documentation, performing a medically appropriate examination, counseling and educating the patient/family/caregiver, ordering medications, tests, or procedures, independently interpreting results (not separately reported), communicating results to the patient/family/caregiver, and care coordination (not separately reported). Cedrick Calix MD, CPE Hematology and Oncology Services Provided at: [place], [place] CC: Dr. Kalee Shen documented in this encounter [facility] 04-04-2023 Note [facility] 04-04-2023 History of Presen t illness Narrative Images from the original note were not included. -NAME: Soha Ford NO.: [id number] DATE OF SERVICE: April 04, 2023 (Elements copied from Dr. Calix's note dated March 18, 2023, have been reviewed and updated where appropriate, and all reflect current assessment and medical decision making during today's encounter, April 04, 2023) Referring Provider: Additional Clinicians involved in Soha Ford's care: DIAGNOSIS: Metastatic breast cancer ASSESSMENT: 1. Malignant neoplasm of female breast, unspecified estrogen receptor status, unspecified laterality, unspecified site of breast (HCC) - ICD9: 174.9, ICD10: C50.919 (primary diagnosis) No evidence of recurrence. We discontinued Arimidex and started on Faslodex. She doesn't recall having issues with Aromasin so we can add this in the future if needed. We started with a CDk4/6 inhibitor. Started Kisqali 01/06/2023. Dose was reduced to 400 mg daily with cycle 3 and tolerating better so far. Continue with next cycle on 04/08/23. Faslodex today. Return in 2 weeks for labs and tox check. Anxiety--improved with the use of ativan prn. HPI: CASE HISTORY: 03/11/2023 : reduced Kisqali to 400 mg due to intolerance. 01/06/2023 : start Fulvestrant + Kisqali 12/09/2022 : PET/CT - progressive mets to bone. 08/17/2022 : PET/CT continued responsive disease 04/22/2022 : PET/CT shows responsive disease - right mid femur improved, left humerous stable 01/11/2022 : Fulvestrant started 12/15/2021 : Left Axillary Recurrence. HER2(-), ER/IL+ 06/2018 - 12/2021: Arimidex - progressed 05/2018: not tolerating aromasin well- in addition to hair loss, having anxiety and hot flashes with poor sleep 03/2018: tried to switch to aromasin due to hair loss 09/2015: completed adjuvant radiation and started adjuvant hormonal therapy with arimidex 05/2015: Bilateral mastectomy with right axillary dissection, path notes [id number] disease 04/2015: stopped weekly taxol, had 9 weeks of therapy, repeat imaging by PET identified complete metabolic response per notes, developed neuropathy, MRI brain identified what was felt to be meningioma 12/2014: started dose dense AC-weekly taxol 11/2014: diagnosed with locally advanced ER/IL (+), HER2(equivocal on FISH, 2+ IHC), grade 2 invasive ductal carcinoma, right axillary lymph nodes appreciated on imaging Updated Visit, April 04, 2023: Soha is here for follow up currently on her Off week of 400 mg of kisquali. She is tolerating it well. She has been on this dose for about 3 weeks. April 08 she will start up again. Eating too well. No mouth sores. No diarrhea. Using ativan prn and it is helping with he anxiousness. Her lymphedema in her right arm is about the same. Updated Visit, March 18, 2023: Soha is 77 years old and returns with her daughter Inga and is doing much better with 1 week of decreased dose of ribociclib. I may have her further dosing by skipping the weekends for this cycle. Once we see how this goes we can decide whether to continue it or continue at q. 21-day dosing at 400 mg. She is to continue Ativan 3 times daily which seems to be helping her tremendously. Updated Visit, March 04, 2023: Couldn't eat, burning. Severely anxious which is really interfering with her cancer care. 30 minutes discussing anxiety so will need to increase her anxiety meds and then we wesley focus on breast cancer management. Updated Visit, February 03, 2023: Soha Ford returns for follow-up and her monthly Faslodex. She is due to start her next cycle of Kisqali. She began taking Nexium daily which has tremendously helped with her heartburn. She has intermittent headaches and takes Tylenol with improvement. She denies fevers, chills and signs/symptoms of infection. No bleeding or abnormal bruising. She states that she is drinking plenty of water. She has left hip pain and needs a left hip replacement due to arthritis. She denies any other areas of unusual pain. Updated Visit, January 20, 2023: Soha Ford returns for follow-up. She started Kisqali 600 mg (3 tablets) daily for 3 weeks on and 1 week off on January 06. She is scheduled to complete her first cycle on January 26. Initially when starting the Kisqali her cheeks turned red and her bottom lip felt like it had a welt . Her face was hot to the touch, more on the left side than the right side. She called the office with complaints of heartburn. It was recommended she start Nexium [id number]. She states that her labia felt irritated and that her urine was hot . She is worried about a urinary tract infection. She denies fevers and chills. No bleeding or abnormal bruising. Updated Visit, January 06, 2023: Returns with Inga - still very anxious. Repeated and reinforced education. Start Kisqali today and monitor labs. Due for faslodex today as well. Updated Visit, December 16, 2022: Soha returns with her daughter Inga. She celebrated her 77th birthday. Always anxious Would start ribociclib. Will need guardant 360 for ESR1 mutation if she progresses. Updated Visit, August 19, 2022: Soha is 76 years old and returns with her daughter Inga. Overall doing well. Scans reviewed and show continued response of disease. Seems to alleviate her significant levels of anxiety. Although, at a baseline she is very anxious. Updated Visit, June 24, 2022: Radha accompanies and she reports the she lost her appetite past few days and has dysuria over same period of time. Also frequent urination. However she just finished Keflex for a skin infection.will send UA C&S Updated Visit, April 29, 2022: Returns with Radha and Inga - reviewed PET/CT which shows improvement. She remains nervous about many things especially taking pain pills for her hip pain. She would be safe to proceed with ortho intervention as needed. Updated Visit, April 01, 2022: Soha returns accompanied by both of her daughters Radha and Inga and is less anxious today. Continues to have hip pain from bursitis. She feels well tolerating faslodex. No appreciable axillary mass on left with palpation. Updated Visit, February 08, 2022: Frannie returns with her daughter Radha. She is less anxious today and is tolerating treatment well. Bones are achy Hip consistent with bursitis and did well with a steroid short. Left arm is doing well. She s concerned about the sclerotic lesion in the left humerus but I reassured her that this would not be a subtle change if there was something alarming about this lesion. Updated Visit, January 11, 2022: Here with her daughter Radha. Left axillary wound is erythematous but non-tender and not inflamed. Does not appear infected. Scalp appears to have small raised lesions that will likely need to have dermatology look at them, but not acutely. Her anxiety remains quite high. Updated Visit, December 28, 2021: Telephone only for 15 minutes Called [facility] to get Her2 status. Verbal report that FISH was negative. Called Soha as requested and given her fairly low volume of disease on PET/CT, we could hold RT for any painfull symptomatic disease or new bony metastatic disease. We will maximize endocrine therapy. No significant pain. Primarily anxiety. Updated Visit, December 24, 2021: Soha returns with her daughters today and is highly anxious. She had a left axillary mass removed after Dr. Dong noted it on his most recent visit. This was not noted on my evaluation in September. She had the mass resected and it was consistent with her ER/IL+ brca. [id number] FISH is still pending. She will need staging PET/CT to determine extent and volume of disease. Once we have the final pathology and PET restaging we will determine course of therapy. She is hoping not to have chemotherapy. Updated Visit, September 24, 2021: Soha Ford is a 75 year old female who presents in follow-up on Arimidex for breast cancer diagnosed in 2014. Has preferred to stay on extended endocrine therapy in adjuvant setting. Very anxious about her tumor marker but realized that she had heard her number incorrectly and that there was no need for anxiety caused by following this lab test. All else is well. Labs are stable. No palpable abnormality noted in arms or axilla. Lymphedema is stable. 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 Dr. Matias is monitoring but on my exam, the lesion appears to be raised slightly and will likely need re-evaluated. Calcium in the form of Tums with Vitamin D. Continues to take Arimidex since 06/2018. Complains of some decreased mobility especially in her left leg with some pain shooting down the left leg. Updated Visit, December 24, 2020: Soha Ford returns for scheduled follow-up. Since her last visit there has been no significant medical changes. Today she is concerned about a couple of skin moles. She denies cough, shortness of breath and other pulmonary symptoms. She denies any unusual pain. She denies chest wall lumps or bumps. She remains on Arimidex and is tolerating it fairly well. She denies any significant muscle and joint aches. Overall, doing well. Updated Visit, June 25, 2020: Soha Ford is a 74 year old female who presents in follow-up on Arimidex. She has requested vaccinations to include Pneumococcal, Influenza and shingle. Continues arimidex for 10 years - 09/2025 Doing well right arm in lymphedema sleeve Osteopenia on dexa Caltrate D sent in Consider prevention of bone disease in the future CT of the chest is reviewed below: 03/05/2019 10:49 AM - Radiology, [facility] In Impression IMPRESSION: 1. Mildly enlarged left axillary lymph node appears slightly more conspicuous when compared to the prior study of 08/28/2018, new when compared to more remote examination of 10/10/2017. 2. Scattered right-sided subcentimeter pulmonary nodules, unchanged. She was on arimidex with much better tolerance. APV put her on this from aromasin which she was losing her hair with. REVIEW OF SYSTEMS Per HPI and otherwise negative by full review of organ systems. ECOG PERFORMANCE STATUS: 1 PHYSICAL EXAMINATION: Vitals: BP 155/79 Pulse 80 Temp (Src) 97.1 (Temporal) Resp 18 Ht 5' 0 (1.52m) Wt 163 lb 12.8 oz (74.3kg) SpO2 97% BMI 31.99 kg/(m^2). Body surface area is 1.77 meters squared. General: Alert and oriented, no distress, pleasant and cooperative. Heart: Regular, normal S1 and S2, no murmurs, rubs, or gallops Lungs: Clear to auscultation bilaterally Abdomen: Benign Extremities: Feet/ankles without edema, posterior tibial pulses full and symmetrical ALLERGIES: ALLERGIES Allergen Reactions Citalopram Hydrobro* Other: See Comments MEDICATIONS: ribociclib (KISQALI) 400 mg/day (200 mg x 2) tab Take 2 tablets (400 mg) by mouth once daily for 21 days. Then take a 7-day rest period to complete a 28-day treatment cycle. diphenhydrAMINE 12.5 mg/5 mL lidocaine visc 2% MAALOX 200-200-20 mg/5 mL nystatin prednisoLONE 15 mg/5 mL oral liquid 1:1:1:1:1 (CPD) Take 5 mL by mouth every 6 hours as needed. Swish and Swallow ondansetron (ZOFRAN) 8 mg tablet Take 1 tablet by mouth every 8 hours as needed for nausea/vomiting. prochlorperazine (COMPAZINE) 10 mg tablet Take 1 tablet by mouth every 6 hours as needed. traMADol (ULTRAM) 50 mg tablet folic acid/multivit-min/lutein (CENTRUM SILVER ORAL) Take 1 tablet by mouth once daily. baclofen (LIORESAL) 10 mg tablet 10 mg twice daily as needed. latanoprost (XALATAN) 0.005 % ophthalmic solution INSTILL 1 DROP INTO EACH EYE EVERY EVENING DIRECTED cholecalciferol, vitamin D3, (VITAMIN D3 ORAL) Take by mouth once daily. naproxen sodium 220 mg cap Take by mouth twice daily as needed. LABORATORY VALUES: WBC (k/uL) Date Value 04/04/2023 4.68 RBC (m/uL) Date Value 04/04/2023 3.90 Hemoglobin (g/dL) Date Value 04/04/2023 12.6 Hematocrit (%) Date Value 04/04/2023 37.5 MCV (fL) Date Value 04/04/2023 96.2 MCH (pg) Date Value 04/04/2023 32.3 MCHC (g/dL) Date Value 04/04/2023 33.6 RDW-CV (%) Date Value 04/04/2023 16.4 (H) Platelet Count (k/uL) Date Value 04/04/2023 218 MPV (fL) Date Value 04/04/2023 8.8 (L) Glucose (mg/dL) Date Value 04/04/2023 97 BUN (mg/dL) Date Value 04/04/2023 13 Creatinine (mg/dL) Date Value 04/04/2023 0.96 Sodium (mmol/L) Date Value 04/04/2023 131 (L) Potassium (mmol/L) Date Value 04/04/2023 4.7 Chloride (mmol/L) Date Value 04/04/2023 97 CO2 (mmol/L) Date Value 04/04/2023 28 Protein, Total (g/dL) Date Value 04/04/2023 6.7 Albumin (g/dL) Date Value 04/04/2023 4.0 Calcium, Total (mg/dL) Date Value 04/04/2023 10.0 Alkaline Phosphatase (U/L) Date Value 04/04/2023 99 Bilirubin, Total (mg/dL) Date Value 04/04/2023 0.4 AST (U/L) Date Value 04/04/2023 22 ALT (U/L) Date Value 04/04/2023 30 DIAGNOSIS: (C50.811, C50.812, Z17.0) Malignant neoplasm of overlapping sites of both breasts in female, estrogen receptor positive (HCC) (primary encounter diagnosis) Plan: COMP METABOLIC PANEL, CBC + DIFF (I89.0) Lymphedema Plan: COMP METABOLIC PANEL, CBC + DIFF (F41.1) Anxiety neurosis Plan: COMP METABOLIC PANEL, CBC + DIFF PAST MEDICAL HISTORY Diagnosis Date Breast cancer (HCC) Right Post-menopausal PAST SURGICAL HISTORY Procedure Laterality Date APPENDECTOMY BREAST BIOPSY OTHER SURGICAL HISTORY (PLEASE SPECIFY) HX bilateral mastecomy REMV CATARACT EXTRACAP,INSERT LENS Left Social History Tobacco Use Smoking status: Never Passive exposure: Past Smokeless tobacco: Never Vaping Use Vaping Use: Never used Substance Use Topics Alcohol use: No Drug use: No FAMILY HISTORY Problem Relation Age of Onset Prostate Cancer Father other (melanoma [Other]) Daughter other (Renal Cell carcinoma [Other]) Brother Sloane Maria PA-C CC: Dr. Kalee Shen documented in this encounter [facility] 03-18-2023 Note [facility] 03-04-2023 Note [facility] 03-04-2023 Miscellaneous Notes Addended by: CEDRICK CALIX on: 03/04/2023 10:53 AM Modules accepted: Orders Addended by: CEDRICK CALIX on: 03/04/2023 10:36 AM Modules accepted: Orders documented in this encounter [facility] 03-04-2023 Instructions Cedrick Calix MD - 03/04/2023 10:21 AM EDT Wait additional 1 week to start C3 kisqali at 400 mg daily RTC in 2 weeks with labs and tox check and continue same dose or decrease. Anxiety is overwhelming - Will start Ativan TID as needed. Fulvestrant every 4 weeks. documented in this encounter [facility] 03-04-2023 History of Presen t illness Narrative Images from the original note were not included. -NAME: VijaySoha [facility] NO.: [id number] DATE OF SERVICE: March 04, 2023 ([place]) Some elements in this clinic note that are critical to medical decision making have been carefully reviewed and included from a prior clinic note dated: February 04, 2023 ([place]) Referring Provider: Additional Clinicians involved in Soha Ford's care: DIAGNOSIS: Metastatic breast cancer ASSESSMENT: 1. Malignant neoplasm of female breast, unspecified estrogen receptor status, unspecified laterality, unspecified site of breast (HCC) - ICD9: 174.9, ICD10: C50.919 (primary diagnosis) No evidence of recurrence. We discontinued Arimidex and started on Faslodex. She doesn't recall having issues with Aromasin so we can add this in the future if needed. However, will proceed with CDK4/6 inhibitor for now. Started Kisqali . PLAN: Wait additional 1 week to start C3 kisqali at 400 mg daily RTC in 2 weeks with labs and tox check and continue same dose or decrease. Anxiety is overwhelming - Will start Ativan TID as needed. Fulvestrant every 4 weeks. Follow up in 4 weeks for labs and Faslodex. Continue sucralfate HPI: CASE HISTORY: 01/06/2023 : start Fulvestrant + Kisqali 12/09/2022 : PET/CT - progressive mets to bone. 08/17/2022 : PET/CT continued responsive disease 04/22/2022 : PET/CT shows responsive disease - right mid femur improved, left humerous stable 01/11/2022 : Fulvestrant started 12/15/2021 : Left Axillary Recurrence. HER2(-), ER/IL+ 06/2018 - 12/2021: Arimidex - progressed 05/2018: not tolerating aromasin well- in addition to hair loss, having anxiety and hot flashes with poor sleep 03/2018: tried to switch to aromasin due to hair loss 09/2015: completed adjuvant radiation and started adjuvant hormonal therapy with arimidex 05/2015: Bilateral mastectomy with right axillary dissection, path notes [id number] disease 04/2015: stopped weekly taxol, had 9 weeks of therapy, repeat imaging by PET identified complete metabolic response per notes, developed neuropathy, MRI brain identified what was felt to be meningioma 12/2014: started dose dense AC-weekly taxol 11/2014: diagnosed with locally advanced ER/IL (+), HER2(equivocal on FISH, 2+ IHC), grade 2 invasive ductal carcinoma, right axillary lymph nodes appreciated on imaging Updated Visit, March 04, 2023: Couldn't eat, burning. Severely anxious which is really interfering with her cancer care. 30 minutes discussing anxiety so will need to increase her anxiety meds and then we wesley focus on breast cancer management. Updated Visit, February 03, 2023: Soha Ford returns for follow-up and her monthly Faslodex. She is due to start her next cycle of Kisqali. She began taking Nexium daily which has tremendously helped with her heartburn. She has intermittent headaches and takes Tylenol with improvement. She denies fevers, chills and signs/symptoms of infection. No bleeding or abnormal bruising. She states that she is drinking plenty of water. She has left hip pain and needs a left hip replacement due to arthritis. She denies any other areas of unusual pain. Updated Visit, January 20, 2023: Soha Ford returns for follow-up. She started Kisqali 600 mg (3 tablets) daily for 3 weeks on and 1 week off on January 06. She is scheduled to complete her first cycle on January 26. Initially when starting the Kisqali her cheeks turned red and her bottom lip felt like it had a welt . Her face was hot to the touch, more on the left side than the right side. She called the office with complaints of heartburn. It was recommended she start Nexium [id number]. She states that her labia felt irritated and that her urine was hot . She is worried about a urinary tract infection. She denies fevers and chills. No bleeding or abnormal bruising. Updated Visit, January 06, 2023: Returns with Inga - still very anxious. Repeated and reinforced education. Start Kisqali today and monitor labs. Due for faslodex today as well. Updated Visit, December 16, 2022: Soha returns with her daughter Inga. She celebrated her 77th birthday. Always anxious Would start ribociclib. Will need guardant 360 for ESR1 mutation if she progresses. Updated Visit, August 19, 2022: Soha is 76 years old and returns with her daughter Inga. Overall doing well. Scans reviewed and show continued response of disease. Seems to alleviate her significant levels of anxiety. Although, at a baseline she is very anxious. Updated Visit, June 24, 2022: Radha accompanies and she reports the she lost her appetite past few days and has dysuria over same period of time. Also frequent urination. However she just finished Keflex for a skin infection.will send UA C&S Updated Visit, April 29, 2022: Returns with Radha and Inga - reviewed PET/CT which shows improvement. She remains nervous about many things especially taking pain pills for her hip pain. She would be safe to proceed with ortho intervention as needed. Updated Visit, April 01, 2022: Soha returns accompanied by both of her daughters Radha and Inga and is less anxious today. Continues to have hip pain from bursitis. She feels well tolerating faslodex. No appreciable axillary mass on left with palpation. Updated Visit, February 08, 2022: Frannie returns with her daughter Radha. She is less anxious today and is tolerating treatment well. Bones are achy Hip consistent with bursitis and did well with a steroid short. Left arm is doing well. She s concerned about the sclerotic lesion in the left humerus but I reassured her that this would not be a subtle change if there was something alarming about this lesion. Updated Visit, January 11, 2022: Here with her daughter Radha. Left axillary wound is erythematous but non-tender and not inflamed. Does not appear infected. Scalp appears to have small raised lesions that will likely need to have dermatology look at them, but not acutely. Her anxiety remains quite high. Updated Visit, December 28, 2021: Telephone only for 15 minutes Called [facility] to get Her2 status. Verbal report that FISH was negative. Called Soha as requested and given her fairly low volume of disease on PET/CT, we could hold RT for any painfull symptomatic disease or new bony metastatic disease. We will maximize endocrine therapy. No significant pain. Primarily anxiety. Updated Visit, December 24, 2021: Soha returns with her daughters today and is highly anxious. She had a left axillary mass removed after Dr. Dong noted it on his most recent visit. This was not noted on my evaluation in September. She had the mass resected and it was consistent with her ER/IL+ brca. FHH3iao FISH is still pending. She will need staging PET/CT to determine extent and volume of disease. Once we have the final pathology and PET restaging we will determine course of therapy. She is hoping not to have chemotherapy. Updated Visit, September 24, 2021: Soha Ford is a 75 year old female who presents in follow-up on Arimidex for breast cancer diagnosed in 2014. Has preferred to stay on extended endocrine therapy in adjuvant setting. Very anxious about her tumor marker but realized that she had heard her number incorrectly and that there was no need for anxiety caused by following this lab test. All else is well. Labs are stable. No palpable abnormality noted in arms or axilla. Lymphedema is stable. 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 Dr. Matias is monitoring but on my exam, the lesion appears to be raised slightly and will likely need re-evaluated. Calcium in the form of Tums with Vitamin D. Continues to take Arimidex since 06/2018. Complains of some decreased mobility especially in her left leg with some pain shooting down the left leg. Updated Visit, December 24, 2020: Soha Ford returns for scheduled follow-up. Since her last visit there has been no significant medical changes. Today she is concerned about a couple of skin moles. She denies cough, shortness of breath and other pulmonary symptoms. She denies any unusual pain. She denies chest wall lumps or bumps. She remains on Arimidex and is tolerating it fairly well. She denies any significant muscle and joint aches. Overall, doing well. Updated Visit, June 25, 2020: Soha Ford is a 74 year old female who presents in follow-up on Arimidex. She has requested vaccinations to include Pneumococcal, Influenza and shingle. Continues arimidex for 10 years - 09/2025 Doing well right arm in lymphedema sleeve Osteopenia on dexa Caltrate D sent in Consider prevention of bone disease in the future CT of the chest is reviewed below: 03/05/2019 10:49 AM - Radiology, [place] In Impression IMPRESSION: 1. Mildly enlarged left axillary lymph node appears slightly more conspicuous when compared to the prior study of 08/28/2018, new when compared to more remote examination of 10/10/2017. 2. Scattered right-sided subcentimeter pulmonary nodules, unchanged. She was on arimidex with much better tolerance. APV put her on this from aromasin which she was losing her hair with. REVIEW OF SYSTEMS Per HPI and otherwise negative by full review of organ systems. ECOG PERFORMANCE STATUS: 1 PHYSICAL EXAMINATION: Vitals: BP 171/80[recheck[ Pulse 97 Temp (Src) 97.8 (Temporal) Resp 16 Ht 5' 0 (1.52m) Wt 161 lb (73.0kg) SpO2 95% BMI 31.44 kg/(m^2). Body surface area is 1.76 meters squared. Exam limited to gross visualization where appropriate. Gen.: This is an age-appropriate patient in no acute distress. Head: Appears atraumatic with no visible lesions. Eyes: Pupils equally round and reactive to light, extraocular muscles are intact. Neck: Supple. Respiratory: Appears to be respiring comfortably. Neurologic: Nonfocal to gross visualization. Alert and oriented 3. Psychiatric: No evidence of inappropriate anxiety or depression. Skin: Visible areas of skin without rash, lesions, wounds or petechiae. ALLERGIES: ALLERGIES Allergen Reactions Citalopram Hydrobro* Other: See Comments MEDICATIONS: diphenhydrAMINE 12.5 mg/5 mL lidocaine visc 2% MAALOX 200-200-20 mg/5 mL nystatin prednisoLONE 15 mg/5 mL oral liquid 1:1:1:1:1 (CPD) Take 5 mL by mouth every 6 hours as needed. Swish and Swallow ondansetron (ZOFRAN) 8 mg tablet Take 1 tablet by mouth every 8 hours as needed for nausea/vomiting. prochlorperazine (COMPAZINE) 10 mg tablet Take 1 tablet by mouth every 6 hours as needed. traMADol (ULTRAM) 50 mg tablet folic acid/multivit-min/lutein (CENTRUM SILVER ORAL) Take 1 tablet by mouth once daily. baclofen (LIORESAL) 10 mg tablet 10 mg twice daily as needed. latanoprost (XALATAN) 0.005 % ophthalmic solution INSTILL 1 DROP INTO EACH EYE EVERY EVENING DIRECTED cholecalciferol, vitamin D3, (VITAMIN D3 ORAL) Take by mouth once daily. LORazepam (ATIVAN) 0.5 mg tab 0.5 mg twice daily as needed. naproxen sodium 220 mg cap Take by mouth twice daily as needed. ribociclib (KISQALI) 600 mg/day (200 mg x 3) Take 3 tablets (600 mg) by mouth once daily for 21 days. Then take a 7-day rest period to complete a 28-day treatment cycle. LABORATORY VALUES: WBC (k/uL) Date Value 03/04/2023 6.09 RBC (m/uL) Date Value 03/04/2023 4.13 Hemoglobin (g/dL) Date Value 03/04/2023 12.9 Hematocrit (%) Date Value 03/04/2023 38.7 MCV (fL) Date Value 03/04/2023 93.7 MCH (pg) Date Value 03/04/2023 31.2 MCHC (g/dL) Date Value 03/04/2023 33.3 RDW-CV (%) Date Value 03/04/2023 17.2 (H) Platelet Count (k/uL) Date Value 03/04/2023 435 (H) MPV (fL) Date Value 03/04/2023 8.3 (L) Glucose (mg/dL) Date Value 03/04/2023 108 (H) BUN (mg/dL) Date Value 03/04/2023 14 Creatinine (mg/dL) Date Value 03/04/2023 0.81 Sodium (mmol/L) Date Value 03/04/2023 133 (L) Potassium (mmol/L) Date Value 03/04/2023 4.4 Chloride (mmol/L) Date Value 03/04/2023 97 CO2 (mmol/L) Date Value 03/04/2023 24 Protein, Total (g/dL) Date Value 03/04/2023 7.1 Albumin (g/dL) Date Value 03/04/2023 4.3 Calcium, Total (mg/dL) Date Value 03/04/2023 10.5 (H) Alkaline Phosphatase (U/L) Date Value 03/04/2023 99 Bilirubin, Total (mg/dL) Date Value 03/04/2023 0.3 AST (U/L) Date Value 03/04/2023 19 ALT (U/L) Date Value 03/04/2023 15 DIAGNOSIS: (F41.1) Anxiety neurosis (primary encounter diagnosis) Plan: LORazepam (ATIVAN) 0.5 mg (C50.911, Z17.0) Malignant neoplasm of right breast in female, estrogen receptor positive, unspecified site of breast (HCC) (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 (I89.0) Lymphedema PAST MEDICAL HISTORY Diagnosis Date Breast cancer (HCC) Right Post-menopausal PAST SURGICAL HISTORY Procedure Laterality Date APPENDECTOMY BREAST BIOPSY OTHER SURGICAL HISTORY (PLEASE SPECIFY) HX bilateral mastecomy REMV CATARACT EXTRACAP,INSERT LENS Left Social History Tobacco Use Smoking status: Never Passive exposure: Past Smokeless tobacco: Never Vaping Use Vaping Use: Never used Substance Use Topics Alcohol use: No Drug use: No FAMILY HISTORY Problem Relation Age of Onset Prostate Cancer Father other (melanoma [Other]) Daughter other (Renal Cell carcinoma [Other]) Brother I spent a total of 40 minutes on the date of the service which included preparing to see the patient, [id number] patient care, completing clinical documentation, obtaining and/or reviewing separately obtained history, performing a medically appropriate examination, counseling and educating the patient/family/caregiver, ordering medications, tests, or procedures, independently interpreting results (not separately reported), and communicating results to the patient/family/caregiver. Cedrick Calix MD, CPE Hematology and Oncology Services Provided at: [place], [place] CC: Dr. Kalee Shen documented in this encounter [facility] 02-17-[address] - 02/17/2023 9:45 AM EDT Nutrition Intervention: -aim for small frequent meals/snacks -include lean protein source at each meal/snack -aim for soft/moist proteins such as tender meats, eggs, cottage cheese, yogurt, etc. -encouraged good hydration -aim for ~2L (~64-68oz) per day of non-caffeine containing fluids -discussed supplementation -may benefit from including boost or ensure -ok to mix with ice cream -provided contact information for any further questions/concerns: [phone] documented in this encounter [facility] 02-17-2023 Note [facility] 02-17-2023 History of Presen t illness Narrative Oncology Nutrition Therapy Initial Assessment I have communicated my name and active licensure. The patient's identity and physical location were verified at the time of this visit. Either the patient or their legal office services representative has been informed of the risks and benefits of -- and alternatives to -- treatment through a remote evaluation and consents to proceed with the evaluation remotely. RECOMMENDED MALNUTRITION DIAGNOSIS: NO MALNUTRITION IDENTIFIED Nutrition Diagnosis: Behavioral-Environmental: Food and nutrition related knowledge deficit, related to, lack of prior exposure to information , as evidenced by verbalizes inaccurate information and verbalizes incomplete information Nutrition Intervention: -aim for small frequent meals/snacks -include lean protein source at each meal/snack -aim for soft/moist proteins such as tender meats, eggs, cottage cheese, yogurt, etc. -discussed ways to combat nutrition related side effects -heartburn, nausea, mucositis, ?esophagitis, constipation -encouraged good hydration -aim for ~2L (~64-68oz) per day of non-caffeine containing fluids -discussed supplementation -may benefit from including boost or ensure -ok to mix with ice cream -provided contact information for any further questions/concerns Nutrition Monitoring & Evaluation: -PO Intake -Wt status -BM's -Supplement tolerance/acceptance -Biochemical Markers -Plan of care Patient's symptoms are: GI: constipation, heartburn, and nausea Oral: mouth sores Pt presents for nutrition counseling for Malignant neoplasm of right breast in female, estrogen receptor positive. Pt is currently being treated with Kisqali, Fulvestrant. Pt denies any chewing/swallowing issues, c/o current constipation. Pt denies any current N/V/D. Pt denies food allergies/intolerances. Appetite appears to be good, Intakes have been somewhat limited due to mouth sores, heart, and what patient is describing burning down the throat. She reports she has been staying away from highly seasoned foods and roughage. Pt states she has been eating a lot of sugar and fruit. Reviewed with pt importance of adequate calories/protein and preserving lean muscle mass. Reviewed above interventions, advised patient to refrain from consuming to much spicy, citrus, caffeine, or temperature hot foods. Problem solved with pt on ways to meet recommendations, and answered all of patient and family's questions. Thank you for allowing me to participate in the care of this pt. Readiness to Learn: Cognitive ability: Alert and oriented Motivation to learn: Interested Family support: High - Very involved in pt care Instruction provided to: Patient and family member Patient learns best by: Multiple Methods Factors affecting learning: None Physical limitations affecting learning: None Educational materials provided: Mailed to patient [employer] Booklet, [facility] Sore Mouth & Throat Anthropometrics: Height: Last 1 Encounter Ht Readings: Date: Ht: 02/03/2023 152.4 cm (5') Current weight: Last 1 Encounter Wt Readings: Date: Wt: 02/03/2023 75.3 kg (166 lb) Estimated body mass index is 32.42 kg/m as calculated from the following: Height as of 02/03/23: 152.4 cm (5'). Weight as of 02/03/23: 75.3 kg (166 lb). Resting Metabolic Rate: 1155 Weight Change: n/a Dosing Weight: 75.3 kg Estimated kilocalorie needs: 1882 kilocalories determined by 25 kcal/kg Estimated protein needs: 75-90 grams determined by 1.0-1.2 g/kg Dosing weight Estimated fluid needs: ~1900 milliliters based on 1 mL per kcal (unless otherwise indicated) Nutrition Focused Physical Exam: Unable to perform exam due to patient unavailable, will re-attempt during reassessment. Potential Signs of Inflammation: chronic condition Allergies: Citalopram Hydrobromide Medications: Current Outpatient Medications Medication Sig Dispense Refill sucralfate (CARAFATE) 100 mg/mL suspension Take 10 mL by mouth every 6 hours as needed (for heartburn) for up to 15 days. 60 mL 1 diphenhydrAMINE 12.5 mg/5 mL lidocaine visc 2% MAALOX 200-200-20 mg/5 mL nystatin prednisoLONE 15 mg/5 mL oral liquid 1:1:1:1:1 (CPD) Take 5 mL by mouth every 6 hours as needed. Swish and Swallow 300 mL 1 ribociclib (KISQALI) 600 mg/day (200 mg x 3) Take 3 tablets (600 mg) by mouth once daily for 21 days. Then take a 7-day rest period to complete a 28-day treatment cycle. 63 tablet 2 ondansetron (ZOFRAN) 8 mg tablet Take 1 tablet by mouth every 8 hours as needed for nausea/vomiting. 90 tablet 1 prochlorperazine (COMPAZINE) 10 mg tablet Take 1 tablet by mouth every 6 hours as needed. 100 tablet 1 traMADol (ULTRAM) 50 mg tablet folic acid/multivit-min/lutein (CENTRUM SILVER ORAL) Take 1 tablet by mouth once daily. baclofen (LIORESAL) 10 mg tablet 10 mg twice daily as needed. latanoprost (XALATAN) 0.005 % ophthalmic solution INSTILL 1 DROP INTO EACH EYE EVERY EVENING DIRECTED cholecalciferol, vitamin D3, (VITAMIN D3 ORAL) Take by mouth once daily. LORazepam (ATIVAN) 0.5 mg tab 0.5 mg twice daily as needed. naproxen sodium 220 mg cap Take by mouth twice daily as needed. No current facility-administered medications for this visit. Need for Follow up: prn Referred by: CAROL George MNT Billing Type: Initial Assess/15 min 1 unit Time Spent with Patient: 15 minutes Signed by: Maggie Rivera MS, RDN, LD documented in this encounter [facility] 02-15-2023 Miscellaneous Notes Pt notified and verbalizes understanding. Clerical: Please schedule pt to see Evelina. Pt is aware that you will be calling her w/ an appointment. Emily George RN Probably holding kisqali will help. We can try to give her carafate -Rx sent to [facility] in [place]. Have her stop her Nexium in the meanwhile. Pt calls in w/ multiple complaints: C/o ongoing heartburn. Taking Nexium 24 hour tabs twice daily. Using TUMS as needed. States anything she eats sets if off. The heartburn then leads to nausea. Taking Zofran 1-2 times per day. Refuses to take Compazine because her daughter had a severe reaction to it in the past. Advised pt to take her Zofran TID ATC. What do you advise she do for her heartburn? 2. Pt c/o nausea, fatigue, constipation, mouth sores. Food intake is poor. Eating only soda crackers and boost. Has 9 days remaining of her second cycle of Kisqali. Advised she hold the Kisqali for now. Do you agree? Order for nutrition consult pended as well. 3. Pt c/o constipation over the weekend. Resolved after one dose of MOM. Pt then had multiple loose stool up until yesterday. Reports that she had a small amount of pink blood on the toilet tissue w/ wiping. Explained to pt that the skin around her rectum was likely irritated from the multiple stools she experienced. Suggested she apply vaseline to the area. Pt verbalizes understanding. Ella/Christ: Please advise on #1 & #2. Thanks! Emily George RN documented in this encounter [facility] 02-03-2023 Note [facility] 01-25-2023 Miscellaneous Notes Script phoned to [facility]. Pt notified and directions reviewed. Pt verbalizes understanding. Emily George RN Pt c/o sores to the roof of her mouth, near the back and down her throat. Denies pain. No difficulty swallowing. Eating soft foods and drinking fluids w/o difficulty. Gargling w/ baking soda/water rinse. Pt has only 2 days left her current Kisqali cycle. Christ: Script for MMW pended if you approve. Thanks! Emily George RN documented in this encounter [facility] 01-20-2023 Note [facility] 01-20-2023 Nurse Note UA performed as ordered and sent for culture. Shawna Cooper Ma documented in this encounter [facility] 01-20-2023 History of Presen t illness Narrative Images from the original note were not included. -NAME: Vijay Soha [facility] NO.: [id number] DATE OF SERVICE: January 20, 2023 ([place]) Some elements in this clinic note that are critical to medical decision making have been carefully reviewed and included from a prior clinic note dated: January 06, 2023. (Dr. Calix) Referring Provider: Additional Clinicians involved in Soha Ford's care: DIAGNOSIS: Metastatic breast cancer ASSESSMENT: 1. Malignant neoplasm of female breast, unspecified estrogen receptor status, unspecified laterality, unspecified site of breast (HCC) - ICD9: 174.9, ICD10: C50.919 (primary diagnosis) No evidence of recurrence. We discontinued Arimidex and started on Faslodex. She doesn't recall having issues with Aromasin so we can add this in the future if needed. However, will proceed with CDK4/6 inhibitor for now. Started Kisqali . PLAN: Continue cycle 1 Kisqali through January 26, 2023. Fulvestrant every 4 weeks. Will be due in 2 weeks. Follow up in 2 weeks for labs and Faslodex. Checked urinalysis and will send urine for culture. Patient was given a written prescription for Bactrim DS twice daily to start if her urinary symptoms worsen. Will contact the patient next week with urine culture results. Prescription given for Nexium 20 mg daily. HPI: CASE HISTORY: 01/06/2023 : start Fulvestrant + Kisqali 12/09/2022 : PET/CT - progressive mets to bone. 08/17/2022 : PET/CT continued responsive disease 04/22/2022 : PET/CT shows responsive disease - right mid femur improved, left humerous stable 01/11/2022 : Fulvestrant started 12/15/2021 : Left Axillary Recurrence. HER2(-), ER/IL+ 06/2018 - 12/2021: Arimidex - progressed 05/2018: not tolerating aromasin well- in addition to hair loss, having anxiety and hot flashes with poor sleep 03/2018: tried to switch to aromasin due to hair loss 09/2015: completed adjuvant radiation and started adjuvant hormonal therapy with arimidex 05/2015: Bilateral mastectomy with right axillary dissection, path notes [id number] disease 04/2015: stopped weekly taxol, had 9 weeks of therapy, repeat imaging by PET identified complete metabolic response per notes, developed neuropathy, MRI brain identified what was felt to be meningioma 12/2014: started dose dense AC-weekly taxol 11/2014: diagnosed with locally advanced ER/IL (+), 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 She started Kisqali 600 mg (3 tablets) daily for 3 weeks on and 1 week off on January 06. She is scheduled to complete her first cycle on January 26. Initially when starting the Kisqali her cheeks turned red and her bottom lip felt like it had a welt . Her face was hot to the touch, more on the left side than the right side. She called the office with complaints of heartburn. It was recommended she start Nexium [id number]. She states that her labia felt irritated and that her urine was hot . She is worried about a urinary tract infection. She denies fevers and chills. No bleeding or abnormal bruising. Updated Visit, January 06, 2023: Returns with Inga - still very anxious. Repeated and reinforced education. Start Kisqali today and monitor labs. Due for faslodex today as well. Updated Visit, December 16, 2022: Soha returns with her daughter Inga. She celebrated her 77th birthday. Always anxious Would start ribociclib. Will need guardant 360 for ESR1 mutation if she progresses. Updated Visit, August 19, 2022: Soha is 76 years old and returns with her daughter Inga. Overall doing well. Scans reviewed and show continued response of disease. Seems to alleviate her significant levels of anxiety. Although, at a baseline she is very anxious. Updated Visit, June 24, 2022: Radha accompanies and she reports the she lost her appetite past few days and has dysuria over same period of time. Also frequent urination. However she just finished Keflex for a skin infection.will send UA C&S Updated Visit, April 29, 2022: Returns with Radha and Inga - reviewed PET/CT which shows improvement. She remains nervous about many things especially taking pain pills for her hip pain. She would be safe to proceed with ortho intervention as needed. Updated Visit, April 01, 2022: Soha returns accompanied by both of her daughters Radha and Inga and is less anxious today. Continues to have hip pain from bursitis. She feels well tolerating faslodex. No appreciable axillary mass on left with palpation. Updated Visit, February 08, 2022: Frannie returns with her daughter Radha. She is less anxious today and is tolerating treatment well. Bones are achy Hip consistent with bursitis and did well with a steroid short. Left arm is doing well. She s concerned about the sclerotic lesion in the left humerus but I reassured her that this would not be a subtle change if there was something alarming about this lesion. Updated Visit, January 11, 2022: Here with her daughter Radha. Left axillary wound is erythematous but non-tender and not inflamed. Does not appear infected. Scalp appears to have small raised lesions that will likely need to have dermatology look at them, but not acutely. Her anxiety remains quite high. Updated Visit, December 28, 2021: Telephone only for 15 minutes Called [facility] to get Her2 status. Verbal report that FISH was negative. Called Soha as requested and given her fairly low volume of disease on PET/CT, we could hold RT for any painfull symptomatic disease or new bony metastatic disease. We will maximize endocrine therapy. No significant pain. Primarily anxiety. Updated Visit, December 24, 2021: Soha returns with her daughters today and is highly anxious. She had a left axillary mass removed after Dr. Dong noted it on his most recent visit. This was not noted on my evaluation in September. She had the mass resected and it was consistent with her ER/IL+ brca. GOS4pae FISH is still pending. She will need staging PET/CT to determine extent and volume of disease. Once we have the final pathology and PET restaging we will determine course of therapy. She is hoping not to have chemotherapy. Updated Visit, September 24, 2021: Soha Ford is a 75 year old female who presents in follow-up on Arimidex for breast cancer diagnosed in 2014. Has preferred to stay on extended endocrine therapy in adjuvant setting. Very anxious about her tumor marker but realized that she had heard her number incorrectly and that there was no need for anxiety caused by following this lab test. All else is well. Labs are stable. No palpable abnormality noted in arms or axilla. Lymphedema is stable. 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 Dr. Matias is monitoring but on my exam, the lesion appears to be raised slightly and will likely need re-evaluated. Calcium in the form of Tums with Vitamin D. Continues to take Arimidex since 06/2018. Complains of some decreased mobility especially in her left leg with some pain shooting down the left leg. Updated Visit, December 24, 2020: Soha Ford returns for scheduled follow-up. Since her last visit there has been no significant medical changes. Today she is concerned about a couple of skin moles. She denies cough, shortness of breath and other pulmonary symptoms. She denies any unusual pain. She denies chest wall lumps or bumps. She remains on Arimidex and is tolerating it fairly well. She denies any significant muscle and joint aches. Overall, doing well. Updated Visit, June 25, 2020: Soha Ford is a 74 year old female who presents in follow-up on Arimidex. She has requested vaccinations to include Pneumococcal, Influenza and shingle. Continues arimidex for 10 years - 09/2025 Doing well right arm in lymphedema sleeve Osteopenia on dexa Caltrate D sent in Consider prevention of bone disease in the future CT of the chest is reviewed below: 03/05/2019 10:49 AM - Radiology, [place] In Impression IMPRESSION: 1. Mildly enlarged left axillary lymph node appears slightly more conspicuous when compared to the prior study of 08/28/2018, new when compared to more remote examination of 10/10/2017. 2. Scattered right-sided subcentimeter pulmonary nodules, unchanged. She was on arimidex with much better tolerance. APV put her on this from aromasin which she was losing her hair with. REVIEW OF SYSTEMS Per HPI and otherwise negative by full review of organ systems. ECOG PERFORMANCE STATUS: 1 PHYSICAL EXAMINATION: Vitals: BP 174/58 Pulse 77 Temp (Src) 97.3 (Temporal) Resp 18 Ht 5' 0 (1.52m) Wt 168 lb 6.4 oz (76.4kg) SpO2 97% BMI 32.89 kg/(m^2). Body surface area is 1.8 meters squared. Exam limited to gross visualization where appropriate due to COVID-19. Gen.: This is an age-appropriate patient in no acute distress. Head: Appears atraumatic with no visible lesions. Eyes: Pupils equally round and reactive to light, extraocular muscles are intact. Neck: Supple. Mouth: Masked. Respiratory: Appears to be respiring comfortably. Neurologic: Nonfocal to gross visualization. Alert and oriented 3. Psychiatric: No evidence of inappropriate anxiety or depression. Skin: Visible areas of skin without rash, lesions, wounds or petechiae. ALLERGIES: ALLERGIES No Known Allergies MEDICATIONS: ondansetron (ZOFRAN) 8 mg tablet Take 1 tablet by mouth every 8 hours as needed for nausea/vomiting. prochlorperazine (COMPAZINE) 10 mg tablet Take 1 tablet by mouth every 6 hours as needed. ribociclib (KISQALI) 600 mg/day (200 mg x 3) Take 3 tablets (600 mg) by mouth once daily for 21 days. Then take a 7-day rest period to complete a 28-day treatment cycle. traMADol (ULTRAM) 50 mg tablet folic acid/multivit-min/lutein (CENTRUM SILVER ORAL) Take 1 tablet by mouth once daily. baclofen (LIORESAL) 10 mg tablet 10 mg twice daily as needed. latanoprost (XALATAN) 0.005 % ophthalmic solution INSTILL 1 DROP INTO EACH EYE EVERY EVENING DIRECTED cholecalciferol, vitamin D3, (VITAMIN D3 ORAL) Take by mouth once daily. LORazepam (ATIVAN) 0.5 mg tab 0.5 mg twice daily as needed. naproxen sodium 220 mg cap Take by mouth twice daily as needed. 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) Lymphedema (R30.0) Dysuria PAST MEDICAL HISTORY Diagnosis Date Breast cancer (HCC) Right Post-menopausal PAST SURGICAL HISTORY Procedure Laterality Date APPENDECTOMY BREAST BIOPSY OTHER SURGICAL HISTORY (PLEASE SPECIFY) HX bilateral mastecomy REMV CATARACT EXTRACAP,INSERT LENS Left Social History Tobacco Use Smoking status: Never Passive exposure: Past Smokeless tobacco: Never Vaping Use Vaping Use: Never used Substance Use Topics Alcohol use: No Drug use: No FAMILY HISTORY Problem Relation Age of Onset Prostate Cancer Father other (melanoma [Other]) Daughter other (Renal Cell carcinoma [Other]) Brother Christ Marquez APRN.CNP Hematology and Oncology Services Provided at: [place], [place] CC: Dr. Kalee Shen I spent a total of 30 minutes on the date of the service which included preparing to see the patient, [id number] patient care, completing clinical documentation, obtaining and/or reviewing separately obtained history, performing a medically appropriate examination, counseling and educating the patient/family/caregiver, ordering medications, tests, or procedures, independently interpreting results (not separately reported), and communicating results to the patient/family/caregiver. documented in this encounter [facility] 01-18-2023 Miscellaneous Notes Pt notified and verbalizes understanding. Emily George RN Unsure of the meaning of her gum discoloration. Agree with bowel regimen as recommended. Prilosec would be very reasonable. May have better luck with Nexium BID also OTC. Symptoms sound like reflux. Pt calls w/ the following concerns: 1. FYI: C/o constipation. Had 1 small BM today. Taking only Colace. Miralax and Senokot-S instructions reviewed w/ pt. Advised she try those instead. Pt verbalizes understanding. States she seems to have luck w/ MOM most times. Informed pt that she could try that first and then start the Miralax/Senokot if no results. Pt verbalizes understanding. 2. Pt reports that her top gums are pale, almost white in color. Denies any visible signs of bleeding. Notes increased fatigue. Pt will be in on , 01/20, for RV and labs. Would you like anything done in the meantime? 3. Pt c/o burning chest pain and chest tightness. Began on Tuesday. Burning last through Tuesday. Still having chest tightness. Denies any noticeable changes in breathing. Took Tums over the weekend, but notes very little relief. Sleeping w/ her head elevated at night. Following a bland diet. Any objections to pt taking Prilosec OTC? Any other recommendations? Emily George RN documented in this encounter [facility] 01-14-2023 Miscellaneous Notes ORAL ANTI-CANCER AGENTS FOLLOW-UP PHONE CALL/VISIT Patient identified by name and date of . YES Patient is on cycle 1, week 2, day 2 of Ribociclib for Breast Cancer. SYMPTOM ASSESSMENT Headache: Yes - Occasional. Most times mild , but notes it is worse today. Headache is noted above her eyes. Feels it's related to the weather. Applying ice pack to head. Will take Aleve if needed. Visual Changes: No - nothing new. Dizziness: No Do you have any periods of confusion? No Mood changes: No Mouth or throat pain: No Appetite: no changes in appetite, appetite good Taste changes: No Nausea: No Vomiting: No Heartburn: Yes: after eating a tuna sub w/ onions yesterday. Resolved w/ TUMS. Nothing noted today. Weight gain/loss: No Episodes of palpitations/chest discomfort/pressure/pain No Shortness of breath: Yes when bringing laundry up from the basement. Cough: Yes; productive brown sputum and occasional Diarrhea: no Constipation: no Bladder/Urinary Changes: None Pain: No=0 (pain 0 on a scale of 0-10). Received a steroid injection to her left hip yesterday. Fever: No Chills: No Cold sensitivity: No Numbness/weakness: No Edema: Right arm lymphedema. No worse since start of treatment. Skin changes: No Itching: No Yellowing of skin or eyes: No Musculoskeletal/joint changes/issues No Bleeding issues: No Activity Level (0-100%): Notes an increase in fatigue, but maintaining her normal activity. Do you need to take naps? Yes; Do you wake up feeling rested? Yes Pt verbalizes correct dose and frequency of the above medication. Does the patient need interventions or same day appointment:No ADDITIONAL FOLLOW UP: The next outreach call is due on: Advised pt to call w/ any questions or concerns and was scheduled NA The following lab tests are due: CBC and CMP on 01/20/23. Verified patient is aware of next appointment in the cancer center: Yes. Verified patient verbalized how to correctly refill the oral agent prescription. Yes Does the patient have any financial difficulties affording this medication? No Patient verbalizes understanding of when to seek Medical Attention? YES Patient verbalizes understanding of after-hours and weekend phone number? YES Patient verbalized importance of medication compliance in taking the oral agent as prescribed. Patient instructed to call if unable to comply. Emily George RN ORAL ANTI-CANCER AGENTS FOLLOW-UP PHONE CALL/VISIT Call placed to pt. No answer. Message left requesting call back. Emliy George RN documented in this encounter [facility] 01-06-2023 Note [facility] 12-24-2022 Miscellaneous Notes Images from the original note were not included. Cedrick Calix MD You 11 minutes ago (3:29 PM) Start and return on 01/06. Can start Kisqali same day after she s had labs. Pt notified. Call transferred to PSS's to schedule Sabrina Jacques RN Images from the original note were not included. MD Christ Jay APRN.QUILL SKINNER; Emily George RN 34 minutes ago (2:26 PM) It would be easier for her to track and get labs coordinated since her off week would fall 1 week before her Shot and we can get labs same time before she starts the next cycle. I'm confused. Pt's last fulvestrant was 12/09. Pt is due for her next fulvestrant on 01/06. Your visit note from 12/16 says to get fulvestrant that day. Was too soon since it was given the week before. Please advise when you would like pt to start her Kisqali and when would you like her follow up to be as she's not currently scheduled. Sabrina Jacques RN Met w/ pt today for education. Pt was given the Kisqali at her visit. Pt and daughter stated that you mentioned starting the medication around the time of her next Faslodex injection. Pt's next shot is due 01/06/23. When should she start the Kisqali? Emily George RN documented in this encounter [facility] 12-23-2022 Note [facility] 12-23-2022 Note [facility] 12-23-2022 Miscellaneous Notes The following approved medication requests have been transmitted electronically. Requested Prescriptions Signed Prescriptions Disp Refills ondansetron (ZOFRAN) 8 mg tablet 90 tablet 1 Sig: Take 1 tablet by mouth every 8 hours as needed for nausea/vomiting. Authorizing Provider: CHRIST MARQUEZ prochlorperazine (COMPAZINE) 10 mg tablet 100 tablet 1 Sig: Take 1 tablet by mouth every 6 hours as needed. Authorizing Provider: CHRIST MARQUEZ APRN.[employer]ILL [employer]NER Met w/ pt today for education (Kisqali). Scripts for antiemetics pended. Emily George RN documented in this encounter [facility] 12-23-2022 History of Presen t illness Narrative ORAL ANTI-CANCER AGENTS EDUCATION patient and daughter x 2 here today for oral medication education for Ribociclib for Breast Cancer READINESS TO LEARN Cognitive Ability: Alert and oriented Motivation to Learn: Interested Family Support: High - Very involved in pt care Instruction Provided to: Patient and Daughter x 2 Patient learns best by: Multiple Methods Factors affecting learning: Emotional Factors: Anxious Physical limitation affecting learning: None SIMONS ASSESSMENT: 1.) Verified that patient knows that the oral agents are for cancer and are taken by mouth. Yes 2.) Medication reconciliation completed during visit. Yes 3.) Patient is able to swallow pills. Yes 4.) Patient is able to read the drug label/information. Yes 5.) Patient is able to open the medication bottles and packages. Yes 6.) Has patient taken other pills for cancer? YES, please explain: Arimidex and Aromasin 7.) Is patient experiencing any symptoms that would affect their ability to keep down pills, for example nausea or vomiting? No 8.) Verified that patient understands prescription delivery, benefit investigation and refill process. Yes - Explained at length per SABRA Saravia Pharmacist. PATIENT EDUCATION: 1.) Verified that patient attended individualized instruction on chemotherapy taught by a pharmacist. and nurse. Yes 2.) Verified that patient received Chemotherapy Safety in the Home handout, ChemoCare Medication Information handout: Ribociclib, Specialty Pharmacy Information : [facility] [place], and Specialty Pharmacy phone numbers: Yes DRUG-SPECIFIC EDUCATION: 1.) Verified that patient knows the drug name. Yes 2.) Verified patient understands the dose and schedule of oral chemo agent:with water, with or without food. Yes 3.) Verified patient knows what to do if a medication dose is missed. Yes 4.) Verified patient understands where to store the drug. Yes 5.) Verified patient understands potential side effects and how to manage them. Yes Nausea , Vomiting, Constipation, Diarrhea, Cardiac toxicity, Fever / Chills / Risk for Neutropenic Fever, Headache, Neutropenia, Thrombocytopenia, Anemia, Mucositis, Fatigue, Alopecia , Rash, Myalgia, Arthalgia, and Fluid Retention 6.)Verified that patient understands handling precautions of oral chemo agent. Yes 7.) Verified that patient understands when and whom to call with questions. Yes 8.) Verified that patient understands where and how to return drug. Yes EVALUATE: Patient was able to demonstrate an understanding of all the above education using the teach-back method. Yes Patient instructed to call us with any questions, concerns, and/or unresolved symptoms. Will continue to follow up with patient and provide reinforcement of teaching topics as needed. Total time spent with patient: 55 minutes Total time spent on encounter: 10 minutes Emily George RN Images from the original note were not included. [facility] Department of Pharmacy Oncology Pharmacy Medication Education Patient Name: Soha Ford Primary Oncologist: Cedrick Calix Diagnosis: ER/IL + Her-2- Breast ca Soha Ford is a 77 year old patient and daughter here today for medication education for PO Ribociclib . Drug Interactions: Clinically significant interactions with chemotherapy, immunosuppression, or other standard of care treatment plan medications anticipated: No. There are no pertinent drug interactions identified. Patient was counseled accordingly. Allergies: Patient confirmed allergies documented in Epic are correct: Yes Was medication education provided?: Yes Medication Education: Administration and schedule: 3T PO every day for 3 weeks then 7 days off Potential side effects discussed: anemia, appetite changes, diet, electrolyte disturbances, fatigue, infection, nausea/vomitting PO chemo: Verified patient understands where to store the drug. Yes Verified that patient understands prescription delivery, benefit investigation and refill process. Yes Primo for $9000.00 refills at [facility] until this is depleted then application for free drug in folder to send if no other grants available Was medication reconciliation performed?: Yes Changes made to medication list? No Current Outpatient Medications Medication Sig ondansetron (ZOFRAN) 8 mg tablet Take 1 tablet by mouth every 8 hours as needed for nausea/vomiting. prochlorperazine (COMPAZINE) 10 mg tablet Take 1 tablet by mouth every 6 hours as needed. ribociclib (KISQALI) 600 mg/day (200 mg x 3) Take 3 tablets (600 mg) by mouth once daily for 21 days. Then take a 7-day rest period to complete a 28-day treatment cycle. traMADol (ULTRAM) 50 mg tablet folic acid/multivit-min/lutein (CENTRUM SILVER ORAL) Take 1 tablet by mouth once daily. baclofen (LIORESAL) 10 mg tablet 10 mg twice daily as needed. latanoprost (XALATAN) 0.005 % ophthalmic solution INSTILL 1 DROP INTO EACH EYE EVERY EVENING DIRECTED cholecalciferol, vitamin D3, (VITAMIN D3 ORAL) Take by mouth once daily. LORazepam (ATIVAN) 0.5 mg tab 0.5 mg twice daily as needed. naproxen sodium 220 mg cap Take by mouth twice daily as needed. No current facility-administered medications for this visit. - Chemotherapy education was provided by a pharmacist YES - Provided important phone numbers and contacts during and after hours. YES - Provided information on symptoms that require immediate assistance. YES - Provided Chemotherapy when to call handouts YES - Preventing infection. YES - Treatment schedule and confirmation of appointment times. YES - Available support groups. NA - The importance of contraception during the course of chemotherapy NA - Prescriptions for anti-emetics or treatment prep was given: Compazine and Zofran. YES Thank you for allowing us to participate in the care of this patient. I spent 30 time (15 minute increments) with the patient Shiva Swanson RPh Pager: documented in this encounter [facility] 12-16-2022 Note [facility] 12-16-2022 Miscellaneous Notes Patient wanted to schedule future appointments when she knows about information from pharmacy regarding her medication and will schedule those appointments when she's here for education next week. Genny Ortega documented in this encounter [facility] 12-16-2022 Miscellaneous Notes Ambulatory Pharmacy Prior Authorization Note Provider Intervention Required?: No- Pharmacy completed on your behalf. Rx Plan: Drug: Kisqali Cover My Meds Simons: [id number] Determination: Approved Prior Authorization/Case #: [id number] Prior Authorization Expiration: Time to PA Submission in CMM: 15 min Time to PA Determination in CMM: Same day Additional Information:Copay is $3,387so we will be checking on grants/free drug options For questions relating to this submission, please contact [facility] at [phone] documented in this encounter [facility] 12-16-2022 Instructions Cedrick Calix MD - 12/16/2022 11:05 AM EDT Fulvestrant today add Kisqali Needs education Fulvestrant q 4 weeks Add Kisqali 21 days every 4 weeks Labs q 2 weeks RTC in 2 weeks documented in this encounter [facility] 12-16-2022 History of Presen t illness Narrative Images from the original note were not included. NAME: Soha Ford CLINIC NO.: [id number] DATE OF SERVICE: December 16, 2022 ([place]) Some elements in this clinic note that are critical to medical decision making have been carefully reviewed and included from a prior clinic note dated: August 19, 2022 ([place]) Referring Provider: Additional Clinicians involved in Soha Ford's care: DIAGNOSIS: Metastatic breast cancer ASSESSMENT: 1. Malignant neoplasm of female breast, unspecified estrogen receptor status, unspecified laterality, unspecified site of breast (HCC) - ICD9: 174.9, ICD10: C50.919 (primary diagnosis) No evidence of recurrence. We discontinued Arimidex and started on Faslodex. She doesn't recall having issues with Aromasin so we can add this in the future if needed. PLAN: Fulvestrant today add Kisqali Needs education Fulvestrant q 4 weeks Add Kisqali 21 days every 4 weeks Labs q 2 weeks RTC in 2 weeks HPI: CASE HISTORY: 08/17/2022 : PET/CT continued responsive disease 04/22/2022 : PET/CT shows responsive disease - right mid femur improved, left humerous stable 01/11/2022 : Fulvestrant started 12/15/2021 : Left Axillary Recurrence. HER2(-), ER/IL+ 06/2018 - 12/2021: Arimidex - progressed 05/2018: not tolerating aromasin well- in addition to hair loss, having anxiety and hot flashes with poor sleep 03/2018: tried to switch to aromasin due to hair loss 09/2015: completed adjuvant radiation and started adjuvant hormonal therapy with arimidex 05/2015: Bilateral mastectomy with right axillary dissection, path notes [id number] disease 04/2015: stopped weekly taxol, had 9 weeks of therapy, repeat imaging by PET identified complete metabolic response per notes, developed neuropathy, MRI brain identified what was felt to be meningioma 12/2014: started dose dense AC-weekly taxol 11/2014: diagnosed with locally advanced ER/IL (+), HER2(equivocal on FISH, 2+ IHC), grade 2 invasive ductal carcinoma, right axillary lymph nodes appreciated on imaging Updated Visit, December 16, 2022: Soha returns with her daughter Inga. She celebrated her 77th birthday. Always anxious Would start ribociclib. Will need guardant 360 for ESR1 mutation if she progresses. Updated Visit, August 19, 2022: Soha is 76 years old and returns with her daughter Inga. Overall doing well. Scans reviewed and show continued response of disease. Seems to alleviate her significant levels of anxiety. Although, at a baseline she is very anxious. Updated Visit, June 24, 2022: Radha accompanies and she reports the she lost her appetite past few days and has dysuria over same period of time. Also frequent urination. However she just finished Keflex for a skin infection.will send UA C&S Updated Visit, April 29, 2022: Returns with Radha and Inga - reviewed PET/CT which shows improvement. She remains nervous about many things especially taking pain pills for her hip pain. She would be safe to proceed with ortho intervention as needed. Updated Visit, April 01, 2022: Soha returns accompanied by both of her daughters Radha and Inga and is less anxious today. Continues to have hip pain from bursitis. She feels well tolerating faslodex. No appreciable axillary mass on left with palpation. Updated Visit, February 08, 2022: Frannie returns with her daughter Radha. She is less anxious today and is tolerating treatment well. Bones are achy Hip consistent with bursitis and did well with a steroid short. Left arm is doing well. She s concerned about the sclerotic lesion in the left humerus but I reassured her that this would not be a subtle change if there was something alarming about this lesion. Updated Visit, January 11, 2022: Here with her daughter Radha. Left axillary wound is erythematous but non-tender and not inflamed. Does not appear infected. Scalp appears to have small raised lesions that will likely need to have dermatology look at them, but not acutely. Her anxiety remains quite high. Updated Visit, December 28, 2021: Telephone only for 15 minutes Called [facility] to get Her2 status. Verbal report that FISH was negative. Called Soha as requested and given her fairly low volume of disease on PET/CT, we could hold RT for any painfull symptomatic disease or new bony metastatic disease. We will maximize endocrine therapy. No significant pain. Primarily anxiety. Updated Visit, December 24, 2021: Soha returns with her daughters today and is highly anxious. She had a left axillary mass removed after Dr. Dong noted it on his most recent visit. This was not noted on my evaluation in September. She had the mass resected and it was consistent with her ER/IL+ brca. CEA2ugm FISH is still pending. She will need staging PET/CT to determine extent and volume of disease. Once we have the final pathology and PET restaging we will determine course of therapy. She is hoping not to have chemotherapy. Updated Visit, September 24, 2021: Soha Ford is a 75 year old female who presents in follow-up on Arimidex for breast cancer diagnosed in 2014. Has preferred to stay on extended endocrine therapy in adjuvant setting. Very anxious about her tumor marker but realized that she had heard her number incorrectly and that there was no need for anxiety caused by following this lab test. All else is well. Labs are stable. No palpable abnormality noted in arms or axilla. Lymphedema is stable. 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 Dr. Matias is monitoring but on my exam, the lesion appears to be raised slightly and will likely need re-evaluated. Calcium in the form of Tums with Vitamin D. Continues to take Arimidex since 06/2018. Complains of some decreased mobility especially in her left leg with some pain shooting down the left leg. Updated Visit, December 24, 2020: Soha Ford returns for scheduled follow-up. Since her last visit there has been no significant medical changes. Today she is concerned about a couple of skin moles. She denies cough, shortness of breath and other pulmonary symptoms. She denies any unusual pain. She denies chest wall lumps or bumps. She remains on Arimidex and is tolerating it fairly well. She denies any significant muscle and joint aches. Overall, doing well. Updated Visit, June 25, 2020: Soha Ford is a 74 year old female who presents in follow-up on Arimidex. She has requested vaccinations to include Pneumococcal, Influenza and shingle. Continues arimidex for 10 years - 09/2025 Doing well right arm in lymphedema sleeve Osteopenia on dexa Caltrate D sent in Consider prevention of bone disease in the future CT of the chest is reviewed below: 03/05/2019 10:49 AM - Radiology, Oru In Impression IMPRESSION: 1. Mildly enlarged left axillary lymph node appears slightly more conspicuous when compared to the prior study of 08/28/2018, new when compared to more remote examination of 10/10/2017. 2. Scattered right-sided subcentimeter pulmonary nodules, unchanged. She was on arimidex with much better tolerance. APV put her on this from aromasin which she was losing her hair with. REVIEW OF SYSTEMS Per HPI and otherwise negative by full review of organ systems. ECOG PERFORMANCE STATUS: 1 PHYSICAL EXAMINATION: Vitals: BP 153/87 Pulse 92 Temp (Src) 97.1 (Temporal) Resp 20 Ht 5' 0 (1.52m) Wt 167 lb 9.6 oz (76.0kg) SpO2 94% BMI 32.73 kg/(m^2). Body surface area is 1.79 meters squared. Exam limited to gross visualization where appropriate due to COVID-19. Gen.: This is an age-appropriate patient in no acute distress. Head: Appears atraumatic with no visible lesions. Eyes: Pupils equally round and reactive to light, extraocular muscles are intact. Neck: Supple. Mouth: Masked. Respiratory: Appears to be respiring comfortably. Neurologic: Nonfocal to gross visualization. Alert and oriented 3. Psychiatric: No evidence of inappropriate anxiety or depression. Skin: Visible areas of skin without rash, lesions, wounds or petechiae. ALLERGIES: ALLERGIES No Known Allergies MEDICATIONS: cephALEXin (KEFLEX) 500 mg capsule Take 500 mg by mouth three times daily. traMADol (ULTRAM) 50 mg tablet folic acid/multivit-min/lutein (CENTRUM SILVER ORAL) Take 1 tablet by mouth once daily. baclofen (LIORESAL) 10 mg tablet 10 mg twice daily as needed. latanoprost (XALATAN) 0.005 % ophthalmic solution INSTILL 1 DROP INTO EACH EYE EVERY EVENING DIRECTED cholecalciferol, vitamin D3, (VITAMIN D3 ORAL) Take by mouth once daily. LORazepam (ATIVAN) 0.5 mg tab 0.5 mg twice daily as needed. naproxen sodium 220 mg cap Take by mouth twice daily as needed. ribociclib (KISQALI) 600 mg/day (200 mg x 3) Take 3 tablets (600 mg) by mouth once daily for 21 days. Then take a 7-day rest period to complete a 28-day treatment cycle. LABORATORY VALUES: WBC (k/uL) Date Value 12/16/2022 8.13 RBC (m/uL) Date Value 12/16/2022 4.72 Hemoglobin (g/dL) Date Value 12/16/2022 14.2 Hematocrit (%) Date Value 12/16/2022 41.9 MCV (fL) Date Value 12/16/2022 88.8 MCH (pg) Date Value 12/16/2022 30.1 MCHC (g/dL) Date Value 12/16/2022 33.9 RDW-CV (%) Date Value 12/16/2022 12.5 Platelet Count (k/uL) Date Value 12/16/2022 317 MPV (fL) Date Value 12/16/2022 8.9 (L) Glucose (mg/dL) Date Value 12/16/2022 110 (H) BUN (mg/dL) Date Value 12/16/2022 18 Creatinine (mg/dL) Date Value 12/16/2022 0.78 Sodium (mmol/L) Date Value 12/16/2022 138 Potassium (mmol/L) Date Value 12/16/2022 4.4 Chloride (mmol/L) Date Value 12/16/2022 104 CO2 (mmol/L) Date Value 12/16/2022 22 Protein, Total (g/dL) Date Value 12/16/2022 7.0 Albumin (g/dL) Date Value 12/16/2022 4.0 Calcium, Total (mg/dL) Date Value 12/16/2022 9.5 Alkaline Phosphatase (U/L) Date Value 12/16/2022 101 Bilirubin, Total (mg/dL) Date Value 12/16/2022 0.4 AST (U/L) Date Value 12/16/2022 14 ALT (U/L) Date Value 12/16/2022 11 DIAGNOSIS: (D05.12) Cancer of breast, intraductal, left (primary encounter diagnosis) Plan: CBC + DIFF, COMP METABOLIC PANEL (C50.811, C50.812, Z17.0) Malignant neoplasm of overlapping sites of both breasts in female, estrogen receptor positive (HCC) Plan: CBC + DIFF, COMP METABOLIC PANEL PAST MEDICAL HISTORY Diagnosis Date Breast cancer (HCC) Right Post-menopausal PAST SURGICAL HISTORY Procedure Laterality Date APPENDECTOMY BREAST BIOPSY OTHER SURGICAL HISTORY (PLEASE SPECIFY) HX bilateral mastecomy REMV CATARACT EXTRACAP,INSERT LENS Left Social History Tobacco Use Smoking status: Never Passive exposure: Past Smokeless tobacco: Never Vaping Use Vaping Use: Never used Substance Use Topics Alcohol use: No Drug use: No FAMILY HISTORY Problem Relation Age of Onset Prostate Cancer Father other (melanoma [Other]) Daughter other (Renal Cell carcinoma [Other]) Brother I spent a total of 40 minutes on the date of the service which included preparing to see the patient, [id number] patient care, completing clinical documentation, counseling and educating the patient/family/caregiver and ordering medications, tests, or procedures. Cedrick Calix MD, CPE Hematology and Oncology Services Provided at: [place], [place] CC: MD Emeterio Marte DO documented in this encounter [facility] 12-09-2022 Note [facility] 12-09-2022 Note [facility] 08-19-2022 Instructions Cedrick Calix MD - 08/19/2022 11:04 AM EST Fulvestrant today Fulvestrant q 4 weeks Labs q 4 weeks PET/CT in 16 weeks RTC in 17 weeks labs same day - review PET/CT 30 mins please documented in this encounter [facility] 08-19-2022 History of Presen t illness Narrative Images from the original note were not included. NAME: Soha Ford CLINIC NO.: [id number] DATE OF SERVICE: August 19, 2022 ([place]) Some elements in this clinic note that are critical to medical decision making have been carefully reviewed and included from a prior clinic note dated: June 24, 2022 ([place]) Referring Provider: Additional Clinicians involved in Soha Ford's care: DIAGNOSIS: Metastatic breast cancer ASSESSMENT: 1. Malignant neoplasm of female breast, unspecified estrogen receptor status, unspecified laterality, unspecified site of breast (HCC) - ICD9: 174.9, ICD10: C50.919 (primary diagnosis) No evidence of recurrence. We discontinued Arimidex and started on Faslodex. She doesn't recall having issues with Aromasin so we can add this in the future if needed. PLAN: Fulvestrant today Fulvestrant q 4 weeks Labs q 4 weeks PET/CT in 16 weeks RTC in 17 weeks labs same day - review PET/CT 30 mins please HPI: CASE HISTORY: 08/17/2022 : PET/CT continued responsive disease 04/22/2022 : PET/CT shows responsive disease - right mid femur improved, left humerous stable 01/11/2022 : Fulvestrant started 12/15/2021 : Left Axillary Recurrence. HER2(-), ER/IL+ 06/2018 - 12/2021: Arimidex - progressed 05/2018: not tolerating aromasin well- in addition to hair loss, having anxiety and hot flashes with poor sleep 03/2018: tried to switch to aromasin due to hair loss 09/2015: completed adjuvant radiation and started adjuvant hormonal therapy with arimidex 05/2015: Bilateral mastectomy with right axillary dissection, path notes [id number] disease 04/2015: stopped weekly taxol, had 9 weeks of therapy, repeat imaging by PET identified complete metabolic response per notes, developed neuropathy, MRI brain identified what was felt to be meningioma 12/2014: started dose dense AC-weekly taxol 11/2014: diagnosed with locally advanced ER/IL (+), HER2(equivocal on FISH, 2+ IHC), grade 2 invasive ductal carcinoma, right axillary lymph nodes appreciated on imaging Updated Visit, August 19, 2022: Soha is 76 years old and returns with her daughter Inga. Overall doing well. Scans reviewed and show continued response of disease. Seems to alleviate her significant levels of anxiety. Although, at a baseline she is very anxious. Updated Visit, June 24, 2022: Radha accompanies and she reports the she lost her appetite past few days and has dysuria over same period of time. Also frequent urination. However she just finished Keflex for a skin infection.will send UA C&S Updated Visit, April 29, 2022: Returns with Radha and Inga - reviewed PET/CT which shows improvement. She remains nervous about many things especially taking pain pills for her hip pain. She would be safe to proceed with ortho intervention as needed. Updated Visit, April 01, 2022: Soha returns accompanied by both of her daughters Radha and Inga and is less anxious today. Continues to have hip pain from bursitis. She feels well tolerating faslodex. No appreciable axillary mass on left with palpation. Updated Visit, February 08, 2022: Frannie returns with her daughter Radha. She is less anxious today and is tolerating treatment well. Bones are achy Hip consistent with bursitis and did well with a steroid short. Left arm is doing well. She s concerned about the sclerotic lesion in the left humerus but I reassured her that this would not be a subtle change if there was something alarming about this lesion. Updated Visit, January 11, 2022: Here with her daughter Radha. Left axillary wound is erythematous but non-tender and not inflamed. Does not appear infected. Scalp appears to have small raised lesions that will likely need to have dermatology look at them, but not acutely. Her anxiety remains quite high. Updated Visit, December 28, 2021: Telephone only for 15 minutes Called [facility] to get Her2 status. Verbal report that FISH was negative. Called Soha as requested and given her fairly low volume of disease on PET/CT, we could hold RT for any painfull symptomatic disease or new bony metastatic disease. We will maximize endocrine therapy. No significant pain. Primarily anxiety. Updated Visit, December 24, 2021: Soha returns with her daughters today and is highly anxious. She had a left axillary mass removed after Dr. Dong noted it on his most recent visit. This was not noted on my evaluation in September. She had the mass resected and it was consistent with her ER/IL+ brca. [id number] FISH is still pending. She will need staging PET/CT to determine extent and volume of disease. Once we have the final pathology and PET restaging we will determine course of therapy. She is hoping not to have chemotherapy. Updated Visit, September 24, 2021: Soha Ford is a 75 year old female who presents in follow-up on Arimidex for breast cancer diagnosed in 2014. Has preferred to stay on extended endocrine therapy in adjuvant setting. Very anxious about her tumor marker but realized that she had heard her number incorrectly and that there was no need for anxiety caused by following this lab test. All else is well. Labs are stable. No palpable abnormality noted in arms or axilla. Lymphedema is stable. 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 Dr. Matias is monitoring but on my exam, the lesion appears to be raised slightly and will likely need re-evaluated. Calcium in the form of Tums with Vitamin D. Continues to take Arimidex since 06/2018. Complains of some decreased mobility especially in her left leg with some pain shooting down the left leg. Updated Visit, December 24, 2020: Soha Ford returns for scheduled follow-up. Since her last visit there has been no significant medical changes. Today she is concerned about a couple of skin moles. She denies cough, shortness of breath and other pulmonary symptoms. She denies any unusual pain. She denies chest wall lumps or bumps. She remains on Arimidex and is tolerating it fairly well. She denies any significant muscle and joint aches. Overall, doing well. Updated Visit, June 25, 2020: Soha Ford is a 74 year old female who presents in follow-up on Arimidex. She has requested vaccinations to include Pneumococcal, Influenza and shingle. Continues arimidex for 10 years - 09/2025 Doing well right arm in lymphedema sleeve Osteopenia on dexa Caltrate D sent in Consider prevention of bone disease in the future CT of the chest is reviewed below: 03/05/2019 10:49 AM - Radiology, [facility] In Impression IMPRESSION: 1. Mildly enlarged left axillary lymph node appears slightly more conspicuous when compared to the prior study of 08/28/2018, new when compared to more remote examination of 10/10/2017. 2. Scattered right-sided subcentimeter pulmonary nodules, unchanged. She was on arimidex with much better tolerance. APV put her on this from aromasin which she was losing her hair with. REVIEW OF SYSTEMS Per HPI and otherwise negative by full review of organ systems. ECOG PERFORMANCE STATUS: 1 PHYSICAL EXAMINATION: Vitals: BP 154/86 Pulse 93 Temp (Src) 97.3 (Temporal) Resp 16 Ht 5' 0 (1.52m) Wt 166 lb 6.4 oz (75.5kg) SpO2 97% BMI 32.50 kg/(m^2). Body surface area is 1.79 meters squared. Exam limited to gross visualization where appropriate due to COVID-19. Gen.: This is an age-appropriate patient in no acute distress. Head: Appears atraumatic with no visible lesions. Eyes: Pupils equally round and reactive to light, extraocular muscles are intact. Neck: Supple. Mouth: Masked. Respiratory: Appears to be respiring comfortably. Neurologic: Nonfocal to gross visualization. Alert and oriented 3. Psychiatric: No evidence of inappropriate anxiety or depression. Skin: Visible areas of skin without rash, lesions, wounds or petechiae. ALLERGIES: ALLERGIES No Known Allergies MEDICATIONS: cephALEXin (KEFLEX) 500 mg capsule Take 500 mg by mouth three times daily. traMADol (ULTRAM) 50 mg tablet folic acid/multivit-min/lutein (CENTRUM SILVER ORAL) Take 1 tablet by mouth once daily. baclofen (LIORESAL) 10 mg tablet 10 mg twice daily as needed. latanoprost (XALATAN) 0.005 % ophthalmic solution INSTILL 1 DROP INTO EACH EYE EVERY EVENING DIRECTED cholecalciferol, vitamin D3, (VITAMIN D3 ORAL) Take by mouth once daily. LORazepam (ATIVAN) 0.5 mg tab 0.5 mg twice daily as needed. naproxen sodium 220 mg cap Take by mouth twice daily as needed. LABORATORY VALUES: WBC (k/uL) Date Value 08/19/2022 8.31 RBC (m/uL) Date Value 08/19/2022 4.83 Hemoglobin (g/dL) Date Value 08/19/2022 14.5 Hematocrit (%) Date Value 08/19/2022 43.2 MCV (fL) Date Value 08/19/2022 89.4 MCH (pg) Date Value 08/19/2022 30.0 MCHC (g/dL) Date Value 08/19/2022 33.6 RDW-CV (%) Date Value 08/19/2022 12.3 Platelet Count (k/uL) Date Value 08/19/2022 288 MPV (fL) Date Value 08/19/2022 8.8 (L) Glucose (mg/dL) Date Value 08/19/2022 103 (H) BUN (mg/dL) Date Value 08/19/2022 17 Creatinine (mg/dL) Date Value 08/19/2022 0.81 Sodium (mmol/L) Date Value 08/19/2022 134 (L) Potassium (mmol/L) Date Value 08/19/2022 4.0 Chloride (mmol/L) Date Value 08/19/2022 99 CO2 (mmol/L) Date Value 08/19/2022 25 Protein, Total (g/dL) Date Value 08/19/2022 6.7 Albumin (g/dL) Date Value 08/19/2022 3.9 Calcium, Total (mg/dL) Date Value 08/19/2022 10.0 Alkaline Phosphatase (U/L) Date Value 08/19/2022 106 Bilirubin, Total (mg/dL) Date Value 08/19/2022 0.4 AST (U/L) Date Value 08/19/2022 15 ALT (U/L) Date Value 08/19/2022 10 DIAGNOSIS: (D05.12) Cancer of breast, intraductal, left (primary encounter diagnosis) Plan: CBC + DIFF, COMP METABOLIC PANEL, DISCONTINUED: fulvestrant 500 mg injection (FASLODEX) (C50.911, Z17.0) Malignant neoplasm of right breast in female, estrogen receptor positive, unspecified site of breast (HCC) Plan: DISCONTINUED: fulvestrant 500 mg injection (FASLODEX) (I89.0) Lymphedema (C50.811, C50.812, Z17.0) Malignant neoplasm of overlapping sites of both breasts in female, estrogen receptor positive (HCC) Plan: NM PET/CT SKULL-THIGH SUBSEQUENT, CBC + DIFF, COMP METABOLIC PANEL PAST MEDICAL HISTORY Diagnosis Date Breast cancer (HCC) Right Post-menopausal PAST SURGICAL HISTORY Procedure Laterality Date APPENDECTOMY BREAST BIOPSY OTHER SURGICAL HISTORY (PLEASE SPECIFY) HX bilateral mastecomy REMV CATARACT EXTRACAP,INSERT LENS Left Social History Tobacco Use Smoking status: Never Passive exposure: Past Smokeless tobacco: Never Substance Use Topics Alcohol use: No Drug use: No FAMILY HISTORY Problem Relation Age of Onset Prostate Cancer Father other (melanoma [Other]) Daughter other (Renal Cell carcinoma [Other]) Brother I spent a total of 30 minutes on the date of the service which included preparing to see the patient, [id number] patient care, completing clinical documentation, counseling and educating the patient/family/caregiver and ordering medications, tests, or procedures. Cedrick Calix MD, CPE Hematology and Oncology Services Provided at: [place], [place] CC: MD Emeterio Marte DO documented in this encounter [facility] 06-28-2022 Miscellaneous Notes Pt notified of urine culture and RX for Cipro. Pt would like to hold off on the antibiotic for now. She has not had any symptoms since the day she was here. She is aware to notify us if she has any additional concerns. Jaz Mccauley RN Mixed marlys - cannot culture - cipro please Saravanan gonzalezvivienne ELLA/HM: Please review urine culture and advise Jaz Mccauley RN Images from the original note were not included. Cedrick Calix MD P [facility] Triage Pool Please call results of UA Cx done today to patient for possible addition of antibiotics. Triage Pool: Watch for UA cx. documented in this encounter [facility] 06-24-2022 Instructions Cedrick Calix MD - 06/24/2022 10:40 AM EDT Fulvestrant today UA -reflex to culture today please. Fulvestrant q 4 weeks Labs q 4 weeks PET/CT in 7 weeks RTC in 8 weeks labs same day - review PET/CT documented in this encounter [facility] 06-24-2022 History of Presen t illness Narrative Images from the original note were not included. DOS: June 24, 2022 ([place]) Some elements in this clinic note that are critical to medical decision making have been carefully reviewed and included from a prior clinic note dated: April 29, 2022 ([place]) ASSESSMENT: 1. Malignant neoplasm of female breast, unspecified estrogen receptor status, unspecified laterality, unspecified site of breast (HCC) - ICD9: 174.9, ICD10: C50.919 (primary diagnosis) No evidence of recurrence. We discontinued Arimidex and started on Faslodex. She doesn't recall having issues with Aromasin so we can add this in the future if needed. PLAN: Fulvestrant today UA -reflex to culture today please. 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, 2+ IHC), grade 2 invasive ductal carcinoma, right axillary lymph nodes appreciated on imaging 12/2014: started dose dense AC-weekly taxol 04/2015: stopped weekly taxol, had 9 weeks of therapy, repeat imaging by PET identified complete metabolic response per notes, developed neuropathy, MRI brain identified what was felt to be meningioma 05/2015: Bilateral mastectomy with right axillary dissection, path notes [id number] disease 09/2015: completed adjuvant radiation and started adjuvant hormonal therapy with arimidex 03/2018: tried to switch to aromasin due to hair loss 05/2018: not tolerating aromasin well- in addition to hair loss, having anxiety and hot flashes with poor sleep 06/2018 - 12/2021: Arimidex - progressed 12/15/2021 : Left Axillary Recurrence. HER2(-), ER/IL+ 01/11/2022 : Fulvestrant started 04/22/2022 : PET/CT shows responsive disease - right mid femur improved, left humerous stable Updated Visit, June 24, 2022: Radha accompanies and she reports the she lost her appetite past few days and has dysuria over same period of time. Also frequent urination. However she just finished Keflex for a skin infection.will send UA C&S Updated Visit, April 29, 2022: Returns with Radha and Inga - reviewed PET/CT which shows improvement. She remains nervous about many things especially taking pain pills for her hip pain. She would be safe to proceed with ortho intervention as needed. Updated Visit, April 01, 2022: Soha returns accompanied by both of her daughters Radha and Inga and is less anxious today. Continues to have hip pain from bursitis. She feels well tolerating faslodex. No appreciable axillary mass on left with palpation. Updated Visit, February 08, 2022: Frannie returns with her daughter Radha. She is less anxious today and is tolerating treatment well. Bones are achy Hip consistent with bursitis and did well with a steroid short. Left arm is doing well. She s concerned about the sclerotic lesion in the left humerus but I reassured her that this would not be a subtle change if there was something alarming about this lesion. Updated Visit, January 11, 2022: Here with her daughter Radha. Left axillary wound is erythematous but non-tender and not inflamed. Does not appear infected. Scalp appears to have small raised lesions that will likely need to have dermatology look at them, but not acutely. Her anxiety remains quite high. Updated Visit, December 28, 2021: Telephone only for 15 minutes Called [facility] to get Her2 status. Verbal report that FISH was negative. Called Soha as requested and given her fairly low volume of disease on PET/CT, we could hold RT for any painfull symptomatic disease or new bony metastatic disease. We will maximize endocrine therapy. No significant pain. Primarily anxiety. Updated Visit, December 24, 2021: Soha returns with her daughters today and is highly anxious. She had a left axillary mass removed after Dr. Dong noted it on his most recent visit. This was not noted on my evaluation in September. She had the mass resected and it was consistent with her ER/IL+ brca. [id number] FISH is still pending. She will need staging PET/CT to determine extent and volume of disease. Once we have the final pathology and PET restaging we will determine course of therapy. She is hoping not to have chemotherapy. Updated Visit, September 24, 2021: Soha Ford is a 75 year old female who presents in follow-up on Arimidex for breast cancer diagnosed in 2014. Has preferred to stay on extended endocrine therapy in adjuvant setting. Very anxious about her tumor marker but realized that she had heard her number incorrectly and that there was no need for anxiety caused by following this lab test. All else is well. Labs are stable. No palpable abnormality noted in arms or axilla. Lymphedema is stable. 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 Dr. Matias is monitoring but on my exam, the lesion appears to be raised slightly and will likely need re-evaluated. Calcium in the form of Tums with Vitamin D. Continues to take Arimidex since 06/2018. Complains of some decreased mobility especially in her left leg with some pain shooting down the left leg. Updated Visit, December 24, 2020: Soha Fodr returns for scheduled follow-up. Since her last visit there has been no significant medical changes. Today she is concerned about a couple of skin moles. She denies cough, shortness of breath and other pulmonary symptoms. She denies any unusual pain. She denies chest wall lumps or bumps. She remains on Arimidex and is tolerating it fairly well. She denies any significant muscle and joint aches. Overall, doing well. Updated Visit, June 25, 2020: Soha Ford is a 74 year old female who presents in follow-up on Arimidex. She has requested vaccinations to include Pneumococcal, Influenza and shingle. Continues arimidex for 10 years - 09/2025 Doing well right arm in lymphedema sleeve Osteopenia on dexa Caltrate D sent in Consider prevention of bone disease in the future CT of the chest is reviewed below: 03/05/2019 10:49 AM - Radiology, [place] In Impression IMPRESSION: 1. Mildly enlarged left axillary lymph node appears slightly more conspicuous when compared to the prior study of 08/28/2018, new when compared to more remote examination of 10/10/2017. 2. Scattered right-sided subcentimeter pulmonary nodules, unchanged. She was on arimidex with much better tolerance. APV put her on this from aromasin which she was losing her hair with. Current Outpatient Medications Medication Sig traMADol (ULTRAM) 50 mg tablet folic acid/multivit-min/lutein (CENTRUM SILVER ORAL) Take 1 tablet by mouth once daily. baclofen (LIORESAL) 10 mg tablet 10 mg twice daily as needed. latanoprost (XALATAN) 0.005 % ophthalmic solution INSTILL 1 DROP INTO EACH EYE EVERY EVENING DIRECTED cholecalciferol, vitamin D3, (VITAMIN D3 ORAL) Take by mouth once daily. LORazepam (ATIVAN) 0.5 mg tab 0.5 mg twice daily as needed. naproxen sodium 220 mg cap Take by mouth twice daily as needed. No current facility-administered medications for this visit. ALLERGIES No Known Allergies REVIEW OF SYSTEMS All other reviewed and negative other than HPI. PHYSICAL EXAM: BP 150/85 Pulse 94 Temp 36.5 C (97.7 F) (Skin) Resp 16 Ht 152.4 cm (5') Wt 75.3 kg (166 lb) SpO2 97% BMI 32.42 kg/m Exam limited to gross visualization where appropriate due to COVID-19. Gen.: This is an age-appropriate patient in no acute distress. Head: Appears atraumatic with no visible lesions. Eyes: Pupils equally round and reactive to light, extraocular muscles are intact. Neck: Supple. Mouth: Mucous membranes appeared to be moist. Respiratory: Appears to be respiring comfortably. Neurologic: Nonfocal to gross visualization. Alert and oriented 3. Psychiatric: No evidence of inappropriate anxiety or depression. Skin: Visible areas of skin without rash, wounds or petechiae. LABORATORY: Hemoglobin (g/dL) Date Value 06/24/2022 14.4 09/22/2021 14.8 Hematocrit (%) Date Value 06/24/2022 43.0 09/22/2021 45.1 WBC (k/uL) Date Value 06/24/2022 13.52 09/22/2021 9.07 Platelet Count (k/uL) Date Value 06/24/2022 301 09/22/2021 336 I spent a total of 30 minutes on the date of the service which included preparing to see the patient, [id number] patient care, completing clinical documentation, counseling and educating the patient/family/caregiver and ordering medications, tests, or procedures. Cedrick Calix MD, CPE Hematology and Oncology Services Provided at: [place], [place] CC: MD Emeterio Marte DO documented in this encounter [facility] 05-06-2022 Instructions Cedrick Calix MD - 05/06/2022 9:51 PM EDT 1. Fulvestrant today 2. Fulvestrant q 4 weeks 3. Labs q 8 weeks RTC same day documented in this encounter [facility] 04-29-2022 History of Presen t illness Narrative Images from the original note were not included. DOS: April 29, 2022 Some elements in this clinic note that are critical to medical decision making have been carefully reviewed and included from a prior clinic note dated: April 01, 2022 ASSESSMENT: 1. Malignant neoplasm of female breast, unspecified estrogen receptor status, unspecified laterality, unspecified site of breast (HCC) - ICD9: 174.9, ICD10: C50.919 (primary diagnosis) No evidence of recurrence. We discontinued Arimidex and started on Faslodex. She doesn't recall having issues with Aromasin so we can add this in the future if needed. PLAN: 1. Fulvestrant today 2. Fulvestrant q 4 weeks 3. 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, 2+ IHC), grade 2 invasive ductal carcinoma, right axillary lymph nodes appreciated on imaging 12/2014: started dose dense AC-weekly taxol 04/2015: stopped weekly taxol, had 9 weeks of therapy, repeat imaging by PET identified complete metabolic response per notes, developed neuropathy, MRI brain identified what was felt to be meningioma 05/2015: Bilateral mastectomy with right axillary dissection, path notes [id number] disease 09/2015: completed adjuvant radiation and started adjuvant hormonal therapy with arimidex 03/2018: tried to switch to aromasin due to hair loss 05/2018: not tolerating aromasin well- in addition to hair loss, having anxiety and hot flashes with poor sleep 06/2018 - 12/2021: Arimidex - progressed 12/15/2021 : Left Axillary Recurrence. HER2(-), ER/IL+ 01/11/2022 : Fulvestrant started 04/22/2022 : PET/CT shows responsive disease - right mid femur improved, left humerous stable Updated Visit, April 29, 2022: Returns with Radha and Inga - reviewed PET/CT which shows improvement. She remains nervous about many things especially taking pain pills for her hip pain. She would be safe to proceed with ortho intervention as needed. Updated Visit, April 01, 2022: Soha returns accompanied by both of her daughters aRdha and Inga and is less anxious today. Continues to have hip pain from bursitis. She feels well tolerating faslodex. No appreciable axillary mass on left with palpation. Updated Visit, February 08, 2022: Frannie returns with her daughter Radha. She is less anxious today and is tolerating treatment well. Bones are achy Hip consistent with bursitis and did well with a steroid short. Left arm is doing well. She s concerned about the sclerotic lesion in the left humerus but I reassured her that this would not be a subtle change if there was something alarming about this lesion. Updated Visit, January 11, 2022: Here with her daughter Radha. Left axillary wound is erythematous but non-tender and not inflamed. Does not appear infected. Scalp appears to have small raised lesions that will likely need to have dermatology look at them, but not acutely. Her anxiety remains quite high. Updated Visit, December 28, 2021: Telephone only for 15 minutes Called [facility] to get Her2 status. Verbal report that FISH was negative. Called Soha as requested and given her fairly low volume of disease on PET/CT, we could hold RT for any painfull symptomatic disease or new bony metastatic disease. We will maximize endocrine therapy. No significant pain. Primarily anxiety. Updated Visit, December 24, 2021: Soha returns with her daughters today and is highly anxious. She had a left axillary mass removed after Dr. Dong noted it on his most recent visit. This was not noted on my evaluation in September. She had the mass resected and it was consistent with her ER/IL+ brca. [id number] FISH is still pending. She will need staging PET/CT to determine extent and volume of disease. Once we have the final pathology and PET restaging we will determine course of therapy. She is hoping not to have chemotherapy. Updated Visit, September 24, 2021: Soha Ford is a 75 year old female who presents in follow-up on Arimidex for breast cancer diagnosed in 2014. Has preferred to stay on extended endocrine therapy in adjuvant setting. Very anxious about her tumor marker but realized that she had heard her number incorrectly and that there was no need for anxiety caused by following this lab test. All else is well. Labs are stable. No palpable abnormality noted in arms or axilla. Lymphedema is stable. 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 Dr. Matias is monitoring but on my exam, the lesion appears to be raised slightly and will likely need re-evaluated. Calcium in the form of Tums with Vitamin D. Continues to take Arimidex since 06/2018. Complains of some decreased mobility especially in her left leg with some pain shooting down the left leg. Updated Visit, December 24, 2020: Soha Ford returns for scheduled follow-up. Since her last visit there has been no significant medical changes. Today she is concerned about a couple of skin moles. She denies cough, shortness of breath and other pulmonary symptoms. She denies any unusual pain. She denies chest wall lumps or bumps. She remains on Arimidex and is tolerating it fairly well. She denies any significant muscle and joint aches. Overall, doing well. Updated Visit, June 25, 2020: Soha Ford is a 74 year old female who presents in follow-up on Arimidex. She has requested vaccinations to include Pneumococcal, Influenza and shingle. Continues arimidex for 10 years - 09/2025 Doing well right arm in lymphedema sleeve Osteopenia on dexa Caltrate D sent in Consider prevention of bone disease in the future CT of the chest is reviewed below: 03/05/2019 10:49 AM - Radiology, [place] In Impression IMPRESSION: 1. Mildly enlarged left axillary lymph node appears slightly more conspicuous when compared to the prior study of 08/28/2018, new when compared to more remote examination of 10/10/2017. 2. Scattered right-sided subcentimeter pulmonary nodules, unchanged. She was on arimidex with much better tolerance. APV put her on this from aromasin which she was losing her hair with. Current Outpatient Medications Medication Sig traMADol (ULTRAM) 50 mg tablet folic acid/multivit-min/lutein (CENTRUM SILVER ORAL) Take 1 tablet by mouth once daily. baclofen (LIORESAL) 10 mg tablet 10 mg twice daily as needed. latanoprost (XALATAN) 0.005 % ophthalmic solution INSTILL 1 DROP INTO EACH EYE EVERY EVENING DIRECTED cholecalciferol, vitamin D3, (VITAMIN D3 ORAL) Take by mouth once daily. LORazepam (ATIVAN) 0.5 mg tab 0.5 mg twice daily as needed. naproxen sodium 220 mg cap Take by mouth twice daily as needed. No current facility-administered medications for this visit. ALLERGIES No Known Allergies REVIEW OF SYSTEMS All other reviewed and negative other than HPI. PHYSICAL EXAM: BP 165/89 Pulse 83 Temp 36.6 C (97.8 F) (Temporal) Resp 16 Ht 152.4 cm (5') Wt 73.6 kg (162 lb 3.2 oz) SpO2 96% BMI 31.68 kg/m Exam limited to gross visualization where appropriate due to COVID-19. Gen.: This is an age-appropriate patient in no acute distress. Head: Appears atraumatic with no visible lesions. Eyes: Pupils equally round and reactive to light, extraocular muscles are intact. Neck: Supple. Mouth: Mucous membranes appeared to be moist. Respiratory: Appears to be respiring comfortably. Neurologic: Nonfocal to gross visualization. Alert and oriented 3. Psychiatric: No evidence of inappropriate anxiety or depression. Skin: Visible areas of skin without rash, wounds or petechiae. - except as noted in HPI 01/11/2022 LABORATORY: Hemoglobin (g/dL) Date Value 04/29/2022 14.2 09/22/2021 14.8 Hematocrit (%) Date Value 04/29/2022 42.7 09/22/2021 45.1 WBC (k/uL) Date Value 04/29/2022 9.70 09/22/2021 9.07 Platelet Count (k/uL) Date Value 04/29/2022 315 09/22/2021 336 I spent a total of 30 minutes on the date of the service which included preparing to see the patient, [id number] patient care, completing clinical documentation, counseling and educating the patient/family/caregiver and ordering medications, tests, or procedures. Cedrick Calix MD, CPE Hematology and Oncology Services Provided at: [place], [place] CC: MD Emeterio Marte DO documented in this encounter [facility] 04-01-2022 Nurse Note Soha Ford presents in office today for: Lab Draw during Office Visit . Ordering Provider: Dr. Calix Test (s) ordered: CBC CMP Method for obtaining blood: Phlebotomy was performed, accessing left wrist vein. Needle removed intact. Dressing secured. Patient denies discomfort, dizziness, light-headedness or weakness and left the department without assist. Stacy Nazario LPN documented in this encounter [facility] 04-01-2022 History of Presen t illness Narrative Images from the original note were not included. DOS: April 01, 2022 Some elements in this clinic note that are critical to medical decision making have been carefully reviewed and included from a prior clinic note dated: February 08, 2022 ASSESSMENT: 1. Malignant neoplasm of female breast, unspecified estrogen receptor status, unspecified laterality, unspecified site of breast (HCC) - ICD9: 174.9, ICD10: C50.919 (primary diagnosis) No evidence of recurrence. We discontinued Arimidex and started on Faslodex. She doesn't recall having issues with Aromasin so we can add this in the future if needed. PLAN: 1. Fulvestrant today 2. Fulvestrant q 4 weeks 3. Labs q 4 weeks RTC same day 4. 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, 2+ IHC), grade 2 invasive ductal carcinoma, right axillary lymph nodes appreciated on imaging 12/2014: started dose dense AC-weekly taxol 04/2015: stopped weekly taxol, had 9 weeks of therapy, repeat imaging by PET identified complete metabolic response per notes, developed neuropathy, MRI brain identified what was felt to be meningioma 05/2015: Bilateral mastectomy with right axillary dissection, path notes [id number] disease 09/2015: completed adjuvant radiation and started adjuvant hormonal therapy with arimidex 03/2018: tried to switch to aromasin due to hair loss 05/2018: not tolerating aromasin well- in addition to hair loss, having anxiety and hot flashes with poor sleep 06/2018 - 12/2021: Arimidex - progressed 12/15/2021 : Left Axillary Recurrence. HER2(-), ER/IL+ 01/11/2022 : Fulvestrant started Updated Visit, April 01, 2022: Soha returns accompanied by both of her daughters Radha and Inga and is less anxious today. Continues to have hip pain from bursitis. She feels well tolerating faslodex. No appreciable axillary mass on left with palpation. Updated Visit, February 08, 2022: Frannie returns with her daughter Radha. She is less anxious today and is tolerating treatment well. Bones are achy Hip consistent with bursitis and did well with a steroid short. Left arm is doing well. She s concerned about the sclerotic lesion in the left humerus but I reassured her that this would not be a subtle change if there was something alarming about this lesion. Updated Visit, January 11, 2022: Here with her daughter Radha. Left axillary wound is erythematous but non-tender and not inflamed. Does not appear infected. Scalp appears to have small raised lesions that will likely need to have dermatology look at them, but not acutely. Her anxiety remains quite high. Updated Visit, December 28, 2021: Telephone only for 15 minutes Called [facility] to get Her2 status. Verbal report that FISH was negative. Called Soha as requested and given her fairly low volume of disease on PET/CT, we could hold RT for any painfull symptomatic disease or new bony metastatic disease. We will maximize endocrine therapy. No significant pain. Primarily anxiety. Updated Visit, December 24, 2021: Soha returns with her daughters today and is highly anxious. She had a left axillary mass removed after Dr. Dong noted it on his most recent visit. This was not noted on my evaluation in September. She had the mass resected and it was consistent with her ER/IL+ brca. [id number] FISH is still pending. She will need staging PET/CT to determine extent and volume of disease. Once we have the final pathology and PET restaging we will determine course of therapy. She is hoping not to have chemotherapy. Updated Visit, September 24, 2021: Soha Ford is a 75 year old female who presents in follow-up on Arimidex for breast cancer diagnosed in 2014. Has preferred to stay on extended endocrine therapy in adjuvant setting. Very anxious about her tumor marker but realized that she had heard her number incorrectly and that there was no need for anxiety caused by following this lab test. All else is well. Labs are stable. No palpable abnormality noted in arms or axilla. Lymphedema is stable. 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 Dr. Matias is monitoring but on my exam, the lesion appears to be raised slightly and will likely need re-evaluated. Calcium in the form of Tums with Vitamin D. Continues to take Arimidex since 06/2018. Complains of some decreased mobility especially in her left leg with some pain shooting down the left leg. Updated Visit, December 24, 2020: Soha Ford returns for scheduled follow-up. Since her last visit there has been no significant medical changes. Today she is concerned about a couple of skin moles. She denies cough, shortness of breath and other pulmonary symptoms. She denies any unusual pain. She denies chest wall lumps or bumps. She remains on Arimidex and is tolerating it fairly well. She denies any significant muscle and joint aches. Overall, doing well. Updated Visit, June 25, 2020: Soha Ford is a 74 year old female who presents in follow-up on Arimidex. She has requested vaccinations to include Pneumococcal, Influenza and shingle. Continues arimidex for 10 years - 09/2025 Doing well right arm in lymphedema sleeve Osteopenia on dexa Caltrate D sent in Consider prevention of bone disease in the future CT of the chest is reviewed below: 03/05/2019 10:49 AM - Radiology, [place] In Impression IMPRESSION: 1. Mildly enlarged left axillary lymph node appears slightly more conspicuous when compared to the prior study of 08/28/2018, new when compared to more remote examination of 10/10/2017. 2. Scattered right-sided subcentimeter pulmonary nodules, unchanged. She was on arimidex with much better tolerance. APV put her on this from aromasin which she was losing her hair with. Current Outpatient Medications Medication Sig folic acid/multivit-min/lutein (CENTRUM SILVER ORAL) Take 1 tablet by mouth once daily. baclofen (LIORESAL) 10 mg tablet 10 mg twice daily as needed. latanoprost (XALATAN) 0.005 % ophthalmic solution INSTILL 1 DROP INTO EACH EYE EVERY EVENING DIRECTED cholecalciferol, vitamin D3, (VITAMIN D3 ORAL) Take by mouth once daily. LORazepam (ATIVAN) 0.5 mg tab 0.5 mg twice daily as needed. naproxen sodium (ALEVE) 220 mg cap Take by mouth twice daily as needed. No current facility-administered medications for this visit. ALLERGIES No Known Allergies REVIEW OF SYSTEMS All other reviewed and negative other than HPI. PHYSICAL EXAM: BP 118/70 Pulse 82 Temp 36.7 C (98.1 F) (Temporal) Resp 16 Ht 152.4 cm (5') Wt 73.5 kg (162 lb) SpO2 98% BMI 31.64 kg/m Exam limited to gross visualization where appropriate due to COVID-19. Gen.: This is an age-appropriate patient in no acute distress. Head: Appears atraumatic with no visible lesions. Eyes: Pupils equally round and reactive to light, extraocular muscles are intact. Neck: Supple. Mouth: Mucous membranes appeared to be moist. Respiratory: Appears to be respiring comfortably. Neurologic: Nonfocal to gross visualization. Alert and oriented 3. Psychiatric: No evidence of inappropriate anxiety or depression. Skin: Visible areas of skin without rash, wounds or petechiae. - except as noted in HPI 01/11/2022 LABORATORY: Hemoglobin (g/dL) Date Value 04/01/2022 13.7 09/22/2021 14.8 Hematocrit (%) Date Value 04/01/2022 41.5 09/22/2021 45.1 WBC (k/uL) Date Value 04/01/2022 9.02 09/22/2021 9.07 Platelet Count (k/uL) Date Value 04/01/2022 333 09/22/2021 336 I spent a total of 30 minutes on the date of the service which included preparing to see the patient, [id number] patient care, completing clinical documentation, counseling and educating the patient/family/caregiver and ordering medications, tests, or procedures. 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 RADIATION SUMMARY: Right chest wall and regional lymph nodes completed 08/29/2015 5040 cGy right axilla, 5040 cGy right chest wall with a 1080 cGy boost. INTERVAL HISTORY: Patient has initiated hormonal therapy per recurrent breast cancer. Doing well. Denies axillary pain or discomfort. No upper extremity edema or paresthesias. She does have persistent left hip pain with known bursitis and has follow-up with orthopedics. ALLERGIES No Known Allergies MEDICATIONS: folic acid/multivit-min/lutein (CENTRUM SILVER ORAL) Take 1 tablet by mouth once daily. baclofen (LIORESAL) 10 mg tablet 10 mg twice daily as needed. latanoprost (XALATAN) 0.005 % ophthalmic solution INSTILL 1 DROP INTO EACH EYE EVERY EVENING DIRECTED cholecalciferol, vitamin D3, (VITAMIN D3 ORAL) Take by mouth once daily. LORazepam (ATIVAN) 0.5 mg tab 0.5 mg twice daily as needed. naproxen sodium (ALEVE) 220 mg cap Take by mouth twice daily as needed. PHYSICAL EXAM: VS: BP 118/70 Pulse 82 Temp 36.7 C (98.1 F) Resp 16 Wt 73.5 kg (162 lb) SpO2 98% BMI 31.64 kg/m KPS: 90 PHYSICAL EXAMINATION: General appearance: Well appearing, alert, in no acute distress, well-hydrated, well nourished. Well-healing left axillary incision. Neurologically nonfocal. Gait somewhat antalgic, strength 5 out of 5 upper lower extremity. Reflexes 1-2+ and symmetric. 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 At this point patient seems to doing well with salvage hormonal therapy. She does have continued left hip pain but no clear evidence of anterior breast cancer, thought to be related to bursitis. She has appropriate follow-up with orthopedics. No current role for radiation in her management. We will have patient back on an as-needed basis as she is continue active care with medical oncology. Musa Dong MD cc: Kalee Lerma MD ([facility]) [address] [place] [address] Portions of the above note extracted and edited from previous visit as well as active information included in the EMR. documented in this encounter [facility] 02-08-2022 History of Presen t illness Narrative Images from the original note were not included. HPI: CASE HISTORY: 11/2014: diagnosed with locally advanced ER/IL (+), HER2(equivocal on FISH, 2+ IHC), grade 2 invasive ductal carcinoma, right axillary lymph nodes appreciated on imaging 12/2014: started dose dense AC-weekly taxol 04/2015: stopped weekly taxol, had 9 weeks of therapy, repeat imaging by PET identified complete metabolic response per notes, developed neuropathy, MRI brain identified what was felt to be meningioma 05/2015: Bilateral mastectomy with right axillary dissection, path notes [id number] disease 09/2015: completed adjuvant radiation and started adjuvant hormonal therapy with arimidex 03/2018: tried to switch to aromasin due to hair loss 05/2018: not tolerating aromasin well- in addition to hair loss, having anxiety and hot flashes with poor sleep 06/2018: started Arimidex 12/15/2021 : Left Axillary Recurrence. HER2(-), ER/IL+ Updated Visit, February 08, 2022: Frannie returns with her daughter Radha. She is less anxious today and is tolerating treatment well. Bones are achy Hip consistent with bursitis and did well with a steroid short. Left arm is doing well. She s concerned about the sclerotic lesion in the left humerus but I reassured her that this would not be a subtle change if there was something alarming about this lesion. Updated Visit, January 11, 2022: Here with her daughter Radha. Left axillary wound is erythematous but non-tender and not inflamed. Does not appear infected. Scalp appears to have small raised lesions that will likely need to have dermatology look at them, but not acutely. Her anxiety remains quite high. Updated Visit, December 28, 2021: Telephone only for 15 minutes Called [facility] to get Her2 status. Verbal report that FISH was negative. Called Soha as requested and given her fairly low volume of disease on PET/CT, we could hold RT for any painfull symptomatic disease or new bony metastatic disease. We will maximize endocrine therapy. No significant pain. Primarily anxiety. Updated Visit, December 24, 2021: Soha returns with her daughters today and is highly anxious. She had a left axillary mass removed after Dr. Dong noted it on his most recent visit. This was not noted on my evaluation in September. She had the mass resected and it was consistent with her ER/IL+ brca. [id number] FISH is still pending. She will need staging PET/CT to determine extent and volume of disease. Once we have the final pathology and PET restaging we will determine course of therapy. She is hoping not to have chemotherapy. Updated Visit, September 24, 2021: Soha Ford is a 75 year old female who presents in follow-up on Arimidex for breast cancer diagnosed in 2014. Has preferred to stay on extended endocrine therapy in adjuvant setting. Very anxious about her tumor marker but realized that she had heard her number incorrectly and that there was no need for anxiety caused by following this lab test. All else is well. Labs are stable. No palpable abnormality noted in arms or axilla. Lymphedema is stable. 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 Dr. Matias is monitoring but on my exam, the lesion appears to be raised slightly and will likely need re-evaluated. Calcium in the form of Tums with Vitamin D. Continues to take Arimidex since 06/2018. Complains of some decreased mobility especially in her left leg with some pain shooting down the left leg. Updated Visit, December 24, 2020: Soha Ford returns for scheduled follow-up. Since her last visit there has been no significant medical changes. Today she is concerned about a couple of skin moles. She denies cough, shortness of breath and other pulmonary symptoms. She denies any unusual pain. She denies chest wall lumps or bumps. She remains on Arimidex and is tolerating it fairly well. She denies any significant muscle and joint aches. Overall, doing well. Updated Visit, June 25, 2020: Soha Ford is a 74 year old female who presents in follow-up on Arimidex. She has requested vaccinations to include Pneumococcal, Influenza and shingle. Continues arimidex for 10 years - 09/2025 Doing well right arm in lymphedema sleeve Osteopenia on dexa Caltrate D sent in Consider prevention of bone disease in the future CT of the chest is reviewed below: 03/05/2019 10:49 AM - Radiology, [facility] In Impression IMPRESSION: 1. Mildly enlarged left axillary lymph node appears slightly more conspicuous when compared to the prior study of 08/28/2018, new when compared to more remote examination of 10/10/2017. 2. Scattered right-sided subcentimeter pulmonary nodules, unchanged. She was on arimidex with much better tolerance. APV put her on this from aromasin which she was losing her hair with. Current Outpatient Medications Medication Sig folic acid/multivit-min/lutein (CENTRUM SILVER ORAL) Take 1 tablet by mouth once daily. baclofen (LIORESAL) 10 mg tablet 10 mg twice daily as needed. latanoprost (XALATAN) 0.005 % ophthalmic solution INSTILL 1 DROP INTO EACH EYE EVERY EVENING DIRECTED cholecalciferol, vitamin D3, (VITAMIN D3 ORAL) Take by mouth once daily. LORazepam (ATIVAN) 0.5 mg tab 0.5 mg twice daily as needed. naproxen sodium (ALEVE) 220 mg cap Take by mouth twice daily as needed. No current facility-administered medications for this visit. ALLERGIES No Known Allergies REVIEW OF SYSTEMS All other reviewed and negative other than HPI. PHYSICAL EXAM: BP 146/89 Pulse 80 Temp 36.4 C (97.6 F) (Temporal) Resp 18 Ht 152.4 cm (5') Wt 73.8 kg (162 lb 12.8 oz) SpO2 96% BMI 31.79 kg/m Exam limited to gross visualization where appropriate due to COVID-19. Gen.: This is an age-appropriate patient in no acute distress. Head: Appears atraumatic with no visible lesions. Eyes: Pupils equally round and reactive to light, extraocular muscles are intact. Neck: Supple. Mouth: Mucous membranes appeared to be moist. Respiratory: Appears to be respiring comfortably. Neurologic: Nonfocal to gross visualization. Alert and oriented 3. Psychiatric: No evidence of inappropriate anxiety or depression. Skin: Visible areas of skin without rash, wounds or petechiae. - except as noted in HPI 01/11/2022 LABORATORY: Hemoglobin (g/dL) Date Value 02/08/2022 14.7 09/22/2021 14.8 Hematocrit (%) Date Value 02/08/2022 45.4 09/22/2021 45.1 WBC (k/uL) Date Value 02/08/2022 9.63 09/22/2021 9.07 Platelet Count (k/uL) Date Value 02/08/2022 311 09/22/2021 336 ASSESSMENT: 1. Malignant neoplasm of female breast, unspecified estrogen receptor status, unspecified laterality, unspecified site of breast (HCC) - ICD9: 174.9, ICD10: C50.919 (primary diagnosis) No evidence of recurrence. We discontinued Arimidex and started on Faslodex. She doesn't recall having issues with Aromasin so we can add this in the future if needed. No diagnosis found. PLAN: 1. Fulvestrant today 2. Fulvestrant q 4 weeks 3. Labs in 8 weeks and Fulvestrant - Ok to give a few days early 4. Keep appointment with me and Dr. Dong and treatment on 04/01/2022 I spent a total of 35 minutes on the date of the service which included preparing to see the patient, [id number] patient care, completing clinical documentation, counseling and educating the patient/family/caregiver and ordering medications, tests, or procedures. Cedrick Calix MD, [place], [place] CC: Kalee Lerma MD documented in this encounter [facility] 02-08-2022 Nurse Note Patient states that she is sore under her left armpit where her lymph nodes were removed. She isn't sure what she is suppose to be looking for, wonders if it is not healing right or if it is arthritis. Rayna Yanez MA documented in this encounter [facility] 01-15-2022 Miscellaneous Notes CYCLE 1/DAY 1 POST TREATMENT CALL Today's date: January 15, 2022 Treatment Regimen: Fulvestrant [id number] Date: 01/11/22 Called patient to follow-up on symptom management. Spoke with patient. SYMPTOM ASSESSMENT Neuro: None CV/Resp: Shortness of breath w/ exertion. Not new for pt. GI/: Appetite: no changes in appetite, appetite fair and Fluid intake: > 2 quarts. No nausea/vomting. No constipation or diarrhea. Integument: None Activity: Patient reported decreased energy level Do you need to take naps? Yes; Do you wake up feeling rested? Yes Rates fatigue 7/10 Pain: Left hip/leg. Reports that this not a new pain. Has h/o bursitis and arthritis. Fever: No. Denies hot flashes. Chills: No Any new referrals needed? No Reinforced CURRENT treatment education based on current and anticipated symptoms. Discussed port/line care and patient verbalizes understanding: Not Applicable Patient instructed to contact office or after hours Hematology/Oncology fellow for: temperature ? 100.4; questions or concerns. Patient verbalized understanding of when to seek medical attention and after hours number protocol. Emily George RN documented in this encounter [facility] 01-14-2022 Miscellaneous Notes Pt is reluctant to receive the Covid booster injection in her left arm due to her recent lymph node removal. States that she spoke w/ her pharmacist who agreed to administer it in her thigh instead. Emily George RN documented in this encounter [facility] 01-13-2022 Miscellaneous Notes Pt notified and verbalizes understanding. Emily George RN I think her left arm would still be fine. Pt is scheduled to get her 2nd Covid booster (Moderna) w/ Dr Lerma next week. Has lymphedema in her right arm. Had three lymph nodes recently removed from her left axilla. Calls to ask our opinion regarding an appropriate site for administration. States she was advised per Dr Lerma's office to check w/ us. Ella: Any suggestions on the above? Pharmacy: Do you know if the vaccine be administered in the thigh? Emily George RN documented in this encounter [facility] 01-11-2022 History of Presen t illness Narrative ONCOLOGY PATIENT EDUCATION NOTE TOPIC: Hormonal Therapy, Medications: Fulvestrant READINESS TO LEARN: COGNITIVE ABILITY: Alert and oriented MOTIVATION TO LEARN: Interested FAMILY SUPPORT: High - Very involved in pt care INSTRUCTION PROVIDED TO: Patient and Daughter INSTRUCTION PROVIDED BY: Nurse Coordinator PATIENT LEARNS BEST BY: Multiple Methods FACTORS AFFECTING LEARNING: Emotional Factors: Anxious PHYSICAL LIMITATIONS AFFECTING LEARNING: None LEARNING RESPONSE DIAGNOSIS: Metastatic Breast Cancer METHOD OF INSTRUCTION: Individual instruction Written instruction - handouts Verbal instruction PATIENT/FAMILY RESPONSE: Verbalizes understanding of: MEDICATION ROUTE-Correct route for administration of the prescribed medication MEDICATION SIDE EFFECTS-Side effects associated with the medication that warrant a call to the physician SYMPTOM MANAGEMENT-Correct actions to take to manage symptoms associated with his/her disease/illness WORSENING CONDITION-Signs and symptoms of a worsening condition that warrant a call to the physician Information received as demonstrated by interest and questions FOLLOW UP PLAN: Patient instructed to call with any further issues Contact information given. SUPPLEMENTAL MATERIAL: Written material was provided at this visit with the following information: - Hormonal Therapy education was provided by a pharmacist NO - Side effect management information was provided/discussed including but not limited to: arthralgia, bowel habit changes, chest pain, fatigue, fluid retention, hot flashes, myalgia, nausea/vomitting, risk for DVT, shortness of breath YES - Provided important phone numbers and contacts during and after hours. YES - Provided information on symptoms that require immediate assistance. YES - Provided Hormonal Therapy when to call handouts YES - Preventing infection. YES - Treatment schedule and confirmation of appointment times. YES - Available support groups. NA - The importance of contraception during the course of chemotherapy NA - Patient services information. YES Time Spent: 15 minutes REFERRAL (RECOMMENDATION): N/A Emily George RN documented in this encounter [facility] 01-11-2022 History of Presen t illness Narrative Images from the original note were not included. HPI: CASE HISTORY: 11/2014: diagnosed with locally advanced ER/IL (+), HER2(equivocal on FISH, 2+ IHC), grade 2 invasive ductal carcinoma, right axillary lymph nodes appreciated on imaging 12/2014: started dose dense AC-weekly taxol 04/2015: stopped weekly taxol, had 9 weeks of therapy, repeat imaging by PET identified complete metabolic response per notes, developed neuropathy, MRI brain identified what was felt to be meningioma 05/2015: Bilateral mastectomy with right axillary dissection, path notes [id number] disease 09/2015: completed adjuvant radiation and started adjuvant hormonal therapy with arimidex 03/2018: tried to switch to aromasin due to hair loss 05/2018: not tolerating aromasin well- in addition to hair loss, having anxiety and hot flashes with poor sleep 06/2018: started Arimidex 12/15/2021 : Left Axillary Recurrence. HER2(-), ER/IL+ Updated Visit, January 11, 2022: Here with her daughter Radha. Left axillary wound is erythematous but non-tender and not inflamed. Does not appear infected. Scalp appears to have small raised lesions that will likely need to have dermatology look at them, but not acutely. Her anxiety remains quite high. Updated Visit, December 28, 2021: Telephone only for 15 minutes [facility] to get Her2 status. Verbal report that FISH was negative. Called Soha as requested and given her fairly low volume of disease on PET/CT, we could hold RT for any painfull symptomatic disease or new bony metastatic disease. We will maximize endocrine therapy. No significant pain. Primarily anxiety. Updated Visit, December 24, 2021: Soha returns with her daughters today and is highly anxious. She had a left axillary mass removed after Dr. Dong noted it on his most recent visit. This was not noted on my evaluation in September. She had the mass resected and it was consistent with her ER/IL+ brca. [id number] FISH is still pending. She will need staging PET/CT to determine extent and volume of disease. Once we have the final pathology and PET restaging we will determine course of therapy. She is hoping not to have chemotherapy. Updated Visit, September 24, 2021: Soha Ford is a 75 year old female who presents in follow-up on Arimidex for breast cancer diagnosed in 2014. Has preferred to stay on extended endocrine therapy in adjuvant setting. Very anxious about her tumor marker but realized that she had heard her number incorrectly and that there was no need for anxiety caused by following this lab test. All else is well. Labs are stable. No palpable abnormality noted in arms or axilla. Lymphedema is stable. 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 Dr. Matias is monitoring but on my exam, the lesion appears to be raised slightly and will likely need re-evaluated. Calcium in the form of Tums with Vitamin D. Continues to take Arimidex since 06/2018. Complains of some decreased mobility especially in her left leg with some pain shooting down the left leg. Updated Visit, December 24, 2020: Soha Ford returns for scheduled follow-up. Since her last visit there has been no significant medical changes. Today she is concerned about a couple of skin moles. She denies cough, shortness of breath and other pulmonary symptoms. She denies any unusual pain. She denies chest wall lumps or bumps. She remains on Arimidex and is tolerating it fairly well. She denies any significant muscle and joint aches. Overall, doing well. Updated Visit, June 25, 2020: Soha Ford is a 74 year old female who presents in follow-up on Arimidex. She has requested vaccinations to include Pneumococcal, Influenza and shingle. Continues arimidex for 10 years - 09/2025 Doing well right arm in lymphedema sleeve Osteopenia on dexa Caltrate D sent in Consider prevention of bone disease in the future CT of the chest is reviewed below: 03/05/2019 10:49 AM - Radiology, [facility] In Impression IMPRESSION: 1. Mildly enlarged left axillary lymph node appears slightly more conspicuous when compared to the prior study of 08/28/2018, new when compared to more remote examination of 10/10/2017. 2. Scattered right-sided subcentimeter pulmonary nodules, unchanged. She is on arimidex with much better tolerance. APV put her on this from aromasin which she was losing her hair with. Current Outpatient Medications Medication Sig folic acid/multivit-min/lutein (CENTRUM SILVER ORAL) Take by mouth. baclofen (LIORESAL) 10 mg tablet latanoprost (XALATAN) 0.005 % ophthalmic solution INSTILL 1 DROP INTO EACH EYE EVERY EVENING DIRECTED cholecalciferol, vitamin D3, (VITAMIN D3 ORAL) Take by mouth. LORazepam (ATIVAN) 0.5 mg tab 0.5 mg as needed. naproxen sodium (ALEVE) 220 mg cap Take by mouth as needed. No current facility-administered medications for this visit. ALLERGIES No Known Allergies REVIEW OF SYSTEMS All other reviewed and negative other than HPI. PHYSICAL EXAM: There were no vitals taken for this visit. Exam limited to gross visualization where appropriate due to COVID-19. Gen.: This is an age-appropriate patient in no acute distress. Head: Appears atraumatic with no visible lesions. Eyes: Pupils equally round and reactive to light, extraocular muscles are intact. Neck: Supple. Mouth: Mucous membranes appeared to be moist. Respiratory: Appears to be respiring comfortably. Neurologic: Nonfocal to gross visualization. Alert and oriented 3. Psychiatric: No evidence of inappropriate anxiety or depression. Skin: Visible areas of skin without rash, wounds or petechiae. - except as noted in HPI 01/11/2022 LABORATORY: Hemoglobin (g/dL) Date Value 01/11/2022 14.1 09/22/2021 14.8 Hematocrit (%) Date Value 01/11/2022 43.2 09/22/2021 45.1 WBC (k/uL) Date Value 01/11/2022 10.47 09/22/2021 9.07 Platelet Count (k/uL) Date Value 01/11/2022 363 09/22/2021 336 ASSESSMENT: 1. Malignant neoplasm of female breast, unspecified estrogen receptor status, unspecified laterality, unspecified site of breast (HCC) - ICD9: 174.9, ICD10: C50.919 (primary diagnosis) No evidence of recurrence. She will discontinue Arimidex and start on Faslodex. She doesn't recall having issues with Aromasin so we can add this in the future if needed. (D05.12) Cancer of breast, intraductal, left (primary encounter diagnosis) Plan: CBC + DIFF, COMP METABOLIC PANEL (C50.911, Z17.0) Malignant neoplasm of right breast in female, estrogen receptor positive, unspecified site of breast (HCC) Plan: CBC + DIFF, COMP METABOLIC PANEL (C50.919) Malignant neoplasm of female breast, unspecified estrogen receptor status, unspecified laterality, unspecified site of breast (HCC) Plan: CBC + DIFF, COMP METABOLIC PANEL (I89.0) Lymphedema Plan: CBC + DIFF, COMP METABOLIC PANEL PLAN: 1. Start Faslodex today and then in 2 weeks and 4 weeks. 2. RTC in 4 weeks for labs, visit and Faslodex. I spent a total of 35 minutes on the date of the service which included preparing to see the patient, [id number] patient care, completing clinical documentation, counseling and educating the patient/family/caregiver and ordering medications, tests, or procedures. Cedrick Calix MD, [place], [place] CC: Kalee Lerma MD documented in this encounter [facility] 01-11-2022 Nurse Note Patient also states she has some bumps on her scalp she would like you to look at. Rayna Yanez MA Patient would like you to look at her incision she states the color looks off today, she states she was working yesterday and thinks she may have strained. Rayna Yanez MA documented in this encounter [facility] 01-07-2022 Miscellaneous Notes Patient has been scheduled for Tuesday, 01/11. Patient notified of date and time. Genny Ortega Clerical: Pt needs a f/u w/ Ella to discuss plan of care. Will need education and Faslodex that day as well. Thanks! Ella: You do not need to consent for Faslodex. Emily George RN As soon as able - she needs to start on Fulvestrant - I need to consent right? Pt's HER2 Fish results on your desk to review. When would you like to see her for follow up? Emily George RN documented in this encounter [facility] 01-04-2022 History of Presen t illness Narrative Images from the original note were not included. VIRTUAL VISIT PROGRESS NOTE This is a virtual visit using Telephone only for 15 minutes. It required patient-provider interaction for the medical decision making as documented below. Updated Visit, December 28, 2021: Telephone only for 15 minutes Called [facility] to getHer2 status. Verbal report that FISH was negative. Called Soha as requested and given her fairly low volume of disease on PET/CT, we could hold RT for any painfull symptomatic disease or new bony metastatic disease. We will maximize endocrine therapy. No significant pain. Primarily anxiety. HISTORY REVIEWED (electronic chart updated): PAST MEDICAL HISTORY Diagnosis Date Breast cancer (HCC) Right Post-menopausal PAST SURGICAL HISTORY Procedure Laterality Date APPENDECTOMY BREAST BIOPSY OTHER SURGICAL HISTORY (PLEASE SPECIFY) HX bilateral mastecomy REMV CATARACT EXTRACAP,INSERT LENS Left FAMILY HISTORY Problem Relation Age of Onset Prostate Cancer Father other (melanoma [Other]) Daughter other (Renal Cell carcinoma [Other]) Brother Social History Tobacco Use Smoking status: Never Smoker Smokeless tobacco: Never Used Substance Use Topics Alcohol use: No Drug use: No Current Outpatient Medications Medication Sig folic acid/multivit-min/lutein (CENTRUM SILVER ORAL) Take by mouth. baclofen (LIORESAL) 10 mg tablet latanoprost (XALATAN) 0.005 % ophthalmic solution INSTILL 1 DROP INTO EACH EYE EVERY EVENING DIRECTED cholecalciferol, vitamin D3, (VITAMIN D3 ORAL) Take by mouth. LORazepam (ATIVAN) 0.5 mg tab 0.5 mg as needed. naproxen sodium (ALEVE) 220 mg cap Take by mouth as needed. No current facility-administered medications for this visit. ALLERGIES No Known Allergies REVIEW OF SYSTEMS: As noted in HPI PHYSICAL EXAMINATION: VIDEO EXAM: (if completed, performed via video enabled technology) No exam performed ASSESSMENT: (D05.12) Cancer of breast, intraductal, left (primary encounter diagnosis) (C50.911, Z17.0) Malignant neoplasm of right breast in female, estrogen receptor positive, unspecified site of breast (HCC) Metastatic breast cancer ER/IL+, [id number] PLAN: Will maximize endocrine therapy stop arimidex and start fulvestrant Hold Radiation for palliation. 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 RADIATION SUMMARY: Right chest wall and regional lymph nodes completed 08/29/2015 5040 cGy right axilla, 5040 cGy right chest wall with a 1080 cGy boost. INTERVAL HISTORY: Patient returns after further work-up with PET scan for her recurrent adenocarcinoma of the breast. PET scan 12/28/2021: Head and Neck: * Left supraclavicular hypermetabolic lymphadenopathy Chest: * Multiple intrathoracic lymph nodes suspicious for metastatic disease, as listed * Enlarging left breast tail/left axillary soft tissue mass may be secondary to postprocedural changes versus necrotic tumor. Recommend correlation with the clinical history. * Subcentimeter pulmonary nodules are not significantly FDG avid, likely secondary to the size, although suspicious for metastatic disease. * Coronary and aortic atherosclerosis Abdomen and pelvis: * No evidence of FDG avid neoplastic process Musculoskeletal: * Left humerus and right femoral intramedullary osseous metastases. * Extensive left upper degenerative changes. CT chest 11/16/2021:IMPRESSION: 1. Increased mild to moderate left axillary lymphadenopathy and new borderline mediastinal lymphadenopathy. Differential diagnosis includes lymph node metastases, lymphoma, other second primary neoplasm and infectious/inflammatory etiologies. Consider further workup. 2. Multiple new subcentimeter nodular opacities measuring up to 9 mm worrisome for neoplasm. 11/10/21:Doing well. Describe some fullness on the left lateral chest wall axillary region. Mildly tender. Denies fever. Denies chest pain or shortness of breath. Appetite stable. No other issues. ALLERGIES No Known Allergies MEDICATIONS: folic acid/multivit-min/lutein (CENTRUM SILVER ORAL) Take by mouth. baclofen (LIORESAL) 10 mg tablet anastrozole (ARIMIDEX) 1 mg tablet TAKE 1 TABLET BY MOUTH EVERY DAY latanoprost (XALATAN) 0.005 % ophthalmic solution INSTILL 1 DROP INTO EACH EYE EVERY EVENING DIRECTED cholecalciferol, vitamin D3, (VITAMIN D3 ORAL) Take by mouth. LORazepam (ATIVAN) 0.5 mg tab 0.5 mg as needed. naproxen sodium (ALEVE) 220 mg cap Take by mouth as needed. PHYSICAL EXAM: VS: There were no vitals taken for this visit. KPS: 90 PHYSICAL EXAMINATION: General appearance: Well appearing, alert, in no acute distress, well-hydrated, well nourished. Well-healing left axillary incision. Neurologically nonfocal. Gait somewhat antalgic, strength 5 out of 5 upper lower extremity. Reflexes 1-2+ and symmetric. 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 PET scan unfortunately shows multifocal metastatic disease process. Patient's main complaint is left hip pain however appears that there is no clear metastatic lesion in this area however there does appear to be significant arthritis/bursitis. We will have her continue follow-up with orthopedics regarding this. She has further follow-up with Dr. Calix for management of her systemic disease process. I do not feel there is a role for radiation at present time. Musa Dong MD cc: Kalee Lerma MD ([facility]) [address] [phone] Portions of the above note extracted and edited from previous visit as well as active information included in the EMR. documented in this encounter [facility] 12-24-2021 History of Presen t illness Narrative Images from the original note were not included. HPI: CASE HISTORY: 11/2014: diagnosed with locally advanced ER/IL (+), HER2(equivocal on FISH, 2+ IHC), grade 2 invasive ductal carcinoma, right axillary lymph nodes appreciated on imaging 12/2014: started dose dense AC-weekly taxol 04/2015: stopped weekly taxol, had 9 weeks of therapy, repeat imaging by PET identified complete metabolic response per notes, developed neuropathy, MRI brain identified what was felt to be meningioma 05/2015: Bilateral mastectomy with right axillary dissection, path notes [id number] disease 09/2015: completed adjuvant radiation and started adjuvant hormonal therapy with arimidex 03/2018: tried to switch to aromasin due to hair loss 05/2018: not tolerating aromasin well- in addition to hair loss, having anxiety and hot flashes with poor sleep 06/2018: started Arimidex 12/15/2021 : Left Axillary Recurrence. Updated Visit, December 24, 2021: Soha returns with her daughters today and is highly anxious. She had a left axillary mass removed after Dr. Dong noted it on his most recent visit. This was not noted on my evaluation in September. She had the mass resected and it was consistent with her ER/IL+ brca. [id number] FISH is still pending. She will need staging PET/CT to determine extent and volume of disease. Once we have the final pathology and PET restaging we will determine course of therapy. She is hoping not to have chemotherapy. Updated Visit, September 24, 2021: Soha Ford is a 75 year old female who presents in follow-up on Arimidex for breast cancer diagnosed in 2014. Has preferred to stay on extended endocrine therapy in adjuvant setting. Very anxious about her tumor marker but realized that she had heard her number incorrectly and that there was no need for anxiety caused by following this lab test. All else is well. Labs are stable. No palpable abnormality noted in arms or axilla. Lymphedema is stable. 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 Dr. Matias is monitoring but on my exam, the lesion appears to be raised slightly and will likely need re-evaluated. Calcium in the form of Tums with Vitamin D. Continues to take Arimidex since 06/2018. Complains of some decreased mobility especially in her left leg with some pain shooting down the left leg. Updated Visit, December 24, 2020: Soha Ford returns for scheduled follow-up. Since her last visit there has been no significant medical changes. Today she is concerned about a couple of skin moles. She denies cough, shortness of breath and other pulmonary symptoms. She denies any unusual pain. She denies chest wall lumps or bumps. She remains on Arimidex and is tolerating it fairly well. She denies any significant muscle and joint aches. Overall, doing well. Updated Visit, June 25, 2020: Soha Ford is a 74 year old female who presents in follow-up on Arimidex. She has requested vaccinations to include Pneumococcal, Influenza and shingle. Continues arimidex for 10 years - 09/2025 Doing well right arm in lymphedema sleeve Osteopenia on dexa Caltrate D sent in Consider prevention of bone disease in the future CT of the chest is reviewed below: 03/05/2019 10:49 AM - Radiology, [place] In Impression IMPRESSION: 1. Mildly enlarged left axillary lymph node appears slightly more conspicuous when compared to the prior study of 08/28/2018, new when compared to more remote examination of 10/10/2017. 2. Scattered right-sided subcentimeter pulmonary nodules, unchanged. She is on arimidex with much better tolerance. APV put her on this from aromasin which she was losing her hair with. Current Outpatient Medications Medication Sig baclofen (LIORESAL) 10 mg tablet anastrozole (ARIMIDEX) 1 mg tablet TAKE 1 TABLET BY MOUTH EVERY DAY latanoprost (XALATAN) 0.005 % ophthalmic solution INSTILL 1 DROP INTO EACH EYE EVERY EVENING DIRECTED cholecalciferol, vitamin D3, (VITAMIN D3 ORAL) Take by mouth. LORazepam (ATIVAN) 0.5 mg tab 0.5 mg as needed. naproxen sodium (ALEVE) 220 mg cap Take by mouth as needed. No current facility-administered medications for this visit. ALLERGIES No Known Allergies REVIEW OF SYSTEMS All other reviewed and negative other than HPI. PHYSICAL EXAM: There were no vitals taken for this visit. Exam limited to gross visualization where appropriate due to COVID-19. Gen.: This is an age-appropriate patient in no acute distress. Head: Appears atraumatic with no visible lesions. Eyes: Pupils equally round and reactive to light, extraocular muscles are intact. Neck: Supple. Mouth: Mucous membranes appeared to be moist. Respiratory: Appears to be respiring comfortably. Neurologic: Nonfocal to gross visualization. Alert and oriented 3. Psychiatric: No evidence of inappropriate anxiety or depression. Skin: Visible areas of skin without rash, wounds or petechiae. LABORATORY: Hemoglobin (g/dL) Date Value 09/22/2021 14.8 Hematocrit (%) Date Value 09/22/2021 45.1 WBC (k/uL) Date Value 09/22/2021 9.07 Platelet Count (k/uL) Date Value 09/22/2021 336 ASSESSMENT: 1. Malignant neoplasm of female breast, unspecified estrogen receptor status, unspecified laterality, unspecified site of breast (HCC) - ICD9: 174.9, ICD10: C50.919 (primary diagnosis) No evidence of recurrence. She will continue Arimidex. (D05.12) Cancer of breast, intraductal, left (primary encounter diagnosis) Plan: CBC + DIFF, COMP METABOLIC PANEL, CA 15-3 BLD, CA 27.29 BLOOD (C50.911, Z17.0) Malignant neoplasm of right breast in female, estrogen receptor positive, unspecified site of breast (HCC) Plan: CBC + DIFF, COMP METABOLIC PANEL, CA 15-3 BLD, CA 27.29 BLOOD PLAN: 1. Obtain HER2 results from [facility]. 2. Await PET/CT on Tuesday Call results. 3. Obtain labs today please I spent a total of 45 minutes on the date of the service which included preparing to see the patient, [id number] patient care, completing clinical documentation, obtaining and/or reviewing separately obtained history, counseling and educating the patient/family/caregiver, ordering medications, tests, or procedures, independently interpreting results (not separately reported), communicating results to the patient/family/caregiver and care coordination (not separately reported). Cedrick Calix MD, [place], [place] CC: Kalee Lerma MD documented in this encounter [facility] 12-23-2021 History of Presen t illness Narrative Patient Declined Social Work Assessment SOCIAL WORK FOLLOW UP NOTE: [facility] Date of service:12/23/21 PLAN: Continue follow up as needed Patient scored an 8 on the NCCN Distress Questionnaire. Patient was offered to speak with a SW and she declined the offer. SW will remain available and will follow up as appropriate. RAMONA Borja documented in this encounter [facility] 12-23-2021 Nurse Note I offered Soha to meet with [facility] based off of her questionnaire. She declined at this time. I notified her that [facility] service is available to her and her family if she changes her mind. Pt verbalized understanding. 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 RADIATION SUMMARY: Right chest wall and regional lymph nodes completed 08/29/2015 5040 cGy right axilla, 5040 cGy right chest wall with a 1080 cGy boost. INTERVAL HISTORY: Patient returns excision of left axillary lymph node and left chest wall soft tissue nodule. Pathology returning adenocarcinoma consistent with invasive breast cancer, ER/IL positive. She has also had some left hip pain on and off for the last month or 2. Plain films of the hip showing no evidence of any destructive or sclerotic lesion. CT chest 11/16/2021:IMPRESSION: 1. Increased mild to moderate left axillary lymphadenopathy and new borderline mediastinal lymphadenopathy. Differential diagnosis includes lymph node metastases, lymphoma, other second primary neoplasm and infectious/inflammatory etiologies. Consider further workup. 2. Multiple new subcentimeter nodular opacities measuring up to 9 mm worrisome for neoplasm. 11/10/21:Doing well. Describe some fullness on the left lateral chest wall axillary region. Mildly tender. Denies fever. Denies chest pain or shortness of breath. Appetite stable. No other issues. ALLERGIES No Known Allergies MEDICATIONS: baclofen (LIORESAL) 10 mg tablet anastrozole (ARIMIDEX) 1 mg tablet TAKE 1 TABLET BY MOUTH EVERY DAY latanoprost (XALATAN) 0.005 % ophthalmic solution INSTILL 1 DROP INTO EACH EYE EVERY EVENING DIRECTED cholecalciferol, vitamin D3, (VITAMIN D3 ORAL) Take by mouth. LORazepam (ATIVAN) 0.5 mg tab 0.5 mg as needed. naproxen sodium (ALEVE) 220 mg cap Take by mouth as needed. PHYSICAL EXAM: VS: Pulse 86 Temp 36.6 C (97.8 F) Resp 18 Wt 74.8 kg (165 lb) SpO2 97% BMI 32.22 kg/m KPS: 90 PHYSICAL EXAMINATION: General appearance: Well appearing, alert, in no acute distress, well-hydrated, well nourished. Well-healing left axillary incision. Neurologically nonfocal. Gait somewhat antalgic, strength 5 out of 5 upper lower extremity. Reflexes 1-2+ and symmetric. ASSESSMENT AND PLAN: Stage IIIB ([id number]) poorly differentiated infiltrating ductal carcinoma of the right breast with skin involvement and metastasis to 8 of the 16 right axillary lymph nodes with extracapsular extension; status post neoadjuvant chemotherapy; status post right modified radical mastectomy; status post radiation therapy to the right chest wall and regional lymph nodes. Patient with new recurrent breast cancer, involving left axillary area. Unclear if this is new primary versus recurrence of her original right-sided disease. She is also having some musculoskeletal pain though plain films are negative I recommend further staging in general which would include PET scan should also help investigate her left hip pain and issues. She will see Dr. Calix for consideration of systemic options. Depending on staging she may benefit from local regional treatment to the left axillary area and if she does have skeletal metastatic disease possible palliative treatment.. Musa Dong MD cc: Kalee Lerma MD ([facility]) [address] [id number] Portions of the above note extracted and edited from previous visit as well as active information included in the EMR. documented in this encounter [facility] 12-21-2021 Miscellaneous Notes Patient has been added to schedule, per instructions. [facility] Path and Op scanned. Pt called to let us know that biopsy was positive. Pt was tearful and requested appointment NOHEMY. Pt was given appt for LATASHA 12/22 at 2:45pm (PSS- please schedule 30 min f/u). Appt also given for Dr Cailx 12/24 at 8:30am. Dayami- please get path/op from Dr Aguilera. Graciela Cronin RN [facility] Diagnosis Malignant neoplasm of overlapping sites of left breast in female, estrogen receptor positive (HCC) [facility] Cancer of breast, intraductal, left- Primary Malignant neoplasm of right breast in female, estrogen receptor positive, unspecified site of breast (HCC) [facility] Diagnosis Cancer of breast, intraductal, left- Primary Malignant neoplasm of right breast in female, estrogen receptor positive, unspecified site of breast (HCC) [facility] Diagnosis Malignant neoplasm of nipple of right breast in female, unspecified estrogen receptor status (HCC)- Primary [facility] Diagnosis Cancer of breast, intraductal, left- Primary Malignant neoplasm of right breast in female, estrogen receptor positive, unspecified site of breast (HCC) [facility] Diagnosis Malignant neoplasm of right breast in female, estrogen receptor positive, unspecified site of breast (HCC)- Primary [facility] Diagnosis Cancer of breast, intraductal, left- Primary Malignant neoplasm of right breast in female, estrogen receptor positive, unspecified site of breast (HCC) Malignant neoplasm of female breast, unspecified estrogen receptor status, unspecified laterality, unspecified site of breast (HCC) Lymphedema Other lymphedema [facility] Diagnosis Cancer of breast, intraductal, left- Primary Malignant neoplasm of right breast in female, estrogen receptor positive, unspecified site of breast (HCC) documented in this encounter [facility] note* Diagnosis Cancer of breast, intraductal, left- Primary Malignant neoplasm of right breast in female, estrogen receptor positive, unspecified site of breast (HCC) Malignant neoplasm of overlapping sites of right breast in female, estrogen receptor positive (HCC) documented in this encounter [facility] note* Diagnosis Cancer of breast, intraductal, left- Primary Malignant neoplasm of right breast in female, estrogen receptor positive, unspecified site of breast (HCC) Malignant neoplasm of female breast, unspecified estrogen receptor status, unspecified laterality, unspecified site of breast (HCC) documented in this encounter [facility] note* Diagnosis Cancer of breast, intraductal, left- Primary Malignant neoplasm of right breast in female, estrogen receptor positive, unspecified site of breast (HCC) Malignant neoplasm of right female breast, unspecified estrogen receptor status, unspecified site of breast (HCC) [facility] Diagnosis Cancer of breast, intraductal, left- Primary [facility] Diagnosis Cancer of breast, intraductal, left- Primary Malignant neoplasm of right breast in female, estrogen receptor positive, unspecified site of breast (HCC) Malignant neoplasm of right female breast, unspecified estrogen receptor status, unspecified site of breast (HCC) documented in this encounter [facility] note* Diagnosis Malignant neoplasm of left breast in female, estrogen receptor positive, unspecified site of breast (HCC) documented in this encounter [facility] note* Diagnosis Cancer of breast, intraductal, left Malignant neoplasm of right breast in female, estrogen receptor positive, unspecified site of breast (HCC) Malignant neoplasm of female breast, unspecified estrogen receptor status, unspecified laterality, unspecified site of breast (HCC) Lymphedema Other lymphedema documented in this encounter [facility] note* Diagnosis Cancer of breast, intraductal, left- Primary Malignant neoplasm of right breast in female, estrogen receptor positive, unspecified site of breast (HCC) [facility] Diagnosis Malignant neoplasm of breast in female, estrogen receptor positive, unspecified laterality, unspecified site of breast (HCC)- Primary Dysuria [facility] Diagnosis Cancer of breast, intraductal, left- Primary Malignant neoplasm of right breast in female, estrogen receptor positive, unspecified site of breast (HCC) Malignant neoplasm of nipple of right breast in female, unspecified estrogen receptor status (HCC) [facility] Diagnosis Cancer of breast, intraductal, left- Primary Malignant neoplasm of right breast in female, estrogen receptor positive, unspecified site of breast (HCC) Malignant neoplasm of right female breast, unspecified estrogen receptor status, unspecified site of breast (HCC) [facility] Diagnosis Cancer of breast, intraductal, left- Primary Malignant neoplasm of right breast in female, estrogen receptor positive, unspecified site of breast (HCC) Lymphedema Other lymphedema Malignant neoplasm of overlapping sites of both breasts in female, estrogen receptor positive (HCC) [facility] Diagnosis Cancer of breast, intraductal, left- Primary Malignant neoplasm of right breast in female, estrogen receptor positive, unspecified site of breast (HCC) Malignant neoplasm of right female breast, unspecified estrogen receptor status, unspecified site of breast (HCC) [facility] Diagnosis Megaloblastic anemia due to vitamin B12 deficiency- Primary Other vitamin B12 deficiency anemia [facility] Diagnosis Megaloblastic anemia due to vitamin B12 deficiency- Primary Other vitamin B12 deficiency anemia [facility] note* Diagnosis Cancer of breast, intraductal, left- Primary Malignant neoplasm of overlapping sites of both breasts in female, estrogen receptor positive (HCC) [facility] Malignant neoplasm of overlapping sites of both breasts in female, estrogen receptor positive (HCC)- Primary [facility] Diagnosis Megaloblastic anemia due to vitamin B12 deficiency- Primary Other vitamin B12 deficiency anemia [facility]* Diagnosis Dysuria- Primary [facility] Diagnosis Malignant neoplasm of overlapping sites of both breasts in female, estrogen receptor positive (HCC)- Primary Megaloblastic anemia due to vitamin B12 deficiency Other vitamin B12 deficiency anemia Lymphedema Other lymphedema Dysuria [facility]* Diagnosis Malignant neoplasm of right breast in female, estrogen receptor positive, unspecified site of breast (HCC)- Primary [facility] Diagnosis Malignant neoplasm of overlapping sites of both breasts in female, estrogen receptor positive (HCC)- Primary [facility]* Diagnosis Anxiety neurosis- Primary Anxiety state, unspecified Malignant neoplasm of right breast in female, estrogen receptor positive, unspecified site of breast (HCC) Megaloblastic anemia due to vitamin B12 deficiency Other vitamin B12 deficiency anemia Lymphedema Other lymphedema [facility] Diagnosis Megaloblastic anemia due to vitamin B12 deficiency- Primary Other vitamin B12 deficiency anemia [facility] Diagnosis Megaloblastic anemia due to vitamin B12 deficiency- Primary Other vitamin B12 deficiency anemia [facility] Diagnosis Malignant neoplasm of overlapping sites of both breasts in female, estrogen receptor positive (HCC)- Primary Lymphedema Other lymphedema Anxiety neurosis Anxiety state, unspecified [facility] Diagnosis Malignant neoplasm of overlapping sites of both breasts in female, estrogen receptor positive (HCC)- Primary Malignant neoplasm of breast in female, estrogen receptor positive, unspecified laterality, unspecified site of breast (HCC) [facility]* Diagnosis Megaloblastic anemia due to vitamin B12 deficiency- Primary Other vitamin B12 deficiency anemia [facility]* Diagnosis Malignant neoplasm of breast in female, estrogen receptor positive, unspecified laterality, unspecified site of breast (HCC)- Primary [facility]* Diagnosis Malignant neoplasm of breast in female, estrogen receptor positive, unspecified laterality, unspecified site of breast (HCC)- Primary Megaloblastic anemia due to vitamin B12 deficiency Other vitamin B12 deficiency anemia [facility]* Diagnosis Malignant neoplasm of breast in female, estrogen receptor positive, unspecified laterality, unspecified site of breast (HCC) [facility] Diagnosis Megaloblastic anemia due to vitamin B12 deficiency- Primary Other vitamin B12 deficiency anemia Cancer of breast, intraductal, left Malignant neoplasm of overlapping sites of both breasts in female, estrogen receptor positive (HCC) Malignant neoplasm of right breast in female, estrogen receptor positive, unspecified site of breast (HCC) [facility] Diagnosis Malignant neoplasm of breast in female, estrogen receptor positive, unspecified laterality, unspecified site of breast (HCC)- Primary Megaloblastic anemia due to vitamin B12 deficiency Other vitamin B12 deficiency anemia Lymphedema Other lymphedema documented in this encounter [facility] note* Diagnosis Megaloblastic anemia due to vitamin B12 deficiency- Primary Other vitamin B12 deficiency anemia Cancer of breast, intraductal, left Malignant neoplasm of overlapping sites of both breasts in female, estrogen receptor positive (HCC) Malignant neoplasm of right breast in female, estrogen receptor positive, unspecified site of breast (HCC) documented in this encounter [facility] note* Diagnosis Malignant neoplasm of right breast in female, estrogen receptor positive, unspecified site of breast (HCC)- Primary Anxiety neurosis Anxiety state, unspecified documented in this encounter [facility] note* Diagnosis Malignant neoplasm of breast in female, estrogen receptor positive, unspecified laterality, unspecified site of breast (HCC) documented in this encounter [facility] note* Diagnosis Megaloblastic anemia due to vitamin B12 deficiency- Primary Other vitamin B12 deficiency anemia Cancer of breast, intraductal, left Malignant neoplasm of overlapping sites of both breasts in female, estrogen receptor positive (HCC) Malignant neoplasm of right breast in female, estrogen receptor positive, unspecified site of breast (HCC) documented in this encounter [facility] note* Diagnosis Malignant neoplasm of overlapping sites of both breasts in female, estrogen receptor positive (HCC)- Primary Malignant neoplasm of right breast in female, estrogen receptor positive, unspecified site of breast (HCC) Cancer of breast, intraductal, left Anxiety neurosis Anxiety state, unspecified Megaloblastic anemia due to vitamin B12 deficiency Other vitamin B12 deficiency anemia Lymphedema Other lymphedema Malignant neoplasm of breast in female, estrogen receptor positive, unspecified laterality, unspecified site of breast (HCC) documented in this encounter [facility] for referral (narrative)* Diagnostic Procedure Only (Routine) - Closed Specialty Diagnoses / Procedures Referred By Contbroderick t Referred To Contact MOLECULAR & FUNCTIONAL IMAGING Diagnoses Malignant neoplasm of overlapping sites of left breast in female, estrogen receptor positive (HCC) Procedures NM PET/CT SKULL-THIGH SUBSEQUENT PET IMAGING CT ATTENUATION SKULL BASE MID-THIGH Musa Dong MD [address] [place] [address] [place] [address] Molecular & Functional Imaging [address] [place] [address] Referral ID Status Reason Start Date Expiration Date V isits Requested Visits Authorized [id number] Closed Auto-Generate d Referral 12/22/2021 01/21/2023 1 1 [facility] for referral (narrative)* Diagnostic Procedure Only (Routine) - Authorized Specialty Diagnoses / Procedures Referred By Contac t Referred To Contact MOLECULAR & FUNCTIONAL IMAGING Diagnoses Malignant neoplasm of left breast in female, estrogen receptor positive, unspecified site of breast (HCC) Procedures NM PET/CT SKULL-THIGH SUBSEQUENT PET IMAGING CT ATTENUATION SKULL BASE MID-THIGH Cedrick Calix MD [facility] [place] [address] Molecular & Functional Imaging [address] [place] [address] Referral ID Status Reason Start Date Expiration Date Visits Requested Visits Authorized [id number] Authorized Auto-Generat ed Referral 04/01/2022 05/01/2023 1 1 [facility] for referral (narrative)* Diagnostic Procedure Only (Routine) - Authorized Specialty Diagnoses / Procedures Referred By Contac t Referred To Contact MOLECULAR & FUNCTIONAL IMAGING Diagnoses Malignant neoplasm of breast in female, estrogen receptor positive, unspecified laterality, unspecified site of breast (HCC) Procedures NM PET/CT SKULL-THIGH SUBSEQUENT PET IMAGING CT ATTENUATION SKULL BASE MID-THIGH Cedrick Calix MD [address] [place] [address] [place] [address] Molecular & Functional Imaging [address] [place] [address] Referral ID Status Reason Start Date Expiration Date Visits Requested Visits Authorized [id number] Authorized Auto-Generat ed Referral 2 07/24/2023 1 1 [facility] for referral (narrative)* Diagnostic Procedure Only (Routine) - Authorized Specialty Diagnoses / Procedures [facility] To Contact MOLECULAR & FUNCTIONAL IMAGING Diagnoses Malignant neoplasm of overlapping sites of both breasts in female, estrogen receptor positive (HCC) Procedures NM PET/CT SKULL-THIGH SUBSEQUENT PET IMAGING CT ATTENUATION SKULL BASE MID-THIGH Cedrick Calix MD [address] [place] [address] [place] [address] Molecular & Functional Imaging [address] [place] [address] Referral ID Status Reason Start Date Expiration Date Visits Requested Visits Authorized [id number] Authorized Auto-Generat ed Referral 12/09/2022 09/18/2023 1 1 [facility] for referral (narrative)* Diagnostic Procedure Only (Routine) - Authorized Specialty Diagnoses / Procedures [facility] Referred To Contact MOLECULAR & FUNCTIONAL IMAGING Diagnoses Malignant neoplasm of overlapping sites of both breasts in female, estrogen receptor positive (HCC) Malignant neoplasm of breast in female, estrogen receptor positive, unspecified laterality, unspecified site of breast (HCC) Procedures NM PET/CT SKULL-THIGH SUBSEQUENT PET IMAGING CT ATTENUATION SKULL BASE MID-THIGH Cedrick Calix MD [address] [place] [address] [place] [address] Molecular & Functional Imaging [address] [place] [address] Referral ID Status Reason Start Date Expiration Date Visits Requested Visits Authorized [id number] Authorized Auto-Generat ed Referral 05/02/2023 05/17/2024 1 1 [facility] for referral (narrative)* Diagnostic Procedure Only (Routine) - Authorized Specialty Diagnoses / Procedures [facility] Referred To Contact MOLECULAR & FUNCTIONAL IMAGING Diagnoses Malignant neoplasm of right breast in female, estrogen receptor positive, unspecified site of breast (HCC) Procedures NM PET/CT SKULL-THIGH SUBSEQUENT PET IMAGING CT ATTENUATION SKULL BASE MID-THIGH Cedrick Calix MD [address] [place] [address] [place] [address] Molecular & Functional Imaging [address] [place] [address] Referral ID Status Reason Start Date Expiration Date Visits Requested Visits Authorized [id number] Authorized Auto-Generat ed Referral 3 08/25/2024 1 1 [facility] Summary Purpose Family History No Family History Records FoundNo Family History Records FoundNo Family History Records FoundNo Family History Records FoundNo Family History Records Found Advance Directives No Advanced Directives Records FoundNo Advanced Directives Records FoundNo Advanced Directives Records FoundNo Advanced Directives Records FoundNo Advanced Directives Records Found Medications Administered Section Inactive Administered Medications - up to 3 most recent administrations Medication Order MAR Action Action Date Dose Rate Site fulvestrant 500 mg injection (FASLODEX) 500 mg, INTRAMUSCULAR, ONCE, 1 dose, On Tue01/11/22 at 1500, Hazardous Chemotherapy Drug: Use appropriate PPE. Refrigerate. Given 01/11/2022 3:09 PM EDT 500 mg Buttocks, Left Inactive Administered Medications - up to 3 most recent administrations Medication Order MAR Action Action Date Dose Rate Site fulvestrant 500 mg injection (FASLODEX) 500 mg, INTRAMUSCULAR, ONCE, 1 dose, On Tue01/25/22 at 1300, Hazardous Chemotherapy Drug: Use appropriate PPE. Refrigerate. Given 01/25/2022 1:00 PM EDT 500 mg Buttocks, Right Inactive Administered Medications - up to 3 most recent administrations Medication Order MAR Action Action Date Dose Rate Site fulvestrant 500 mg injection (FASLODEX) 500 mg, INTRAMUSCULAR, ONCE, 1 dose, On Tue02/08/22 at 1230, Hazardous Chemotherapy Drug: Use appropriate PPE. Refrigerate. Given 02/08/2022 12:30 PM EDT 500 mg Buttocks, Left Inactive Administered Medications - up to 3 most recent administrations Medication Order MAR Action Action Date Dose Rate Site fulvestrant 500 mg injection (FASLODEX) 500 mg, INTRAMUSCULAR, ONCE, 1 dose, On 03/08/22 at 1130, Hazardous Chemotherapy Drug: Use appropriate PPE. Refrigerate. Given 03/08/2022 11:31 AM EDT 500 mg Buttocks, Right Inactive Administered Medications - up to 3 most recent administrations Medication Order MAR Action Action Date Dose Rate Site fulvestrant 500 mg injection (FASLODEX) 500 mg, INTRAMUSCULAR, ONCE, 1 dose, On Marta 04/01/22 at 1230, Hazardous Chemotherapy Drug: Use appropriate PPE. Refrigerate. Given 04/01/2022 12:17 PM EDT 500 mg Buttocks, Right Inactive Administered Medications - up to 3 most recent administrations Medication Order MAR Action Action Date Dose Rate Site fulvestrant 500 mg injection (FASLODEX) 500 mg, INTRAMUSCULAR, ONCE, 1 dose, On Marta 04/29/22 at 1100, Hazardous Chemotherapy Drug: Use appropriate PPE. Refrigerate. Given 04/29/2022 11:08 AM EDT 500 mg Buttocks, Right Inactive Administered Medications - up to 3 most recent administrations Medication Order MAR Action Action Date Dose Rate Site fulvestrant 500 mg injection (FASLODEX) 500 mg, INTRAMUSCULAR, ONCE, 1 dose, On Marta 05/27/22 at 1030, Hazardous Chemotherapy Drug: Use appropriate PPE. Refrigerate. Given 05/27/2022 10:27 AM EDT 500 mg Buttocks, Right Inactive Administered Medications - up to 3 most recent administrations Medication Order MAR Action Action Date Dose Rate Site fulvestrant 500 mg injection (FASLODEX) 500 mg, INTRAMUSCULAR, ONCE, 1 dose, On Marta 06/24/22 at 1100, Hazardous Chemotherapy Drug: Use appropriate PPE. Refrigerate. Given 06/24/2022 11:04 AM EDT 500 mg Buttocks, Left Inactive Administered Medications - up to 3 most recent administrations Medication Order MAR Action Action Date Dose Rate Site fulvestrant 500 mg injection (FASLODEX) 500 mg, INTRAMUSCULAR, ONCE, 1 dose, On Marta 07/22/22 at 1130, Hazardous Chemotherapy Drug: Use appropriate PPE. Refrigerate. Given 07/22/2022 11:08 AM EDT 500 mg Buttocks, Right Inactive Administered Medications - up to 3 most recent administrations Medication Order MAR Action Action Date Dose Rate Site fulvestrant 500 mg injection (FASLODEX) 500 mg, INTRAMUSCULAR, ONCE, 1 dose, On Marta 08/19/22 at 1130, Hazardous Chemotherapy Drug: Use appropriate PPE. Refrigerate. Given 08/19/2022 11:27 AM EST 500 mg Buttocks, Left Inactive Administered Medications - up to 3 most recent administrations Medication Order MAR Action Action Date Dose Rate Site fulvestrant 500 mg injection (FASLODEX) 500 mg, INTRAMUSCULAR, ONCE, 1 dose, On Marta 09/16/22 at 1000, Hazardous Chemotherapy Drug: Use appropriate PPE. Refrigerate. Given 09/16/2022 10:27 AM EST 500 mg Buttocks, Left Inactive Administered Medications - up to 3 most recent administrations Medication Order MAR Action Action Date Dose Rate Site fulvestrant 500 mg injection (FASLODEX) 500 mg, INTRAMUSCULAR, ONCE, 1 dose, On Tue10/12/22 at 1230, Hazardous Chemotherapy Drug: Use appropriate PPE. Refrigerate. Given 10/12/2022 12:53 PM EST 500 mg Buttocks, Left Inactive Administered Medications - up to 3 most recent administrations Medication Order MAR Action Action Date Dose Rate Site fulvestrant 500 mg injection (FASLODEX) 500 mg, INTRAMUSCULAR, ONCE, 1 dose, On Marta 12/09/22 at 1000, Hazardous Chemotherapy Drug: Use appropriate PPE. Refrigerate. Given 12/09/2022 10:24 AM EDT 500 mg Buttocks, Left Inactive Administered Medications - up to 3 most recent administrations Medication Order MAR Action Action Date Dose Rate Site fulvestrant 500 mg injection (FASLODEX) 500 mg, INTRAMUSCULAR, ONCE, 1 dose, On Marta 01/06/23 at 1500, Hazardous Chemotherapy Drug: Use appropriate PPE. Refrigerate. Given 01/06/2023 2:40 PM EDT 500 mg Buttocks, Left Inactive Administered Medications - up to 3 most recent administrations Medication Order MAR Action Action Date Dose Rate Site fulvestrant 500 mg injection (FASLODEX) 500 mg, INTRAMUSCULAR, ONCE, 1 dose, On Tue03/04/23 at 1100, Hazardous Chemotherapy Drug: Use appropriate PPE. Refrigerate. Given 03/04/2023 11:05 AM EDT 500 mg Buttocks, Left Inactive Administered Medications - up to 3 most recent administrations Medication Order MAR Action Action Date Dose Rate Site fulvestrant 500 mg injection (FASLODEX) 500 mg, INTRAMUSCULAR, ONCE, 1 dose, On Tue04/04/23 at 1430, Hazardous Chemotherapy Drug: Use appropriate PPE. Refrigerate. Given 04/04/2023 2:38 PM EDT 500 mg Buttocks, Right Inactive Administered Medications - up to 3 most recent administrations Medication Order MAR Action Action Date Dose Rate Site fulvestrant 500 mg injection (FASLODEX) 500 mg, INTRAMUSCULAR, ONCE, 1 dose, On 05/02/23 at 1430, Hazardous Chemotherapy Drug: Use appropriate PPE. Refrigerate. Given 05/02/2023 2:25 PM EDT 500 mg Buttocks, Left Inactive Administered Medications - up to 3 most recent administrations Medication Order MAR Action Action Date Dose Rate Site fulvestrant 500 mg injection (FASLODEX) 500 mg, INTRAMUSCULAR, ONCE, 1 dose, On 06/29/23 at 1430, Hazardous Chemotherapy Drug: Use appropriate PPE. Refrigerate. Given 06/29/2023 2:35 PM EDT 500 mg Buttocks, Left Inactive Administered Medications - up to 3 most recent administrations Medication Order MAR Action Action Date Dose Rate Site fulvestrant 500 mg injection (FASLODEX) 500 mg, INTRAMUSCULAR, ONCE, 1 dose, On Marta 07/28/23 at 1630, Hazardous Chemotherapy Drug: Use appropriate PPE. Refrigerate. Given 07/28/2023 4:09 PM EST 500 mg Buttocks, Left Inactive Administered Medications - up to 3 most recent administrations Medication Order MAR Action Action Date Dose Rate Site fulvestrant 500 mg injection (FASLODEX) 500 mg, INTRAMUSCULAR, ONCE, 1 dose, On Marta 08/25/23 at 1530, Hazardous Chemotherapy Drug: Use appropriate PPE. Refrigerate. Given 08/25/2023 3:31 PM EST 500 mg Buttocks, Left Additional Source Comments INFORMATION SOURCE (unrecogn ized section and content) DATE CREATED AUTHOR 10/08/2021 [facility] DATE CREATED AUTHOR AUTHOR'S ORGANIZ ATION 12/05/2021 [facility] DATE CREATED AUTHOR AUTHOR'S ORGANIZ ATION 01/15/2023 [facility] DATE CREATED AUTHOR AUTHOR'S ORGANIZ ATION 09/01/2023 [facility] DATE CREATED AUTHOR AUTHOR'S ORGANIZ ATION 09/16/2023 [facility] dical Specialists EPIC Source Comments (unrecognize d section and content) In the event this informatio n is protected by the [facility] Confidentiality of Alcohol and Drug Abuse Patient Records regulations: The Federal rules restrict any use of the information to criminally investigate or prosecute any alcohol or drug abuse patient.[facility] the event this information is protected by the Federal Confidentiality of Alcohol and Drug Abuse Patient Records regulations: The Federal rules restrict any use of the information to criminally investigate or prosecute any alcohol or drug abuse patient.[facility] Hospital[facility] the event this information is protected by the Federal Confidentiality of Alcohol and Drug Abuse Patient Records regulations: The Federal rules restrict any use of the information to criminally investigate or prosecute any alcohol or drug abuse patient.[facility] HospitalIn the event this information is protected by the Federal Confidentiality of Alcohol and Drug Abuse Patient Records regulations: The Federal rules restrict any use of the information to criminally investigate or prosecute any alcohol or drug abuse patient.[facility] the event this information is protected by the Federal Confidentiality of Alcohol and Drug Abuse Patient Records regulations: The Federal rules restrict any use of the information to criminally investigate or prosecute any alcohol or drug abuse patient.[facility] the event this information is protected by the Federal Confidentiality of Alcohol and Drug Abuse Patient Records regulations: The Federal rules restrict any use of the information to criminally investigate or prosecute any alcohol or drug abuse patient.[facility] Hospital[facility] the event this information is protected by the Federal Confidentiality of Alcohol and Drug Abuse Patient Records regulations: The Federal rules restrict any use of the information to criminally investigate or prosecute any alcohol or drug abuse patient.[facility] HospitalIn the event this information is protected by the Federal Confidentiality of Alcohol and Drug Abuse Patient Records regulations: The Federal rules restrict any use of the information to criminally investigate or prosecute any alcohol or drug abuse patient.[facility] Hospital[facility] the event this information is protected by the Federal Confidentiality of Alcohol and Drug Abuse Patient Records regulations: The Federal rules restrict any use of the information to criminally investigate or prosecute any alcohol or drug abuse patient.[facility] Hospital[facility] the event this information is protected by the Federal Confidentiality of Alcohol and Drug Abuse Patient Records regulations: The Federal rules restrict any use of the information to criminally investigate or prosecute any alcohol or drug abuse patient.[facility] HospitalIn the event this information is protected by the Federal Confidentiality of Alcohol and Drug Abuse Patient Records regulations: The Federal rules restrict any use of the information to criminally investigate or prosecute any alcohol or drug abuse patient.[facility] HospitalIn the event this information is protected by the Federal Confidentiality of Alcohol and Drug Abuse Patient Records regulations: The Federal rules restrict any use of the information to criminally investigate or prosecute any alcohol or drug abuse patient.[facility] HospitalIn the event this information is protected by the Federal Confidentiality of Alcohol and Drug Abuse Patient Records regulations: The Federal rules restrict any use of the information to criminally investigate or prosecute any alcohol or drug abuse patient.[facility] HospitalIn the event this information is protected by the Federal Confidentiality of Alcohol and Drug Abuse Patient Records regulations: The Federal rules restrict any use of the information to criminally investigate or prosecute any alcohol or drug abuse patient.[facility] HospitalIn the event this information is protected by the Federal Confidentiality of Alcohol and Drug Abuse Patient Records regulations: The Federal rules restrict any use of the information to criminally investigate or prosecute any alcohol or drug abuse patient.[facility] HospitalIn the event this information is protected by the Federal Confidentiality of Alcohol and Drug Abuse Patient Records regulations: The Federal rules restrict any use of the information to criminally investigate or prosecute any alcohol or drug abuse patient.[facility] HospitalIn the event this information is protected by the Federal Confidentiality of Alcohol and Drug Abuse Patient Records regulations: The Federal rules restrict any use of the information to criminally investigate or prosecute any alcohol or drug abuse patient.[facility] HospitalIn the event this information is protected by the Federal Confidentiality of Alcohol and Drug Abuse Patient Records regulations: The Federal rules restrict any use of the information to criminally investigate or prosecute any alcohol or drug abuse patient.[facility] HospitalIn the event this information is protected by the Federal Confidentiality of Alcohol and Drug Abuse Patient Records regulations: The Federal rules restrict any use of the information to criminally investigate or prosecute any alcohol or drug abuse patient.[facility] HospitalIn the event this information is protected by the Federal Confidentiality of Alcohol and Drug Abuse Patient Records regulations: The Federal rules restrict any use of the information to criminally investigate or prosecute any alcohol or drug abuse patient.[facility] HospitalIn the event this information is protected by the Federal Confidentiality of Alcohol and Drug Abuse Patient Records regulations: The Federal rules restrict any use of the information to criminally investigate or prosecute any alcohol or drug abuse patient.[facility] HospitalIn the event this information is protected by the Federal Confidentiality of Alcohol and Drug Abuse Patient Records regulations: The Federal rules restrict any use of the information to criminally investigate or prosecute any alcohol or drug abuse patient.[facility] HospitalIn the event this information is protected by the Federal Confidentiality of Alcohol and Drug Abuse Patient Records regulations: The Federal rules restrict any use of the information to criminally investigate or prosecute any alcohol or drug abuse patient.[facility] HospitalIn the event this information is protected by the Federal Confidentiality of Alcohol and Drug Abuse Patient Records regulations: The Federal rules restrict any use of the information to criminally investigate or prosecute any alcohol or drug abuse patient.[facility] HospitalIn the event this information is protected by the Federal Confidentiality of Alcohol and Drug Abuse Patient Records regulations: The Federal rules restrict any use of the information to criminally investigate or prosecute any alcohol or drug abuse patient.[facility] HospitalIn the event this information is protected by the Federal Confidentiality of Alcohol and Drug Abuse Patient Records regulations: The Federal rules restrict any use of the information to criminally investigate or prosecute any alcohol or drug abuse patient.[facility] HospitalIn the event this information is protected by the Federal Confidentiality of Alcohol and Drug Abuse Patient Records regulations: The Federal rules restrict any use of the information to criminally investigate or prosecute any alcohol or drug abuse patient.[facility] HospitalIn the event this information is protected by the Federal Confidentiality of Alcohol and Drug Abuse Patient Records regulations: The Federal rules restrict any use of the information to criminally investigate or prosecute any alcohol or drug abuse patient.[facility] HospitalIn the event this information is protected by the Federal Confidentiality of Alcohol and Drug Abuse Patient Records regulations: The Federal rules restrict any use of the information to criminally investigate or prosecute any alcohol or drug abuse patient.[facility] HospitalIn the event this information is protected by the Federal Confidentiality of Alcohol and Drug Abuse Patient Records regulations: The Federal rules restrict any use of the information to criminally investigate or prosecute any alcohol or drug abuse patient.[facility] HospitalIn the event this information is protected by the Federal Confidentiality of Alcohol and Drug Abuse Patient Records regulations: The Federal rules restrict any use of the information to criminally investigate or prosecute any alcohol or drug abuse patient.[facility] HospitalIn the event this information is protected by the Federal Confidentiality of Alcohol and Drug Abuse Patient Records regulations: The Federal rules restrict any use of the information to criminally investigate or prosecute any alcohol or drug abuse patient.[facility] HospitalIn the event this information is protected by the Federal Confidentiality of Alcohol and Drug Abuse Patient Records regulations: The Federal rules restrict any use of the information to criminally investigate or prosecute any alcohol or drug abuse patient.[facility] HospitalIn the event this information is protected by the Federal Confidentiality of Alcohol and Drug Abuse Patient Records regulations: The Federal rules restrict any use of the information to criminally investigate or prosecute any alcohol or drug abuse patient.[facility] HospitalIn the event this information is protected by the Federal Confidentiality of Alcohol and Drug Abuse Patient Records regulations: The Federal rules restrict any use of the information to criminally investigate or prosecute any alcohol or drug abuse patient.[facility] HospitalIn the event this information is protected by the Federal Confidentiality of Alcohol and Drug Abuse Patient Records regulations: The Federal rules restrict any use of the information to criminally investigate or prosecute any alcohol or drug abuse patient.[facility] HospitalIn the event this information is protected by the Federal Confidentiality of Alcohol and Drug Abuse Patient Records regulations: The Federal rules restrict any use of the information to criminally investigate or prosecute any alcohol or drug abuse patient.[facility] HospitalIn the event this information is protected by the Federal Confidentiality of Alcohol and Drug Abuse Patient Records regulations: The Federal rules restrict any use of the information to criminally investigate or prosecute any alcohol or drug abuse patient.[facility] HospitalIn the event this information is protected by the Federal Confidentiality of Alcohol and Drug Abuse Patient Records regulations: The Federal rules restrict any use of the information to criminally investigate or prosecute any alcohol or drug abuse patient.[facility] HospitalIn the event this information is protected by the Federal Confidentiality of Alcohol and Drug Abuse Patient Records regulations: The Federal rules restrict any use of the information to criminally investigate or prosecute any alcohol or drug abuse patient.[facility] HospitalIn the event this information is protected by the Federal Confidentiality of Alcohol and Drug Abuse Patient Records regulations: The Federal rules restrict any use of the information to criminally investigate or prosecute any alcohol or drug abuse patient.[facility] HospitalIn the event this information is protected by the Federal Confidentiality of Alcohol and Drug Abuse Patient Records regulations: The Federal rules restrict any use of the information to criminally investigate or prosecute any alcohol or drug abuse patient.[facility] HospitalIn the event this information is protected by the Federal Confidentiality of Alcohol and Drug Abuse Patient Records regulations: The Federal rules restrict any use of the information to criminally investigate or prosecute any alcohol or drug abuse patient.[facility] HospitalIn the event this information is protected by the Federal Confidentiality of Alcohol and Drug Abuse Patient Records regulations: The Federal rules restrict any use of the information to criminally investigate or prosecute any alcohol or drug abuse patient.[facility] HospitalIn the event this information is protected by the Federal Confidentiality of Alcohol and Drug Abuse Patient Records regulations: The Federal rules restrict any use of the information to criminally investigate or prosecute any alcohol or drug abuse patient.[facility] HospitalIn the event this information is protected by the Federal Confidentiality of Alcohol and Drug Abuse Patient Records regulations: The Federal rules restrict any use of the information to criminally investigate or prosecute any alcohol or drug abuse patient.[facility] HospitalIn the event this information is protected by the Federal Confidentiality of Alcohol and Drug Abuse Patient Records regulations: The Federal rules restrict any use of the information to criminally investigate or prosecute any alcohol or drug abuse patient.[facility] HospitalIn the event this information is protected by the Federal Confidentiality of Alcohol and Drug Abuse Patient Records regulations: The Federal rules restrict any use of the information to criminally investigate or prosecute any alcohol or drug abuse patient.[facility] HospitalIn the event this information is protected by the Federal Confidentiality of Alcohol and Drug Abuse Patient Records regulations: The Federal rules restrict any use of the information to criminally investigate or prosecute any alcohol or drug abuse patient.[facility] HospitalIn the event this information is protected by the Federal Confidentiality of Alcohol and Drug Abuse Patient Records regulations: The Federal rules restrict any use of the information to criminally investigate or prosecute any alcohol or drug abuse patient.[facility] HospitalIn the event this information is protected by the Federal Confidentiality of Alcohol and Drug Abuse Patient Records regulations: The Federal rules restrict any use of the information to criminally investigate or prosecute any alcohol or drug abuse patient.[facility] HospitalIn the event this information is protected by the Federal Confidentiality of Alcohol and Drug Abuse Patient Records regulations: The Federal rules restrict any use of the information to criminally investigate or prosecute any alcohol or drug abuse patient.[facility] HospitalIn the event this information is protected by the Federal Confidentiality of Alcohol and Drug Abuse Patient Records regulations: The Federal rules restrict any use of the information to criminally investigate or prosecute any alcohol or drug abuse patient.[facility] HospitalIn the event this information is protected by the Federal Confidentiality of Alcohol and Drug Abuse Patient Records regulations: The Federal rules restrict any use of the information to criminally investigate or prosecute any alcohol or drug abuse patient.[facility]In the event this information is protected by the Federal Confidentiality of Alcohol and Drug Abuse Patient Records regulations: The Federal rules restrict any use of the information to criminally investigate or prosecute any alcohol or drug abuse patient.[facility] HospitalIn the event this information is protected by the Federal Confidentiality of Alcohol and Drug Abuse Patient Records regulations: The Federal rules restrict any use of the information to criminally investigate or prosecute any alcohol or drug abuse patient.[facility] HospitalIn the event this information is protected by the Federal Confidentiality of Alcohol and Drug Abuse Patient Records regulations: The Federal rules restrict any use of the information to criminally investigate or prosecute any alcohol or drug abuse patient.[facility] HospitalIn the event this information is protected by the Federal Confidentiality of Alcohol and Drug Abuse Patient Records regulations: The Federal rules restrict any use of the information to criminally investigate or prosecute any alcohol or drug abuse patient.[facility] HospitalIn the event this information is protected by the Federal Confidentiality of Alcohol and Drug Abuse Patient Records regulations: The Federal rules restrict any use of the information to criminally investigate or prosecute any alcohol or drug abuse patient.[facility] HospitalIn the event this information is protected by the Federal Confidentiality of Alcohol and Drug Abuse Patient Records regulations: The Federal rules restrict any use of the information to criminally investigate or prosecute any alcohol or drug abuse patient.[facility] HospitalIn the event this information is protected by the Federal Confidentiality of Alcohol and Drug Abuse Patient Records regulations: The Federal rules restrict any use of the information to criminally investigate or prosecute any alcohol or drug abuse patient.[facility] HospitalIn the event this information is protected by the Federal Confidentiality of Alcohol and Drug Abuse Patient Records regulations: The Federal rules restrict any use of the information to criminally investigate or prosecute any alcohol or drug abuse patient.[facility] HospitalIn the event this information is protected by the Federal Confidentiality of Alcohol and Drug Abuse Patient Records regulations: The Federal rules restrict any use of the information to criminally investigate or prosecute any alcohol or drug abuse patient.[facility] HospitalIn the event this information is protected by the Federal Confidentiality of Alcohol and Drug Abuse Patient Records regulations: The Federal rules restrict any use of the information to criminally investigate or prosecute any alcohol or drug abuse patient.[facility] HospitalIn the event this information is protected by the Federal Confidentiality of Alcohol and Drug Abuse Patient Records regulations: The Federal rules restrict any use of the information to criminally investigate or prosecute any alcohol or drug abuse patient.[facility] HospitalIn the event this information is protected by the Federal Confidentiality of Alcohol and Drug Abuse Patient Records regulations: The Federal rules restrict any use of the information to criminally investigate or prosecute any alcohol or drug abuse patient.[facility] HospitalIn the event this information is protected by the Federal Confidentiality of Alcohol and Drug Abuse Patient Records regulations: The Federal rules restrict any use of the information to criminally investigate or prosecute any alcohol or drug abuse patient.[facility] HospitalIn the event this information is protected by the Federal Confidentiality of Alcohol and Drug Abuse Patient Records regulations: The Federal rules restrict any use of the information to criminally investigate or prosecute any alcohol or drug abuse patient.[facility] HospitalIn the event this information is protected by the Federal Confidentiality of Alcohol and Drug Abuse Patient Records regulations: The Federal rules restrict any use of the information to criminally investigate or prosecute any alcohol or drug abuse patient.[facility] HospitalIn the event this information is protected by the Federal Confidentiality of Alcohol and Drug Abuse Patient Records regulations: The Federal rules restrict any use of the information to criminally investigate or prosecute any alcohol or drug abuse patient.[facility] Reason for Visit (unrecogniz ed section and content) Reason Comments Results Biopsy Positive Reason Comments Breast Cancer Reason Comments Breast Cancer Reason Comments Established Patient Reason Comments Care Coordination Treatment Planning Reason Comments Breast Cancer left breast Specialty Diagnoses / Procedures Referred By Contac t Referred To Contact Diagnoses Breast cancer, right (HCC) Malignant neoplasm of right breast in female, estrogen receptor positive, unspecified site of breast (HCC) Cancer of breast, intraductal, left Cedrick Calix MD [address] [place] [address] [place] [address] Alberto Treat [address] [place] [address] Referral ID Status Reason Start Date Expiration Date V isits Requested Visits Authorized [id number] Authorized 01/04/2022 04/04/2022 99 99 Reason Comments Non-Chemotherapy Treatment Fulvestrant Reason Comments Care Coordination Injection Question Reason Comments Care Coordination Vaccine Update Reason Comments Care Coordination C1D1 Post Treatment Call Reason Comments Breast Cancer 4 week follow up Reason Comments Results Reason Comments Insurance Authorization Kisqali Reason Comments Future Appointment Reason Comments Breast Cancer Follow up after scan s Reason Comments Care Coordination Antiemetics Reason Comments Oral Anti-cancer Agent Education Ribocic mag Reason Comments Care Coordination Oral Anti-Cancer Age nt Follow Up Reason Comments Care Coordination Pt Concerns Reason Onset Date Comments Refill Request 01/20/2023 Reason Comments Breast Cancer Follow up Reason Comments Care Coordination Mouth Sores Reason Onset Date Comments Refill Request 01/26/2023 Reason Comments Care Coordination Multiple Issues Reason Comments Nutrition Telephone Reason Comments Breast Cancer 2 week follow up Reason Comments Social Work Services Reason Comments Breast Cancer 3 week follow up Reason Comments Refill Request Specialty Diagnoses / Procedures Referred By Contac t Referred To Contact Diagnoses Malignant neoplasm of right breast in female, estrogen receptor positive, unspecified site of breast (HCC) Malignant neoplasm of overlapping sites of both breasts in female, estrogen receptor positive (HCC) Cancer of breast, intraductal, left Megaloblastic anemia due to vitamin B12 deficiency Cedrick Calix MD [address] [place] [address] [place] [address] Alberto Treat Celia [address] [place] [address] Reason Onset Date Comments Refill Request 08/16/2023 Reason Comments Care Coordination Flu; Medication Ques tion Reason Comments Care Coordination Covid Positive Care Teams (unrecognized sec tion and content) Cotton Farmer Relationship Specialty Start Date End Date Wonderly, Kalee Guillen MD PCP - General Family Practice 12/13/14 Cotton Farmer Relationship Specialty Start Date End Date Wonderly, Kalee Guillen MD PCP - General Family Practice 12/13/14 Cotton Farmer Relationship Specialty Start Date End Date Wonderly, Kalee Guillen MD PCP - General Family Practice 12/13/14 Cotton Farmer Relationship Specialty Start Date End Date Wonderly, Kalee Guillen MD PCP - General Family Practice 12/13/14 Cotton Farmer Relationship Specialty Start Date End Date Wonderly, Kalee Guillen MD PCP - General Family Practice 12/13/14 Cotton Farmer Relationship Specialty Start Date End Date Wonderly, Kalee Guillen MD PCP - General Family Practice 12/13/14 Cotton Farmer Relationship Specialty Start Date End Date Wonderly, Kalee Guillen MD PCP - General Family Practice 12/13/14 Cedrick Calix MD [address] [place] [address] [place] [address] Physician Hematology/Oncology 01/08/22 Christ Marquez, UX CONSULTANT.[facility] [address] [place], [place] [id number] Nurse Practitioner Hematology/Oncology 01/08/22 Emily George, RN [address] [place] [address] Specialty Physician Obstetrician Hematology/Oncology 01/08/22 Cotton Farmer Relationship Specialty Start Date End Date Kalee Lerma MD PCP - General Family Practice 12/13/14 Cedrick Calix MD [address] [place] [address] Physician Hematology/Oncology 01/08/22 Christ Marquez, UX CONSULTANT.[employer] [address] [place] [address] Nurse Practitioner Hematology/Oncology 01/08/22 Emily George, CAROL [address] [place] [address] Specialty Physician Obstetrician Hematology/Oncology 01/08/22 Cotton Farmer Relationship Specialty Start Date End Date Kalee Lerma MD PCP - General Family Practice 12/13/14 Cedrick Calix MD [address] [place] [address] Physician Hematology/Oncology 01/08/22 Christ Marquez, UX CONSULTANT.[employer] [address] [place] [address] Nurse Practitioner Hematology/Oncology 01/08/22 Emily George, RN [address] [place] [address] Specialty Physician Obstetrician Hematology/Oncology 01/08/22 Cotton Farmer Relationship Specialty Start Date End Date Kalee Lerma MD PCP - General Family Practice 12/13/14 Cedrick Calix MD [address] [facility] [place] [address] Physician Hematology/Oncology 01/08/22 Christ Marquez, UX CONSULTANT.[employer] [address] [facility] [place] [address] Nurse Practitioner Hematology/Oncology 01/08/22 Emily George, RN [address] [facility] [address] [place], [place] [id number] Specialty Physician Obstetrician Hematology/Oncology 01/08/22 Cotton Farmer Relationship Specialty Start Date End Date Kalee Lerma MD PCP - General Family Practice 12/13/14 Cedrick Calix MD [address] [facility] [place] [address] Physician Hematology/Oncology 01/08/22 Christ Marquez, UX CONSULTANT.[facility] [employer] [address] [facility] [place] [address] Nurse Practitioner Hematology/Oncology 01/08/22 Emily George, RN [address] [facility] [place] [address] Specialty Physician Obstetrician Hematology/Oncology 01/08/22 Cotton Farmer Relationship Specialty Start Date End Date Kalee Lerma MD PCP - General Family Practice 12/13/14 Cedrick Calix MD [address] [facility] [place] [address] Physician Hematology/Oncology 01/08/22 Christ Marquez, UX CONSULTANT.[employer] [address] [place], [place] [id number] Nurse Practitioner Hematology/Oncology 01/08/22 Emily George, RN [address] [place] [address] Specialty Physician Obstetrician Hematology/Oncology 01/08/22 Cotton Farmer Relationship Specialty Start Date End Date Kalee Lerma MD PCP - General Family Practice 12/13/14 Cedrick Calix MD [address] [place] [address] Physician Hematology/Oncology 01/08/22 Christ Marquez, UX CONSULTANT.[employer] [address] [place] [address] Nurse Practitioner Hematology/Oncology 01/08/22 Emily George, CAROL [address] [place], [place] [id number] Specialty Physician Obstetrician Hematology/Oncology 01/08/22 Cotton Farmer Relationship Specialty Start Date End Date Kalee Lerma MD PCP - General Family Practice 12/13/14 Cedrick Calix MD [address] [place] [address] Physician Hematology/Oncology 01/08/22 Christ Marquez, UX CONSULTANT.[employer] [address] [place] [address] Nurse Practitioner Hematology/Oncology 01/08/22 Emily George, RN [address] [place] [address] Specialty Physician Obstetrician Hematology/Oncology 01/08/22 Cotton Farmer Relationship Specialty Start Date End Date Kalee Lerma MD PCP - General Family Practice 12/13/14 Cedrick Calix MD [address] [facility] [place] [address] Physician Hematology/Oncology 01/08/22 Christ Marquez, UX CONSULTANT.[facility] [employer] [address] [facility] [place] [address] Nurse Practitioner Hematology/Oncology 01/08/22 Emily George, RN [address] [facility] [place] [address] Specialty Physician Obstetrician Hematology/Oncology 01/08/22 Cotton Farmer Relationship Specialty Start Date End Date Kalee Lerma MD PCP - General Family Practice 12/13/14 Cedrick Calix MD [address] [facility] [address] [place], [place] [id number] Physician Hematology/Oncology 01/08/22 Christ Marquez, UX CONSULTANT.[employer] [address] [place] [address] Nurse Practitioner Hematology/Oncology 01/08/22 Emily George, RN [address] [place] [address] Specialty Physician Obstetrician Hematology/Oncology 01/08/22 Cotton Farmer Relationship Specialty Start Date End Date Kalee Lerma MD PCP - General Family Medicine 12/13/14 Cedrick Calix MD [address] [facility] [address] [place], [place] [id number] Physician Hematology/Oncology 01/08/22 Christ Marquez, UX CONSULTANT.[employer] [address] [place], [place] [id number] Nurse Practitioner Hematology/Oncology 01/08/22 Emily George, RN [address] [place] [address] Specialty Physician Obstetrician Hematology/Oncology 01/08/22 Cotton Farmer Relationship Specialty Start Date End Date Kalee Lerma MD PCP - General Family Medicine 12/13/14 Cedrick Calix MD [address] [place] [address] Physician Hematology/Oncology 01/08/22 Christ Marquez, UX CONSULTANT.[employer] [address] [place] [address] Nurse Practitioner Hematology/Oncology 01/08/22 Emily George, CAROL [address] [place] [address] Specialty Physician Obstetrician Hematology/Oncology 01/08/22 Cotton Farmer Relationship Specialty Start Date End Date Kalee Lerma MD PCP - General Family Medicine 12/13/14 Cedrick Calix MD [address] [place] [address] Physician Hematology/Oncology 01/08/22 Christ Marquez, UX CONSULTANT.[employer] [address] [place] [address] Nurse Practitioner Hematology/Oncology 01/08/22 Emily George, RN [address] [place], [place] [id number] Specialty Physician Obstetrician Hematology/Oncology 01/08/22 Cotton Farmer Relationship Specialty Start Date End Date Kalee Lerma MD PCP - General Family Medicine 12/13/14 Cedrick Calix MD [address] [place] [address] Physician Hematology/Oncology 01/08/22 Christ Marquez, UX CONSULTANT.[employer] [address] [place] [address] Nurse Practitioner Hematology/Oncology 01/08/22 Emily George, RN [address] [facility] [place] [address] Specialty Physician Obstetrician Hematology/Oncology 01/08/22 Cotton Farmer Relationship Specialty Start Date End Date Kalee Lerma MD PCP - General Family Medicine 12/13/14 Cedrick Calix MD [address] [place] [address] Physician Hematology/Oncology 01/08/22 Christ Marquez, UX CONSULTANT.QUILL SKINNER [address] [facility] [place] [address] Nurse Practitioner Hematology/Oncology 01/08/22 Emily George, RN [address] [facility] [place] [address] Specialty Physician Obstetrician Hematology/Oncology 01/08/22 Cotton Farmer Relationship Specialty Start Date End Date Kalee Lerma MD PCP - General Family Medicine 12/13/14 Cedrick Calix MD [address] [place] [address] Physician Hematology/Oncology 01/08/22 Christ Marquez, UX CONSULTANT.QUILL SKINNER [address] [place] [address] Nurse Practitioner Hematology/Oncology 01/08/22 Emily George, CAROL [address] [place] [address] Specialty Physician Obstetrician Hematology/Oncology 01/08/22 Cotton Farmer Relationship Specialty Start Date End Date Kalee Lerma MD PCP - General Family Medicine 12/13/14 Cedrick Calix MD [address] [place] [address] Physician Hematology/Oncology 01/08/22 Christ Marquez, UX CONSULTANT.QUILL SKINNER [address] [place] [address] Nurse Practitioner Hematology/Oncology 01/08/22 Emily George, CAROL [address] [place] [address] Specialty Physician Obstetrician Hematology/Oncology 01/08/22 Cotton Farmer Relationship Specialty Start Date End Date Kalee Lerma MD PCP - General Family Medicine 12/13/14 Cedrick Calix MD [address] [place] [address] Physician Hematology/Oncology 01/08/22 Christ Marquez, UX CONSULTANT.QUILL SKINNER [address] [place] [address] Nurse Practitioner Hematology/Oncology 01/08/22 Emily George, RN [address] [place] [address] Specialty Physician Obstetrician Hematology/Oncology 01/08/22 Cotton Farmer Relationship Specialty Start Date End Date Kalee Lerma MD PCP - General Family Medicine 12/13/14 Cedrick Calix MD [address] [facility] [place] [address] Physician Hematology/Oncology 01/08/22 Christ Marquez, UX CONSULTANT.QUILL SKINNER [address] [facility] [place] [address] Nurse Practitioner Hematology/Oncology 01/08/22 Emily George, RN [address] [facility] [place] [address] Specialty Physician Obstetrician Hematology/Oncology 01/08/22 Cotton Farmer Relationship Specialty Start Date End Date Kalee Lerma MD PCP - General Family Medicine 12/13/14 Cedrick Calix MD [address] [place] [address] Physician Hematology/Oncology 01/08/22 Christ Marquez, UX CONSULTANT.QUILL SKINNER [address] [facility] [place] [address] Nurse Practitioner Hematology/Oncology 01/08/22 Emily George, RN [address] [facility] [place] [address] Specialty Physician Obstetrician Hematology/Oncology 01/08/22 Cotton Farmer Relationship Specialty Start Date End Date Kalee Lerma MD PCP - General Family Medicine 12/13/14 Cedrick Calix MD [address] [facility] [place] [address] Physician Hematology/Oncology 01/08/22 Christ Marquez, UX CONSULTANT.QUILL SKINNER [address] [facility] [address] [place], [place] [id number] Nurse Practitioner Hematology/Oncology 01/08/22 Emily George, CAROL [address] [place] [address] Specialty Physician Obstetrician Hematology/Oncology 01/08/22 Cotton Farmer Relationship Specialty Start Date End Date Kalee Lerma MD PCP - General Family Medicine 12/13/14 Cedrick Calix MD [address] [place] [address] Physician Hematology/Oncology 01/08/22 Christ Marquez, UX CONSULTANT.QUILL SKINNER [address] [place] [address] Nurse Practitioner Hematology/Oncology 01/08/22 Emily George, CAROL [address] [place] [address] Specialty Physician Obstetrician Hematology/Oncology 01/08/22 Cotton Farmer Relationship Specialty Start Date End Date Kalee Lerma MD PCP - General Family Medicine 12/13/14 Cedrick Calix MD [address] [place] [address] Physician Hematology/Oncology 01/08/22 Christ Marquez, UX CONSULTANT.QUILL SKINNER [address] [place] [address] Nurse Practitioner Hematology/Oncology 01/08/22 Emily George, RN [address] [place] [address] Specialty Physician Obstetrician Hematology/Oncology 01/08/22 Cotton Farmer Relationship Specialty Start Date End Date Kalee Lerma MD PCP - General Family Medicine 12/13/14 Cedrick Calix MD [address] [place] [address] Physician Hematology/Oncology 01/08/22 Christ Marquez, UX CONSULTANT.QUILL SKINNER [address] [place] [address] Nurse Practitioner Hematology/Oncology 01/08/22 Emily George, CAROL [address] [place] [address] Specialty Physician Obstetrician Hematology/Oncology 01/08/22 Cotton Farmer Relationship Specialty Start Date End Date Kalee Lerma MD PCP - General Family Medicine 12/13/14 Cedrick Calix MD [address] [place] [address] Physician Hematology/Oncology 01/08/22 Christ Marquez, UX CONSULTANT.QUILL SKINNER [address] [place] [address] Nurse Practitioner Hematology/Oncology 01/08/22 Emily George, RN [address] [place] [address] Specialty Physician Obstetrician Hematology/Oncology 01/08/22 Cotton Farmer Relationship Specialty Start Date End Date Kalee Lerma MD PCP - General Family Medicine 12/13/14 Cedrick Calix MD [address] [place] [address] Physician Hematology/Oncology 01/08/22 Christ Marquez, UX CONSULTANT.[facility] [address] [place] [address] Nurse Practitioner Hematology/Oncology 01/08/22 Emily George, CAROL [address] [place] [address] Specialty Physician Obstetrician Hematology/Oncology 01/08/22 Cotton Farmer Relationship Specialty Start Date End Date Kalee Lerma MD PCP - General Family Medicine 12/13/14 Cedrick Calix MD [address] [place] [address] Physician Hematology/Oncology 01/08/22 Christ Marquez, UX CONSULTANT.QUILL SKINNER [address] [place] [address] Nurse Practitioner Hematology/Oncology 01/08/22 Emily George, CAROL [address] [place] [address] [place] [address] Specialty Physician Obstetrician Hematology/Oncology 01/08/22 Cotton Farmer Relationship Specialty Start Date End Date Kalee Lerma MD PCP - General Family Medicine 12/13/14 Cedrick Calix MD [address] [place] [address] Physician Hematology/Oncology 01/08/22 Christ Marquez, UX CONSULTANT.[facility] [address] [place] [address] Nurse Practitioner Hematology/Oncology 01/08/22 Emily George, RN [address] [place] [address] Specialty Physician Obstetrician Hematology/Oncology 01/08/22 Cotton Farmer Relationship Specialty Start Date End Date Kalee Lerma MD PCP - General Family Medicine 12/13/14 Cedrick Calix MD [address] [place] [address] Physician Hematology/Oncology 01/08/22 Christ Marquez, UX CONSULTANT.QUILL SKINNER [address] [place] [address] Nurse Practitioner Hematology/Oncology 01/08/22 Emily George, CAROL [address] [place] [address] Specialty Physician Obstetrician Hematology/Oncology 01/08/22 Cotton Farmer Relationship Specialty Start Date End Date Dany, Kalee Guillen MD PCP - General Family Medicine 12/13/14 Cedrick Calix MD [address] [place] [address] Physician Hematology/Oncology 01/08/22 Christ Marquez, UX CONSULTANT.QUILL SKINNER [address] [place] [address] Nurse Practitioner Hematology/Oncology 01/08/22 Emily George, RN [address] [place] [address] Specialty Physician Obstetrician Hematology/Oncology 01/08/22 Cotton Farmer Relationship Specialty Start Date End Date Kalee Lerma MD PCP - General Family Medicine 12/13/14 Cedrick Calix MD [address] [place] [address] Physician Hematology/Oncology 01/08/22 Christ Marquez, UX CONSULTANT.QUILL SKINNER [address] [place] [address] Nurse Practitioner Hematology/Oncology 01/08/22 Emily George, RN [address] [place] [address] Specialty Physician Obstetrician Hematology/Oncology 01/08/22 Cotton Farmer Relationship Specialty Start Date End Date Kalee Lerma MD PCP - General Family Medicine 12/13/14 Cedrick Calix MD [address] [place] [address] Physician Hematology/Oncology 01/08/22 Christ Marquez, UX CONSULTANT.QUILL SKINNER [address] [place] [address] Nurse Practitioner Hematology/Oncology 01/08/22 Emily George, RN [address] [place] [address] Specialty Physician Obstetrician Hematology/Oncology 01/08/22 Cotton Farmer Relationship Specialty Start Date End Date Kalee Lerma MD PCP - General Family Medicine 12/13/14 Cedrick Calix MD [address] [place] [address] [place] [address] Physician Hematology/Oncology 01/08/22 Christ Marquez, UX CONSULTANT.QUILL SKINNER [address] [place] [address] [place] [address] Nurse Practitioner Hematology/Oncology 01/08/22 Emily George, CAROL [address] [facility] [place] [address] Specialty Physician Obstetrician Hematology/Oncology 01/08/22 Cotton Farmer Relationship Specialty Start Date End Date Kalee Lerma MD PCP - General Family Medicine 12/13/14 Cedrick Calix MD [address] [facility] [place] [place] [address] Physician Hematology/Oncology 01/08/22 Christ Marquez, UX CONSULTANT.QUILL SKINNER [address] [facility] [place] [address] Nurse Practitioner Hematology/Oncology 01/08/22 Emily George, CAROL [address] [facility] [place] [address] Specialty Physician Obstetrician Hematology/Oncology 01/08/22 Cotton Farmer Relationship Specialty Start Date End Date Kalee Lerma MD PCP - General Family Medicine 12/13/14 Cedrick Calix MD [address] [facility] [place] [address] Physician Hematology/Oncology 01/08/22 Christ Marquez, UX CONSULTANT.QUILL SKINNER [address] [place] [address] Nurse Practitioner Hematology/Oncology 01/08/22 Emily George, CAROL [address] [facility] [place] [address] Specialty Physician Obstetrician Hematology/Oncology 01/08/22 Cotton Farmer Relationship Specialty Start Date End Date Kalee Lerma MD PCP - General Family Medicine 12/13/14 Cedrick Calix MD [address] [facility] [place] [address] Physician Hematology/Oncology 01/08/22 Christ Marquez, UX CONSULTANT.QUILL SKINNER [address] [facility] [place] [address] Nurse Practitioner Hematology/Oncology 01/08/22 Emily George, CAROL [address] [facility] [place] [address] Specialty Physician Obstetrician Hematology/Oncology 01/08/22 Herminia Reis LSW Audio Visual Technician 04/25/23 Cotton Farmer Relationship Specialty Start Date End Date Kalee Lerma MD PCP - General Family Medicine 12/13/14 Cedrick Calix MD [address] [facility] [place] [address] Physician Hematology/Oncology 01/08/22 Christ Marquez, UX CONSULTANT.QUILL SKINNER [address] [facility] [place] [address] Nurse Practitioner Hematology/Oncology 01/08/22 Emily George, RN [address] [facility] [place] [address] Specialty Physician Obstetrician Hematology/Oncology 01/08/22 Herimnia Reis LSW Audio Visual Technician 04/25/23 Cotton Farmer Relationship Specialty Start Date End Date Kalee Lerma MD PCP - General Family Medicine 12/13/14 Cedrick Calix MD [address] [place] [address] Physician Hematology/Oncology 01/08/22 Christ Marquez, UX CONSULTANT.QUILL SKINNER [address] [place] [address] Nurse Practitioner Hematology/Oncology 01/08/22 Emily George, CAROL [address] [place] [address] Specialty Physician Obstetrician Hematology/Oncology 01/08/22 Herminia Reis LSW Audio Visual Technician 04/25/23 Cotton Farmer Relationship Specialty Start Date End Date Kalee Lerma MD PCP - General Family Medicine 12/13/14 Cedrick Calix MD [address] [place] [address] [place] [address] Physician Hematology/Oncology 01/08/22 Christ Marquez, UX CONSULTANT.QUILL SKINNER [address] [facility] [place] [address] Nurse Practitioner Hematology/Oncology 01/08/22 Emily George, CAROL [address] [place] [address] Specialty Physician Obstetrician Hematology/Oncology 01/08/22 Herminia Reis LSW Audio Visual Technician 04/25/23 Cotton Farmer Relationship Specialty Start Date End Date Kalee Lerma MD PCP - General Family Medicine 12/13/14 Cedrick Calix MD [address] [facility] [place] [address] Physician Hematology/Oncology 01/08/22 Christ Marquez, UX CONSULTANT.QUILL SKINNER [address] [facility] [place] [address] Nurse Practitioner Hematology/Oncology 01/08/22 Emily George, CAROL [address] [facility] [place] [address] Specialty Physician Obstetrician Hematology/Oncology 01/08/22 Herminia Reis LSW Audio Visual Technician 04/25/23 Cotton Farmer Relationship Specialty Start Date End Date Kalee Lerma MD PCP - General Family Medicine 12/13/14 Cedrick Calix MD [address] [facility] [place] [address] Physician Hematology/Oncology 01/08/22 Christ Marquez, UX CONSULTANT.QUILL SKINNER [address] [facility] [place] [address] Nurse Practitioner Hematology/Oncology 01/08/22 Emily George, CAROL [address] [facility] [place] [address] Specialty Physician Obstetrician Hematology/Oncology 01/08/22 Herminia Reis LSW Audio Visual Technician 04/25/23 Cotton Farmer Relationship Specialty Start Date End Date Kalee Lerma MD PCP - General Family Medicine 12/13/14 Cedrick Calix MD [address] [facility] [place] [address] Physician Hematology/Oncology 01/08/22 Christ Marquez, UX CONSULTANT.QUILL SKINNER [address] [place] [address] Nurse Practitioner Hematology/Oncology 01/08/22 Emily George, CAROL [address] [facility] [place] [address] Specialty Physician Obstetrician Hematology/Oncology 01/08/22 Herminia Reis LSW Audio Visual Technician 04/25/23 Cotton Farmer Relationship Specialty Start Date End Date Kalee Lerma MD PCP - General Family Medicine 12/13/14 Cedrick Calix MD [address] [place] [address] Physician Hematology/Oncology 01/08/22 Christ Marquez, UX CONSULTANT.QUILL SKINNER [address] [place] [address] Nurse Practitioner Hematology/Oncology 01/08/22 Emily George RN [address] [place] [address] Specialty Physician Obstetrician Hematology/Oncology 01/08/22 Herminia Reis LSW Audio Visual Technician 04/25/23 Cotton Farmer Relationship Specialty Start Date End Date Kalee Lerma MD PCP - General Family Medicine 12/13/14 Cedrick Calix MD [address] [place] [address] Physician Hematology/Oncology 01/08/22 Christ Marquez, UX CONSULTANT.QUILL SKINNER [address] [facility] [place] [address] Nurse Practitioner Hematology/Oncology 01/08/22 Emily George, CAROL [address] [place] [address] Specialty Physician Obstetrician Hematology/Oncology 01/08/22 Herminia Reis, FACULT[employer] MEMBER Audio Visual Technician 04/25/23 Cotton Farmer Relationship Specialty Start Date End Date Kalee Lerma MD PCP - General Family Medicine 12/13/14 Cedrick Calix MD [address] [place] [address] Physician Hematology/Oncology 01/08/22 Christ Marquez, UX CONSULTANT.QUILL SKINNER [address] [place] [address] Nurse Practitioner Hematology/Oncology 01/08/22 Emily George RN [address] [place] [address] Specialty Physician Obstetrician Hematology/Oncology 01/08/22 Herminia Reis, EMMA Audio Visual Technician 04/25/23 Cotton Farmer Relationship Specialty Start Date End Date Kalee Lerma MD PCP - General Family Medicine 12/13/14 Cedrick Calix MD [address] [place] [address] Physician Hematology/Oncology 01/08/22 Christ Marquez, UX CONSULTANT.QUILL SKINNER [address] [place] [address] Nurse Practitioner Hematology/Oncology 01/08/22 Emily George, RN [address] [place] [address] Specialty Physician Obstetrician Hematology/Oncology 01/08/22 Herminia Reis LSW Audio Visual Technician 04/25/23 Cotton Farmer Relationship Specialty Start Date End Date Kalee Lerma MD PCP - General Family Medicine 12/13/14 Cedrick Calix MD [address] [facility] [place] [address] Physician Hematology/Oncology 01/08/22 Christ Marquez, UX CONSULTANT.QUILL SKINNER [address] [facility] [place] [address] Nurse Practitioner Hematology/Oncology 01/08/22 Emily George, CAROL [address] [facility] [place] [address] Specialty Physician Obstetrician Hematology/Oncology 01/08/22 Herminia Reis LSW Audio Visual Technician 04/25/23 Cotton Farmer Relationship Specialty Start Date End Date Kalee Lerma MD PCP - General Family Medicine 12/13/14 Cedrick Calix MD [address] [facility] [place] [address] Physician Hematology/Oncology 01/08/22 Christ Marquez, UX CONSULTANT.QUILL SKINNER [address] [facility] [place] [address] Nurse Practitioner Hematology/Oncology 01/08/22 Emily George, CAROL [address] [place] [address] [place] [address] Specialty Physician Obstetrician Hematology/Oncology 01/08/22 Herminia Reis LSW Audio Visual Technician 04/25/23 FOR RECORDS PERTAINING TO PATIENTS WHO ARE OR HAVE BEEN ENROLLED IN A CHEMICAL DEPENDENCY/SUBSTANCEABUSE PROGRAM, SOME INFORMATION MAY BE OMITTED. This clinical summary was aggregated from multiple sources. Caution should be exercised in using it in the provision of clinical care. This summary normalizes information from multiple sources, and as a consequence, information in this document may materially change the coding, format and clinical context of patient data. In addition, data may be omitted in some cases. CLINICAL DECISIONS SHOULD BE BASED ON THE PRIMARY CLINICAL RECORDS. [facility] [employer] [facility]. provides no warranty or guarantee of the accuracy or completeness of information in this document.
[2023-09-22] MEDS: LIDOCAINE HCL 10 ML, SODIUM BICARBONATE 1 MEQ INJ (11:20)
[2023-09-22] MEDS: BUPIVACAINE HCL 0.5% PF 50 MG/10 ML VIAL 2 ML INJ (11:20)
[2023-09-22] MEDS: TRIAMCINOLONE ACETONIDE 40 MG/ML VIAL INJ (11:20)
--- NOTE | 2023-09-22 15:15 | SUR.PREOP ---
08/03/23 Pt Pt instrcuted on procedure, date, time, and prep.
== END 2023-09-22 11:45 | disposition home or self-care (01) ==
LOC: FL 10:09
PROVIDERS: Radiology Diagnostic Radiology; PCP Family Medicine; Visit Provider Orthopaedic Surgery
DX: M16.12 Unilateral primary osteoarthritis, left hip (principal)
CPT/HCPCS: 20610; 77002; J0665; J3301; Q9967

== ENCOUNTER 2024-01-09 13:51 | Day surgery (SDC) | payer MEDICARE, SELFPAY ==
--- NOTE | 2024-01-09 13:55 | FL_ITS ---
The [address] [address] Patient Name: SELVIN LINARES MRN: [id number] date: 1945 Sex: F Assigned Patient Location: CT Current Patient Location: CT Accession/Order Number: [id number] Exam Date: 01/09/2024 14:30 Report Date: 01/09/2024 15:33 At the request of: EMETERIO BUTLER Procedure: FL guided needle placement EXAMINATION: FL hip inj LT, FL guided needle placement HISTORY: Left Hip Arthritis COMPARISON: No relevant comparison available. FLUOROSCOPY TIME: Fluoro time measures 0.9min and 3 images were obtained. TECHNIQUE: A joint injection was performed in the usual sterile manner after obtaining informed consent. Standard level fluoroscopic mode of operation utilized. FINDINGS: JOINT: Left hip. NEEDLE: 22 gauge, 3.5 spinal needle. MEDICATION: 6cc buffered 1% lidocaine for subcutaneous anesthesia 2cc Omnipaque-300 iodinated contrast to visualize the joint space Mixture of Kenalog 40 mg, 0.5% Bupivacaine 2 mL and Omnipaque 300 10mL was injected into the joint space. TECHNIQUE: Anterior approach with prior localization of the femoral artery. A single stick was successful in gaining access to the joint space. CLINICAL: 6 out of 10 pain before the injection. 2 out of 10 pain following the injection COMPLICATIONS: None. OTHER: Negative. FL/FL guided needle placement IMPRESSION: Technically successful left hip therapeutic arthrogram Electronically authenticated by: KRISHNA MATHEWS Date: 01/09/2024 15:33
--- NOTE | 2024-01-09 13:55 | FL_ITS ---
The [address] [address] Patient Name: SELVIN LINARES MRN: [id number] date: 1945 Sex: F Assigned Patient Location: [place] Current Patient Location: [place] Accession/Order Number: [id number] Exam Date: 01/09/2024 14:30 Report Date: 01/09/2024 15:33 At the request of: EMETERIO BUTLER Procedure: FL hip inj LT EXAMINATION: FL hip inj LT, FL guided needle placement HISTORY: Left Hip Arthritis COMPARISON: No relevant comparison available. FLUOROSCOPY TIME: Fluoro time measures 0.9min and 3 images were obtained. TECHNIQUE: A joint injection was performed in the usual sterile manner after obtaining informed consent. Standard level fluoroscopic mode of operation utilized. FINDINGS: JOINT: Left hip. NEEDLE: 22 gauge, 3.5 spinal needle. MEDICATION: 6cc buffered 1% lidocaine for subcutaneous anesthesia 2cc Omnipaque-300 iodinated contrast to visualize the joint space Mixture of Kenalog 40 mg, 0.5% Bupivacaine 2 mL and Omnipaque 300 10mL was injected into the joint space. TECHNIQUE: Anterior approach with prior localization of the femoral artery. A single stick was successful in gaining access to the joint space. CLINICAL: 6 out of 10 pain before the injection. 2 out of 10 pain following the injection COMPLICATIONS: None. OTHER: Negative. FL/FL hip inj LT IMPRESSION: Technically successful left hip therapeutic arthrogram Electronically authenticated by: KRISHNA MATHEWS Date: 01/09/2024 15:33
--- NOTE | 2024-01-09 15:33 | SUR.PREOP ---
01/02/24 Pt instructed on date, time, prep, and procedure.
== END 2024-01-09 15:20 | disposition home or self-care (01) ==
LOC: FL 13:51
PROVIDERS: Radiology Diagnostic Radiology; PCP Family Medicine; Visit Provider Orthopaedic Surgery
DX: M16.12 Unilateral primary osteoarthritis, left hip (principal)
CPT/HCPCS: 20610; 77002; Q9967

== ENCOUNTER 2024-02-01 12:52 | Outpatient (RCR) | payer MEDICARE, SELFPAY | END 2024-02-02 16:24 | disposition home or self-care (01) | LOC: OT 12:52 | PROVIDERS: PCP Family Medicine | DX: I97.2 Postmastectomy lymphedema syndrome (principal) | CPT/HCPCS: 97165; 97535 ==